=== PATIENT | female | born 1945 | race Hispanic/Latino ===

== ENCOUNTER → 2019-03-11 16:17 | Outpatient (CLI) | payer MEDICARE, SELFPAY ==
--- NOTE | 2019-03-11 16:24 | US_ITS ---
STUDY: ULTRASOUND OF THE FEMALE PELVIS - COMPLETE REASON FOR EXAM: Female, 73 years old. Left lower quadrant pain. LMP: Postmenopausal. TECHNIQUE: Transabdominal. TECHNICAL QUALITY: Adequate. COMPARISON: None. FINDINGS: The uterus is anteverted and is in a midline position. The uterus measures 5.7 x 4.9 x 2.1 cm. Normal uterine cervix. The endometrium measures 1.7 mm in thickness, and is mildly hyperechoic.. There is no demonstrated endometrial mass. There is no demonstrated myometrial mass. I.U.D. - The patient does not have an I.U.D. The right ovary is visualized. The right ovary measures 4.8 x 3.8 x 2.9 cm and is near completely replaced with a 3.6 x 3.1 x 2.8 cm anechoic avascular focus. There is no visualized right adnexal mass or complex lesion. There is appropriate dopplerable vascular flow to the right ovary. The left ovary is non-visualized.. There is no fluid in the cul-de-sac. Regions of the urinary bladder included within the [id number] demonstrate unremarkable morphology and signal characteristics. US/Pelvic (Non ) IMPRESSION: Unremarkable appearing uterus and endometrial stripe by transabdominal exam. Technically limited examination as the left ovary is nonvisualized. Right ovary near completely replaced with a 3.6 cm maximum dimension cystic focus. As this focus exceeds 2.5 cm, follow-up is highly recommended. Alternatively pelvic MRI at this time for better characterization may be helpful. No fluid in the cul-de-sac. Electronically Signed: Tal Ordonez MD at 16:54 EDT , Service support ,
== END ==
DX: R10.32 Left lower quadrant pain (principal)
CPT/HCPCS: 76856

== ENCOUNTER → 2019-04-03 14:38 | Outpatient (CLI) | payer MEDICARE, SELFPAY ==
[2019-04-04 10:27] LABS: Cancer Antigen 125 10.5 U/mL (0.0-38.1)
== END ==
PROVIDERS: Visit Provider Obstetrics & Gynecology
DX: D39.11 Neoplasm of uncertain behavior of right ovary (principal); R10.2 Pelvic and perineal pain
CPT/HCPCS: 36415; 86304

== ENCOUNTER → 2019-05-13 16:07 | Outpatient (CLI) | payer MEDICARE, SELFPAY ==
[2019-05-16 12:07] LABS: Cancer Antigen 125 10.3 U/mL (0.0-38.1)
== END ==
PROVIDERS: Visit Provider Obstetrics & Gynecology
DX: D39.11 Neoplasm of uncertain behavior of right ovary (principal)
CPT/HCPCS: 36415; 86304

== ENCOUNTER → 2019-11-21 08:07 | Outpatient (CLI) | payer MEDICARE, SELFPAY ==
[2019-11-21 08:48] LABS: Absolute Lymphocyte Count 2.94 X10^3/uL (0.83-4.51); Absolute Neutrophil Count 4.5 X10^3/uL (2.0-7.7); Basophil# 0.05 X10^3/uL; Basophil% 0.6 % (0-1); Eosinophil# 0.58 X10^3/uL; Eosinophils% 6.6 % (0-5); Hematocrit 38.6 % (37-47); Hemoglobin 12.5 g/dL (12.0-15.0); Lymphocyte # 2.94 X10^3/ul (4.0); Lymphocyte % 33.5 % (19-41); Mean Corp Hgb Conc 32.4 g/dL (32-36); Mean Corpuscular Volume 89.6 fL (81-99); Mean Platelet Vol. 8.4 fl (6.2-12.0); Monocyte# 0.72 X10^3/uL; Monocyte% 8.2 % (0-10); NRBC Flagged by Analyzer 0 % (0-5); Neutrophil # 4.45 X10^3/uL (2.7-7.7); Neutrophil % 50.8 % (47-70); Platelet Count 296 K/mm3 (150-450); RBC Distribution Width CV 13.7 % (11.6-14.6); RBC Distribution Width SD 45.1 fl (35.1-43.9); Red Blood Count 4.31 M/mm3 (4.2-5.4); White Blood Count 8.8 K/mm3 (4.4-11.0)
[2019-11-21 09:26] LABS: Vitamin D,25 Hydroxy 46.1 ng/mL (29.95-100.01)
[2019-11-21 09:32] LABS: ALB/GLOB Ratio 0.9 RATIO (0.9-2.4); AST(SGOT) 20 U/L (15-37); Alanine Aminotransfer ALT/SGPT 25 U/L (13-56); Albumin, Serum 3.6 g/dL (3.2-5.0); Alkaline Phosphatase 78 U/L (45-117); Anion Gap 4 (5-15); BUN 17 mg/dL (7-18); BUN/Creat Ratio 27.4 RATIO (10-20); Calcium,Total 9.3 mg/dL (8.5-10.1); Chloride 106 mmol/L (98-107); Cholesterol 233 mg/dL (200); Creatinine, Serum 0.62 mg/dL (0.55-1.02); EST Glomerular Filtration Rate 100 mL/min (>60); Est Glom Filt Rate - Afr Amer 121 mL/min (>60); Globulin 4.1 g/dL (2.2-4.2); Glucose 103 mg/dL (74-106); High Density Lipoprotein 75 mg/dL; Potassium 4.8 mmol/L (3.5-5.1); Protein, Total 7.7 g/dL (6.4-8.2); Sodium Level 138 mmol/L (136-145); Thyroid Stim Hormone (TSH) 1.06 uIU/mL (0.358-3.74); Triglycerides 277 mg/dL; Very Low Density Lipoprotein 55 mg/dL (5-40)
== END ==
DX: E55.9 Vitamin D deficiency, unspecified (principal); E78.5 Hyperlipidemia, unspecified; I10 Essential (primary) hypertension; E03.9 Hypothyroidism, unspecified
CPT/HCPCS: 36415; 80053; 80061; 82306; 84443; 85025

== ENCOUNTER → 2019-11-26 16:23 | Outpatient (CLI) | payer MEDICARE, SELFPAY ==
--- NOTE | 2019-11-26 16:25 | BI_ITS ---
MAMMOGRAPHY - BILATERAL SCREENING REASON FOR EXAM: Female, 74 years old. Routine annual screening examination. PERTINENT HISTORY: Sister with breast cancer. TECHNIQUE: Digital bilateral breast pop (3D mammographic acquisition) in the CC and MLO projections. 2-D mediolateral oblique (MLO) and craniocaudad (CC) views of both breasts were obtained. CAD: Full Field Digital Mammography with Computer Added Detection was performed. COMPARISON: Comparison is made with prior outside examination dated December 11, 2017. FINDINGS: Breast Composition: There are scattered areas of fibroglandular density. There are no dominant masses or suspicious calcifications. Once again, there is asymmetry of breast tissue were more breast tissue is seen in the upper outer quadrant of the right breast as compared to the left side. This is unchanged. No other significant abnormalities are identified. There has been no significant change since the prior study. BI/SCREEN MAMM (CAD) W/POP BILAT IMPRESSION: Stable bilateral screening mammogram. Yearly follow-up mammogram recommended. (A) ASSESSMENT CATEGORY: BIRADS Category 2: Benign. A letter regarding these results will be sent to the patient by the facility within 30 days. Approximately 10% of breast cancers are not detected by mammography. A normal mammogram should not delay biopsy of a clinically suspicious abnormality. [id number] Electronically Signed: Keaton Christopher, at 10:49 EST , Service support ,
== END ==
DX: Z12.31 Encounter for screening mammogram for malignant neoplasm of breast (principal)
CPT/HCPCS: 77063; 77067

== ENCOUNTER → 2020-06-29 09:09 | Outpatient (CLI) | payer MEDICARE, SELFPAY ==
[2020-06-29 12:25] LABS: Absolute Lymphocyte Count 2.64 X10^3/uL (0.83-4.51); Absolute Neutrophil Count 4.6 X10^3/uL (2.0-7.7); Basophil# 0.03 X10^3/uL; Basophil% 0.4 % (0-1); Eosinophil# 0.32 X10^3/uL; Eosinophils% 3.8 % (0-5); Hematocrit 38.7 % (37-47); Hemoglobin 12.5 g/dL (12.0-15.0); Lymphocyte # 2.64 X10^3/ul (4.0); Lymphocyte % 31.5 % (19-41); Mean Corp Hgb Conc 32.3 g/dL (32-36); Mean Corpuscular Hgb 28.8 pg (27.0-32.0); Mean Corpuscular Volume 89.2 fL (81-99); Mean Platelet Vol. 8.9 fl (6.2-12.0); Monocyte# 0.76 X10^3/uL; Monocyte% 9.1 % (0-10); NRBC Flagged by Analyzer 0 % (0-5); Neutrophil # 4.59 X10^3/uL (2.7-7.7); Neutrophil % 54.6 % (47-70); Platelet Count 337 K/mm3 (150-450); RBC Distribution Width CV 13.1 % (11.6-14.6); RBC Distribution Width SD 42.9 fl (35.1-43.9); Red Blood Count 4.34 M/mm3 (4.2-5.4); White Blood Count 8.4 K/mm3 (4.4-11.0)
[2020-06-29 12:39] LABS: Vitamin D,25 Hydroxy 67.8 ng/mL
[2020-06-29 13:20] LABS: ALB/GLOB Ratio 0.9 RATIO (0.9-2.4); AST(SGOT) 22 U/L (15-37); Alanine Aminotransfer ALT/SGPT 27 U/L (13-56); Albumin, Serum 3.9 g/dL (3.2-5.0); Alkaline Phosphatase 76 U/L (45-117); Anion Gap 10 (5-15); BUN 18 mg/dL (7-18); BUN/Creat Ratio 25.8 RATIO (10-20); Calcium,Total 9.2 mg/dL (8.5-10.1); Chloride 104 mmol/L (98-107); Cholesterol 245 mg/dL (200); EST Glomerular Filtration Rate 87 mL/min (>60); Est Glom Filt Rate - Afr Amer 106 mL/min (>60); Globulin 4.4 g/dL (2.2-4.2); Glucose 99 mg/dL (74-106); High Density Lipoprotein 76 mg/dL; Magnesium 2.1 mg/dL (1.6-2.6); Potassium 4.1 mmol/L (3.5-5.1); Protein, Total 8.3 g/dL (6.4-8.2); Sodium Level 136 mmol/L (136-145); Thyroid Stim Hormone (TSH) 0.23 uIU/mL (0.358-3.74); Triglycerides 159 mg/dL; Very Low Density Lipoprotein 32 mg/dL (5-40)
== END ==
PROVIDERS: PCP Family Medicine; Visit Provider Family Medicine
DX: I10 Essential (primary) hypertension (principal); E78.5 Hyperlipidemia, unspecified; E03.9 Hypothyroidism, unspecified; M85.80 Other specified disorders of bone density and structure, unspecified site
CPT/HCPCS: 36415; 80053; 80061; 82306; 83735; 84443; 85025

== ENCOUNTER → 2020-08-31 10:21 | Outpatient (CLI) | payer MEDICARE, SELFPAY ==
[2020-08-31 13:26] LABS: Free T3 1.9 pg/mL (2.18-3.98); T4 Free Direct 1.07 ng/dL (0.76-1.46); Thyroid Stim Hormone (TSH) 4.07 uIU/mL (0.358-3.74)
== END ==
PROVIDERS: PCP Family Medicine; Visit Provider Family Medicine
DX: E03.9 Hypothyroidism, unspecified (principal)
CPT/HCPCS: 36415; 84439; 84443; 84481

== ENCOUNTER → 2020-09-03 12:41 | Outpatient (CLI) | payer MEDICARE, MEDICAID, SELFPAY ==
--- NOTE | 2020-09-03 12:46 | RAD_ITS ---
STUDY: X-RAY - RIGHT KNEE REASON FOR EXAM: Female, 75 years old. PAIN FOR 1 YEAR -- NO INJURY TECHNIQUE: 3 view(s) of the knee. COMPARISON: None. FINDINGS: Normal visualized distal femur. Normal visualized proximal tibia and fibula. Normal proximal tibiofibular articulation. There is mild degenerative arthrosis of the medial femorotibial compartment. There is a small density in the lateral compartment that could represent a meniscal ossicle. Small osseous densities lateral to the lateral tibial plateau may be sequela of previous injury or accessory ossicles. There is moderate degenerative arthrosis of the patellofemoral articulation. The soft tissue structures are unremarkable. RAD/Knee 4 or More Views IMPRESSION: 1. Mild degenerative changes. No sizable joint effusion. Electronically Signed: Kenneth Child MD ([place]) at 8:50 EDT , Service support ,
== END ==
PROVIDERS: PCP Family Medicine; Referring Provider Family Medicine; Visit Provider Family Medicine
DX: M25.561 Pain in right knee (principal)
CPT/HCPCS: 73564

== ENCOUNTER → 2020-12-21 17:00 | Outpatient (CLI) | payer MEDICARE, MEDICAID, SELFPAY ==
--- NOTE | 2020-12-21 17:00 | BI_ITS ---
MAMMOGRAPHY - BILATERAL SCREENING REASON FOR EXAM: Female, 75 years old. Routine annual screening examination. PERTINENT HISTORY: Sister with breast cancer. TECHNIQUE: Digital bilateral breast pop (3D mammographic acquisition) in the CC and MLO projections. 2-D mediolateral oblique (MLO) and craniocaudad (CC) views of both breasts were obtained. CAD: Full Field Digital Mammography with Computer Added Detection was performed. COMPARISON: Comparison is made with prior study dated 11/26/2019. FINDINGS: Breast Composition: There are scattered areas of fibroglandular density. There are no dominant masses or suspicious calcifications. Stable asymmetry of breast tissue where more breast tissue is seen in the upper outer quadrant of the right breast as compared to the left side. Stable benign-appearing bilateral axillary lymph nodes. No other significant abnormalities are identified. There has been no significant change since the prior study. BI/SCRN MAMM (CAD)W/POP BILAT IMPRESSION: Stable bilateral screening mammogram. Yearly follow-up mammogram recommended. (A) ASSESSMENT CATEGORY: BIRADS Category 2: Benign. A letter regarding these results will be sent to the patient by the facility within 30 days. Approximately 10% of breast cancers are not detected by mammography. A normal mammogram should not delay biopsy of a clinically suspicious abnormality. [id number] Electronically Signed: Keaton Christopher MD at 8:46 EST , Service support ,
== END ==
PROVIDERS: PCP Family Medicine; Referring Provider Family Medicine; Visit Provider Family Medicine
DX: Z12.31 Encounter for screening mammogram for malignant neoplasm of breast (principal); Z80.3 Family history of malignant neoplasm of breast
CPT/HCPCS: 77063; 77067

== ENCOUNTER 2021-01-17 12:41 | Outpatient (RCR) | payer MEDICARE, SELFPAY | END 2021-01-17 23:59 | LOC: IMMUN 12:41 | PROVIDERS: PCP Family Medicine; Visit Provider Family Medicine | DX: Z23 Encounter for immunization (principal) | CPT/HCPCS: 0011A; 0012A ==

== ENCOUNTER → 2021-03-04 15:25 | Outpatient (CLI) | payer MEDICARE, SELFPAY ==
[2021-03-04 17:54] LABS: Anion Gap 4 (5-15); BUN 12 mg/dL (7-18); BUN/Creat Ratio 20.4 RATIO (10-20); Calcium,Total 9.3 mg/dL (8.5-10.1); Chloride 105 mmol/L (98-107); Creatinine, Serum 0.59 mg/dL (0.55-1.02); EST Glomerular Filtration Rate 106 mL/min (>60); Est Glom Filt Rate - Afr Amer 129 mL/min (>60); Glucose 81 mg/dL (74-106); Sodium Level 138 mmol/L (136-145)
== END ==
PROVIDERS: PCP Family Medicine; Visit Provider Family Medicine
DX: E87.5 Hyperkalemia (principal)
CPT/HCPCS: 36415; 80048

== ENCOUNTER → 2021-03-10 14:04 | Outpatient (CLI) | payer MEDICARE, MEDICAID, SELFPAY ==
--- NOTE | 2021-03-10 14:06 | US_ITS ---
STUDY: ULTRASOUND OF THE FEMALE PELVIS - COMPLETE REASON FOR EXAM: Female, 75 years old. LLQ PAIN TECHNIQUE: Endovaginal TECHNICAL QUALITY: Adequate. COMPARISON: None. FINDINGS: The uterus is retroverted and is in a midline position. The uterus measures 5.6 x 4.0 x 2.0 cm. Normal uterine cervix. The endometrium measures 2.6 mm in thickness, and is hyperechoic. There is no demonstrated endometrial mass. There is a lower uterine by millimeter probable fibroid.. I.U.D. - The patient does not have an I.U.D. The right ovary is visualized. The right ovary measures 4.4 x 3.9 x 2.9 cm. There is a 4 x 3.3 x 2.6 cm right adnexal cystic lesion. There is normal arterial and normal venous vascularity. The left ovary is visualized. The left ovary measures 2.3 x 2.3 x 1.1 cm. There is no left ovarian cyst or ovarian mass. There is no visualized left adnexal mass or complex lesion. There is normal arterial and normal venous vascularity. There is no fluid in the cul-de-sac. US/Pelvic (Non ) IMPRESSION: Retroverted uterus with small lower uterine fibroid. Right adnexal cystic lesion. Electronically Signed: Leonard Govea DO at 16:31 EDT Tel [phone], Service support ,
--- NOTE | 2021-03-10 14:55 | US_ITS ---
STUDY: ULTRASOUND OF THE FEMALE PELVIS - COMPLETE REASON FOR EXAM: Female, 75 years old. LLQ PAIN TECHNIQUE: Endovaginal TECHNICAL QUALITY: Adequate. COMPARISON: None. FINDINGS: The uterus is retroverted and is in a midline position. The uterus measures 5.6 x 4.0 x 2.0 cm. Normal uterine cervix. The endometrium measures 2.6 mm in thickness, and is hyperechoic. There is no demonstrated endometrial mass. There is a lower uterine by millimeter probable fibroid.. I.U.D. - The patient does not have an I.U.D. The right ovary is visualized. The right ovary measures 4.4 x 3.9 x 2.9 cm. There is a 4 x 3.3 x 2.6 cm right adnexal cystic lesion. There is normal arterial and normal venous vascularity. The left ovary is visualized. The left ovary measures 2.3 x 2.3 x 1.1 cm. There is no left ovarian cyst or ovarian mass. There is no visualized left adnexal mass or complex lesion. There is normal arterial and normal venous vascularity. There is no fluid in the cul-de-sac. US/Transvaginal Non- IMPRESSION: Retroverted uterus with small lower uterine fibroid. Right adnexal cystic lesion. Electronically Signed: Leonard Govea DO at 16:31 EDT Tel [phone], Service support ,
== END ==
PROVIDERS: PCP Family Medicine; Referring Provider Family Medicine; Visit Provider Family Medicine
DX: R10.32 Left lower quadrant pain (principal)
CPT/HCPCS: 76830; 76856

== ENCOUNTER → 2021-10-05 08:34 | Outpatient (CLI) | payer MEDICARE, MEDICAID, SELFPAY ==
[2021-10-05 12:37] LABS: Absolute Lymphocyte Count 2.37 X10^3/uL (0.83-4.51); Absolute Neutrophil Count 4.4 X10^3/uL (2.0-7.7); Basophil# 0.04 X10^3/uL; Basophil% 0.5 % (0-1); Eosinophil# 0.34 X10^3/uL; Eosinophils% 4.4 % (0-5); Hematocrit 38.1 % (37-47); Hemoglobin 12.5 g/dL (12.0-15.0); Lymphocyte # 2.37 X10^3/ul (0.83-4.51); Lymphocyte % 30.5 % (19-41); Mean Corp Hgb Conc 32.8 g/dL (32-36); Mean Corpuscular Hgb 29.1 pg (27.0-32.0); Mean Corpuscular Volume 88.6 fL (81-99); Mean Platelet Vol. 8.7 fl (6.2-12.0); Monocyte# 0.61 X10^3/uL; Monocyte% 7.8 % (0-10); NRBC Flagged by Analyzer 0 % (0-5); Neutrophil # 4.39 X10^3/uL (2.7-7.7); Neutrophil % 56.4 % (47-70); Platelet Count 359 K/mm3 (150-450); RBC Distribution Width CV 13.4 % (11.6-14.6); RBC Distribution Width SD 43.8 fl (35.1-43.9); White Blood Count 7.8 K/mm3 (4.4-11.0)
[2021-10-05 13:10] LABS: ALB/GLOB Ratio 0.8 RATIO (0.9-2.4); AST(SGOT) 19 U/L (15-37); Alanine Aminotransfer ALT/SGPT 25 U/L (13-56); Albumin, Serum 3.4 g/dL (3.2-5.0); Alkaline Phosphatase 87 U/L (45-117); Anion Gap 6 (5-15); BUN 15 mg/dL (7-18); BUN/Creat Ratio 26.1 RATIO (10-20); Calcium,Total 9.4 mg/dL (8.5-10.1); Chloride 105 mmol/L (98-107); Cholesterol 301 mg/dL (200); Creatinine, Serum 0.57 mg/dL (0.55-1.02); EST Glomerular Filtration Rate 109 mL/min (>60); Est Glom Filt Rate - Afr Amer 132 mL/min (>60); Free T3 2.3 pg/mL (2.18-3.98); Globulin 4.1 g/dL (2.2-4.2); Glucose 99 mg/dL (74-106); High Density Lipoprotein 77 mg/dL; Magnesium 2.1 mg/dL (1.6-2.6); Potassium 4.6 mmol/L (3.5-5.1); Protein, Total 7.5 g/dL (6.4-8.2); Sodium Level 136 mmol/L (136-145); T4 Free Direct 1.06 ng/dL (0.76-1.46); Thyroid Stim Hormone (TSH) 0.35 uIU/mL (0.358-3.74); Triglycerides 123 mg/dL; Very Low Density Lipoprotein 25 mg/dL (5-40)
[2021-10-05 14:52] LABS: Vitamin D,25 Hydroxy 51.1 ng/mL
== END ==
PROVIDERS: PCP Internal Medicine; Referring Provider Internal Medicine; Visit Provider Internal Medicine
DX: E03.9 Hypothyroidism, unspecified (principal); M19.90 Unspecified osteoarthritis, unspecified site; E78.5 Hyperlipidemia, unspecified; E55.9 Vitamin D deficiency, unspecified
CPT/HCPCS: 36415; 80053; 80061; 82306; 83735; 84439; 84443; 84481; 85025

== ENCOUNTER 2022-01-12 20:03 | Observation (INO) | payer MEDICARE, MEDICAID, SELFPAY ==
[2022-01-12 20:03] VITALS: BP 176/74; PULSE 77; RESP 16; TEMP 36.7; O2SAT 98; BMI 23.6
--- NOTE | 2022-01-12 20:23 | EKG12_ITS ---
Test Reason : CP Blood Pressure : / mmHG Vent. Rate : 075 BPM Atrial Rate : 075 BPM P-R Int : 178 ms QRS Dur : 124 ms QT Int : 374 ms P-R-T Axes : 043 063 011 degrees QTc Int : 417 ms Normal sinus rhythm Right bundle branch block Abnormal ECG Confirmed by EMANI TEJADA, BEN ([id number]), newspaper editor CORONA TYLER ([id number]) on 01/16/2022 11:38:35 AM Referred By: SHAW Confirmed By:BEN JOAQUIN MD
--- NOTE | 2022-01-12 20:24 | ED.VIS.CHEST ---
HPI <HARINDER Haas - Last Filed: 01/12/22 21:13> History of Present Illness Chief Complaint: Chest Pain Narrative Narrative: 76-year-old female with PMH of hypothyroidism, hyperlipidemia, essential tremor presents with chest pain. 3 days ago she developed aching pain in her left upper back. Then today this morning she also developed left sided chest pressure. It comes and goes throughout the day and lasts about 10 minutes. It is not exertional. It is worse with taking a deep breath. She has no shortness of breath or dyspnea on exertion. No nausea, vomiting, or diaphoresis. No fever or cough. No leg pain or swelling. No history of DVT/PE or risk factors. She has no cardiopulmonary history. Never smoker. PFSH <HARINDER Haas - Last Filed: 01/12/22 21:13> PFS Medical History Arthritis History of fracture History of hemorrhoids Hyperlipemia Hypothyroidism Osteopenia Tremor Vitamin D deficiency Home Medications aspirin 81 mg tablet,delayed release 81 mg PO DAILY 09/30/21 [History Last Taken Unknown] cholecalciferol (vitamin D3) 1,250 mcg (50,000 unit) capsule 50,000 mcg PO .[id number] cap 09/30/21 [History Last Taken Unknown] omega-3 acid ethyl esters 1 gram capsule 0.5 g PO DAILY 09/30/21 [History Last Taken Unknown] atorvastatin 10 mg tablet 10 mg PO QHS #90 tab 10/11/21 [Rx Last Taken Unknown] calcium carbonate 600 mg-vitamin D3 12.5 mcg (500 unit) capsule 1 cap PO BID cap 11/02/21 [History Last Taken Unknown] levothyroxine 75 mcg tablet 75 mcg PO DAILY 11/02/21 [History Last Taken Unknown] multivitamin with minerals 1 tab PO BID tab 11/02/21 [History Last Taken Unknown] primidone 50 mg tablet 100 mg PO QHS tab 11/02/21 [History Last Taken Unknown] Allergy/AdvReac Type Severity Reaction Status Date / Time No Known Allergies Allergy Verified 01/12/22 20:06 Family History Other Alcoholism Anemia Breast cancer Cancer Depression Diabetes Osteoporosis Parkinson disease Thyroid disorder Surgical History History of tubal ligation Social History Smoking Status: Never smoker ROS <HARINDER Haas - Last Filed: 01/12/22 21:13> ROS ED ROS Narrative Constitutional: Negative for fever, chills, malaise. Eyes: Negative for visual change. ENT: Negative for sore throat, ear pain, rhinorrhea. CVS: Positive for chest pain. Negative for palpitations, syncope. Respiratory: Negative for shortness of breath, cough, orthopnea. GI: Negative for abdominal pain, nausea, vomiting, diarrhea, constipation, melena, hematochezia. : Negative for dysuria, hematuria or frequency. Neuro: Negative for headache, motor/sensory dysfunction. Skin: Negative for rash, abscess, or wound. Musc: Negative for joint pain, swelling, trauma. Heme: Negative for easy bruising, bleeding, lymphadenopathy. EXAM <HARINDER Haas - Last Filed: 01/12/22 21:13> Physical Exam Narrative Exam Narrative: CONST: Patient sitting in no acute distress. EYES: Normal inspection. ENT: Normal inspection, moist mucous membranes. NECK: Normal inspection. RESP: No respiratory distress, CTAB. Chest wall nontender. CVS: Regular rate and rhythm, no murmur, no gallop. ABD: Soft and nontender, no guarding or rebound, nondistended, no hepatosplenomegaly. Back: Normal inspection, no midline spinal tenderness, no step off or crepitus. Reproducible tenderness over left trapezius. SKIN: Color normal, no rash, warm, dry, intact. EXTREMITIES: Normal appearance, no pedal edema. No calf tenderness. NEURO: Oriented x4. PSYCH: Normal affect. Const Vital Signs: 01/12/22 20:03 01/12/22 20:25 01/12/22 20:36 Temperature 98.1 F Temperature Source Temporal Pulse Rate 77 Respiratory Rate 16 Respiratory Effort Normal Non-Labored Respiratory Pattern Normal Blood Pressure 176/74 H Blood Pressure Mean 108 Pulse Ox 98 Oxygen Delivery Method Room Air Room Air 01/12/22 21:03 Temperature Temperature Source Pulse Rate 66 Respiratory Rate 21 H Respiratory Effort Respiratory Pattern Blood Pressure 144/65 H Blood Pressure Mean 91 Pulse Ox 95 Oxygen Delivery Method Room Air <Dr. Parminder Alvarenga MD - Last Filed: 01/12/22 21:30> Physical Exam Const Vital Signs: 01/12/22 20:03 01/12/22 20:25 01/12/22 20:36 Temperature 98.1 F Temperature Source Temporal Pulse Rate 77 Respiratory Rate 16 Respiratory Effort Normal Non-Labored Respiratory Pattern Normal Blood Pressure 176/74 H Blood Pressure Mean 108 Pulse Ox 98 Oxygen Delivery Method Room Air Room Air 01/12/22 21:03 Temperature Temperature Source Pulse Rate 66 Respiratory Rate 21 H Respiratory Effort Respiratory Pattern Blood Pressure 144/65 H Blood Pressure Mean 91 Pulse Ox 95 Oxygen Delivery Method Room Air <HARINDER Haas - Last Filed: 01/12/22 21:13> Heart Score History: Moderately Suspicious ECG: Normal Age: >/= 65 years Risk Factors: 1 or 2 Risk Factors Troponin: </= Normal Limit Score: 4 MDM <HARINDER Haas - Last Filed: 01/12/22 21:13> [facility] MDM Narrative Medical decision making narrative: Patient presents with left-sided chest pressure and back pain. She has no pain presently. She appears well and nontoxic. She was slightly hypertensive in 170s/70s, otherwise normal vital signs. On exam her heart is regular with no murmurs, lungs clear to auscultation, abdomen soft and nontender. There is no lower extremity edema. She does have reproducible tenderness over the left back musculature but no tenderness of the chest wall. No overlying skin changes. EKG is normal sinus rhythm with RBBB and no acute ischemia. There is no previous for comparison. Basic labs are unremarkable. Initial troponin is 6. Her heart score is 4. She has never had a stress test or cardiac work-up. Although chest pain is atypical with her age and EKG with RBBB she should be admitted for chest pain rule out. Case was discussed with the hospitalist. Diagnosis 1. Chest pain Lab Data Labs: Laboratory Results - last 24 hr 01/12/22 01/12/22 20:25 20:25 WBC 9.9 RBC 4.21 Hgb 12.9 Hct 37.4 MCV 88.8 MCH 30.6 MCHC 34.5 RDW Std Deviation 45.1 H RDW Coeff of Amber 13.9 Plt Count 330 MPV 8.2 Immature Gran % (Auto) 0.400 Neut % (Auto) 62.7 Lymph % (Auto) 23.7 [place] % (Auto) 10.3 H Eos % (Auto) 2.5 Baso % (Auto) 0.4 Absolute Neuts (auto) 6.2 Absolute Lymphs (auto) 2.34 Nucleated RBC % 0 Sodium 137 Potassium 3.3 L Chloride 105 Carbon Dioxide 27.0 Anion Gap 5 BUN 14 Creatinine 0.63 Estim Creat Clear Calc 37.24 Est GFR (MDRD) Af Amer 118 Est GFR (MDRD) Non-Af 97 BUN/Creatinine Ratio 22.1 H Glucose 113 H Calcium 9.5 Troponin I High Sens 6 EKG Initial EKG: Attestation: I personally reviewed and interpreted this EKG as follows: Interpretation: Sinus Rhythm and RBBB Comments: NSR, right bundle branch block, no ST changes. Prior: No Prior <Dr. Parminder Alvarenga MD - Last Filed: 01/12/22 21:30> MDM MDM Narrative Medical decision making narrative: Seen and evaluated independently and in conjunction with physician care assistant. Agree with notes above unless documented otherwise. Gen; Well-appearing, NAD Card: RRR no murmurs, no tachycardia Ext: no edema or calf tenderness BLE Patient well-appearing, concerning atypical symptoms in a patient who has an abnormal EKG and no old 1 to compare to and has never had a stress test. She does have some risk mostly related to her age and medical history, no current evidence of acute myocardial damage. Plan for admission to observation to rule out ACS. Lab Data Attestation: I reviewed the patient's lab results. Labs: Laboratory Results - last 24 hr 01/12/22 01/12/22 20:25 20:25 WBC 9.9 RBC 4.21 Hgb 12.9 Hct 37.4 MCV 88.8 MCH 30.6 MCHC 34.5 RDW Std Deviation 45.1 H RDW Coeff of Amber 13.9 Plt Count 330 MPV 8.2 Immature Gran % (Auto) 0.400 Neut % (Auto) 62.7 Lymph % (Auto) 23.7 [place] % (Auto) 10.3 H Eos % (Auto) 2.5 Baso % (Auto) 0.4 Absolute Neuts (auto) 6.2 Absolute Lymphs (auto) 2.34 Nucleated RBC % 0 Sodium 137 Potassium 3.3 L Chloride 105 Carbon Dioxide 27.0 Anion Gap 5 BUN 14 Creatinine 0.63 Estim Creat Clear Calc 37.24 Est GFR (MDRD) Af Amer 118 Est GFR (MDRD) Non-Af 97 BUN/Creatinine Ratio 22.1 H Glucose 113 H Calcium 9.5 Troponin I High Sens 6 Discharge Plan Triage Chief Complaint: Chest Pain ED Provider: Rhea Monroe Dx/Rx/DC Orders Clinical Impression: Chest pain, unspecified Prescriptions: No Action cholecalciferol (vitamin D3) 1,250 mcg (50,000 unit) capsule 50,000 mcg PO .[id number] RF: 0 aspirin 81 mg tablet,delayed release (DR/EC) 81 mg PO DAILY RF: 0 omega-3 acid ethyl esters 1 gram capsule 0.5 g PO DAILY RF: 0 levothyroxine 75 mcg tablet 75 mcg PO DAILY RF: 0 primidone 50 mg tablet 100 mg PO QHS RF: 0 calcium carbonate-vitamin D3 [Calcium 600 with Vitamin D3] 600 mg(1,500mg) -500 unit capsule 1 cap PO BID RF: 0 multivitamin with minerals [Hair,Skin and Nails] Tablet 1 tab PO BID RF: 0 atorvastatin 10 mg tablet 10 mg PO QHS Qty: 90 RF: 3 Primary Care Provider: Genet Head Referrals: Genet Head MD [Primary Care Provider] - Disposition Disposition: Acute Care Hospital [facility]
[2022-01-12 20:38] LABS: Absolute Lymphocyte Count 2.34 X10^3/uL (0.83-4.51); Absolute Neutrophil Count 6.2 X10^3/uL (2.0-7.7); Basophil# 0.04 X10^3/uL; Basophil% 0.4 % (0-1); Eosinophil# 0.25 X10^3/uL; Eosinophils% 2.5 % (0-5); Hematocrit 37.4 % (37-47); Hemoglobin 12.9 g/dL (12.0-15.0); Lymphocyte # 2.34 X10^3/ul (0.83-4.51); Lymphocyte % 23.7 % (19-41); Mean Corp Hgb Conc 34.5 g/dL (32-36); Mean Corpuscular Hgb 30.6 pg (27.0-32.0); Mean Corpuscular Volume 88.8 fL (81-99); Mean Platelet Vol. 8.2 fl (6.2-12.0); Monocyte# 1.02 X10^3/uL; Monocyte% 10.3 % (0-10); NRBC Flagged by Analyzer 0 % (0-5); Neutrophil # 6.17 X10^3/uL (2.7-7.7); Neutrophil % 62.7 % (47-70); Platelet Count 330 K/mm3 (150-450); RBC Distribution Width CV 13.9 % (11.6-14.6); RBC Distribution Width SD 45.1 fl (35.1-43.9); Red Blood Count 4.21 M/mm3 (4.2-5.4); White Blood Count 9.9 K/mm3 (4.4-11.0)
[2022-01-12] MEDS: Aspirin 81 MG TAB.CHEW 324 MG PO (20:39)
--- NOTE | 2022-01-12 20:44 | RAD_ITS ---
INDICATION: chest pain EXAMINATION/TECHNIQUE: X-RAY - XR Chest 1 View COMPARISON: None. FINDINGS: The lungs are clear. The cardiomediastinal silhouette is unremarkable. No pleural effusion or pneumothorax. No acute osseous abnormalities. RAD/Chest 1 View (Portable) IMPRESSION: No acute radiographic abnormalities. Electronically Signed: Steve Dela Cruz MD at 21:33 EST ,
[2022-01-12 20:56] LABS: Anion Gap 5 (5-15); BUN 14 mg/dL (7-18); BUN/Creat Ratio 22.1 RATIO (10-20); Calcium,Total 9.5 mg/dL (8.5-10.1); Chloride 105 mmol/L (98-107); Creatinine, Serum 0.63 mg/dL (0.55-1.02); EST Glomerular Filtration Rate 97 mL/min (>60); Est Glom Filt Rate - Afr Amer 118 mL/min (>60); Estimated Creatinine Clearance 37.24 ml/min; Glucose 113 mg/dL (74-106); Potassium 3.3 mmol/L (3.5-5.1); Sodium Level 137 mmol/L (136-145); Troponin-I HS 6 pg/mL (3.0-54.0)
[2022-01-12 21:03] VITALS: BP 144/65; PULSE 66; RESP 21; O2SAT 95
[2022-01-12 21:33] VITALS: BP 144/65; PULSE 66; RESP 18; TEMP 36.6; O2SAT 98
--- NOTE | 2022-01-12 21:33 | PCM.HP.STD ---
HPI - General General Date of Admission: 01/12/22 HPI Narrative AAN ESCOBEDO, is a 76 F with a significant history of hypothyroidism, hyperlipidemia and tremors on primidone who presents to the emergency department with intermittent progressively worsening left-sided chest pain that started on the same day of presentation. She described the chest pain as a pinching and pressure. Her Chest pain radiates to under her left breast and into her bilateral jaws and into her left shoulder. There highest severity of her pain is about 8 out of 10. 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 The pain inconsistently improves with rest. Also she report that 3 days ago she developed pain at her left upper to left middle back. [facility] Medical History Arthritis History of fracture History of hemorrhoids Hyperlipemia Hypothyroidism Osteopenia Tremor Vitamin D deficiency Home Medications aspirin 81 mg tablet,delayed release 81 mg PO DAILY 09/30/21 [History Last Taken 01/12/22] cholecalciferol (vitamin D3) 1,250 mcg (50,000 unit) capsule 50,000 mcg PO .[id number] cap 09/30/21 [History Last Taken Unknown] omega-3 acid ethyl esters 1 gram capsule 0.5 g PO DAILY 09/30/21 [History Last Taken 01/12/22] atorvastatin 10 mg tablet 10 mg PO QHS #90 tab 10/11/21 [Rx Last Taken 01/12/22] calcium carbonate 600 mg-vitamin D3 12.5 mcg (500 unit) capsule 1 cap PO BID cap 11/02/21 [History Last Taken 01/12/22] levothyroxine 75 mcg tablet 75 mcg PO DAILY 11/02/21 [History Last Taken 01/12/22] multivitamin with minerals 1 tab PO BID tab 11/02/21 [History Last Taken 01/12/22] primidone 50 mg tablet 100 mg PO QHS tab 11/02/21 [History Last Taken 01/12/22] Allergy/AdvReac Type Severity Reaction Status Date / Time No Known Allergies Allergy Verified 01/12/22 20:06 Family History Other Alcoholism Anemia Breast cancer Cancer Depression Diabetes Osteoporosis Parkinson disease Thyroid disorder Surgical History (Updated 01/12/22 @ 22:[address] Hector Stuart MD) H/O hemorrhoidectomy History of tubal ligation Social History Smoking Status: Never smoker ROS ROS Narrative Constitutional: Denies fever, chills, fatigue, anorexia and change in weight Eyes: Denies blurry vision, change in eye color, change in vision, discharge from eye(s), double vision, erythema, eye pain, loss of vision or other HEENT: Denies abnormal hearing, dysphagia, ear pain, epistaxis, headache(s), hearing loss, nasal congestion, nasal discharge, post nasal drip, sinus pressure, sore throat or other Cardiovascular: Reports chest pain. Denies palpitations. Respiratory/Chest: Denies cough, excessive phlegm production, shortness of breath with exertion and wheezing Gastrointestinal: Denies abdominal pain, coffee ground emesis, constipation, diarrhea, dyspepsia, hematemesis, hematochezia, loose stools, melena, nausea, vomiting or other Genitourinary: Denies burning urination, difficulty urinating, dysuria, hematuria, nocturia, urinary frequency, urinary hesitancy, urinary incontinence, urinary urgency or other Musculoskeletal: Reports left upper and left middle back pain. Denies joint stiffness or joint swelling. Neurologic: Denies abnormal gait, abnormal speech, confusion, disequilibrium, dizziness, focal weakness, headache(s), numbness, paresthesias, seizure-like activity, seizures, syncope, tingling, tremor(s) or other Psychiatric: Denies anxiety, depression, homicidal ideation, suicidal ideation or other Endocrinology: Denies change in body appearance, cold intolerance, excessive sweating, heat intolerance, polydipsia, polyuria or other Hematologic/Lymphatic: Denies anemia, easy bleeding, easy bruising, lymphadenopathy or other Integumentary: Denies rashes Allergic/Immunologic: Denies rhinitis, hives, eczema, asthma or other Vital Signs Vital Signs Vital Signs: 01/12/22 20:03 01/12/22 20:25 01/12/22 20:36 Temperature 98.1 F Temperature Source Temporal Pulse Rate 77 Respiratory Rate 16 Respiratory Effort Normal Non-Labored Respiratory Pattern Normal Blood Pressure 176/74 H Blood Pressure Mean 108 Pulse Ox 98 Oxygen Delivery Method Room Air Room Air 02/24/22 21:03 Temperature Temperature Source Pulse Rate 66 Respiratory Rate 21 H Respiratory Effort Respiratory Pattern Blood Pressure 144/65 H Blood Pressure Mean 91 Pulse Ox 95 Oxygen Delivery Method Room Air Weight Weight: 56.699 kg Body Mass Index (BMI) 23.6 Physical Exam Narrative Physical exam: General: Well-nourished, well-developed. Head: Normocephalic, atraumatic, no tenderness Eyes: PERRLA, EOMI ENT, no trauma, moist mucous membranes, no rhinorrhea Neck: Nontender, full range of motion, no spinal tenderness, deformities, step-off CVS: Regular rate and rhythm. S1-S2 present. No murmur, gallop or rub. Respiratory : clear to auscultation bilaterally, chest wall nontender, no wheezing Abdomen: Soft, nontender, nondistended, normal bowel sounds, no masses : Deferred Back: Nontender, no CVA tenderness, no midline spinal tenderness, deformities, step-offs Extremities: Nontender full range of motion, no trauma Skin: Normal color, no trauma, abrasions Neuro: Alert, oriented, cranial nerves II through XII grossly intact. Psychiatry: Normal mood. Normal affect. Not depressed. Not anxious. Results Lab / Micro Data Result Diagrams: 01/12/22 20:25 01/12/22 20:25 Labs: Laboratory Results - last 24 hr 01/12/22 20:25: WBC 9.9, RBC 4.21, Hgb 12.9, Hct 37.4, MCV 88.8, MCH 30.6, MCHC 34.5, RDW Std Deviation 45.1 H, RDW Coeff of Amber 13.9, Plt Count 330, MPV 8.2, Immature Gran % (Auto) 0.400, Neut % (Auto) 62.7, Lymph % (Auto) 23.7, [place] % (Auto) 10.3 H, Eos % (Auto) 2.5, Baso % (Auto) 0.4, Absolute Neuts (auto) 6.2, Absolute Lymphs (auto) 2.34, Nucleated RBC % 0 01/12/22 20:25: Sodium 137, Potassium 3.3 L, Chloride 105, Carbon Dioxide 27.0, Anion Gap 5, BUN 14, Creatinine 0.63, Estim Creat Clear Calc 37.24, Est GFR (MDRD) Af Amer 118, Est GFR (MDRD) Non-Af 97, BUN/Creatinine Ratio 22.1 H, Glucose 113 H, Calcium 9.5, Troponin I High Sens 6 Radiology Impression Chest X-Ray 01/12/22 20:44 IMPRESSION: No acute radiographic abnormalities. Electronically Signed: Steve Dela Cruz MD at 21:33 EST , Charges/Coding Visit Charges OBSV E&M: [id number] Initial observation care L2 Assessment & Plan Assessment & Plan (1) Chest pain, unspecified: Qualifiers: Chest pain type: unspecified Qualified Code(s): R07.9 - Chest pain, unspecified Plan: Chest pain Place on a monitored bed at progressive care unit Actual CXR image was independently visualized. No acute cardiopulmonary process was noted. Actual EKG tracing was independently visualized. EKG tracing showed right bundle branch block. ASA 81 mg p.o. daily continued. Home statin continued. SL NTG 0.4 mg prn as needed for chest pain ordered Morphine as needed for pain ordered We will check lipid panel. Stat EKG as needed for chest pain. Initial high-sensitivity troponin was negative, trend. Treadmill Stress test in the AM if the cardiac enzymes are negative Hypokalemia: Review of labs showed potassium of 3.3. Replacement ordered. Trend BMP. Elevated blood pressure without diagnosis of hypertension Trend blood pressures. DVT prophylaxis ordered: SCD
[2022-01-12 22:11] VITALS: BMI 25.2
--- NOTE | 2022-01-12 22:14 | EKG12_ITS ---
Test Reason : AM EKG Blood Pressure : / mmHG Vent. Rate : 065 BPM Atrial Rate : 065 BPM P-R Int : 194 ms QRS Dur : 116 ms QT Int : 400 ms P-R-T Axes : 053 069 043 degrees QTc Int : 416 ms Normal sinus rhythm Incomplete right bundle branch block Confirmed by EMANI TEJADA, BEN ([id number]), editor sound CORONA TYLER ([id number]) on 01/16/2022 11:48:04 AM Referred By: SONAL Confirmed By:BEN JOAQUIN MD
[2022-01-12 22:18] VITALS: BP 124/61; PULSE 65; RESP 17; TEMP 36.3; O2SAT 99
[2022-01-12 22:35] VITALS: PULSE 64
[2022-01-12 22:55] VITALS: O2SAT 99
[2022-01-12] MEDS: Atorvastatin Calcium 10 MG Tablet PO (23:01)
[2022-01-12] MEDS: Primidone 50 MG Tablet 100 MG PO (23:01)
[2022-01-12] MEDS: Potassium Chloride Oral Tablet 20 MEQ 40 MEQ PO (23:01)
[2022-01-12 23:27] LABS: Troponin-I HS 9 pg/mL (3.0-54.0)
[2022-01-13 02:10] LABS: Absolute Lymphocyte Count 2.18 X10^3/uL (0.83-4.51); Absolute Neutrophil Count 5.8 X10^3/uL (2.0-7.7); Basophil# 0.04 X10^3/uL; Basophil% 0.4 % (0-1); Eosinophil# 0.31 X10^3/uL; Eosinophils% 3.3 % (0-5); Hematocrit 33.4 % (37-47); Hemoglobin 11.7 g/dL (12.0-15.0); Lymphocyte # 2.18 X10^3/ul (0.83-4.51); Lymphocyte % 23.3 % (19-41); Mean Corpuscular Hgb 30.9 pg (27.0-32.0); Mean Corpuscular Volume 88.1 fL (81-99); Mean Platelet Vol. 8.2 fl (6.2-12.0); Monocyte# 0.98 X10^3/uL; Monocyte% 10.5 % (0-10); NRBC Flagged by Analyzer 0 % (0-5); Neutrophil # 5.82 X10^3/uL (2.7-7.7); Neutrophil % 62.2 % (47-70); Platelet Count 288 K/mm3 (150-450); RBC Distribution Width CV 13.9 % (11.6-14.6); Red Blood Count 3.79 M/mm3 (4.2-5.4); White Blood Count 9.4 K/mm3 (4.4-11.0)
[2022-01-13 02:28] LABS: Troponin-I HS 10 pg/mL (3.0-54.0)
[2022-01-13 02:30] LABS: Anion Gap 5 (5-15); BUN 14 mg/dL (7-18); BUN/Creat Ratio 27.8 RATIO (10-20); Calcium,Total 8.8 mg/dL (8.5-10.1); Chloride 107 mmol/L (98-107); Cholesterol 186 mg/dL (200); EST Glomerular Filtration Rate 127 mL/min (>60); Est Glom Filt Rate - Afr Amer 154 mL/min (>60); Estimated Creatinine Clearance 41.22 ml/min; Glucose 96 mg/dL (74-106); High Density Lipoprotein 85 mg/dL; Potassium 4.5 mmol/L (3.5-5.1); Sodium Level 136 mmol/L (136-145); Triglycerides 98 mg/dL; Very Low Density Lipoprotein 20 mg/dL (5-40)
[2022-01-13 03:15] VITALS: PULSE 76
[2022-01-13] MEDS: Levothyroxine 75 MCG Tablet PO (05:31)
[2022-01-13] MEDS: Aspirin E.C. 81 MG Tablet PO (05:31)
[2022-01-13 05:52] VITALS: BP 118/46; PULSE 62; RESP 17; TEMP 36.6; O2SAT 97
--- NOTE | 2022-01-13 06:00 | EKG12_ITS ---
Test Reason : CP ADMISSION Blood Pressure : / mmHG Vent. Rate : 061 BPM Atrial Rate : 061 BPM P-R Int : 182 ms QRS Dur : 128 ms QT Int : 404 ms P-R-T Axes : 037 054 032 degrees QTc Int : 406 ms Normal sinus rhythm Right bundle branch block Abnormal ECG Confirmed by EMANI TEJADA, BEN ([id number]), manager editorial CORONA TYLER ([id number]) on 01/16/2022 11:49:08 AM Referred By: SONAL Confirmed By:BEN JOAQUIN MD
[2022-01-13 07:09] VITALS: PULSE 56
[2022-01-13 11:16] VITALS: PULSE 67
[2022-01-13] MEDS: Multivitamins,Ther W-Minerals Tablet 1 TABLET PO (11:25)
[2022-01-13] MEDS: Calcium Carb/Vitamin D 1 TABLET Tablet PO (11:25)
[2022-01-13 11:27] VITALS: BP 121/57; PULSE 68; RESP 18; TEMP 36.6; O2SAT 98
--- NOTE | 2022-01-13 14:37 | STRESSREP_ITS ---
Stress Test Report Treadmill sestamibi myocardial perfusion stress test. Indication; 76-year-old patient presented with symptoms of chest pain, history of hyperlipidemia hypothyroidism With negative cardiac biomarkers/high sensitive troponin. No known cardiac history Stress protocol: Patient exercised according to standard [place] protocol for 3 minutes and 30 seconds achieving a work level of maximum METS 5.8. The resting heart rate of 56 bpm, anupam to a maximum heart rate of 134 bpm. This value represented 91% of the maximal age-predicted heart rate. The resting blood pressure of 110/70 mmHg, anupam to a maximum blood pressure of 150/60 mmHg. The exercise test was stopped due to reaching target heart rate Patient had symptoms of dyspnea but no symptoms of chest pain. Myocardial perfusion protocol. [12 mCi ]of Technetium 99m Sestamibi was injected at rest. Following maximal stress, [34 mCi ]of Technetium 99m sestamibi was injected. Stress images were obtained stress and rest images were reconstructed and compared in the short axis vertical and horizontal long axis. Gated images were also obtained Perfusion SPECT analysis: Review of the images demonstrate normal uptake of sestamibi at rest, post stress images demonstrate similar uptake of sestamibi to the resting images, homogeneous tracer uptake With no evidence of reversible myocardial ischemia. Gated SPECT analysis: The gated ejection fraction is 93% delete that Consistent with hyperdynamic left ventricle Conclusion: Negative treadmill sestamibi myocardial perfusion study for reversible myocardial ischemia Hyperdynamic left ventricle. Edgar Cash MD,FACC,[facility]
[2022-01-13 14:59] VITALS: PULSE 63
--- NOTE | 2022-01-13 15:10 | DCINST_ITS ---
Discharge Instructions Diet Discharge Diet: No restrictions Activity Discharge Activity: Return to Normal Activity Dressing / Incision Call your doctor if you observe: Shortness of breath, Dizziness and Chest pain Follow Up Care Test Results: Test results from this visit will be discussed in further detail at your follow-up appointment, if applicable. Discharge Plan Admission Admit Date/Time: 01/12/22 21:27 Primary Reason for Your Visit: chest pain Attending Provider: Nigel Saldaña Primary Care Provider: Genet Head Discharge Orders/Prescriptions Prescriptions: Continued cholecalciferol (vitamin D3) 1,250 mcg (50,000 unit) capsule 50,000 mcg PO .[id number] RF: 0 aspirin 81 mg tablet,delayed release (DR/EC) 81 mg PO DAILY RF: 0 omega-3 acid ethyl esters 1 gram capsule 0.5 g PO DAILY RF: 0 levothyroxine 75 mcg tablet 75 mcg PO DAILY RF: 0 primidone 50 mg tablet 100 mg PO QHS RF: 0 calcium carbonate-vitamin D3 [Calcium 600 with Vitamin D3] 600 mg(1,500mg) - 500 unit capsule 1 cap PO BID RF: 0 multivitamin with minerals [Hair,Skin and Nails] Tablet 1 tab PO BID RF: 0 atorvastatin 10 mg tablet 10 mg PO QHS Qty: 90 RF: 3 Referrals / Follow Up: Genet Head MD [Primary Care Provider] - In 1 Week Disposition Disposition (needs filled in before D/C Order can be placed): Home, Self Care
--- NOTE | 2022-01-13 15:13 | PCM.DC.SUM ---
Documented by User: Sunshine Hagan NP, LICENSING DIRECTOR-C 01/13/22 15:17 Providers Date of Admission: 01/12/22 Date of Discharge: 01/13/22 Primary Care Physician: Dr. Genet Head MD Reason For Visit: CHEST PAIN Diagnosis Discharge Diagnosis (1) Chest pain, unspecified: Status: Acute Code(s): R07.9 - Chest pain, unspecified Qualifiers: Chest pain type: unspecified Qualified Code(s): R07.9 - Chest pain, unspecified Medications at Discharge Home Medications aspirin 81 mg tablet,delayed release 81 mg PO DAILY 09/30/21 cholecalciferol (vitamin D3) 1,250 mcg (50,000 unit) capsule 50,000 mcg PO .[id number] cap 09/30/21 omega-3 acid ethyl esters 1 gram capsule 0.5 g PO DAILY 09/30/21 atorvastatin 10 mg tablet 10 mg PO QHS #90 tab 10/11/21 calcium carbonate 600 mg-vitamin D3 12.5 mcg (500 unit) capsule 1 cap PO BID cap 11/02/21 levothyroxine 75 mcg tablet 75 mcg PO DAILY 11/02/21 multivitamin with minerals 1 tab PO BID tab 11/02/21 primidone 50 mg tablet 100 mg PO QHS tab 11/02/21 Hospital Course Operations None Procedures Nuclear stress test Summary of Care Provided Hospital Course: Patient is a 76-year-old female admitted 01/12/2022 due to left-sided chest pain. 1. Chest pain, ACS ruled out-troponin negative. EKG without ST-T changes. Patient underwent treadmill stress test which was negative for ischemia. Suspect musculoskeletal in nature. Follow-up with PCP in 1 week. 2. Hyperlipidemia-continue statin. 3. Hypothyroidism-continue Synthroid. 4. Essential tremor-on primidone. Patient seen and examined prior to discharge. Physical assessment as noted below. Patient is stable for discharge with follow up recommendations as noted above. This patient was seen by JESUS BonillaC under the supervision of Dr. Saldaña. Physical Exam Const alert, oriented x3 and no apparent distress Orientation / Consciousness: awake, oriented to person, oriented to place and oriented to time HEENT normocephalic and moist oral mucous membranes Eyes PERRL, EOMs intact bilaterally and conjunctivae normal Neck no lymphadenopathy Resp normal respiratory effort and clear to auscultation bilaterally Cardio regular rate, regular rhythm and no murmurs Peripheral Pulses: pulses 2+ throughout GI normal to inspection, nondistended, normoactive bowel sounds, non-tender and non-distended Extremity normal to inspection Skin no rashes or lesions noted Lesions: no lesions Rashes: no rashes Trauma: no lacerations or abrasions Neuro CN's II-XII intact bilaterally, no focal motor deficits, no sensory deficits noted and deep tendon reflexes 2+ bilaterally Psych mental status grossly normal and affect normal Weight / BMI Weight Weight: 116 lb 9.992 oz Body Mass Index (BMI) 25.2 ABG / Lab / Microbiology Data Result Diagrams: 01/13/22 02:00 01/13/22 02:00 Laboratory: Laboratory Results - last 24 hr 01/12/22 20:25: WBC 9.9, RBC 4.21, Hgb 12.9, Hct 37.4, MCV 88.8, MCH 30.6, MCHC 34.5, RDW Std Deviation 45.1 H, RDW Coeff of Amber 13.9, Plt Count 330, MPV 8.2, Immature Gran % (Auto) 0.400, Neut % (Auto) 62.7, Lymph % (Auto) 23.7, [place] % (Auto) 10.3 H, Eos % (Auto) 2.5, Baso % (Auto) 0.4, Absolute Neuts (auto) 6.2, Absolute Lymphs (auto) 2.34, Nucleated RBC % 0 01/12/22 20:25: Sodium 137, Potassium 3.3 L, Chloride 105, Carbon Dioxide 27.0, Anion Gap 5, BUN 14, Creatinine 0.63, Estim Creat Clear Calc 37.24, Est GFR (MDRD) Af Amer 118, Est GFR (MDRD) Non-Af 97, BUN/Creatinine Ratio 22.1 H, Glucose 113 H, Calcium 9.5, Troponin I High Sens 6 01/12/22 22:57: Troponin I High Sens 9 01/13/22 02:00: WBC 9.4, RBC 3.79 L, Hgb 11.7 L, Hct 33.4 L, MCV 88.1, MCH 30.9, MCHC 35.0, RDW Std Deviation 45.0 H, RDW Coeff of Amber 13.9, Plt Count 288, MPV 8.2, Immature Gran % (Auto) 0.300, Neut % (Auto) 62.2, Lymph % (Auto) 23.3, [place] % (Auto) 10.5 H, Eos % (Auto) 3.3, Baso % (Auto) 0.4, Absolute Neuts (auto) 5.8, Absolute Lymphs (auto) 2.18, Nucleated RBC % 0 01/13/22 02:00: Sodium 136, Potassium 4.5, Chloride 107, Carbon Dioxide 24.0, Anion Gap 5, BUN 14, Creatinine 0.50 L, Estim Creat Clear Calc 41.22, Est GFR (MDRD) Af Amer 154, Est GFR (MDRD) Non-Af 127, BUN/Creatinine Ratio 27.8 H, Glucose 96, Calcium 8.8, Triglycerides 98, Cholesterol 186, LDL Cholesterol 81, VLDL Cholesterol 20, HDL Cholesterol 85 01/13/22 02:00: Troponin I High Sens 10 Radiography Diagnostic Testing: Radiology Impression Chest X-Ray 01/12/22 20:44 IMPRESSION: No acute radiographic abnormalities. Electronically Signed: Steve Dela Cruz MD at 21:33 EST Reading Location ID and State: [address] [place] [address] Tel , Service support , D/C Instructions Discharge Diet: No restrictions Call your doctor if you observe: Shortness of breath, Dizziness and Chest pain Meaningful Use Info Meaningful Use Diagnoses (Choose all that apply): None applicable Discharge Plan Admission Admit Date/Time: 01/12/22 21:27 Primary Reason for Your Visit: chest pain Attending Provider: Nigel Saldaña Primary Care Provider: Genet Head Discharge Orders/Prescriptions Prescriptions: Continued cholecalciferol (vitamin D3) 1,250 mcg (50,000 unit) capsule 50,000 mcg PO .[id number] RF: 0 aspirin 81 mg tablet,delayed release (DR/EC) 81 mg PO DAILY RF: 0 omega-3 acid ethyl esters 1 gram capsule 0.5 g PO DAILY RF: 0 levothyroxine 75 mcg tablet 75 mcg PO DAILY RF: 0 primidone 50 mg tablet 100 mg PO QHS RF: 0 calcium carbonate-vitamin D3 [Calcium 600 with Vitamin D3] 600 mg(1,500mg) -500 unit capsule 1 cap PO BID RF: 0 multivitamin with minerals [Hair,Skin and Nails] Tablet 1 tab PO BID RF: 0 atorvastatin 10 mg tablet 10 mg PO QHS Qty: 90 RF: 3 Referrals / Follow Up: Genet Head MD [Primary Care Provider] - In 1 Week Disposition Disposition (needs filled in before D/C Order can be placed): Home, Self Care Documented by User: Dr. Nigel Saldaña MD 01/13/22 15:39 Providers Date of Admission: 01/12/22 Reason For Visit: CHEST PAIN Medications at Discharge Home Medications aspirin 81 mg tablet,delayed release 81 mg PO DAILY 09/30/21 cholecalciferol (vitamin D3) 1,250 mcg (50,000 unit) capsule 50,000 mcg PO .[id number] cap 09/30/21 omega-3 acid ethyl esters 1 gram capsule 0.5 g PO DAILY 09/30/21 atorvastatin 10 mg tablet 10 mg PO QHS #90 tab 10/11/21 calcium carbonate 600 mg-vitamin D3 12.5 mcg (500 unit) capsule 1 cap PO BID cap 11/02/21 levothyroxine 75 mcg tablet 75 mcg PO DAILY 11/02/21 multivitamin with minerals 1 tab PO BID tab 11/02/21 primidone 50 mg tablet 100 mg PO QHS tab 11/02/21 Hospital Course Operations None Procedures Nuclear stress test Summary of Care Provided Minutes Spent on Discharge: 35 Hospital Course: This patient was seen in conjunction with MARRY Bonilla . I have independently interviewed and examined the patient and reviewed pertinent historical, laboratory, and other data. Please refer to MARRY Bonilla note for details of this patient's presentation, findings, and recommendations. I have reviewed MARRY Bonilla note and concur with documented findings. In brief, patient is a 76-year-old lady with past medical history segment for dyslipidemia hypothyroidism who presented with chest pain. Patient was admitted to monitored bed [place] was ruled out with serial cardiac enzymes. Subsequently underwent a nuclear stress test which was negative for stress-induced ischemia Physical Examination: GENERAL: cooperative HEENT: Atraumatic; EYES; Anicteric, Normal Conjunctiva NECK; supple, normal thyroid, RESPIRATORY: Diminished to auscultation CARDIOVASCULAR: Regular S1 S2, GI: soft, normoactive bowel sounds, : No Renal angle tenderness; EXTREMITIES: No edema, no clubbing, MUSCULOSKELETAL: no muscle wasting NEURO: Awake; no lateralizing signs. SKIN: No Rash PSYCH; Flat affect Assessment: 1. Chest pain 2. Hypothyroidism 3. Dyslipidemia 4. Hypokalemia 5. Elevated blood pressure Hospital course; as documented above Total time spent by myself and the advanced practice practitioner evaluating patient, reviewing labs, subsequent management decisions, discussion with patient as well as other providers 35 minutes ( 20 of which was spent by myself) ABG / Lab / Microbiology Data Result Diagrams: 01/13/22 02:00 01/13/22 02:00 Discharge Plan Admission Admit Date/Time: 01/12/22 21:27 Primary Reason for Your Visit: chest pain Attending Provider: Nigel Saldaña Primary Care Provider: Genet Head Discharge Orders/Prescriptions Prescriptions: Continued cholecalciferol (vitamin D3) 1,250 mcg (50,000 unit) capsule 50,000 mcg PO .[id number] RF: 0 aspirin 81 mg tablet,delayed release (DR/EC) 81 mg PO DAILY RF: 0 omega-3 acid ethyl esters 1 gram capsule 0.5 g PO DAILY RF: 0 levothyroxine 75 mcg tablet 75 mcg PO DAILY RF: 0 primidone 50 mg tablet 100 mg PO QHS RF: 0 calcium carbonate-vitamin D3 [Calcium 600 with Vitamin D3] 600 mg(1,500mg) -500 unit capsule 1 cap PO BID RF: 0 multivitamin with minerals [Hair,Skin and Nails] Tablet 1 tab PO BID RF: 0 atorvastatin 10 mg tablet 10 mg PO QHS Qty: 90 RF: 3 Referrals / Follow Up: Genet Head MD [Primary Care Provider] - In 1 Week Disposition Disposition (needs filled in before D/C Order can be placed): Home, Self Care Charges/Coding Visit Charges OBSV E&M: 01017 Observation care discharge Hospital Course Operations None Procedures Procedures: Nuclear stress test
== END 2022-01-13 15:52 | disposition home or self-care (01) ==
LOC: ED 21:30 → PCU 21:47
PROVIDERS: Admitting Provider Hospitalist; Emergency Provider Physician Assistant; PCP Internal Medicine; Visit Provider Internal Medicine
DX: R07.89 Other chest pain (principal); E87.6 Hypokalemia; G25.0 Essential tremor; M54.9 Dorsalgia, unspecified; E78.5 Hyperlipidemia, unspecified; E03.9 Hypothyroidism, unspecified; R03.0 Elevated blood-pressure reading, without diagnosis of hypertension; M19.90 Unspecified osteoarthritis, unspecified site; E55.9 Vitamin D deficiency, unspecified; R94.31 Abnormal electrocardiogram [ECG] [EKG]; I45.10 Unspecified right bundle-branch block; Z79.899 Other long term (current) drug therapy; Z79.890 Hormone replacement therapy; Z79.82 Long term (current) use of aspirin; M50.30 Other cervical disc degeneration, unspecified cervical region; M25.811 Other specified joint disorders, right shoulder; M25.812 Other specified joint disorders, left shoulder
CPT/HCPCS: 36415; 71045; 78452; 80048; 80061; 84484; 85025; 93005; 93017; 97035; 97110; 99218; 99285; A9500; A4216; G0378

== ENCOUNTER 2022-01-20 11:00 | Outpatient (RCR) | payer MEDICARE, MEDICAID, SELFPAY ==
--- NOTE | 2021-11-08 14:04 | HP.PTEVAL_ITS ---
Patient's Visit Information ANA ESCOBEDO is a 76 year old F referred to Physical Therapy by Dr. Hector Santos DO with a diagnosis of Cervical DDD and Bilateral Shoulder Impingement. Date of Evaluation: 11/08/21 Physical Therapist: Imelda Diggs DPT - Visit Plan Frequency: 2x /Week Duration: 4 Weeks Plan: Focus on Scapular s/s- US as modality of choice. HEP Given IE: Postural education, Bilateral ER, scapular retraction, pec corner stretch - Subjective Patient reports that she has problems with bilateral shoulders- last week Dr. Bishop did injections in both of her shoulders- she was very sore in her right shoulder almost to the point she could not use it but its better now- but it still hurts a lot. Right hand dominate. She has a lot of pain when she is cleaning- It was the left was more painful but now its the right. She has pain in the scapula, anterior shoulder and down to the elbow. Does not have N/T in the hands- but does have numbness on the lateral aspect of her trap on the right side. 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 Does not have any neck pain- she has had PT and injections in her neck. No shoulder pain when she was going through her neck PT. 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 Agg: cleaning, dressing (puts her left arm in first) Eases: warm water. Sleep: disturbed due to pain- left side sleeper. Work: does not work outside of her home. - Objective Posture: mild FH, RS- can correct posture with verbal cues but does not maintain. Gait: no deviation noted- good arm swing and trunk rotation. Palpation: tender along lateral scapula. ROM: WFL in all planes of the cervical and UE bilaterally. 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 Strength: #20 bilateral, Wrist: 5/5, Elbow: flexion: 4-/5 with discomfort, Extn: 4/5, Shoulder: 4/5 at neutral, Cervical: 4+/5 - Special Tests C/S Radiculapathy - Left Spurlings: Positive C/S Radiculapathy - Right Spurlings: Positive C/S Radiculapathy - Left Cervical distraction: Positive C/S Radiculapathy - Right Cervical distraction: Positive R Shoulder Empty Can - SS: Negative R Shoulder Belly Press - SupScap: Positive R Shoulder Neer - Impingement: Positive R Shoulder Maldonado Jason - Impingement: Positive L Shoulder Empty Can - SS: Positive L Shoulder Belly Press - SupScap: Positive L Shoulder Maldonado Jason - Impingement: Positive - Balance/Special Test Scores Quick DASH Score: 34.0900 - Goals Goal 1:: Patient will be I with HEP and progression Goal Time Frame: 4-6 Weeks Goal 2:: Patient will maintain proper posture t/o tx session to demo increased scap s/s Goal Time Frame: 4-6 Weeks Goal 3:: Patient will report no pain with return to normal ADL'.s Goal Time Frame: 4-6 Weeks - Rehabilitation Potential Physical Therapy Diagnosis: Focus on scapular strength/stabilization and postural related exercises- US as modality of choice. HEP Given IE: Postural education, Bilateral ER, scapular retraction, pec corner stretch Rehabilitation Potential: Good - Anticipated Interventions Patient/Client Instruction: Educate patient on: Benefits of Fitness Program Therapeutic Exercise to Include: Strength training, Endurance training, Balance training, Coordination, Agility training, Body mechanics, Postural training, Flexibilty training, Gait and locomotor training, Neuromotor development, Dynamic Lumbar Stabilization, Scapular Strength/Stabilization For the Purpose of:: To improve muscle performance and motor function Cryotherapy (ice pack, ice massage): Yes Thermo therapy (hot pack): Yes Ultrasound (thermal/non thermal): Yes Thank you for the opportunity to evaluate your patient. For Medicare and Medicare HMO plans, please review the plan of care and approve it. It will need to be FAXED BACK to us at [phone] for Medicare purposes. For Medicare only, by signing this I certify the plan of care. Please let me know if there are questions or concerns regarding this plan of care. Physician Signature: Date:
--- NOTE | 2021-12-07 15:18 | HP.PT.NRP ---
ANA ESCOBEDO was seen in my office for initial evaluation on 11/08/21. The following Plan of Care was established for this patient: Initial Frequency: 2x /Week Initial Duration: 4 Weeks Patient/Client Instruction: Educate patient on: Benefits of Fitness Program Therapeutic Exercise to Include: Strength training, Endurance training, Balance training, Coordination, Agility training, Body mechanics, Postural training, Flexibilty training, Gait and locomotor training, Neuromotor development, Dynamic Lumbar Stabilization, Scapular Strength/Stabilization For the Purpose of:: To improve muscle performance and motor function Cryotherapy (ice pack, ice massage): Yes Thermo therapy (hot pack): Yes Ultrasound (thermal/non thermal): Yes This patient was last seen in our office . Pertinent comments regarding their Physical therapy will appear below: Patient has attended PT in over 30 days- appropriate to be d/c from PT- follow up with MD for further evaluation. At this point I will be discontinuing this patient from physical therapy. I would be happy to see this patient again in the future if found appropriate by the physician. Thank you! Imelda Diggs DPT Balance/Gait/Functional tests - Balance/Special Test Scores Quick DASH Score: 34.0900
--- NOTE | 2022-01-05 10:18 | HP.PTREVAL ---
Dr. Hector Santos, DO, It has been my pleasure to treat ANA ESCOBEDO over the last 10 visits for Cervical DDD and Bilateral Shoulder Impingement. Please see the progress note below for an update on the physical therapy plan of care! Subjective: Last weekend was really bad- due to cleaning the house- but today she is great. She reports that the right arm is tender. She has problems lifting the gallon of mild due to pain. She feels like she has needles in the anterior shoulder. She can perform all her ADL's but things to bother her and flare her up. She feels like the arm gets tired. Heat helps her shoulder- but she now has no pain in the left shoulder. Objective/Function: Posture: mild FH, RS- can correct posture with verbal cues but does not maintain. Gait: no deviation noted- good arm swing and trunk rotation. Palpation: tender along bicipital groove. ROM: WFL in all planes of the cervical and UE bilaterally. Strength: Wrist: 5/5, Elbow: flexion: 4+/5, Extn: 4+/5, Shoulder: 4/5 at neutral, Cervical: 4+/5. - Special Tests. C/S Radiculapathy - Left Spurlings: Positive. C/S Radiculapathy - Right Spurlings: Positive. C/S Radiculapathy - Left Cervical distraction: Positive. C/S Radiculapathy - Right Cervical distraction: Positive. R Shoulder Empty Can - SS: Negative. R Shoulder Belly Press - SupScap: Positive. R Shoulder Neer - Impingement: Positive. R Shoulder Maldonado Jason - Impingement: Positive. L Shoulder Empty Can - SS: Positive. L Shoulder Belly Press - SupScap: Positive. L Shoulder Maldonado Jason - Impingement: Positive Plan Plan: Focus on Scapular s/s - Ultrasound is not covered by insurance Balance/Gait/Functional tests - Balance/Special Test Scores Oswestry Neck Score: 11 Quick DASH Score: 34.0900 Goals Goal 1:: Patient will be I with HEP and progression Goal Time Frame: 4-6 Weeks Goal Progress: Progressing Goal 2:: Patient will maintain proper posture t/o tx session to demo increased scap s/s Goal Time Frame: 4-6 Weeks Goal Progress: Progressing Goal 3:: Patient will report no pain with return to normal ADL'.s Goal Time Frame: 4-6 Weeks Goal Progress: Progressing Anticipated Interventions Patient/Client Instruction: Educate patient on: Benefits of Fitness Program Therapeutic Exercise to Include: Strength training, Endurance training, Balance training, Coordination, Agility training, Body mechanics, Postural training, Flexibilty training, Gait and locomotor training, Neuromotor development, Dynamic Lumbar Stabilization, Scapular Strength/Stabilization For the Purpose of:: To improve muscle performance and motor function Cryotherapy (ice pack, ice massage): Yes Thermo therapy (hot pack): Yes Ultrasound (thermal/non thermal): Yes Please do not hesitate to contact me at [phone] by phone or if you have questions or concerns regarding this new plan of care! Sincerely, MAREK AlvaradoT
--- NOTE | 2022-01-05 10:23 | HP.PTREVAL ---
Dr. Hector Santos, DO, It has been my pleasure to treat ANA ESCOBEDO over the last 10 visits for Cervical DDD and Bilateral Shoulder Impingement. Please see the progress note below for an update on the physical therapy plan of care! Subjective: Last weekend was really bad- due to cleaning the house- but today she is great. She reports that the right arm is tender. She has problems lifting the gallon of mild due to pain. She feels like she has needles in the anterior shoulder. She can perform all her ADL's but things to bother her and flare her up. She feels like the arm gets tired. Heat helps her shoulder- but she now has no pain in the left shoulder. Objective/Function: Posture: mild FH, RS- can correct posture with verbal cues but does not maintain. Gait: no deviation noted- good arm swing and trunk rotation. Palpation: tender along bicipital groove. ROM: WFL in all planes of the cervical and UE bilaterally. Strength: Wrist: 5/5, Elbow: flexion: 4+/5, Extn: 4+/5, Shoulder: 4/5 at neutral, Cervical: 4+/5. - Special Tests. C/S Radiculapathy - Left Spurlings: Positive. C/S Radiculapathy - Right Spurlings: Positive. C/S Radiculapathy - Left Cervical distraction: Positive. C/S Radiculapathy - Right Cervical distraction: Positive. R Shoulder Empty Can - SS: Negative. R Shoulder Belly Press - SupScap: Positive. R Shoulder Neer - Impingement: Positive. R Shoulder Maldonado Jason - Impingement: Positive. L Shoulder Empty Can - SS: Positive. L Shoulder Belly Press - SupScap: Positive. L Shoulder Maldonado Jason - Impingement: Positive Plan Plan: Focus on Scapular s/s - US as modality of choice Balance/Gait/Functional tests - Balance/Special Test Scores Oswestry Neck Score: 11 Quick DASH Score: 34.0900 Goals Goal 1:: Patient will be I with HEP and progression Goal Time Frame: 4-6 Weeks Goal Progress: Progressing Goal 2:: Patient will maintain proper posture t/o tx session to demo increased scap s/s Goal Time Frame: 4-6 Weeks Goal Progress: Progressing Goal 3:: Patient will report no pain with return to normal ADL'.s Goal Time Frame: 4-6 Weeks Goal Progress: Progressing Anticipated Interventions Patient/Client Instruction: Educate patient on: Benefits of Fitness Program Therapeutic Exercise to Include: Strength training, Endurance training, Balance training, Coordination, Agility training, Body mechanics, Postural training, Flexibilty training, Gait and locomotor training, Neuromotor development, Dynamic Lumbar Stabilization, Scapular Strength/Stabilization For the Purpose of:: To improve muscle performance and motor function Cryotherapy (ice pack, ice massage): Yes Thermo therapy (hot pack): Yes Ultrasound (thermal/non thermal): Yes Please do not hesitate to contact me at [phone] by phone or if you have questions or concerns regarding this new plan of care! Sincerely, MAREK AlvaradoT
--- NOTE | 2022-01-20 11:31 | HP.PTDCSUM_ITS ---
It has been my pleasure to treat ANA ESCOBEDO referred by Dr. Hector Santos DO, with the diagnosis of Cervical DDD and Bilateral Shoulder Impingement for a total of 14 visit(s). Discharge Date: Please see the following information for a summary of their discharge status. Subjective: Patient reports that she is not really any better. She has intermittent pain all the time and is having trouble cutting up vegetables. Neck Pain Intensity (Out of 10): 3 % Improvement: 50 Objective/Function: Posture: mild FH, RS- can correct posture with verbal cues but does not maintain. Gait: no deviation noted- good arm swing and trunk rotation. Palpation: tender along bicipital groove. ROM: WFL in all planes of the cervical and UE bilaterally. Strength: Wrist: 5/5, Elbow: flexion: 4+/5, Extn: 4+/5, Shoulder: 4/5 at neutral, Cervical: 4+/5. - Special Tests. C/S R adiculapathy - Left Spurlings: Positive. C/S Radiculapathy - Right Spurlings: Positive. C/S Radiculapathy - Left Cervical distraction: Positive. C/S Radiculapathy - Right Cervical distraction: Positive. R Shoulder Empty Can - SS: Negative. R Shoulder Belly Press - SupScap: Positive. R Shoulder Neer - Impingement: Positive. R Shoulder Maldonado Jason - Impingement: Positive. L Shoulder Empty Can - SS: Positive. L Shoulder Belly Press - SupScap: Positive. L Shoulder Maldonado Jason - Impingement: Positive Goal 1:: Patient will be I with HEP and progression Goal Progress: Progressing Goal 2:: Patient will maintain proper posture t/o tx session to demo increased scap s/s Goal Progress: Progressing Goal 3:: Patient will report no pain with return to normal ADL'.s Goal Progress: Progressing Plan: Return to MD for further evaluation- continue HEP If there are questions or concerns regarding this patient's physical therapy, please feel free to call me at [phone]. Thank you for the referral of this patient. Sincerely, Imelda Diggs, DPT Balance/Gait/Functional tests - Balance/Special Test Scores Oswestry Neck Score: 11 Quick DASH Score: 34.0900
== END 2022-01-20 12:15 | disposition home or self-care (01) ==
LOC: PT 11:00
PROVIDERS: PCP Internal Medicine; Referring Provider Orthopaedic Surgery; Visit Provider Orthopaedic Surgery
DX: M50.30 Other cervical disc degeneration, unspecified cervical region (principal); M25.811 Other specified joint disorders, right shoulder; M25.812 Other specified joint disorders, left shoulder
CPT/HCPCS: 97035; 97110; 97162; 97164

== ENCOUNTER 2022-01-23 12:06 | Outpatient (CLI) | payer MEDICARE, MEDICAID, SELFPAY ==
--- NOTE | 2022-01-23 12:08 | BI_ITS ---
MAMMOGRAPHY - BILATERAL SCREENING REASON FOR EXAM: Female, 76 years old. Routine annual screening examination. PERTINENT HISTORY: Sister with breast cancer. TECHNIQUE: Digital bilateral breast pop (3D mammographic acquisition) in the CC and MLO projections. 2-D mediolateral oblique (MLO) and craniocaudad (CC) views of both breasts were obtained. CAD: Full Field Digital Mammography with Computer Added Detection was performed. COMPARISON: Comparison is made with prior study dated 12/21/2020 and 11/26/2019. FINDINGS: Breast Composition: The breasts are heterogeneously dense, which may obscure small masses. There are no dominant masses or suspicious calcifications. Stable asymmetry of breast tissue where more breast tissue is seen in the upper-outer quadrant of the right breast as compared to the left side. No other significant abnormalities are identified. There has been no significant change since the prior study. BI/SCRN MAMM (CAD)W/POP BILAT IMPRESSION: Stable bilateral screening mammogram. Yearly follow-up mammogram recommended. (A) ASSESSMENT CATEGORY: BIRADS Category 2: Benign. A letter regarding these results will be sent to the patient by the facility within 30 days. Approximately 10% of breast cancers are not detected by mammography. A normal mammogram should not delay biopsy of a clinically suspicious abnormality. [id number] Electronically Signed: Keaton Christopher MD at 12:51 EST ,
== END 2022-01-23 23:59 | disposition home or self-care (01) ==
LOC: OPBI 12:07
PROVIDERS: PCP Internal Medicine; Visit Provider Internal Medicine
DX: Z12.31 Encounter for screening mammogram for malignant neoplasm of breast (principal); Z80.3 Family history of malignant neoplasm of breast
CPT/HCPCS: 77063; 77067

== ENCOUNTER 2022-03-01 10:16 | Outpatient (CLI) | payer MEDICARE, MEDICAID, SELFPAY ==
--- NOTE | 2022-03-01 10:17 | MRI_ITS ---
STUDY: MRI RIGHT SHOULDER REASON FOR EXAM: Right shoulder pain for years with limited range of motion, no specific injury. TECHNIQUE: Standardized fat and water weighted pulse sequences were obtained in all 3 orthogonal planes. COMPARISON: Radiographs 11/02/2021. FINDINGS: There is a full-thickness tear of the supraspinatus and infraspinatus tendons retracted approximately 4 cm to the level of the glenohumeral joint (T2 coronal images 7-14). There is subscapularis tendinosis (T2 axial image 13) without discrete tendon tear. Normal teres minor tendon. There is atrophy with partial fat replacement of the supraspinatus muscle (T2 axial image 3). There is atrophy with partial fat replacement of the infraspinatus muscle (T2 sagittal image 1). Normal subscapularis muscle. Normal teres minor muscle. There is a small glenohumeral joint effusion. There is superior migration of the humeral head secondary to the retracted rotator cuff tear. There is tendinosis of the intracapsular long biceps tendon (T2 sagittal images 7-10) and extracapsular long biceps tendon (T2 axial images 15, 16). There is degeneration of the superior labrum. Normal capsulo- ligamentous complex. There is acromioclavicular arthrosis with undersurface osteophytes (T2 sagittal images 5, 6). There is a Type II morphology (curved), with a neutral orientation. There is a small volume of subacromial-subdeltoid bursal fluid. Normal visualized coracohumeral and coracoacromial ligaments. Normal deltoid muscle. Normal trapezius muscle. MRI/Upper Ext Joint Only(Routine) IMPRESSION: Full-thickness tear of the supraspinatus and infraspinatus tendons. Subscapularis tendinosis. Atrophy of the supraspinatus and infraspinatus muscles. Tendinosis of the long biceps tendon. Degeneration of the superior labrum. Acromioclavicular arthrosis. Glenohumeral joint fluid communicating with the subacromial-subdeltoid bursa. Electronically Signed: Derian Reyes MD at 11:58 EDT ,
--- NOTE | 2022-03-01 10:29 | MRI_ITS ---
STUDY: MRI LEFT SHOULDER REASON FOR EXAM: Left shoulder pain and limited range of motion for years. TECHNIQUE: Standardized fat and water weighted pulse sequences were obtained in all 3 orthogonal planes. COMPARISON: MRI images 06/22/2016 and radiographs 11/02/2021. FINDINGS: There is supraspinatus tendinosis and a full-thickness tear of the distal anterior supraspinatus tendon (T2 coronal images 12, 13) measuring approximately 1.1 x 0.8 cm (length x width). There is infraspinatus tendinosis (T2 coronal images 8, 9) without discrete tendon tear. There is mild subscapularis tendinosis (T2 axial image 13) without discrete tendon tear. Normal teres minor tendon. There is mild atrophy with mild partial fat replacement of the supraspinatus muscle (T2 axial image 7). Normal infraspinatus muscle. Normal subscapularis muscle. Normal teres minor muscle. There is a small glenohumeral joint effusion. There is cystic change/mild bone edema of the greater tuberosity. Normal biceps labral complex. There is tendinosis of the intracapsular long biceps tendon (T2 sagittal image 10). Normal labrum. Normal capsulo- ligamentous complex. There is acromioclavicular arthrosis with mild hypertrophic changes (T2 sagittal image 7). There is a Type II morphology (curved), with a neutral orientation. There is subacromial-subdeltoid bursal fluid. Normal visualized coracohumeral and coracoacromial ligaments. Normal deltoid muscle. Normal trapezius muscle. MRI/Upper Ext Joint Only(Routine) IMPRESSION: Full-thickness tear and tendinosis of the supraspinatus tendon. Infraspinatus and subscapularis tendinosis. Mild atrophy of the supra space muscle. Tendinosis of the long biceps tendon. Acromioclavicular arthrosis. Glenohumeral joint fluid communicating with the subacromial-subdeltoid bursa. Electronically Signed: Derian Reyes MD at 12:23 EDT ,
== END 2022-03-01 23:59 | disposition home or self-care (01) ==
LOC: MRI 10:17
PROVIDERS: PCP Internal Medicine; Visit Provider Orthopaedic Surgery
DX: M75.81 Other shoulder lesions, right shoulder (principal); M75.82 Other shoulder lesions, left shoulder; M19.011 Primary osteoarthritis, right shoulder; M19.012 Primary osteoarthritis, left shoulder
CPT/HCPCS: 73221

== ENCOUNTER → 2023-01-10 | Outpatient (CLI) | payer MEDICARE, MEDICAID, SELFPAY ==
[2023-01-10 12:42] LABS: Absolute Lymphocyte Count 2.57 X10^3/uL (0.83-4.51); Basophil# 0.04 X10^3/uL; Basophil% 0.4 % (0-1); Eosinophil# 0.26 X10^3/uL; Eosinophils% 2.7 % (0-5); Hematocrit 37.7 % (37-47); Hemoglobin 12.4 g/dL (12.0-15.0); Lymphocyte # 2.57 X10^3/ul (0.83-4.51); Lymphocyte % 26.5 % (19-41); Mean Corp Hgb Conc 32.9 g/dL (32-36); Mean Corpuscular Hgb 29.6 pg (27.0-32.0); Mean Platelet Vol. 8.7 fl (6.2-12.0); Monocyte# 0.76 X10^3/uL; Monocyte% 7.8 % (0-10); NRBC Flagged by Analyzer 0 % (0-5); Neutrophil # 6.04 X10^3/uL (2.7-7.7); Neutrophil % 62.2 % (47-70); Platelet Count 357 K/mm3 (150-450); RBC Distribution Width CV 13.6 % (11.6-14.6); RBC Distribution Width SD 44.6 fl (35.1-43.9); Red Blood Count 4.19 M/mm3 (4.2-5.4); White Blood Count 9.7 K/mm3 (4.4-11.0)
[2023-01-10 13:17] LABS: Vitamin D,25 Hydroxy 38.2 ng/mL
[2023-01-10 13:19] LABS: ALB/GLOB Ratio 0.9 RATIO (0.9-2.4); AST(SGOT) 21 U/L (15-37); Alanine Aminotransfer ALT/SGPT 26 U/L (13-56); Albumin, Serum 3.6 g/dL (3.2-5.0); Alkaline Phosphatase 81 U/L (45-117); Anion Gap 8 (5-15); BUN 15 mg/dL (7-18); Calcium,Total 9.8 mg/dL (8.5-10.1); Chloride 104 mmol/L (98-107); Cholesterol 307 mg/dL (200); Creatinine, Serum 0.58 mg/dL (0.55-1.02); EST Glomerular Filtration Rate 108 mL/min (>60); Est Glom Filt Rate - Afr Amer 131 mL/min (>60); Globulin 4.2 g/dL (2.2-4.2); Glucose 102 mg/dL (74-106); High Density Lipoprotein 87 mg/dL; Potassium 4.3 mmol/L (3.5-5.1); Protein, Total 7.8 g/dL (6.4-8.2); Sodium Level 137 mmol/L (136-145); Thyroid Stim Hormone (TSH) 0.55 uIU/mL (0.358-3.74); Triglycerides 144 mg/dL; Very Low Density Lipoprotein 29 mg/dL (5-40)
== END | disposition home or self-care (01) ==
LOC: BIMLAB 09:20
PROVIDERS: PCP Internal Medicine; Referring Provider Internal Medicine; Visit Provider Internal Medicine
DX: L50.9 Urticaria, unspecified (principal); L29.9 Pruritus, unspecified; E55.9 Vitamin D deficiency, unspecified; M19.90 Unspecified osteoarthritis, unspecified site; E78.5 Hyperlipidemia, unspecified; M85.80 Other specified disorders of bone density and structure, unspecified site; R25.1 Tremor, unspecified; E03.9 Hypothyroidism, unspecified
CPT/HCPCS: 36415; 80053; 80061; 82306; 84443; 85025

== ENCOUNTER → 2023-01-24 | Outpatient (CLI) | payer MEDICARE, MEDICAID, SELFPAY ==
--- NOTE | 2023-01-24 10:13 | BI_ITS ---
MAMMOGRAPHY - BILATERAL SCREENING REASON FOR EXAM: Female, 77 years old. Routine annual screening examination. PERTINENT HISTORY: Sister with breast cancer. TECHNIQUE: Digital bilateral breast pop (3D mammographic acquisition) in the CC and MLO projections. 2-D mediolateral oblique (MLO) and craniocaudad (CC) views of both breasts were obtained. CAD: Full Field Digital Mammography with Computer Added Detection was performed. COMPARISON: Comparison is made with prior study January 23, 2022 with every second 2020. FINDINGS: Breast Composition: The breasts are heterogeneously dense, which may obscure small masses. There are no dominant masses or suspicious calcifications. Stable asymmetry of breast tissue with more breast tissue is seen in the upper-outer quadrant of the right breast as compared to the left side. Stable small fat-containing bilateral axillary lymph nodes. No other significant abnormalities are identified. There has been no significant change since the prior study. BI/SCRN MAMM (CAD)W/POP BILAT IMPRESSION: Stable bilateral screening mammogram. Yearly follow-up mammogram recommended. (A) ASSESSMENT CATEGORY: BIRADS Category 2: Benign. A letter regarding these results will be sent to the patient by the facility within 30 days. Approximately 10% of breast cancers are not detected by mammography. A normal mammogram should not delay biopsy of a clinically suspicious abnormality. [id number] Electronically Signed: Keaton Christopher MD at 13:34 EST ,
== END | disposition home or self-care (01) ==
LOC: OPBI 10:11
PROVIDERS: PCP Internal Medicine; Visit Provider Internal Medicine
DX: Z12.31 Encounter for screening mammogram for malignant neoplasm of breast (principal)
CPT/HCPCS: 77063; 77067

== ENCOUNTER → 2023-07-18 | Outpatient (CLI) | payer MEDICARE, MEDICAID, SELFPAY ==
[2023-07-18 16:42] LABS: Vitamin B12 466 pg/mL (211-911); Vitamin D,25 Hydroxy 55.1 ng/mL
[2023-07-18 16:50] LABS: Thyroid Stim Hormone (TSH) 0.26 uIU/mL (0.358-3.74)
== END | disposition home or self-care (01) ==
LOC: BIMLAB 15:30
PROVIDERS: PCP Internal Medicine; Visit Provider Internal Medicine
DX: E55.9 Vitamin D deficiency, unspecified (principal); M54.12 Radiculopathy, cervical region; E03.9 Hypothyroidism, unspecified
CPT/HCPCS: 36415; 82306; 82607; 84443

== ENCOUNTER → 2023-08-29 | Outpatient (CLI) | payer MEDICARE, MEDICAID, SELFPAY ==
--- NOTE | 2023-08-29 09:15 | MRI_ITS ---
INDICATION: cervical radiculopathy EXAMINATION: MRI - MR Spine Cervical W/O Contrast TECHNIQUE: Multiplanar and multisequence MR images of the cervical spine were performed. IV Contrast Dosage and Agent: None. COMPARISON: Cervical spine radiographs dated 11/02/2021 FINDINGS: VERTEBRAE: Normal vertebral bodies and posterior elements. VERTEBRAL ALIGNMENT: Normal, including the craniocervical junction and cervicothoracic junction. No spondylolisthesis. There is straightening of the cervical spine. CERVICAL SPINAL CORD: Unremarkable in signal and morphology. C2/C3: Normal disc height and morphology. There is bulky hypertrophic facet arthropathy on the right and mild facet arthropathy on the left. This leads to at least mild right neural foraminal narrowing. No significant foraminal narrowing on the left. C3/C4: There is bulky hypertrophic facet arthropathy on the left and mild facet arthropathy in the right. This leads to grade 1 anterolisthesis of C3 over C4, moderate left and mild right neural foraminal narrowing. C4/C5: Diffuse disc osteophyte complex contacts the ventral cord with minimal distortion. There is severe left and moderate right neural foraminal narrowing. C5/C6: There is diffuse disc osteophyte complex which effaces the thecal sac without cord contact. There is mild bilateral facet arthropathy. These changes lead to at least mild bilateral neural foraminal narrowing, worse on the left.. No significant foraminal narrowing C6/C7: Prominent diffuse disc osteophyte complex, with superimposed focal central disc protrusion contacts and distorts the spinal cord, without cord signal abnormality. In conjunction with facet arthropathy, this leads to moderate to severe left and moderate right neural foraminal narrowing. C7/T1: There is hypertrophic facet arthropathy leading to grade 1 anterolisthesis of C7 over T1. In conjunction with a small diffuse disc calcified complex, this leads to moderate to severe right and moderate left neural foraminal narrowing. Superimposed small focal posterior central disc herniation barely contacts the ventral cord without distortion. NECK SOFT TISSUES: No prevertebral soft tissue swelling. There is no cervical adenopathy. MRI/Spine Cervical (Routine) IMPRESSION: * Multilevel cervical spondylosis as described, worst at C4-5 and C6-7 as described. * At C4-5, there is severe left and moderate right foraminal narrowing. * At C6-7, there is central canal stenosis whereby the spinal cord is contacted and distorted, without cord signal abnormality. There is moderate to severe left and moderate right neural foraminal narrowing at this level. * See above for additional details. Electronically Signed: Nigel Best MD at 16:47 EDT ,
== END | disposition home or self-care (01) ==
LOC: MRI 08:40
PROVIDERS: PCP Internal Medicine; Referring Provider Internal Medicine; Visit Provider Internal Medicine
DX: M54.12 Radiculopathy, cervical region (principal)
CPT/HCPCS: 72141

== ENCOUNTER → 2023-11-21 | Outpatient (CLI) | payer MEDICARE, MEDICAID, SELFPAY ==
[2023-11-21 12:28] LABS: Absolute Lymphocyte Count 1.84 X10^3/uL (0.83-4.51); Absolute Neutrophil Count 4.9 X10^3/uL (2.0-7.7); Basophil# 0.03 X10^3/uL; Basophil% 0.4 % (0-1); Eosinophil# 0.25 X10^3/uL; Eosinophils% 3.2 % (0-5); Hematocrit 37.4 % (37-47); Hemoglobin 12.1 g/dL (12.0-15.0); Lymphocyte # 1.84 X10^3/ul (0.83-4.51); Lymphocyte % 23.3 % (19-41); Mean Corp Hgb Conc 32.4 g/dL (32-36); Mean Corpuscular Hgb 28.8 pg (27.0-32.0); Monocyte# 0.87 X10^3/uL; NRBC Flagged by Analyzer 0 % (0-5); Neutrophil # 4.89 X10^3/uL (2.7-7.7); Neutrophil % 61.7 % (47-70); Platelet Count 169 K/mm3 (150-450); RBC Distribution Width CV 13.4 % (11.6-14.6); RBC Distribution Width SD 43.8 fl (35.1-43.9); White Blood Count 7.9 K/mm3 (4.4-11.0)
--- OUTSIDE RECORDS SUMMARY | 2023-11-21 12:36 | XMS RPT_ITS | CCD ---
Author Name Unknown Address [address] [place] [address] Organization [facility] Care Team Providers Care Field Hauler Name Role Phone CHUCK GUEVARA MD Primary Care Physician [phone] Neli Rosenthal MD Primary Care Provider Xander Santos DO Unavailable Unavailable Neli Rosenthal MD Primary Care Provider [phone] Xander Santos DO Unavailable Unavailable PROVIDER, UNKNOWN Referring Unavailable NELI ROSENTHAL Primary Care Unavailable STEFFANY RODRIGUEZ Attending Unavailable NELI ROSENTHAL Primary Care Unavailable BIANKA RIVERA Attending Unavailab STEFFANY Silva Referring Unavailable NELI ROSENTHAL Primary Care Unavailable Medications Current Medications Medication Drug Class(es) Dates Sig (Normalized) Sig (Original) aspirin 81 mg oral tablet (7 sources) Platelet Aggregation Inhibitor, Nonsteroidal Anti-inflammatory Drug Start: 03-15-2021 aspirin 81 mg oral tablet, chewable Dose : 81 mg = 1 tab(s), Chewed, qDay, 0 Refill(s) Start Date: 03/15/21 Status: Ordered Completed/Discontinued Medications Medication Drug Class(es) Dates Sig (Normalized) Sig (Original) alendronic acid 70 mg oral tablet (7 sources) Bisphosphonate Start: 06-21-2022 End: 09-19-2022 take 1 tablet by mouth every week in the morning alendronate (FOSAMAX) 70 mg tablet Indications: Other osteoporosis without current pathological fracture , Arthralgia, unspecified joint Take 1 tablet by mouth one time a week. On empty stomach with large glass of water. First thing in the am. No other medications. Do not lie down after taking this. 12 tablet 0 06/21/2022 Active Problems Active Problems Problem Classification Problem Date Documented Date Episodic/Chronic Disorders of lipid metabolism (7 sources) Mixed hyperlipidemia; Translations: [Mixed hyperlipidemia] Onset: 03-30-2008 03-30-2008 Chronic Esophageal disorders (6 sources) Gastroesophageal reflux disease; Translations: [Gastro-esophageal reflux disease without esophagitis] Onset: 03-30-2008 03-30-2008 Chronic Osteoarthritis (6 sources) Primary gonarthrosis, bilateral; Translations: [Bilateral primary osteoarthritis of knee] Onset: 06-21-2022 Chronic Osteoporosis (6 sources) Osteoporosis; Translations: [Other osteoporosis without current pathological fracture] Onset: 06-21-2022 Chronic Other inflammatory condition of skin (2 sources) Itching of skin; Translations: [Pruritus, unspecified] Onset: 06-21-2022 Episodic Other non-traumatic joint disorders (7 sources) Bilateral rotator cuff arthropathy of shoulder; Translations: [Other specific arthropathies, not elsewhere classified, right shoulder] Onset: 04-24-2022 04-24-2022 Chronic Other non-traumatic joint disorders (2 sources) Rotator cuff arthropathy of right shoulder; Translations: [Other specific arthropathies, not elsewhere classified, right shoulder] 09-25-2023 Chronic Residual codes; unclassified (1 source) Pain; Translations: [Pain, unspecified] 08-13-2023 Episodic Residual codes; unclassified (1 source) Pain, unspecified; Translations: [Pain] Onset: 09-03-2023 Episodic Thyroid disorders (6 sources) Hypothyroidism; Translations: [Hypothyroidism, unspecified] Onset: 03-30-2008 03-30-2008 Chronic Past or Other Problems Problem Classification Problem Date Documented Da te Episodic/Chronic Deficiency and other anemia (6 sources) Anemia; Translations: [Anemia, unspecified] Onset: 04-24-2022 04-24-2022 Episodic Headache; including migraine (6 sources) Headache; Translations: [Headache] Onset: 03-30-2008 03-30-2008 Episodic Other connective tissue disease (6 sources) Pain in limb; Translations: [Pain in unspecified limb] Onset: 03-30-2008 03-30-2008 Episodic Other inflammatory condition of skin (4 sources) Pruritus, unspecified; Translations: [Unspecified pruritic disorder] Onset: 06-21-2022 06-21-2022 Episodic Other non-traumatic joint disorders (7 sources) Effusion of right knee joint; Translations: [Effusion, right knee] Onset: 04-24-2022 Episodic Other non-traumatic joint disorders (6 sources) Joint pain; Translations: [Pain in unspecified joint] Onset: 06-21-2022 Episodic Spondylosis; intervertebral disc disorders; other back problems (6 sources) Neck pain; Translations: [Cervicalgia] Onset: 03-09-2008 03-09-2008 Episodic Results Test Name Value Interpretation Reference Range Facil ity Vital Signs Date Time Vital Sign Value Performing Clinician Faci lity 09-25-2023 10:47-0500 Body height 146.1 cm Bianka Rivera MD Work Phone: [facility] 09-25-2023 10:47-0500 Body weight 54.98 kg Bianka Rivera MD Work Phone: [facility] 09-25-2023 10:47-0500 Respiratory rate 20 /min Bianka Rivera MD Work Phone: [facility] 06-21-2022 11:44-0400 Body height 146.1 cm Chela Bertrand MD Work Phone: [facility] 06-21-2022 11:44-0400 Body temperature 98.01 [degF] Chela Bertrand MD Work Phone: [facility] 06-21-2022 11:44-0400 Body weight 52.16 kg Chela Bertrand MD Work Phone: [facility] 06-21-2022 11:44-0400 Diastolic blood pressure 80 mm[Hg] Chela Bertrand MD Work Phone: [facility] 06-21-2022 11:44-0400 Heart rate 62 /min Chela Bertrand MD Work Phone: [facility] 06-21-2022 11:44-0400 Systolic blood pressure 154 mm[Hg] Chela Bertrand MD Work Phone: [facility] Encounters Encounter Date Encounter Type Care Provider Facility Start: 09-27-2023 Orders Only Bianka Rivera MD Work Phone: [facility] Procedures Date Procedure Procedure Detail Performing Clinician Start: 04-24-2022 Radiologic examinati on knee 1/2 views Chela Bertrand MD Work Phone: Start: 08-28-2014 Colonoscopy Xr Green Hemorrhoid operation [facility] Plan of Treatment Date Care Activity Detail Author Start: 07-18-2028 Pneumococcal Vaccine: 65+ (3 - PPSV23 or PCV20) Pneumococcal Vaccine: 65+ (3 - PPSV23 or PCV20) [facility] Start: 04-24-2025 DIABETES SCREEN DIABETES SCREEN [facility] Start: 04-24-2025 Diabetes Screening Diabetes Screening [facility] Start: 08-28-2024 Colonoscopy COLONOSCOPY [facility] Start: 08-28-2024 COLORECTAL CANCER SCREENING COLORECTAL CANCER SCREENING [facility] Start: 03-01-2024 LIPID SCREEN LIPID SCREEN [facility] Start: 07-20-2023 Covid-19 Vaccine ( season) Covid-19 Vaccine ( season) [facility] Start: 07-20-2023 Influenza vaccination Influenza Vaccine (#1) [facility] Start: 11-19-2022 Advance Directive Discussion Advance Directive Discussion [facility] Start: 11-19-2022 Depression Assessment Depression Assessment [facility] Start: 07-20-2022 Influenza vaccination [facility] Start: 07-07-2022 Covid-19 Vaccine (5 - Moderna series) Covid-19 Vaccine (5 - Moderna series) [facility] Start: 06-21-2022 End: 08-21-2022 25-hydroxyvitamin D3 [Mass/volume] in Serum or Plasma VITAMIN D 25 HYDROXY Lab Routine Other osteoporosis without current pathological fracture Arthralgia, unspecified joint Expected: 06/21/2022, Expires: 08/21/2022 [facility] Work Phone: Immunizations Immunization Date Immunization Notes Care Provider Elyse camacho 10-06-2022 influenza virus vaccine, unspecified formulation Steffany Rodriguez PA-C Work Phone: [facility] 11-06-2019 influenza virus vaccine, unspecified formulation Steffany Rodriguez PA-C Work Phone: [facility] Payers Date Payer Category Payer Medicaid [employer] [id number] 2019-Present [phone] [address] [place] [address] Medicaid [id number] 2019 Medicare [id number] 2019 Medicare [employer] [id number] 2019-Present [phone] [address] [place] [address] Medicare [id number] 2019 Medicare [id number] Social History Date Type Detail Facility Start: 03-15-2021 End: 09-03-2023 Never smoked tobacco (finding) [facility] Sex Assigned At [facility] Start: 04-24-2022 End: 09-25-2023 Alcohol intake Current non-drinker of alcohol (finding) [facility] Start: 1945 Sex Assigned At Not on file [facility] Start: 04-14-2022 End: 06-21-2022 Exposure to SARS-CoV-2 (event) Not sure [facility] Start: 04-16-2019 End: 09-03-2023 Tobacco use and exposure Smokeless tobacco non-user [facility] Start: 06-21-2022 End: 09-25-2023 History of Social function [facility] Start: 06-21-2022 End: 09-25-2023 Tobacco use panel [facility] National Score (1-100), lower number is lower risk 67 [facility] Clinical Notes 03-15-2021 to 09-27-2023 Michaela Colunga - 09/27/2023 11:54 AM Bianka Oconnell MD - 09/25/2023 1:13 PM Steffany Ivey PA-C - 09/03/2023 2:50 PM Geo Bertrand MD - 06/21/2022 2:53 PM EDTLaboratory Note Date & Type Note Facility 09-27-2023 Note HNO ID: [id number] Author: Michaela Colunga Service: ? Author Type: ? Type: Progress Notes Filed: 09/27/2023 11:58 AM Note Text: CAYETANO [facility] 09-27-2023 History of Present illness Narrative CAYETANO documented in this encounter [facility] 09-25-2023 Note HNO ID: [id number] Author: Bianka Rivera MD Service: ? Author Type: Physician Type: Progress Notes Filed: 09/25/2023 1:16 PM Note Text: ORTHOPAEDIC SHOULDER AND ELBOW SERVICE HISTORY AND PHYSICAL EXAM REFERRING PROVIDER: Steffany Rodriguez [address] [place] [id number] CHIEF COMPLAINT: Right shoulder pain and weakness PAIN EVALUATION 09/25/2023 1044 Pain Level: 5 Pain Location: Shoulder-Right Description: Burning;Other: See comment;Numbness Duration Amount of Time: 1 Duration Units: Years Frequency: Continuous Comments: pinching, weakness Lorna Gonzalez is a 78 year old woman who presents today for evaluation of her right shoulder. She has developed painful weakness over the course of several months and can no longer lift the arm to perform daily tasks due to severe pain and weakness. She does not recall any significant injury recently. She is also having difficulty with the left arm making it difficult for her to continue to modify her activities with the right shoulder. She comes to me as a consultation from [facility] where she was evaluated and has been treated conservatively for full-thickness rotator cuff tears. She has had previous treatment with corticosteroid injection which did not provide much relief. PAST MEDICAL HISTORY: PAST MEDICAL HISTORY Diagnosis Date Fibromyalgia Hypercholesteremia Hypothyroid Osteoporosis Right shoulder pain PAST SURGICAL HISTORY: PAST SURGICAL HISTORY Procedure Laterality Date COLONOSCOPY FLX DX W/COLLJ SPEC WHEN PFRMD 08/28/2014 Colonoscopy HEMORRHOIDAL S TUBAL LIGATION SOCIAL HISTORY: Social History Tobacco Use Smoking status: Never Smokeless tobacco: Never Substance Use Topics Alcohol use: No Drug use: Never ALLERGIES: ALLERGIES No Known Allergies MEDICATIONS: Current Outpatient Medications on File Prior to Visit Medication Sig biotin 1 mg cap Take 1 mg by mouth once daily. Minoxidil 2 % external solution 1 teaspoon applied topically on scalp once daily primidone (MYSOLINE) 50 mg tablet Take 100 mg by mouth daily at bedtime. atorvastatin (LIPITOR) 10 mg tablet Take 10 mg by mouth once daily. MELOXICAM ORAL Take by mouth once daily. VITAMIN B COMPLEX (B COMPLEX 1 ORAL) Take by mouth once daily. PRAVASTATIN SODIUM (PRAVASTATIN ORAL) Take by mouth daily at bedtime. MAGNESIUM OXIDE ORAL Take by mouth once daily. niacin 500 mg tablet Take 500 mg by mouth daily with breakfast. aspirin 325 mg tablet Take 325 mg by mouth once daily. Cholecalciferol, Vitamin D3, (VITAMIN D-3) 400 unit chew Take by mouth. LEVOTHYROXINE 50 MCG TAB Take one(1) tablet daily. simvastatin(ZOCOR 40 MG TAB) Take one(1) tablet daily at bedtime. alendronate (FOSAMAX) 70 mg tablet Take 1 tablet by mouth one time a week. On empty stomach with large glass of water. First thing in the am. No other medications. Do not lie down after taking this. No current facility-administered medications on file prior to visit. PHYSICAL EXAMINATION: Resp 20 Ht 146.1 cm (4' 9.5 ) Wt 55 kg (121 lb 3.2 oz) BMI 25.77 kg/m? EXAM: Shoulder Musculoskeletal Exam Inspection Right Ecchymosis: none Peripheral edema: none Atrophy: none Symmetry: symmetric Masses: none Palpation Right Crepitus: no crepitus Increased warmth: none Tenderness: present Anterior shoulder: moderate Posterior shoulder: mild Clavicle: none AC joint: mild Sternoclavicular joint: none Rotator cuff: moderate Greater tuberosity: none Trapezius: mild Medial scapula: none Superior pole of scapula: none Inferior pole of scapula: none Bicipital groove: mild Proximal biceps: moderate Range of Motion Right Active ROM: abnormal and pain. Passive ROM: abnormal and pain. Active forward elevation: 90. Passive forward elevation: 120. Shoulder active abduction: 60. Passive abduction: 90. Active external rotation at side: 60. Passive external rotation at side: 60. Active external rotation in abduction: 80. Passive external rotation in abduction: 80. Active internal rotation in abduction: 60. Passive internal rotation in abduction: 60. Internal rotation: T12. Strength Right External rotation: 4-/5. Internal rotation: 4/5. Abduction: 3/5. Neurovascular Right Right shoulder nerve sensation is normal. Scapula Right Right shoulder scapula is normal. Special Tests Right Rotator Cuff Signs Neer's test: positive Superior escape: negative Maldonado test: positive External rotation lag sign: negative Supraspinatus: positive Belly press test: negative Painful arc test: positive Lift-off sign: negative Drop arm test: negative Biceps/sonja Signs Clark's test: positive Clicking/popping: negative Speed's test: positive AC Joint Signs Active horizontal adduction pain: negative Single finger test: negative General Constitutional: appears stated age Labored breathin (more content not included)... [facility] 09-25-2023 History of Present illness Narrative ORTHOPAEDIC SHOULDER & ELBOW SERVICE HISTORY & PHYSICAL EXAM REFERRING PROVIDER: Steffany Rodriguez [address] [place] [id number] CHIEF COMPLAINT: Right shoulder pain and weakness PAIN EVALUATION 09/25/2023 1044 Pain Level: 5 Pain Location: Shoulder-Right Description: Burning;Other: See comment;Numbness Duration Amount of Time: 1 Duration Units: Years Frequency: Continuous Comments: pinching, weakness Lorna Gonzalez is a 78 year old woman who presents today for evaluation of her right shoulder. She has developed painful weakness over the course of several months and can no longer lift the arm to perform daily tasks due to severe pain and weakness. She does not recall any significant injury recently. She is also having difficulty with the left arm making it difficult for her to continue to modify her activities with the right shoulder. She comes to me as a consultation from [facility] where she was evaluated and has been treated conservatively for full-thickness rotator cuff tears. She has had previous treatment with corticosteroid injection which did not provide much relief. PAST MEDICAL HISTORY: PAST MEDICAL HISTORY Diagnosis Date Fibromyalgia Hypercholesteremia Hypothyroid Osteoporosis Right shoulder pain PAST SURGICAL HISTORY: PAST SURGICAL HISTORY Procedure Laterality Date COLONOSCOPY FLX DX W/COLLJ SPEC WHEN PFRMD 08/28/2014 Colonoscopy HEMORRHOIDAL S TUBAL LIGATION SOCIAL HISTORY: Social History Tobacco Use Smoking status: Never Smokeless tobacco: Never Substance Use Topics Alcohol use: No Drug use: Never ALLERGIES: ALLERGIES No Known Allergies MEDICATIONS: Current Outpatient Medications on File Prior to Visit Medication Sig biotin 1 mg cap Take 1 mg by mouth once daily. Minoxidil 2 % external solution 1 teaspoon applied topically on scalp once daily primidone (MYSOLINE) 50 mg tablet Take 100 mg by mouth daily at bedtime. atorvastatin (LIPITOR) 10 mg tablet Take 10 mg by mouth once daily. MELOXICAM ORAL Take by mouth once daily. VITAMIN B COMPLEX (B COMPLEX 1 ORAL) Take by mouth once daily. PRAVASTATIN SODIUM (PRAVASTATIN ORAL) Take by mouth daily at bedtime. MAGNESIUM OXIDE ORAL Take by mouth once daily. niacin 500 mg tablet Take 500 mg by mouth daily with breakfast. aspirin 325 mg tablet Take 325 mg by mouth once daily. Cholecalciferol, Vitamin D3, (VITAMIN D-3) 400 unit chew Take by mouth. LEVOTHYROXINE 50 MCG TAB Take one(1) tablet daily. simvastatin(ZOCOR 40 MG TAB) Take one(1) tablet daily at bedtime. alendronate (FOSAMAX) 70 mg tablet Take 1 tablet by mouth one time a week. On empty stomach with large glass of water. First thing in the am. No other medications. Do not lie down after taking this. No current facility-administered medications on file prior to visit. PHYSICAL EXAMINATION: Resp 20 Ht 146.1 cm (4' 9.5 ) Wt 55 kg (121 lb 3.2 oz) BMI 25.77 kg/m EXAM: Shoulder Musculoskeletal Exam Inspection Right Ecchymosis: none Peripheral edema: none Atrophy: none Symmetry: symmetric Masses: none Palpation Right Crepitus: no crepitus Increased warmth: none Tenderness: present Anterior shoulder: moderate Posterior shoulder: mild Clavicle: none AC joint: mild Sternoclavicular joint: none Rotator cuff: moderate Greater tuberosity: none Trapezius: mild Medial scapula: none Superior pole of scapula: none Inferior pole of scapula: none Bicipital groove: mild Proximal biceps: moderate Range of Motion Right Active ROM: abnormal and pain. Passive ROM: abnormal and pain. Active forward elevation: 90. Passive forward elevation: 120. Shoulder active abduction: 60. Passive abduction: 90. Active external rotation at side: 60. Passive external rotation at side: 60. Active external rotation in abduction: 80. Passive external rotation in abduction: 80. Active internal rotation in abduction: 60. Passive internal rotation in abduction: 60. Internal rotation: T12. Strength Right External rotation: 4-/5. Internal rotation: 4/5. Abduction: 3/5. Neurovascular Right Right shoulder nerve sensation is normal. Scapula Right Right shoulder scapula is normal. Special Tests Right Rotator Cuff Signs Neer's test: positive Superior escape: negative Maldonado test: positive External rotation lag sign: negative Supraspinatus: positive Belly press test: negative Painful arc test: positive Lift-off sign: negative Drop arm test: negative Biceps/sonja Signs Clark's test: positive Clicking/popping: negative Speed's test: positive AC Joint Signs Active horizontal adduction pain: negative Single finger test: negative General Constitutional: appears stated age Labored breathing: no Psychiatric: normal mood and affect and no acute distress Neurological: alert and oriented x3 Skin: intact IMAGING: Reviewed radiographs of her right shoulder today showing advanced changes of rotator cuff tear arthropathy with loss of acromiohumeral distance and degenerative changes at the glenohumeral joint as well as between the upper humeral head and undersurface of the acromion. MEDICAL DECISION MAKING: (M12.994) Rotator cuff arthropathy of right shoulder (primary encounter diagnosis) Comment: Lorna Gonzalez presents today with full weakness of the right shoulder due to advanced rotator cuff tear arthropathy. Based on my evaluation today, I do not feel that nonsurgical interventions including physical therapy, activity modification, and medical management are likely to provide this patient with an acceptable level of improvement in functional use of the arm, nor significant pain relief. After thorough review of history, examination findings, and imaging, we discussed surgical intervention today which would be reverse total shoulder arthroplasty. I described the procedure in detail as well as the expected healing time of 3-6 months and physical therapy regimen following surgery, likely for much of this time. Informed consent was discussed in detail and signed in the office today. Significant risks of surgery including those of general anesthesia, and those from surgery including infection, nerve injury, bleeding, procedure failure and possible need for repeat procedure were all discussed at the time of consent. No guarantees as to the outcome of surgery were given or implied. Surgery will be scheduled for the next available date. Medical decision making for today's visit was conducted with review of the following data sources: History, exam, imaging REFERRING PHYSICIAN: The patient was referred to me for consultation by the following physician. This consultation note will be sent to the following physician by either mail or electronic medical record. Steffany Rodriguez [address] [id number] Bianka Rivera MD Shoulder & Elbow Surgeon Department of Orthopaedic Surgery [facility] documented in this encounter [facility] 09-03-2023 Note HNO ID: [id number] Author: Steffany Rodriguez PA-C Service: ? Author Type: Physician Advertising Material Distributor Type: Progress Notes Filed: 09/06/2023 9:05 AM Note Text: Steffany Rodriguez PA-C Department of Orthopaedics Orthopa[facility]ics [address] [id number] Dept: [phone] September 03, 2023 SUBJECTIVE: CHIEF COMPLAINT: New and Pain of the Right Shoulder and New and Pain of the Left Shoulder HPI: Ms. Lorna Gonzalez is a 78 year old right hand dominant female. She presents today with bilateral shoulder pain, R>L, that has been present for years. Briefly, she has been seen previously by outside orthopedics where MRIs showed full thickness retracted supraspinatus and infraspinatus tears (right) and full thickness partially retracted supraspinatus tear (left). She has been treated with corticosteroid injections in the past. Today she rates her pain an 8 on a scale of 0 to 10. Her pain is worse with any activity. Her biggest concern is that for the past year she has had limited ROM with her right shoulder and is having difficulty with ADLs (putting dishes away, brushing hair, etc). She describes the pain as achy. She takes advil as needed for the pain. She notes that the injections previously administered provided less than a week of relief. She denies any recent injury or previous shoulder surgery. Past Medical History: PAST MEDICAL HISTORY Diagnosis Date Fibromyalgia Hypercholesteremia Hypothyroid Osteoporosis Past Surgical History: PAST SURGICAL HISTORY Procedure Laterality Date COLONOSCOPY FLX DX W/COLLJ SPEC WHEN PFRMD 08/28/2014 Colonoscopy HEMORRHOIDAL S TUBAL LIGATION Family History: FAMILY HISTORY Problem Relation Age of Onset Diabetes Mother other (parkinson [Other]) Mother Alcohol/Drug Father Breast Cancer Sister Social History: Social History Tobacco Use Smoking status: Never Smokeless tobacco: Never Substance Use Topics Alcohol use: No Drug use: Never Medications: Current Outpatient Medications Medication Sig alendronate (FOSAMAX) 70 mg tablet Take 1 tablet by mouth one time a week. On empty stomach with large glass of water. First thing in the am. No other medications. Do not lie down after taking this. aspirin 325 mg tablet Take 325 mg by mouth once daily. (Patient not taking: Reported on 04/24/2022) atorvastatin (LIPITOR) 10 mg tablet Take 10 mg by mouth once daily. biotin 1 mg cap Take 1 mg by mouth once daily. Cholecalciferol, Vitamin D3, (VITAMIN D-3) 400 unit chew Take by mouth. LEVOTHYROXINE 50 MCG TAB Take one(1) tablet daily. MAGNESIUM OXIDE ORAL Take by mouth once daily. (Patient not taking: Reported on 09/03/2023) MELOXICAM ORAL Take by mouth once daily. Minoxidil 2 % external solution 1 teaspoon applied topically on scalp once daily niacin 500 mg tablet Take 500 mg by mouth daily with breakfast. (Patient not taking: Reported on 04/24/2022) PRAVASTATIN SODIUM (PRAVASTATIN ORAL) Take by mouth daily at bedtime. (Patient not taking: Reported on 04/24/2022) primidone (MYSOLINE) 50 mg tablet Take 100 mg by mouth daily at bedtime. simvastatin(ZOCOR 40 MG TAB) Take one(1) tablet daily at bedtime. (Patient not taking: No sig reported) VITAMIN B COMPLEX (B COMPLEX 1 ORAL) Take by mouth once daily. No current facility-administered medications for this visit. Allergies: Patient has no known allergies. ROS: General: negative for fatigue, malaise, weight loss/gain Musculoskeletal: see HPI Psych: no depression, anxiety OBJECTIVE: Ms. Lorna Gonzalez is a pleasant 78 year old in no apparent distress. Gen:There were no vitals taken for this visit. nl development, non obese, no deformities ENT: Normocephalic, normal hearing, moist mucosa CV: Pulses:Radial= 2+ and symmetric, capillary refill < 2 secs, no peripheral edema/varicosities Skin: no rash, bruising or lesions. Good turgor. Psych: cooperative and appropriate, alert and oriented x 3, good mood and affect. Musculoskeletal: Right Shoulder Exam Tenderness The patient is experiencing tenderness in the acromioclavicular joint and biceps tendon. Range of Motion Active abduction: 90 External rotation: 30 Forward flexion: 90 Muscle Strength The patient has normal right shoulder strength. Tests Cross arm: positive Impingement: positive Other Erythema: absent Scars: absent Left Shoulder Exam Tenderness The patient is experiencing no tenderness. Range of Motion Active abduction: 160 External rotation: 60 Forward flexion: 170 Muscle Strength The patient has normal left shoulder strength. Tests Maldonado test: negative Cross arm: negative Drop arm: negative IMAGIN09/06/2023 8:31 AM - Radiology, Oru In Impression IMPRESSION: Suspect chronic rotator cuff tear. Catering Coordinator: NIKOLE Transcribe Date/Time: Sep 06 2023 8:26A Dictated by : LYNDA ZIMMERMAN MD This examination was interpreted a (more content not included)... [facility] 09-03-2023 Note HNO ID: [id number] Author: Sunshine Spencer Tech Service: Radiology Author Type: Associate Professor Of Psychology Type: Progress Notes Filed: 09/03/2023 1:29 PM Note Text: Radiology Service Progress Note PATIENT NAME: Lorna Gonzalez DATE OF SERVICE: September 03, 2023 TIME: 1:28 PM PATIENT IDENTITY VERIFICATION COMPLETED USING TWO (2) IDENTIFIERS: Name and Date of confirmed by patient verbally. FALL SCREENING: Has the patient had 2 falls in the last year or 1 fall with injury or currently using an Ambulatory Assistive Device (Walker, Cane, Wheelchair, Crutches, etc.)? No PATIENT GENDER DATA: Female. status: : No status: NO. PATIENT RELEVANT IMPLANT DATA REVIEWED: Not Applicable RADIOLOGY DEPARTMENT: General X-ray: Exam(s) Completed: Upper Extremity X-Ray(s): Shoulder, AP / TRUE AP / AXILLARY right PERIPHERAL IV DATA: Not applicable SIGNED BY: Tia Jimenez September 03, 2023 1:28 PM [facility] 09-03-2023 History of Present illness Narrative Steffany Rodriguez PA-C Department of Orthopaedics [facility] [address] [address] Dept: [phone] September 03, 2023 SUBJECTIVE: CHIEF COMPLAINT: New and Pain of the Right Shoulder and New and Pain of the Left Shoulder HPI: Ms. Lorna Gonzalez is a 78 year old right hand dominant female. She presents today with bilateral shoulder pain, R>L, that has been present for years. Briefly, she has been seen previously by outside orthopedics where MRIs showed full thickness retracted supraspinatus and infraspinatus tears (right) and full thickness partially retracted supraspinatus tear (left). She has been treated with corticosteroid injections in the past. Today she rates her pain an 8 on a scale of 0 to 10. Her pain is worse with any activity. Her biggest concern is that for the past year she has had limited ROM with her right shoulder and is having difficulty with ADLs (putting dishes away, brushing hair, etc). She describes the pain as achy. She takes advil as needed for the pain. She notes that the injections previously administered provided less than a week of relief. She denies any recent injury or previous shoulder surgery. Past Medical History: PAST MEDICAL HISTORY Diagnosis Date Fibromyalgia Hypercholesteremia Hypothyroid Osteoporosis Past Surgical History: PAST SURGICAL HISTORY Procedure Laterality Date COLONOSCOPY FLX DX W/COLLJ SPEC WHEN PFRMD 08/28/2014 Colonoscopy HEMORRHOIDAL S TUBAL LIGATION Family History: FAMILY HISTORY Problem Relation Age of Onset Diabetes Mother other (parkinson [Other]) Mother Alcohol/Drug Father Breast Cancer Sister Social History: Social History Tobacco Use Smoking status: Never Smokeless tobacco: Never Substance Use Topics Alcohol use: No Drug use: Never Medications: Current Outpatient Medications Medication Sig alendronate (FOSAMAX) 70 mg tablet Take 1 tablet by mouth one time a week. On empty stomach with large glass of water. First thing in the am. No other medications. Do not lie down after taking this. aspirin 325 mg tablet Take 325 mg by mouth once daily. (Patient not taking: Reported on 04/24/2022) atorvastatin (LIPITOR) 10 mg tablet Take 10 mg by mouth once daily. biotin 1 mg cap Take 1 mg by mouth once daily. Cholecalciferol, Vitamin D3, (VITAMIN D-3) 400 unit chew Take by mouth. LEVOTHYROXINE 50 MCG TAB Take one(1) tablet daily. MAGNESIUM OXIDE ORAL Take by mouth once daily. (Patient not taking: Reported on 09/03/2023) MELOXICAM ORAL Take by mouth once daily. Minoxidil 2 % external solution 1 teaspoon applied topically on scalp once daily niacin 500 mg tablet Take 500 mg by mouth daily with breakfast. (Patient not taking: Reported on 04/24/2022) PRAVASTATIN SODIUM (PRAVASTATIN ORAL) Take by mouth daily at bedtime. (Patient not taking: Reported on 04/24/2022) primidone (MYSOLINE) 50 mg tablet Take 100 mg by mouth daily at bedtime. simvastatin(ZOCOR 40 MG TAB) Take one(1) tablet daily at bedtime. (Patient not taking: No sig reported) VITAMIN B COMPLEX (B COMPLEX 1 ORAL) Take by mouth once daily. No current facility-administered medications for this visit. Allergies: Patient has no known allergies. ROS: General: negative for fatigue, malaise, weight loss/gain Musculoskeletal: see HPI Psych: no depression, anxiety OBJECTIVE: Ms. Lorna Gonzalez is a pleasant 78 year old in no apparent distress. Gen:There were no vitals taken for this visit. nl development, non obese, no deformities ENT: Normocephalic, normal hearing, moist mucosa CV: Pulses:Radial= 2+ and symmetric, capillary refill < 2 secs, no peripheral edema/varicosities Skin: no rash, bruising or lesions. Good turgor. Psych: cooperative and appropriate, alert and oriented x 3, good mood and affect. Musculoskeletal: Right Shoulder Exam Tenderness The patient is experiencing tenderness in the acromioclavicular joint and biceps tendon. Range of Motion Active abduction: 90 External rotation: 30 Forward flexion: 90 Muscle Strength The patient has normal right shoulder strength. Tests Cross arm: positive Impingement: positive Other Erythema: absent Scars: absent Left Shoulder Exam Tenderness The patient is experiencing no tenderness. Range of Motion Active abduction: 160 External rotation: 60 Forward flexion: 170 Muscle Strength The patient has normal left shoulder strength. Tests Maldonado test: negative Cross arm: negative Drop arm: negative IMAGIN09/06/2023 8:31 AM - Radiology, Oru In Impression IMPRESSION: Suspect chronic rotator cuff tear. Catering Coordinator: PSCB Transcribe Date/Time: Sep 06 2023 8:26A Dictated by : LYNDA ZIMMERMAN MD This examination was interpreted and the report reviewed and electronically signed by: LYNDA ZIMMERMAN MD on Sep 06 2023 8:29AM EST Results-Findings * * *Final Report* * * DATE OF EXAM: Sep 03 2023 1:26PM GUL[facility] 5253 - XR SHLDR >/=3V AP/TORI AP/OTHR RT / PROCEDURE REASON: [id number] * * * * Physician Interpretation * * * * HISTORY: Pain RIGHT SHOULDER PAIN TECHNIQUE: 3 views COMPARISON: 03/17/2016 RESULT: There is marked inferior AC joint spurring, which can impinge upon the rotator cuff. There is new slight upward riding of the humeral head suggesting probable chronic rotator cuff tear. There is spurring and irregularity of the superolateral humeral head consistent with rotator cuff disease, appearing more marked than previously. No bony destructive change or fracture or dislocation. No abnormal soft tissue calcium ASSESSMENT: M12.811, M12.812 Rotator cuff arthropathy of both shoulders (primary encounter diagnosis) PLAN: Reviewed images taken today. Discussed repeat corticosteroid injection vs surgical intervention. At this point patient is not interested in corticosteroid injections as she did not get significant relief from her last round of injections. She is interested in discussing right shoulder surgical options as her ROM has decreased and she needs her arm to work better as she helps care for her . Recommend she schedule follow up with Dr. Rivera. FOLLOW UP INSTRUCTIONS: Dr. Rivera surgical consult Steffany Rodriguez PA-C documented in this encounter [facility] 06-21-2022 History of Present illness Narrative Images from the original note were not included. [facility] General Arthritis and Rheumatology Chela Portillo [address] [facility] [address] [place] [address] RHEUMATOLOGY PROGRESS NOTE Established Patient Patient presents with: Patient Question: review results HPI: Lorna Gonzalez is a 76 year old female who presents for follow up of shoulder pains. Previous xrays showed damage to rotator cuff and AC joint disease. She now reports pains in her elbow and occasionally on the top of her hands near the MCP joints. She has pruritus since August and went to [facility]. She was prescribed Minoxidil for hair loss. She is taking magnesium and calcium and has a slightly high calcium level. She stopped fosamax and Mobic for unclear reasons.. Knee xrays show osteoporosis and PF oa. She is not taking any more statins. There is no cholesterol check. Interval Review of Systems ROS RHEUMATOLOGY CONSTITUTIONAL: Recent Weight change: No Fever: No EYES: Dryness in nose: No Dryness of mouth: No Oral ulcers: No CARDIOVASCULAR: Pain in chest: No RESPIRATORY: Shortness of breath: No Cough: No GASTROINTESTINAL: Nausea: No Vomiting: No Changes in bowel movements: No Jaundice: No Heartburn: No MUSCULOSKELETAL: Per HPI INTEGUMENTARY: Rash: No HEMATOLOGIC/LYMPHATIC: Anemia: No NEUROLOGICAL SYSTEM: Headaches: No Sensitivity or pain of hands and/or feet: No PSYCHIATRIC: Anxiety: YES Poor sleep: No PAST MEDICAL HISTORY Diagnosis Date Fibromyalgia Hypercholesteremia Hypothyroid Osteoporosis PAST SURGICAL HISTORY Procedure Laterality Date COLONOSCOPY FLX DX W/COLLJ SPEC WHEN PFRMD 08/28/2014 Colonoscopy HEMORRHOIDAL S TUBAL LIGATION Employer And Job Title: None on file Years Of Education Completed: Not specified Marital Status: BP 154/80 Pulse 62 Temp 36.7 C (98 F) Ht 146.1 cm (4' 9.5 ) Wt 52.2 kg (115 lb) BMI 24.45 kg/m Physical Exam GENERAL: Well appearing, alert, comfortable, in no acute distress, well-hydrated, well nourished. HEENT: Negative for external ears normal. NEURO: Motor and sensory exam normal MOTOR: Normal; including tone, gait, stressed gait, power and coordination. SKIN: thin hair alopecia, skin rash, malar rash, skin lesion, skin ulcer, pits, thickening, color changes, telangiectasias, nail changes, nail ridging, nail pitting, onycholysis MUSCULOSKELETAL: Very poor ROM of shoulders. Good ROM of elbows. No effusions. Crepitation knees. Mildly tender MCP's. Assessment and Plan (M81.8) Other osteoporosis without current pathological fracture (primary encounter diagnosis) (M25.50) Arthralgia, unspecified joint (E78.49) Other hyperlipidemia (M17.0) Primary osteoarthritis of both knees (L29.9) Pruritus Lorna was seen today for patient question. Diagnoses and all orders for this visit: Other osteoporosis without current pathological fracture - JOHN BY IFA SCREEN; Future - CCP ANTIBODY IGG; Future - MITOCHONDRIAL AB PNL SCRN; Future - alendronate (FOSAMAX) 70 mg tablet; Take 1 tablet by mouth one time a week. On empty stomach with large glass of water. First thing in the am. No other medications. Do not lie down after taking this. - VITAMIN D 25 HYDROXY; Future Arthralgia, unspecified joint - JOHN BY IFA SCREEN; Future - CCP ANTIBODY IGG; Future - MITOCHONDRIAL AB PNL SCRN; Future - alendronate (FOSAMAX) 70 mg tablet; Take 1 tablet by mouth one time a week. On empty stomach with large glass of water. First thing in the am. No other medications. Do not lie down after taking this. - VITAMIN D 25 HYDROXY; Future - XR HAND GENERAL 3V PA/LAT/OBL RIGHT; Future - XR HAND GENERAL 3V PA/LAT/OBL LEFT; Future - CBC + DIFF; Future Other hyperlipidemia - LIPID PANEL BASIC; Future Primary osteoarthritis of both knees Pruritus Other orders - meloxicam (MOBIC) 7.5 mg tablet; Take 1 tablet by mouth once daily. Office Visit on 06/21/22 XR HAND GENERAL 3V PA/LAT/OBL RIGHT XR HAND GENERAL 3V PA/LAT/OBL LEFT JOHN BY IFA SCREEN CCP ANTIBODY IGG MITOCHONDRIAL AB PNL SCRN VITAMIN D 25 HYDROXY LIPID PANEL BASIC CBC + DIFF Medication orders placed this encounter alendronate (FOSAMAX) 70 mg tablet Sig: Take 1 tablet by mouth one time a week. On empty stomach with large glass of water. First thing in the am. No other medications. Do not lie down after taking this. Dispense: 12 tablet Refill: 0 meloxicam (MOBIC) 7.5 mg tablet Sig: Take 1 tablet by mouth once daily. Dispense: 90 tablet Refill: 0 Return in about 3 months (around 09/21/2022), or [facility], for in office followup. I spent a total of minutes on the date of the service which included preparing to see the patient, [id number] patient care, completing clinical documentation, obtaining and/or reviewing separately obtained history, performing a medically appropriate examination, counseling and educating the patient/family/caregiver, ordering medications, tests, or procedures, communicating with other HCPs (not separately reported), independently interpreting results (not separately reported), communicating results to the patient/family/caregiver and care coordination (not separately reported). Chela Portillo MD June 21, 2022 2:54 PM Patient Instructions: Stop calcium tablets. Your calcium level is too high. You have low bone density (osteoporosis) And Osteoarthritis (causes joint pains.) Your itchiness may be caused by a medication. I will look for other causes. documented in this encounter [facility] 06-21-2022 Instructions Chela Bertrand MD - 06/21/2022 12:24 PM EDT Stop calcium tablets. Your calcium level is too high. You have low bone density (osteoporosis) And Osteoarthritis (causes joint pains.) Your itchiness may be caused by a medication. I will look for other causes. documented in this encounter [facility] 03-15-2021 Evaluation + Plan note Future Scheduled TestsCancer Antigen 125 03/15/21 [facility] Diagnosis Other osteoporosis without current pathological fracture- Primary Arthralgia, unspecified joint Other hyperlipidemia Primary osteoarthritis of both knees Primary localized osteoarthrosis, lower leg Pruritus Unspecified pruritic disorder [facility] Diagnosis Pain- Primary Generalized pain documented in this encounter [facility] note* Diagnosis Rotator cuff arthropathy of both shoulders- Primary documented in this encounter [facility] note* Diagnosis Rotator cuff arthropathy of right shoulder- Primary documented in this encounter [facility] note* Diagnosis Rotator cuff arthropathy, right- Primary Rotator cuff arthropathy, right documented in this encounter [facility] course Narrative No data available for this section [facility] Hospital Discharge instructions No data available for this section [facility] Reason for referral (narrative)* Diagnostic Procedure Only (Routine) - Closed Specialty Diagnoses / Procedures Referred By Arianna t Referred To Contact XR IMAGING Diagnoses Knee effusion, right Procedures XR KNEE LIMITED 2V AP/LAT RIGHT RADIOLOGIC EXAMINATION KNEE 1/2 VIEWS O Chela Bertrand MD [address] [facility] [address] [place] [address] Xr Imaging Referral ID Status Reason Start Date Expiration Date V isits Requested Visits Authorized [id number] Closed Auto-Generate d Referral 04/24/2022 05/24/2023 1 1 [facility] for referral (narrative)* Diagnostic Procedure Only (Routine) - Closed Specialty Diagnoses / Procedures Referred By Contac t Referred To Contact XR IMAGING Diagnoses Arthralgia, unspecified joint Procedures XR HAND GENERAL 3V PA/LAT/OBL LEFT RADEX HAND MINIMUM 3 VIEWS Chela Montana MD [address] [facility] [employer] [facility] [address] [place] [address] Xr Imaging Referral ID Status Reason Start Date Expiration Date V isits Requested Visits Authorized [id number] Closed Auto-Generate d Referral 06/21/2022 07/21/2023 1 1 * Diagnostic Procedure Only (Routine) - Closed Specialty Diagnoses / Procedures Referred By Contac t Referred To Contact XR IMAGING Diagnoses Arthralgia, unspecified joint Procedures XR HAND GENERAL 3V PA/LAT/OBL RIGHT RADEX HAND MINIMUM 3 VIEWS Chela Montana MD [address] [facility] [address] [place] [address] Xr Imaging Referral ID Status Reason Start Date Expiration Date V isits Requested Visits Authorized [id number] Closed Auto-Generate d Referral 06/21/2022 07/21/2023 1 1 [facility] for referral (narrative)* Diagnostic Procedure Only (Routine) - Authorized Specialty Diagnoses / Procedures Referred By Contac t Referred To Contact XR IMAGING Diagnoses Pain Procedures XR SHOULDER GENERAL 3V OR MORE AP/TRUE AP/OTHER RIGHT RADEX SHOULDER COMPLETE MINIMUM 2 VIEWS Steffany Rodriguez PA-C [address] [place] [id number] [place] [address] Referral ID Status Reason Start Date Expiration Date Visits Requested Visits Authorized [id number] Authorized Auto-Generat ed Referral 08/13/2023 09/11/2024 1 1 [facility] for visit Narrative* Diagnostic Procedure Only (Routine) - Closed Specialty Diagnoses / Procedures Referred By Contac t Referred To Contact XR IMAGING Diagnoses Knee effusion, right Procedures XR KNEE LIMITED 2V AP/LAT RIGHT RADIOLOGIC EXAMINATION KNEE 1/2 VIEWS Chela Montana MD [address] [facility] [address] [place] [address] Xr Imaging Referral ID Status Reason Start Date Expiration Date V isits Requested Visits Authorized [id number] Closed Auto-Generate d Referral 04/24/2022 05/24/2023 1 1 [facility] Summary Purpose Family History No Family History Records FoundNo Family History Records FoundNo Family History Records FoundNo Family History Records FoundNo Family History Records Found Advance Directives No Advanced Directives Records FoundNo Advanced Directives Records FoundNo Advanced Directives Records FoundNo Advanced Directives Records FoundNo Advanced Directives Records Found Additional Source Comments INFORMATION SOURCE (unrecogn ized section and content) DATE CREATED AUTHOR AUTHOR'S ORGANIZ ATION 09/01/2021 [facility] ([place]) DATE CREATED AUTHOR AUTHOR'S ORGANIZ ATION 09/07/2023 [facility] DATE CREATED AUTHOR AUTHOR'S ORGANIZ ATION 09/08/2023 [facility] DATE CREATED AUTHOR AUTHOR'S ORGANIZ ATION 11/01/2023 [facility] Source Comments (unrecognize d section and content) In the event this informatio n is protected by the Federal Confidentiality of Alcohol and Drug Abuse Patient Records regulations: The Federal rules restrict any use of the information to criminally investigate or prosecute any alcohol or drug abuse patient.[facility] the event this information is protected by the Federal Confidentiality of Alcohol and Drug Abuse Patient Records regulations: The Federal rules restrict any use of the information to criminally investigate or prosecute any alcohol or drug abuse patient.[facility] Hospital[facility] the event this information is protected by the Federal Confidentiality of Alcohol and Drug Abuse Patient Records regulations: The Federal rules restrict any use of the information to criminally investigate or prosecute any alcohol or drug abuse patient.[facility] Hospital[facility] the event this information is protected by the Federal Confidentiality of Alcohol and Drug Abuse Patient Records regulations: The Federal rules restrict any use of the information to criminally investigate or prosecute any alcohol or drug abuse patient.[facility] Hospital[facility] the event this information is protected by the Federal Confidentiality of Alcohol and Drug Abuse Patient Records regulations: The Federal rules restrict any use of the information to criminally investigate or prosecute any alcohol or drug abuse patient.[facility] Hospital[facility] the event this information is protected by the Federal Confidentiality of Alcohol and Drug Abuse Patient Records regulations: The Federal rules restrict any use of the information to criminally investigate or prosecute any alcohol or drug abuse patient.[facility] Care Teams (unrecognized sec tion and content) Field Hauler Relationship Specialty Start Date End Date Neli Rosenthal MD [address] [place] [address] PCP - General Internal Medicine 04/24/22 Borruso, Jospeh, DO [address] [place] [address] Orthopedics 04/24/22 Field Hauler Relationship Specialty Start Date End Date Neli Rosenthal MD [address] [place] [address] PCP - General Internal Medicine 04/24/22 Nguyenru, Prachispeh, DO [address] [place] [address] Orthopedics 04/24/22 Field Hauler Relationship Specialty Start Date End Date Neli Rosenthal MD [address] [place] [address] PCP - General Internal Medicine 04/24/22 Kita, Prachispeh, DO [address] [place] [address] Orthopedics 04/24/22 Field Hauler Relationship Specialty Start Date End Date Neli Rosenthal MD [address] [place] [place] [address] PCP - General Internal Medicine 04/24/22 Nguyenprescott, Prachispeh, DO [address] [place] [address] Orthopedics 04/24/22 Field Hauler Relationship Specialty Start Date End Date Neli Rosenthal MD [address] [place] [place] [address] PCP - General Internal Medicine 04/24/22 [facility] [address] [place] [address] Orthopedics 04/24/22 Reason for Visit (unrecogniz ed section and content) Reason Comments New Pain Reason Comments New Pain with movement Pain Pain with movement FOR RECORDS PERTAINING TO PATIENTS WHO ARE OR HAVE BEEN ENROLLED IN A CHEMICAL DEPENDENCY/SUBSTANCEABUSE PROGRAM, SOME INFORMATION MAY BE OMITTED. This clinical summary was aggregated from multiple sources. Caution should be exercised in using it in the provision of clinical care. This summary normalizes information from multiple sources, and as a consequence, information in this document may materially change the coding, format and clinical context of patient data. In addition, data may be omitted in some cases. CLINICAL DECISIONS SHOULD BE BASED ON THE PRIMARY CLINICAL RECORDS. [facility] [employer] [facility]. provides no warranty or guarantee of the accuracy or completeness of information in this document.
[2023-11-21 13:05] LABS: Vitamin D,25 Hydroxy 63.7 ng/mL
[2023-11-21 13:07] LABS: ALB/GLOB Ratio 0.9 RATIO (0.9-2.4); AST(SGOT) 22 U/L (15-37); Alanine Aminotransfer ALT/SGPT 26 U/L (13-56); Albumin, Serum 3.6 g/dL (3.2-5.0); Alkaline Phosphatase 79 U/L (45-117); Anion Gap 3 (5-15); BUN 19 mg/dL (7-18); BUN/Creat Ratio 31.4 RATIO (10-20); Calcium,Total 9.6 mg/dL (8.5-10.1); Chloride 107 mmol/L (98-107); Cholesterol 245 mg/dL (200); EST Glomerular Filtration Rate 102 mL/min (>60); Est Glom Filt Rate - Afr Amer 124 mL/min (>60); Globulin 3.9 g/dL (2.2-4.2); Glucose 96 mg/dL (74-106); High Density Lipoprotein 89 mg/dL; Potassium 5.1 mmol/L (3.5-5.1); Protein, Total 7.5 g/dL (6.4-8.2); Sodium Level 135 mmol/L (136-145); Thyroid Stim Hormone (TSH) 0.64 uIU/mL (0.358-3.74); Triglycerides 135 mg/dL; Very Low Density Lipoprotein 27 mg/dL (5-40)
== END | disposition home or self-care (01) ==
LOC: BIMLAB 11:01
PROVIDERS: PCP Internal Medicine; Referring Provider Internal Medicine; Visit Provider Internal Medicine
DX: E03.9 Hypothyroidism, unspecified (principal); E78.2 Mixed hyperlipidemia; M85.80 Other specified disorders of bone density and structure, unspecified site
CPT/HCPCS: 36415; 80053; 80061; 82306; 84443; 85025

== ENCOUNTER → 2024-01-28 | Outpatient (CLI) | payer MEDICARE, MEDICAID, SELFPAY ==
--- NOTE | 2024-01-28 10:48 | BI_ITS ---
MAMMOGRAPHY - BILATERAL SCREENING REASON FOR EXAM: Female, 78 years old. Routine annual screening examination. PERTINENT HISTORY: Daughter with breast cancer. Sister with breast cancer. TECHNIQUE: Digital bilateral breast pop (3D mammographic acquisition) in the CC and MLO projections. 2-D mediolateral oblique (MLO) and craniocaudad (CC) views of both breasts were obtained. CAD: Full Field Digital Mammography with Computer Added Detection was performed. COMPARISON: Comparison is made with prior study of January 24, 2023 and January 23, 2022. FINDINGS: Breast Composition: The breasts are heterogeneously dense, which may obscure small masses. There are no dominant masses or suspicious calcifications. Stable asymmetry of breast tissue where more breast tissue is seen in the upper-outer quadrant right breast as compared to the left side. No other significant abnormalities are identified. There has been no significant change since the prior study. BI/SCRN MAMM (CAD)W/POP BILAT IMPRESSION: Stable bilateral screening mammogram. Yearly follow-up mammogram recommended. (A) ASSESSMENT CATEGORY: BIRADS Category 2: Benign. A letter regarding these results will be sent to the patient by the facility within 30 days. Approximately 10% of breast cancers are not detected by mammography. A normal mammogram should not delay biopsy of a clinically suspicious abnormality. [id number] Electronically Signed: Keaton Christopher MD at 14:01 EDT ,
== END | disposition home or self-care (01) ==
LOC: OPBI 10:48
PROVIDERS: PCP Internal Medicine; Referring Provider Internal Medicine; Visit Provider Internal Medicine
DX: Z12.31 Encounter for screening mammogram for malignant neoplasm of breast (principal); Z80.3 Family history of malignant neoplasm of breast
CPT/HCPCS: 77063; 77067

== ENCOUNTER → 2024-04-22 | Outpatient (CLI) | payer MEDICARE, MEDICAID, SELFPAY ==
[2024-04-22 12:45] LABS: Magnesium 2.1 mg/dL (1.6-2.6); Thyroid Stim Hormone (TSH) 1.17 uIU/mL (0.358-3.74)
== END | disposition home or self-care (01) ==
LOC: BIMLAB 09:35
PROVIDERS: PCP Internal Medicine; Referring Provider Internal Medicine; Visit Provider Internal Medicine
DX: M54.30 Sciatica, unspecified side (principal); E03.9 Hypothyroidism, unspecified
CPT/HCPCS: 36415; 83735; 84443

== ENCOUNTER → 2024-06-19 | Outpatient (CLI) | payer MEDICARE, MEDICAID, SELFPAY ==
--- NOTE | 2024-06-19 13:07 | BD_ITS ---
STUDY: DUAL ENERGY X-RAY ABSORPTIOMETRY / DXA REASON FOR EXAM: Female, 78 years old. Osteoporosis TECHNIQUE: Bone Mineral Density (BMD) measurements of lumbar spine and bilateral hips were obtained. COMPARISON: None. FINDINGS: Lumbar Spine (L1-L4): g/cm2 (0.909) / T-score (-1.0) / Z-score (1.5) Findings are suggestive of osteopenia with a low fracture risk. Left Femur Total: g/cm2 (0.727) / T-score (-1.8) / Z-score (0.1) Left Femoral Neck: g/cm2 (0.599) / T-score (-2.3) / Z-score (-0.1) Right Femur Total: g/cm2 (0.681) / T-score (-2.1) / Z-score (-0.3) Right Femoral Neck: g/cm2 (0.559) / T-score (-2.6) / Z-score (-0.4) BD/Dexa Bone Density Study IMPRESSION: The patient is considered osteoporotic as outlined below according to World Mike Organization (WHO) criteria with a high fracture risk. Reference Information: The T-score is the number of standard deviations above or below the standard which is normal for young adults at their peak bone mineral density. The World Health Organization (WHO) interprets the T-scores as follows: Above -1 Normal bone density Between -1 and -2.5 Osteopenia Equal to / or below -2.5 Osteoporosis As a practical clinical guideline, osteopenia may be graded as follows: Mild -1 through -1.5 Moderate -1.6 through -2.0 Severe -2.1 through -2.4 The Z-score is the number of standard deviations above or below age-matched controls. A Z-score of less than -1.5 would be considered abnormal. References: 1. NIH Osteoporosis and Related Bone Diseases www osteo.org 2. International Society for Clinical Densitometry www iscd.org 3. National Osteoporosis Foundation www nof.org Electronically Signed: Keaton Christopher MD at 15:16 EDT ,
== END | disposition home or self-care (01) ==
LOC: OPBD 12:51
PROVIDERS: PCP Internal Medicine; Referring Provider Internal Medicine; Visit Provider Internal Medicine
DX: M81.0 Age-related osteoporosis without current pathological fracture (principal)
CPT/HCPCS: 77080

== ENCOUNTER → 2024-07-10 | Outpatient (CLI) | payer MEDICARE, MEDICAID, SELFPAY ==
[2024-07-10 11:56] LABS: Absolute Lymphocyte Count 3.03 X10^3/uL (0.83-4.51); Absolute Neutrophil Count 5.5 X10^3/uL (2.0-7.7); Basophil# 0.04 X10^3/uL; Basophil% 0.4 % (0-1); Eosinophils% 3.1 % (0-5); Hematocrit 36.6 % (37-47); Hemoglobin 11.8 g/dL (12.0-15.0); Lymphocyte # 3.03 X10^3/ul (0.83-4.51); Lymphocyte % 31.1 % (19-41); Mean Corp Hgb Conc 32.2 g/dL (32-36); Mean Corpuscular Volume 86.9 fL (81-99); Mean Platelet Vol. 11.4 fl (6.2-12.0); Monocyte# 0.83 X10^3/uL; Monocyte% 8.5 % (0-10); NRBC Flagged by Analyzer 0 % (0-5); Neutrophil # 5.49 X10^3/uL (2.7-7.7); Neutrophil % 56.5 % (47-70); Platelet Count 118 K/mm3 (150-450); RBC Distribution Width CV 13.9 % (11.6-14.6); RBC Distribution Width SD 44.2 fl (35.1-43.9); Red Blood Count 4.21 M/mm3 (4.2-5.4); White Blood Count 9.7 K/mm3 (4.4-11.0)
[2024-07-10 12:48] LABS: ALB/GLOB Ratio 0.9 RATIO (0.9-2.4); AST(SGOT) 24 U/L (15-37); Alanine Aminotransfer ALT/SGPT 30 U/L (13-56); Albumin, Serum 3.5 g/dL (3.2-5.0); Alkaline Phosphatase 82 U/L (45-117); Amylase 72 U/L (25-115); Anion Gap 5 (5-15); BUN 19 mg/dL (7-18); BUN/Creat Ratio 37.8 RATIO (10-20); Calcium,Total 9.8 mg/dL (8.5-10.1); Chloride 106 mmol/L (98-107); Cholesterol 229 mg/dL (200); EST Glomerular Filtration Rate 126 mL/min (>60); Est Glom Filt Rate - Afr Amer 153 mL/min (>60); Globulin 4.1 g/dL (2.2-4.2); Glucose 108 mg/dL (74-106); High Density Lipoprotein 77 mg/dL; Lipase 33 U/L (13-75); Potassium 4.6 mmol/L (3.5-5.1); Protein, Total 7.6 g/dL (6.4-8.2); Sodium Level 137 mmol/L (136-145); Triglycerides 193 mg/dL; Very Low Density Lipoprotein 39 mg/dL (5-40)
== END | disposition home or self-care (01) ==
LOC: BIMLAB 10:20
PROVIDERS: PCP Internal Medicine; Referring Provider Physician Assistant; Visit Provider Physician Assistant
DX: E78.5 Hyperlipidemia, unspecified (principal); L29.9 Pruritus, unspecified
CPT/HCPCS: 36415; 80053; 80061; 82150; 83690; 85025

== ENCOUNTER 2025-02-12 09:55 | Outpatient (CLI) | payer MEDICARE, MEDICAID, SELFPAY ==
[2025-02-12 12:38] LABS: Absolute Lymphocyte Count 2.23 X10^3/uL (0.83-4.51); Absolute Neutrophil Count 5.2 X10^3/uL (2.0-7.7); Basophil# 0.05 X10^3/uL; Basophil% 0.6 % (0-1); Eosinophil# 0.19 X10^3/uL; Eosinophils% 2.2 % (0-5); Hematocrit 35.7 % (37-47); Hemoglobin 11.9 g/dL (12.0-15.0); Lymphocyte # 2.23 X10^3/ul (0.83-4.51); Lymphocyte % 26.4 % (19-41); Mean Corp Hgb Conc 33.3 g/dL (32-36); Mean Corpuscular Volume 86.9 fL (81-99); Mean Platelet Vol. 11.2 fl (6.2-12.0); Monocyte% 8.3 % (0-10); NRBC Flagged by Analyzer 0 % (0-5); Neutrophil # 5.24 X10^3/uL (2.7-7.7); Platelet Count 106 K/mm3 (150-450); RBC Distribution Width CV 14.3 % (11.6-14.6); RBC Distribution Width SD 45.1 fl (35.1-43.9); Red Blood Count 4.11 M/mm3 (4.2-5.4); White Blood Count 8.5 K/mm3 (4.4-11.0)
[2025-02-12 19:49] LABS: ALB/GLOB Ratio 1.5 RATIO (0.9-2.4); AST(SGOT) 27 U/L (<=31); Alanine Aminotransfer ALT/SGPT 23 U/L (<=34); Albumin, Serum 4.1 g/dL (3.4-4.8); Alkaline Phosphatase 83 U/L (35-104); Anion Gap 12 (5-15); BUN 15 mg/dL (4-19); Calcium,Total 9.7 mg/dL (7.6-11.0); Carbon Dioxide 21.3 mmol/L (21.0-32.0); Chloride 105 mmol/L (98-108); Creatinine, Serum 0.59 mg/dL (0.70-1.20); EST Glomerular Filtration Rate 93 (>60); Globulin 2.8 g/dL (2.2-4.2); Glucose 97 mg/dL (70-99); Iron 67 ug/dL (50-170); Iron Binding Capacity,Total 360 ug/dL (250-450); Iron Binding Capacity,Unsat 293 ug/dL (228-428); Potassium 4.6 mmol/L (3.3-5.1); Sodium Level 138 mmol/L (133-145); Total Bilirubin 0.28 mg/dL (0.00-1.30)
[2025-02-12 20:17] LABS: Cholesterol 223 mg/dL (<=200); High Density Lipoprotein 81 mg/dL; Low Density Lipoprotein Calc. 114 mg/dL; Triglycerides 138 mg/dL; Very Low Density Lipoprotein 28 mg/dL (5-40); cholesterol:hdl ratio screen 2.75
[2025-02-12 20:18] LABS: Vitamin B12 531 pg/mL (180-914); Vitamin D,25 Hydroxy 60.9 ng/mL (30-100)
[2025-02-13 11:08] LABS: Anti-Centromere B Ab <0.2 AI (0.0-0.9); Anti-Chromatin <0.2 AI (0.0-0.9); Anti-Jo <0.2 AI (0.0-0.9); Anti-Scleroderma-70 AB <0.2 AI (0.0-0.9); Anti-dsDNA Ab <1 IU/mL (0-9); RNP Ab 0.3 AI (0.0-0.9); SJOGREN'S Anti-SS-A test < 0.2 AI (0.0-0.9); SJOGREN'S Anti-SS-B test < 0.2 AI (0.0-0.9); Smith Ab <0.2 AI (0.0-0.9)
== END 2025-02-12 23:59 | disposition home or self-care (01) ==
LOC: BIMLAB 09:56
PROVIDERS: PCP Internal Medicine; Referring Provider Internal Medicine; Visit Provider Internal Medicine
DX: E78.2 Mixed hyperlipidemia (principal); E03.9 Hypothyroidism, unspecified; R53.83 Other fatigue; M81.0 Age-related osteoporosis without current pathological fracture
CPT/HCPCS: 36415; 80053; 80061; 82306; 82607; 83540; 83550; 84443; 85025; 86225; 86235

== ENCOUNTER → 2025-04-09 | Outpatient (CLI) | payer MEDICARE, MEDICAID, SELFPAY ==
--- NOTE | 2025-04-09 15:15 | BI_ITS ---
EXAM: SCRN MAMM (CAD)W/POP BILAT DATE: 04/09/2025 CLINICAL HISTORY: F, Age 79 y/o , SCREENING BREAST CANCER RISK ASSESSMENT: Not reported TECHNIQUE: Bilateral screening digital breast tomosynthesis with 2D and 3D images. Computer aided detection. COMPARISON: None available FINDINGS: TISSUE DENSITY: The breast tissue is heterogenously dense, which may obscure small masses. Bilateral Breast Mammographic Findings: No suspicious masses, calcifications or other abnormalities are identified. BI/SCRN MAMM (CAD)W/POP BILAT IMPRESSION: OVERALL FINAL ASSESSMENT: BIRADS 1 NEGATIVE RECOMMENDATION: Routine annual follow-up in 1 Year A letter with findings and recommendations will be mailed to the patient. Reading Location: [id number]
== END | disposition home or self-care (01) ==
LOC: OPBI 15:07
PROVIDERS: PCP Internal Medicine; Referring Provider Internal Medicine; Visit Provider Internal Medicine
DX: Z12.31 Encounter for screening mammogram for malignant neoplasm of breast (principal)
CPT/HCPCS: 77063; 77067

== ENCOUNTER → 2025-10-05 | Outpatient (CLI) | payer MEDICARE, MEDICAID, SELFPAY ==
[2025-10-05 17:40] LABS: Hematocrit 38.3 % (37-47); Hemoglobin 12.8 g/dL (12.0-15.0); Immature Granulocytes Count 0.060 X10^3/uL (0.0-0.0); Mean Corp Hgb Conc 33.4 g/dL (32-36); Mean Corpuscular Volume 89.9 fL (81-99); NRBC Flagged by Analyzer 0 % (0-5); POSITIVE COUNT YES; RBC Distribution Width CV 13.1 % (11.6-14.6); RBC Distribution Width SD 43.0 fl (35.1-43.9); Red Blood Count 4.26 M/mm3 (4.2-5.4); White Blood Count 11.6 K/mm3 (4.4-11.0)
[2025-10-05 17:48] LABS: Differential Indicated SCAN CRITERIA MET
[2025-10-05 18:21] LABS: AST(SGOT) 30 U/L (<=31); Alanine Aminotransfer ALT/SGPT 30 U/L (<=34); Albumin, Serum 4.5 g/dL (3.4-4.8); Alkaline Phosphatase 84 U/L (35-104); Anion Gap 11 (5-15); BUN 25 mg/dL (4-19); BUN/Creat Ratio 37.5 RATIO (10-20); Calcium,Total 10.7 mg/dL (7.6-11.0); Carbon Dioxide 23.6 mmol/L (21.0-32.0); Chloride 101 mmol/L (98-108); Globulin 3.4 g/dL (2.2-4.2); Glucose 102 mg/dL (70-99); Magnesium 2.2 mg/dL (1.5-2.2); Potassium 5.1 mmol/L (3.3-5.1)
--- OUTSIDE RECORDS SUMMARY | 2025-10-05 18:29 | XMS RPT_ITS | CCD ---
Author Organization [facility] CliniSypr Care Team Providers Care Technician Anatomic Pathology Name Role Phone CHUCK GUEVARA MD Primary Care Physician Dr. Neli Head Primary Care Provider HARINDER [place] Emergency Provider Dr. Hector Stuart Admit Provider Dr. Hector Stuart Attending Provider [phone] Hector Stuart Other Provider Dr. Hank Barton Attending Provider [phone] Hector Stuart Referring Provider Dr. Nigel Saldaña Other Provider Unavailable Dr. Edgar Cash Attending Provider Dr. Nigel Saldaña Attending Provider Unavailable Dr. Neli Head Referring Provider [phone] Dr. Hector Santos Attending Provider [phone] Dr. Neli Head Attending Provider [phone] Neli Head MD Primary Care Provider [phone] Xander Santos DO Unavailable Unavailable Dr. Neli Head Primary Care Provider Dr. Neli Head Attending Provider [phone] Dr. Neli Head Primary Care Provider Dr. Neli Head Referring Provider [phone] Hector Santos Attending Provider [phone] [address] Vasile Crawford Attending Provider [phone] Dr. Lilia Bergeron Attending Provider [phone] Adilene TEJADA, Neli Byrd Primary Care Provider [phone] Borwestley DO, Jospeh Unavailable Unavailable Dr. Lilia Bergeron Primary Care Provider Dr. Lilia Bergeron Referring Provider [phone] Dr. Raul Willis Attending Provider Dr. Vasile Crawford Attending Provider Dr. Lilia Bergeron Attending Provider [phone] Lilia Bergeron MD Primary Care Provider [phone] Booker RN, Yeimi Unavailable Unavailable Dr. Lilia Bergeron Primary Care Provider Dr. Lilia Bergeron Referring Provider [phone] Dr. Raul Willis Attending Provider [phone] Lilia Bergeron Attending Provider [phone] Lilia Bergeron MD Primary Care Provider [phone] Borruso DO, Jospeh Unavailable Unavailable THEE BERGERONYCIA G Primary Care Unavailable PROVIDER, UNKNOWN Referring Unavailable NELI HEAD Primary Care Unavailable Adilene TEJADA, Neli Byrd Primary Care Provider [phone] Borruso DO, Jospeh Unavailable Unavailable THEE BERGERONYCIA G Primary Care Unavailable ELAINE MERAZ Attending Unavailable LILIA BERGERON G Primary Care Unavailable ELAINE MERAZ Attending Unavailable ELYSSA, LILIA G Primary Care Unavailable ELAINE MERAZ Attending Unavailable ELYSSA, LILIA G Primary Care Unavailable SARAH CHOU Referring Unavailable Dr. Lilia Bergeron MD Primary Care Provider [phone] Dr. Lilia Bergeron MD Attending Provider Dr. Lilia Bergeron MD Referring Provider Dr. Lilia Bergeron MD Primary Care Physician [phone] Dr. Lilia Bergeron MD Referring Provider NURSE, BIM Attending Physician Unavailable Dr. Lilia Bergeron MD Attending Physician Itz Dalton Attending Physician [phone] Elyssa, Lilia Attending Unavailable Elyssa, Lilia Referring Unavailable Elyssa, Lilia Primary Care Unavailable Elyssa, Lilia Primary Care Unavailable Elyssa, Lilia Attending Unavailable Elyssa, Lilia Referring Unavailable Elyssa, Lilia Attending Unavailable [place], Lilia Referring Unavailable Elyssa, Lilia Primary Care Unavailable Itz Smith Attending Unavailable [place], Lilia Referring Unavailable Elyssa, Lliia Primary Care Unavailable Elyssa, Lilia Primary Care Unavailable Elyssa, Lilia Attending Unavailable [place], Lilia Referring Unavailable Elyssa, Lilia Primary Care Unavailable Elyssa, Lilia Attending Unavailable [place], Lilia Referring Unavailable BRANDI LÓPEZ Attending Unavailable ELYSSA, LILIA G Primary Care Unavailable SARAH CHOU Attending Unavailable ELYSSA, LILIA G Primary Care Unavailable BIANKA RIVERA Attending Unavailab le ELYSSA, LILIA G Primary Care Unavailable BRANDI LÓPEZ Attending Unavailable SARAH CHOU Referring Unavailable ELYSSA, LILIA G Primary Care Unavailable SARAH CHOU Attending Unavailable ELYSSA, LILIA G Primary Care Unavailable Allergies Allergy Classification Reported Allergen(s) Allergy Type Date of Onset Reaction(s) Facility (20 sources) Acetaminophen; Translations: [ACETAMINOPHEN] Drug Allergy 06-03-2024 [facility] (20 sources) Ibuprofen; Translations: [IBUPROFEN] Drug Allergy 06-03-2024 [facility] (1 source) Acetaminophen Drug Allergy 08-26-2025 [facility] (1 source) Ibuprofen Drug Allergy 08-26-2025 [facility] Medications Current Medications Medication Drug Class(es) Dates Sig (Normalized) Sig (Original) atorvastatin 10 mg oral tablet (20 sources) HMG-CoA Reductase Inhibitor Start: 10-06-2021 End: 08-24-2025 take 1 tablet by mouth at bedtime Atorvastatin 10 mg tablet Active 10 mg PO AT BEDTIME 90 1 August 24, 2025 8:56am Complies with drug therapy Comment on above: Take 10 mg by mouth once daily. Take 10 mg by mouth daily at bedtime. biotin 5 mg chewable tablet (20 sources) Start: 11-20-2023 Biotin 5,000 mcg tablet,chewable Active ug PO November 20, 2023 1:00am Complies with drug therapy Start: 11-20-2023 Biotin 5,000 m cg tablet,chewable Active ug PO November 20, 2023 1:00am Start: 11-20-2023 Biotin Active MCG PO November 20, 2023 1:00am Start: 11-20-2023 Biotin Active MCG PO November 20, 2023 12:00am take 1 capsule by mo ut once daily biotin 1 mg cap Take 1 mg by mouth once daily. Active Comment on above: Take 1 mg by mouth o nce daily. calcium carbonate 1500 mg / cholecalciferol 500 unt oral capsule (20 sources) Vitamin D Start: 11-02-2021 End: 11-03-2022 Calcium Carbonate-Vitamin D3 (Calcium 600 With Vitamin D3) 600 mg-12.5 mcg (500 unit) capsule Active 1 NMA PO TWICE A DAY 180 3 November 03, 2022 7:36pm Complies with drug therapy Start: 11-02-2021 End: 11-03-2022 Calcium Carbonate-Vitamin D3 (Calcium 600 With Vitamin D3) 600 mg(1,500mg) -500 unit capsule Discontinued 1 NMA PO TWICE A DAY November 02, 2021 1:00am November 03, 2022 7:36pm Start: 09-30-2021 End: 10-11-2021 Calcium Carbonate-Vit D3-Min 600 mg calcium- 400 unit tablet Discontinued 1 {tbl} PO DAILY September 30, 2021 1:00am October 11, 2021 4:34pm Start: 09-30-2021 End: 10-11-2021 take 1 tablet by mouth once daily Calcium Carbonate-Vit D3-Min Discontinued 1 TABLET PO DAILY September 30, 2021 1:00am October 11, 2021 4:34pm cholecalciferol, vitamin D3, (VITAMIN D3 ORAL) (20 sources) take 51661 [IU] by mouth every other week cholecalciferol, vitamin D3, (VITAMIN D3 ORAL) Take 50,000 Units by mouth every 2 weeks. Active take 51709 [IU] by m outh every other week cholecalciferol, vitamin D3, (VITAMIN D3 ORAL) Take 50,000 Units by mouth every 2 weeks. 0 Active Comment on above: Take 50,000 Units by mouth every 2 weeks. gabapentin 300 mg oral capsule (20 sources) Anti-epileptic Agent Start: 03-24-2025 End: 03-31-2025 gabapentin (NEURONTIN) 300 mg capsule Take 1 capsule by mouth once daily for 7 days. Then stop 7 capsule 03/24/2025 Active Start: 02-11-2025 End: 08-26-2025 take 3 capsules by mouth twice daily Gabapentin 100 mg capsule Discontinued 300 mg PO TWICE A DAY February 11, 2025 1:20pm August 26, 2025 2:26pm Start: 02-11-2025 End: 02-11-2025 take 1 capsule by mouth twice daily Gabapentin 100 mg capsule Discontinued 100 mg PO TWICE A DAY February 11, 2025 12:00am February 11, 2025 1:20pm Start: 09-24-2024 End: 08-05-2025 take 1 capsule by mouth twice daily gabapentin (NEURONTIN) 300 mg capsule Take 1 capsule by mouth two times a day for 180 days. 60 capsule 5 02/06/2025 03/20/2025 Discontinued Start: 07-11-2024 End: 10-09-2024 take 1 capsule by mouth twice daily gabapentin (NEURONTIN) 100 mg capsule Take 1 capsule by mouth two times a day for 90 days. 60 capsule 2 07/11/2024 09/24/2024 Discontinued levothyroxine sodium 0.075 mg oral tablet (20 sources) l-Thyroxine Start: 08-17-2025 Levothyroxine 75 mcg tablet Active 75 ug PO .COMPLEX 90 August 17, 2025 3:09pm Hypothyroidism Hypothyroidism, unspecified 75 mcg orally Sun to Sunday; Complies with drug therapy Start: 08-17-2025 Start: 09-30-2021 End: 08-17-2025 Levothyroxine 75 mcg tablet Discontinued 75 ug PO .COMPLEX 90 October 30, 2024 2:53pm August 17, 2025 3:09pm Hypothyroidism Hypothyroidism, unspecified 75 mcg orally Sun to Sunday; Start: 03-15-2021 levothyroxine 75 mcg (0.075 mg) oral tablet 0 Refill(s) Start Date: 03/15/21 Status: Ordered Start: 08-07-2008 LEVOTHYROXINE 50 MCG TAB Take one(1) tablet daily. 30 0 08/07/2008 Active Comment on above: Take one(1) tablet d aily. minoxidil 20 mg/ml topical solution (20 sources) Arteriolar Vasodilator Minoxidil 2 % external solution 1 teaspoon applied topically on scalp once daily Active Comment on above: 1 teaspoon applied t opically on scalp once daily MULTIVIT,[id number] VITK-CQ10 ORAL (10 sources) take 100 mg by mouth once daily MULTIVIT,[id number] -VITK-CQ10 ORAL Take 100 mg by mouth once daily. Active Multivitamin With Minerals (Hair,Skin And Nails) tablet (11 sources) Start: take 1 tablet by mouth twice daily Multivitamin With Minerals (Hair,Skin And Nails) tablet Active 1 TABLET PO TWICE A DAY November 02, 2021 2:12pm Start: 11-02-2021 Multivitamin W ith Minerals (Hair,Skin And Nails) tablet Active 1 {tbl} PO TWICE A DAY November 02, 2021 1:00am Complies with drug therapy Start: 11-02-2021 Start: 11-02-2021 Multivitamin W ith Minerals (Hair,Skin And Nails) tablet Active 1 {tbl} PO TWICE A DAY November 02, 2021 1:00am Start: 11-02-2021 take 1 tablet by rancho th twice daily Multivitamin With Minerals (Hair,Skin And Nails) tablet Active 1 TABLET PO TWICE A DAY November 02, 2021 1:00am Start: 11-02-2021 take 1 tablet by rancho th twice daily Multivitamin With Minerals (Hair,Skin And Nails) tablet Active 1 TABLET PO TWICE A DAY November 02, 2021 12:00am Oyster Shell Calcium with Vitamin D 500 mg-200 intl units (5 mcg) oral tablet (1 source) Start: 03-15-2021 Oyster Shell C alcium with Vitamin D 500 mg-200 intl units (5 mcg) oral tablet 0 Refill(s) Start Date: 03/15/21 Status: Ordered pravastatin sodium 40 mg oral tablet (8 sources) HMG-CoA Reductase Inhibitor Start: 03-15-2021 pravastatin 40 mg or al tablet 0 Refill(s) Start Date: 03/15/21 Status: Ordered End: 11-27-2023 PRAVASTATIN SODIUM (PRAVASTA TIN ORAL) Take by mouth daily at bedtime. 11/27/2023 Discontinued PRAVASTATIN SODI UM (PRAVASTATIN ORAL) Take by mouth daily at bedtime. 0 Active Comment on above: Take by mouth daily at bedtime. 24 hr propranolol hydrochloride 60 mg extended release oral capsule (20 sources) beta-Adrenergic Goyo Start: End: take 1 capsule by mouth once daily Propranolol 60 mg capsule,extended release 24 hr Active 60 mg PO daily August 26, 2025 12:00am Complies with drug therapy Start: 06-24-2024 End: 07-31-2025 propranolol (INDERAL) 10 mg tablet Indications: Essential tremor Week 1: Take one 10 mg pill twice a day. Week 2: Take 2 pills twice a day Week 3 and on: Take 3 pills twice a day 180 tablet 5 03/20/2025 07/31/2025 Discontinued Start: 04-21-2024 End: 02-11-2025 take 1 capsule by mouth every twenty-four hours at bedtime Propranolol 60 mg capsule,extended release 24 hr Discontinued 60 mg PO AT BEDTIME 30 0 April 21, 2024 12:00am February 11, 2025 1:19pm spironolactone 50 mg oral tablet (14 sources) Aldosterone Antagonist Start: 02-11-2025 take 1 tablet by mouth once daily in the morning Spironolactone 50 mg tablet Active 50 mg PO EVERY MORNING February 11, 2025 12:00am Complies with drug therapy ubidecarenone 100 mg oral capsule (7 sources) Start: 2024 End: 02-24-2025 Coenzyme Q10 (Coq-10) 100 mg capsule Active 100 mg PO DAILY 90 February 24, 2025 4:37pm Complies with drug therapy Vitamin D3 50,000 intl units (1250 mcg) oral capsule (1 source) Start: 03-15-2021 Vitamin D3 50,000 intl units (1250 mcg) oral capsule 0 Refill(s) Start Date: 03/15/21 Status: Ordered Completed/Discontinued Medications Medication Drug Class(es) Dates Sig (Normalized) Sig (Original) alendronic acid 70 mg oral tablet (20 sources) Bisphosphonate Start: 06-21-2022 End: 06-23-2024 take 1 tablet by mouth every week Alendronate 70 mg tablet Discontinued 70 mg PO EVERY WEEK 12 February 21, 2024 12:53pm June 23, 2024 1:20pm End: 06-21-2022 ALENDRONATE SODIUM (ALENDRON ATE ORAL) Take by mouth once daily. 0 06/21/2022 Discontinued ALENDRONATE SODI UM (ALENDRONATE ORAL) Take by mouth once daily. 0 Active Comment on above: Take by mouth once d aily. Take 1 tablet by rancho th one time a week. On empty stomach with large glass of water. First thing in the am. No other medications. Do not lie down after taking this. ascorbic acid/vitamin E/biotin (HAIR, SKIN, NAILS WITH BIOTIN ORAL) (2 sources) End: 06-21-2022 ascorbic acid/vitamin E/biotin (HAIR, SKIN, NAILS WITH BIOTIN ORAL) Take by mouth once daily. 0 06/21/2022 Discontinued (Allergic response) ascorbic acid/vi tamin E/biotin (HAIR, SKIN, NAILS WITH BIOTIN ORAL) Take by mouth once daily. 0 Active Comment on above: Take by mouth once d aily. aspirin 81 mg delayed release oral tablet (19 sources) Platelet Aggregation Inhibitor, Nonsteroidal Anti-inflammatory Drug Start: 09-30-2021 End: 12-27-2022 take 1 tablet by mouth once daily Aspirin 81 mg tablet,delayed release (DR/EC) Discontinued 81 mg PO DAILY September 30, 2021 1:00am December 27, 2022 4:12pm Start: 03-15-2021 aspirin 81 mg oral tablet, chewable Dose : 81 mg = 1 tab(s), Chewed, qDay, 0 Refill(s) Start Date: 03/15/21 Status: Ordered End: 11-27-2023 take 1 tablet by mouth once daily aspirin 325 mg tablet Take 325 mg by mouth once daily. 11/27/2023 Discontinued Comment on above: Take 325 mg by mouth once daily. 30 ml bupivacaine hydrochloride 2.5 mg/ml injection (2 sources) Amide Local Anesthetic Start: 07-18-2024 End: 07-18-2024 bupivacaine (PF) 0.25 % (2.5 mg/mL) 4 mL injection (SENSORCAINE MPF) Start: 07-18-2024 End: 07-18-2024 4 mL, Injection - FOR ORTHO USE ONLY, ONCE, 1 dose, Starting on Sun07/18/24 at 1526, Until Sun07/18/24 at 1526 calcium carbonate 1500 mg oral tablet (11 sources) Start: 10-11-2021 End: 11-02-2021 take 1 tablet by mouth twice daily Calcium Carbonate (Calcium 600) 600 mg calcium (1,500 mg) tablet Discontinued 600 mg PO TWICE A DAY October 11, 2021 1:00am November 02, 2021 2:10pm cholecalciferol 1.25 mg oral capsule (20 sources) Vitamin D Start: 07-04-2024 End: 07-30-2025 Cholecalciferol (Vitamin D3) 1,250 mcg (50,000 unit) capsule Discontinued 1250 ug PO .COMPLEX 6 May 04, 2025 11:12am July 30, 2025 12:53pm 1,250 mcg orally Q 15 days; Start: 01-03-2024 End: 07-04-2024 Cholecalciferol (Vitamin D3) 1,250 mcg (50,000 unit) capsule Discontinued 73686 U PO .[id number] 6 January 03, 2024 11:53am July 04, 2024 4:54pm Start: 09-30-2021 End: 01-03-2024 Cholecalciferol (Vitamin D3) 1,250 mcg (50,000 unit) capsule Discontinued 14601 ug PO .[id number] 20 October 04, 2022 5:01pm January 03, 2024 12:23pm End: 11-27-2023 Cholecalciferol, Vitamin D3, (VITAMIN D-3) 400 unit chew Take by mouth. 11/27/2023 Discontinued Comment on above: Take by mouth. 1 ml denosumab 60 mg/ml prefilled syringe (12 sources) RANK Ligand Inhibitor Start: 06-23-2024 End: 01-09-2025 Denosumab (Prolia) 60 mg/mL syringe Discontinued 60 mg SC every 6 months 1 0 July 02, 2024 12:00am January 09, 2025 2:47pm Osteoporosis Age-related osteoporosis without current pathological fracture osteoperosis Magnesium Oxide (7 sources) End: 11-27-2023 MAGNESIUM OXIDE ORAL Take by mouth once daily. 11/27/2023 Discontinued MAGNESIUM OXIDE ORAL Take by mouth once daily. 0 Active Comment on above: Take by mouth once d aily. mecobalamin (4 sources) Start: 11-20-2023 End: 02-11-2025 Mecobalamin (Vitamin B12) 500 mcg tablet,chewable Discontinued ug PO November 20, 2023 1:00am February 11, 2025 12:57pm Start: 11-20-2023 Mecobalamin (V itamin B12) Active MCG PO November 20, 2023 1:00am Start: 11-20-2023 Mecobalamin (V itamin B12) Active MCG PO November 20, 2023 12:00am meloxicam 7.5 mg oral tablet (20 sources) Nonsteroidal Anti-inflammatory Drug Start: 06-21-2022 End: 03-03-2025 take 1 tablet by mouth once daily Meloxicam 7.5 mg tablet Discontinued 7.5 mg PO DAILY 90 August 07, 2024 7:40am March 03, 2025 1:34pm MELOXICAM ORAL T gregory by mouth once daily. 0 Active Comment on above: Take by mouth once d aily. Take 1 tablet by rancho th once daily. Take 7.5 mg by mouth once daily. niacin 500 mg oral tablet (7 sources) Nicotinic Acid End: 11-27-2023 take 1 tablet by mouth once daily at breakfast niacin 500 mg tablet Take 500 mg by mouth daily with breakfast. 11/27/2023 Discontinued Comment on above: Take 500 mg by mouth daily with breakfast. omega-3 acid ethyl esters (intermediate) 1000 mg oral capsule (11 sources) Start: 09-30-2021 End: 12-27-2022 take 1 capsule by mouth once daily [place]-3 Acid Ethyl Esters 1 gram capsule Discontinued 0.5 g PO DAILY September 30, 2021 1:00am December 27, 2022 4:12pm omega3,5,6,7,9 no.1/salmon oil (COMPLETE OMEGA ORAL) (2 sources) End: 06-21-2022 omega3,5,6,7,9 no.1/salmon oil (COMPLETE OMEGA ORAL) Take by mouth. 0 06/21/2022 Discontinued (Allergic response) omega3,5,6,7,9 n o.1/salmon oil (COMPLETE OMEGA ORAL) Take by mouth. 0 Active Comment on above: Take by mouth. predniSONE 20 mg oral tablet (4 sources) Start: 04-21-2024 End: 2024 take 2 tablets by mouth once daily Prednisone 20 mg tablet Discontinued 40 mg PO DAILY 10 0 April 21, 2024 12:00am 2024 9:45am primidone 50 mg oral tablet (20 sources) Anti-epileptic Agent Start: 11-02-2021 End: 11-20-2023 take 1 tablet by mouth at bedtime Primidone 50 mg tablet Discontinued 100 mg PO AT BEDTIME 180 3 October 04, 2022 5:02pm November 20, 2023 11:40am Start: 11-02-2021 End: 11-20-2023 take 100 mg by mouth at bedtime Primidone Discontinued 100 MG PO AT BEDTIME 180 October 04, 2022 5:02pm November 20, 2023 11:40am Start: 09-30-2021 End: 11-02-2021 take 1 tablet by mouth once Primidone 50 mg tablet Dis continued 50 mg PO ONCE September 30, 2021 1:00am November 02, 2021 2:12pm Start: 03-15-2021 primidone 50 m g oral tablet 0 Refill(s) Start Date: 03/15/21 Status: Ordered End: 11-27-2023 take 2 tablets by mouth once daily at bedtime primidone (MYSOLINE) 50 mg tablet Take 100 mg by mouth daily at bedtime. 11/27/2023 Discontinued Comment on above: Take 100 mg by mouth daily at bedtime. simvastatin 40 mg oral tablet (7 sources) HMG-CoA Reductase Inhibitor Start: 03-30-2008 End: 11-27-2023 simvastatin(ZOCOR 40 MG TAB) Take one(1) tablet daily at bedtime. 30 3 03/30/2008 11/27/2023 Discontinued Comment on above: Take one(1) tablet d aily at bedtime. 1 ml triamcinolone acetonide 40 mg/ml injection (3 sources) Corticosteroid Start: 07-18-2024 End: 07-18-2024 triamcinolone acetonide 80 mg injection (KeNALog 40) Start: 07-18-2024 End: 08-30-2024 80 mg, Injection - FOR ORTHO USE ONLY, ONCE, 1 dose, Starting on Sun07/18/24 at 1526, Until Sun07/18/24 at 1526 Start: 11-02-2021 End: 11-02-2021 Kenalog (triamcinolone aceto nide) 40 mg/mL suspension for injection Discontinued 120 MG INTRAARTIC ONCE 3 November 02, 2021 1:55pm November 02, 2021 3:57pm Vitamin B Complex (7 sources) End: 11-27-2023 VITAMIN B COMPLEX (B COMPLEX 1 ORAL) Take by mouth once daily. 11/27/2023 Discontinued VITAMIN B COMPLE X (B COMPLEX 1 ORAL) Take by mouth once daily. 0 Active Comment on above: Take by mouth once d aily. vitamin b12 0.5 mg chewable tablet (19 sources) Vitamin B12 Start: 11-20-2023 End: 02-11-2025 Mecobalamin (Vitamin B12) 500 mcg tablet,chewable Discontinued ug PO November 20, 2023 1:00am February 11, 2025 12:57pm cyanocobalamin, vitamin B-12, (VITAMIN B-12) 5,000 mcg subl Dissolve 5,000 mcg under the tongue once daily. Active Problems Active Problems Problem Classification Problem Date Documented Da te Episodic/Chronic Abdominal pain (1 source) Right upper quadrant pain; Translations: [Abdominal pain, right upper quadrant] 01-03-2024 Episodic Administrative/social admission (10 sources) Up-to-date with immunizations; Translations: [Persons encountering health services in other specified circumstances] 07-18-2023 Episodic Allergic reactions (12 sources) Idiopathic urticaria; Translations: [Urticaria, unspecified] 12-27-2022 Episodic Conditions associated with dizziness or vertigo (2 sources) Dizziness; Translations: [Dizziness and giddiness] Onset: 5 08-26-2025 Episodic Disorders of lipid metabolism (20 sources) Hyperlipidemia; Translations: [Hyperlipidemia, unspecified] Onset: Chronic Esophageal disorders (20 sources) Gastroesophageal reflux disease; Translations: [Gastro-esophageal reflux disease without esophagitis] Onset: 8 03-30-2008 Chronic Immunizations and screening for infectious disease (7 sources) Encounter for immunization; Translations: [Need for prophylactic vaccination and inoculation against unspecified single disease] Onset: 5 07-18-2023 Episodic Nonspecific chest pain (12 sources) Chest pain; Translations: [Chest pain, unspecified] Episodic Nutritional deficiencies (16 sources) Vitamin D deficiency; Translations: [Vitamin D deficiency, unspecified] Chronic Osteoarthritis (20 sources) Bilateral shoulder osteoarthritis; Translations: [Primary osteoarthritis, right shoulder] Onset: 2 Chronic Osteoporosis (20 sources) Osteoporosis; Translations: [Other osteoporosis without current pathological fracture] Onset: 2 Chronic Other bone disease and musculoskeletal deformities (11 sources) Osteopenia; Translations: [Other specified disorders of bone density and structure, unspecified site] 09-30-2021 Episodic Other bone disease and musculoskeletal deformities (7 sources) Other specified disorders of bone density and structure, unspecified site; Translations: [Disorder of bone and cartilage, unspecified] 12-27-2022 Episodic Other circulatory disease (2 sources) Orthostatic hypotension; Translations: [Orthostatic hypotension] 08-26-2025 Episodic Other circulatory disease (1 source) Orthostatic hypotension; Translations: [Orthostatic hypotension] Onset: 5 Episodic Other connective tissue disease (20 sources) History of reverse prosthetic total arthroplasty of right shoulder; Translations: [Presence of right artificial shoulder joint] Onset: 4 12-21-2023 Chronic Other connective tissue disease (1 source) Presence of right artificial shoulder joint; Translations: [S/P reverse total shoulder arthroplasty, right] Onset: 4 Chronic Other connective tissue disease (11 sources) Bilateral rotator cuff tendinitis; Translations: [Other shoulder lesions, right shoulder] 11-02-2021 Episodic Other connective tissue disease (6 sources) Supraspinatus tendinitis; Translations: [Shoulder lesion, unspecified, left shoulder] 10-04-2021 Episodic Other connective tissue disease (3 sources) Other shoulder lesions, right shoulder; Translations: [Disorders of bursae and tendons in shoulder region, unspecified] Episodic Other connective tissue disease (8 sources) Partial thickness rotator cuff tear; Translations: [Incomplete rotator cuff tear or rupture of right shoulder, not specified as traumatic] 03-17-2022 Episodic Other connective tissue disease (5 sources) Tendinitis of left supraspinatus tendon; Translations: [Shoulder lesion, unspecified, left shoulder] 10-04-2021 Episodic Other connective tissue disease (3 sources) Full thickness rotator cuff tear; Translations: [Complete rotator cuff tear or rupture of left shoulder, not specified as traumatic] 07-18-2024 Episodic Other connective tissue disease (2 sources) Cramp; Translations: [Cramp and spasm] 02-11-2025 Episodic Other connective tissue disease (2 sources) Incomplete rotator cuff tear or rupture of right shoulder, not specified as traumatic; Translations: [Partial nontraumatic tear of both rotator cuffs] 03-17-2022 Episodic Other gastrointestinal disorders (11 sources) History of hemorrhoid; Translations: [Personal history of other diseases of the digestive system] 09-30-2021 Episodic Other hereditary and degenerative nervous system conditions (8 sources) Essential tremor; Translations: [Essential tremor] 06-24-2024 Chronic Other hereditary and degenerative nervous system conditions (2 sources) Essential tremor; Translations: [Essential tremor] Onset: Chronic Other inflammatory condition of skin (11 sources) Itching ; Translations: [Pruritus, unspecified] 03-02-2022 Episodic Other inflammatory condition of skin (2 sources) Itching of skin; Translations: [Pruritus, unspecified] Onset: Episodic Other injuries and conditions due to external causes (11 sources) H/O: fracture; Translations: [Personal history of (healed) traumatic fracture] 09-30-2021 Episodic Other nervous system disorders (6 sources) Cervical myelopathy; Translations: [Disease of spinal cord, unspecified] 09-12-2023 Chronic Other nervous system disorders (3 sources) Disease of spinal cord, unspecified; Translations: [Cervical spondylosis with myelopathy] 09-12-2023 Chronic Other nervous system disorders (2 sources) Other chronic pain; Translations: [Chronic right shoulder pain] Onset: Chronic Other nervous system disorders (13 sources) Tremor; Translations: [Tremor, unspecified] 09-30-2021 Episodic Other nervous system disorders (1 source) Numbness of hand; Translations: [Anesthesia of skin] 12-31-2024 Episodic Other non-traumatic joint disorders (20 sources) Bilateral rotator cuff arthropathy of shoulder; Translations: [Other specific arthropathies, not elsewhere classified, right shoulder] Onset: 2 04-24-2022 Chronic Other non-traumatic joint disorders (20 sources) Rotator cuff arthropathy of right shoulder; Translations: [Other specific arthropathies, not elsewhere classified, right shoulder] Onset: 4 09-25-2023 Chronic Other non-traumatic joint disorders (11 sources) Multiple joint pain; Translations: [Pain in unspecified joint] 01-25-2022 Episodic Other non-traumatic joint disorders (1 source) Pain in unspecified joint; Translations: [Pain in joint, multiple sites] Episodic Other non-traumatic joint disorders (10 sources) Pain in right shoulder; Translations: [Right shoulder pain] Onset: 4 09-12-2023 Episodic Other non-traumatic joint disorders (2 sources) Chronic pain of right upper limb; Translations: [Pain in right shoulder] 07-03-2024 Episodic Other non-traumatic joint disorders (2 sources) Chronic pain of left upper limb; Translations: [Pain in left shoulder] 07-18-2024 Episodic Other non-traumatic joint disorders (3 sources) Pain in left shoulder; Translations: [Pain in joint, shoulder region] Onset: 4 07-18-2024 Episodic Residual codes; unclassified (11 sources) FH: Rheumatoid arthritis; Translations: [Family history of arthritis] 01-25-2022 Episodic Residual codes; unclassified (1 source) Family history of arthritis; Translations: [Family history of arthritis] Episodic Residual codes; unclassified (2 sources) Pain; Translations: [Pain, unspecified] 08-13-2023 Episodic Residual codes; unclassified (1 source) Amnesia; Translations: [Other amnesia] 09-24-2024 Episodic Residual codes; unclassified (2 sources) Shooting pain; Translations: [Pain, unspecified] 02-11-2025 Episodic Screening and history of mental health and substance abuse codes (11 sources) H/O: depression; Translations: [Personal history of other mental and behavioral disorders] 10-04-2021 Episodic Spondylosis; intervertebral disc disorders; other back problems (20 sources) Cervical spondylosis; Translations: [Spondylosis without myelopathy or radiculopathy, cervical region] Chronic Thyroid disorders (20 sources) Hypothyroidism; Translations: [Hypothyroidism, unspecified] Onset: Chronic Past or Other Problems Problem Classification Problem Date Documented Da te Episodic/Chronic Coagulation and hemorrhagic disorders (3 sources) Easy bruising; Translations: [Spontaneous ecchymoses] Onset: 05-21-2025 02-11-2025 Episodic Deficiency and other anemia (20 sources) Anemia; Translations: [Anemia, unspecified] Onset: 04-24-2022 04-24-2022 Episodic Headache; including migraine (20 sources) Headache; Translations: [Headache] Onset: 03-30-2008 03-30-2008 Episodic Malaise and fatigue (3 sources) Fatigue; Translations: [Other fatigue] Onset: 05-21-2025 02-11-2025 Episodic Other circulatory disease (20 sources) Elevated blood-pressure reading without diagnosis of hypertension; Translations: [Elevated blood-pressure reading, without diagnosis of hypertension] Onset: 11-28-2023 11-28-2023 Episodic Other connective tissue disease (20 sources) Pain in limb; Translations: [Pain in unspecified limb] Onset: 03-30-2008 03-30-2008 Episodic Other connective tissue disease (1 source) Cramp and spasm; Translations: [Cramp and spasm] Onset: 05-21-2025 Episodic Other inflammatory condition of skin (20 sources) Pruritus, unspecified; Translations: [Unspecified pruritic disorder] Onset: 06-21-2022 Episodic Other nervous system disorders (9 sources) Tremor, unspecified; Translations: [Abnormal involuntary movements] Onset: 05-21-2025 Episodic Other nervous system disorders (1 source) Anesthesia of skin; Translations: [Bilateral hand numbness] Onset: 12-31-2024 Episodic Other non-traumatic joint disorders (20 sources) Effusion of right knee joint; Translations: [Effusion, right knee] Onset: 04-24-2022 Episodic Other non-traumatic joint disorders (20 sources) Joint pain; Translations: [Pain in unspecified joint] Onset: 06-21-2022 Episodic Other screening for suspected conditions (not mental disorders or infectious disease) (4 sources) Patient encounter status; Translations: [Encounter for other screening for malignant neoplasm of breast] Onset: 05-21-2025 02-11-2025 Episodic Residual codes; unclassified (2 sources) Pain, unspecified; Translations: [Pain] Onset: 09-03-2023 Episodic Residual codes; unclassified (1 source) Other amnesia; Translations: [Memory loss] Onset: 09-24-2024 Episodic Spondylosis; intervertebral disc disorders; other back problems (20 sources) Neck pain; Translations: [Cervicalgia] Onset: 03-09-2008 03-09-2008 Episodic Results Test Name Value Interpretation Reference Range Facility [facility] 09-21-2025 CNOV Office Visit ([facility]) ---- ANA GONZALEZ ([id number]) 1945 F MARGOTH Date Time Provider Department 09/21/25 4:00 PM BRANDI LÓPEZ [facility] During your visit today, we recorded the following information about you: Pulse Blood pressure Weight 57/minute 148/70 56.1 kg Brandi López MD 09/21/2025 5:34 PM Signed FOLLOW UP NOTE Subjective Ana Gonzalez is a 80 year old female who presents for follow up. 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 Her examination demonstrates bilateral primarily kinetic and writing tremor. We discussed her presentation, which is consistent with ET. Explained condition including treatment approach. Propranolol best medication for it, tried up to 60 mg and called in with possible side effects, she denies having had any side effects today though. Will retry and titrate to 60 mg daily, and if doing OK on this dose can change to long-acting formulation and titrate higher. Taper off gabapentin for now. Consider retrial primidone at higher dose if propranolol side effects. Explained surgical treatments in case medication not helping and she is bothered enough by tremor to want to pursue. HPI Current Issues - Tremor is similar to last visit - Propranolol 60 mg LA without clear benefit or side effects - Danced one night and the next day felt terrible, headache, dizzy the whole day, then the following day bent over and felt dizzy when she stood up, this lasted 15 days and then improved. - Able to give her insulin without tremor, very cautious with it - Was at the supermarket and couldn't remember the word for pumpkin in Faroese or Sammarinese. Occasionally will forget her phone number. - She is able to do all her ADLs Current Outpatient Medications Medication Sig Dispense Refill propranolol ER (INDERAL LA) 60 mg 24 hr capsule Take 1 capsule by mouth once daily. 90 capsule 1 gabapentin (NEURONTIN) 300 mg capsule Take 1 capsule by mouth once daily for 7 days. Then stop 7 capsule 0 MULTIVIT,SCE85-KXER C-VITK-CQ10 ORAL Take 100 mg by mouth once daily. spironolactone (ALDACTONE) 50 mg tablet Take 50 mg by mouth once daily. cyanocobalamin, vitamin B-12, (VITAMIN B-12) 5,000 mcg subl Dissolve 5,000 mcg under the tongue once daily. cholecalciferol, vitamin D3, (VITAMIN D3 ORAL) Take 50,000 Units by mouth every 2 weeks. biotin 1 mg cap Take 1 mg by mouth once daily. Minoxidil 2 % external solution 1 teaspoon applied topically on scalp once daily alendronate (FOSAMAX) 70 mg tablet Take 1 tablet by mouth one time a week. On empty stomach with large glass of water. First thing in the am. No other medications. Do not lie down after taking this. 12 tablet 0 atorvastatin (LIPITOR) 10 mg tablet Take 10 mg by mouth daily at bedtime. MELOXICAM ORAL Take 7.5 mg by mouth once daily. LEVOTHYROXINE 50 MCG TAB Take one(1) tablet daily. 30 0 No current facility-administer ed medications for this visit. Objective OBJECTIVE 09/21/25 1554 BP: 148/70 Pulse: (!) 57 SpO2: 100% Weight: 56.1 kg (123 lb 10.9 oz) General: General Appearance: Well appearing, alert, in no acute distress, well-hydrated, well nourished. Head: Normocephalic Neck: Supple Heart: RRR Neurologic Exam: Mental Status: She is alert. She is fully oriented. Attention is intact. Memory is intact. Language shows normal comprehension and fluency. Affect is appropriate. Cranial Nerves: Extraocular movements show full and smooth pursuits. No nystagmus. Visual ambrose are full to confrontation. Facial activation is symmetric. Hearing is intact to conversation. There is no hypomimia. There is no hypophonia. There is no dysarthria. Tongue is midline. Palate elevates symmetrically. Shoulder shrug is normal. Motor: Muscle bulk is normal. Rapid alternating movements are normal. Muscle power is full. No rest tremor, subtle intermittent chin tremor. Postural tremor emerges in right hand with hand close to chest, none when outstretched, also occurs with holding cup close to face to drink. Severe with writing. Mod bilateral kinetic tremor. Coordination: Finger to nose is smooth without ataxia. Gait/station: Normal DATA REVIEW Actual films/image/tracing reviewed and summarized as follows: n/a Old records reviewed and summarized as follows: TSH 1.17 Assessment/Plan ASSESSMENT AND PLAN: Ana Gonzalez is a 80 year old RH female who presents for follow up of ET. Her examination shows R>L postural kinetic tremor. 1. ET - Discussed treatment options, bothered enough by tremor to want to increase propranolol up to 120 mg daily. Explained possible side effects - Multiple prior med trials, don't see another good med option - Episode of dizziness sounds like vertigo - Not concerned about memory symptoms which sounds like normal aging (more content not included)... Normal [facility] Internal Medicine Office Vis itojocy 08-26-2025 Internal Medicine Office Visit [facility] Internal Medicine [address] [place] [address] [place] [address] OFFICE VISIT Date of Service: 08/26/25 MR#: [id number] Acct: [id number] Name: ANA GONZALEZ Rep #: [id number] : 1945 Provider: HARINDER Childs Age/Sex: 80/F Location: [facility] Status: Signed Intake Vital Signs 02/11/25 12:58 08/26/25 14:21 Height 4 ft 9 in 4 ft 9 in Weight: 127 lb 122 lb 8 oz BMI 27.4 26.5 BP 122/74 H 118/68 Blood Pressure Location Lt brachial Rt brachial Position Sitting Sitting Respiration 14 16 Pulse 67 51 L Pulse Source Monitor Monitor Temp 97 F L 96.7 F L Temp Source Temporal Temporal Pulse Oximetry (%) 97 98 Oxygen Delivery Method room air room air Intake Visit Reasons: dizziness x1 month Chief Complaint: vertigo post dancing 2 months ago and is intermittent 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 Required: No Accompanied by: Self Is patient in pain?: No Allergies acetaminophen (From Tylenol) Allergy (Mild, Verified 08/26/25 14:25) hives ibuprofen Allergy (Mild, Verified 08/26/25 14:25) Other Medications ???Medication ???Instructions ???Recorded ???Confirmed ???Type multivitamin with minerals 1 tab PO BID 11/02/21 08/26/25 His tory (Hair,Skin and Nails tablet) calcium 600 mg (as 1 cap PO BID #180 caps 11/03/22 Rx carbonate)-vitamin D3 12.5 mcg (500 unit) capsule (Calcium with Vit D3) biotin 5,000 mcg chewable tablet mcg PO 11/20/23 08/26/25 History denosumab 60 mg/mL subcutaneous 60 mg subcut [id number] osteoperosis 01/09/25 08/26/25 Rx syringe (Prolia) #1 mL spironolactone 50 mg tablet 50 mg PO QAM 02/11/25 08/26/25 His tory coenzyme Q10 100 mg capsule 100 mg PO DAILY #90 caps 02/24/25 08/26/25 Rx (CoQ-10) meloxicam 7.5 mg tablet 7.5 mg PO DAILY #90 tabs 03/03/25 08/26/25 Rx cholecalciferol (vitamin D3) 1,250 1,250 mcg PO .COMPLEX #6 caps 08/26/25 Rx mcg (50,000 unit) capsule levothyroxine 75 mcg tablet 75 mcg PO .COMPLEX #90 TABLETS 08/26/25 Rx atorvastatin 10 mg tablet 10 mg PO QHS #90 tabs 08/24/2507/13 Rx propranolol 60 mg capsule,24 60 mg PO QDAY 08/26/25 08/26/25 Hi story hr,extended release Have you fallen in the past year?: No Nurse's Note: patient c/o dizziness intermittently melchor when bending over and standing up also has had some headaches on left side of head and eye pain sometimes heart beating hard out of chest [facility] Medical History Hives of unknown origin Family history of rheumatoid arthritis Multiple joint pain History of hemorrhoids History of fracture Arthritis Hyperlipemia Osteopenia Tremor Hypothyroidism Vitamin D deficiency Surgical History H/O hemorrhoidectomy History of tubal ligation Family History Father Alcoholism Anemia Sister Breast cancer Sister Cancer Sister Thyroid disorder Mother Diabetes Osteoporosis Rheumatoid arthritis Parkinson disease Social History household members: spouse current occupational status: unemployed Smoking Status: Never smoker Electronic Cigarette Use: not used alcohol intake: never substance use type: does not use do you feel safe at home: Yes HPI HPI Chief Complaint: vertigo post dancing 2 months ago and is intermittent Details: ANA GONZALEZ, is a 80 F who presents to the office today for intermittent dizziness x 2 months. She states that she had this for about 4 days where the episodes were much more intense and lasted longer. She states that it did not take as much for the dizziness to occur. She states that after 4 days it seemed to go away and that she has dizziness every once in a while at the same time is not consistent or predictable. The dizziness occurs with position changes such as when she bends over and sits back up or if she has been seated for a while and stands up too quickly. She states that she does not notice when she rolls over in bed or with any other activities / movements that she has noticed. The episodes last a few seconds to minutes. She states that she has also had some headache on the left side which she states happen about twice a week. The pain only lasts a few seconds to a few minutes and then it is gone. She states that this is not occurring with the dizziness. She has not had any changes to her medications She has not had any new hobbies or any new activities. She is currently seeing neurology for tremor Patient does not drink a lot of water. She drinks one cup of coffee daily. she admits that she does not eat a lot. She states that sometimes she goes (more content not included)... Normal [facility] Office Visit Reporton 2024 Office Visit Report [facility] [address] [place] [address] OFFICE VISIT Date of Service: 08/13/25 MR#: [id number] Acct: [id number] Patient: ANA GONZALEZ Rep #: [id number] : 1945 Provider: MIRELLA NURSE Age/Sex: 80/F Location: [facility] Status: Signed Intake Vital Signs 02/11/25 12:58 Height 4 ft 9 in Weight: 127 lb BMI 27.4 BP 122/74 H Blood Pressure Location Lt brachial Position Sitting Respiration 14 Pulse 67 Pulse Source Monitor Temp 97 F L Temp Source Temporal Pulse Oximetry (%) 97 Oxygen Delivery Method room air Intake Visit Reasons: PROLIA-$0 Chief Complaint: sciatica pain Allergies acetaminophen (From Tylenol) Allergy (Mild, Verified 07/10/24 09:39) hives ibuprofen Allergy (Mild, Verified 07/10/24 09:44) Other Have you fallen in the past year?: No Nurse's Note: Pt here for prolia, and is pt provided. Pt also requesting flu shot Office Procedures Injections Procedure performed by: Christin Landrum Is this a patient provided medication?: Yes Office Meds Prolia 60 mg/mL subcutaneous syringe Performing Provider: Lilia Bergeron MD Performing Location: [facility] Administered by: Christin Landrum MA on 08/13/25 11:29 Dose Route Admin Location Dispensed Lot Number Expiration Date Package NDC NDC Arrt Technologist 60 mg subcut LD 1 mL [id number] 04/18/28 06188-116-34 [id number] AMGEN Comments: patient provided Dx: osteo Immunizations Fluad 65yr up(PF)45 mcg(15 mcgx3)/0.5 mL intramuscular syringe Performing Provider: Lilia Bergeron MD Performing Location: [facility] Administered by: Christin Landrum MA on 08/13/25 11:29 Dose Route Admin Location Dispensed Lot Number Expiration Date Package NDC NDC Arrt Technologist 45 mcg IM Left Deltoid 0.5 mL [id number] 03/16/26 84668-733-95 [id number] Epizyme. VIS Given Date VIS Provided VIS Publication Date 08/13/25 Single Vaccine 24 Eligibility Eligibility Date Funding Source Not Applicable Assessment and Plan Assessment and Plan (1) Osteoporosis: Status: Acute Qualifiers: Osteoporosis type: age-related Presence of current pathological fracture: without current pathological fracture Qualified Code(s): M81.0 - Age-related osteoporosis without current pathological fracture (2) Immunization due: Orders: Orders Prolia Injection Today M81.0 - Age-related osteoporosis without current pathological fracture Influenza Immunization Today Z23 - Encounter for immunization Clinical Quality Measures Falls Risk Screening/Assistive Devices Have you fallen in the past year?: No 08/13/25 1517 Date Lilia Bergeron MD Cosigner Signature: Date (if applicable) CC: Normal [facility] Breast imaging reportOrdered By: Michelle Ward on 04-09-2025 Study report [facility] Imaging Services [address] [place] [address] SCRN MAMM (CAD)W/POP BILAT MR#: [id number] Acct: [id number] Name: ANA GONZALEZ Rep #: [id number] : 1945 F 79 From: John Jackson MD PCP: Dr. Lilia Bergeron MD Status: REG CLI Study:SCRN MAMM (CAD)W/POP BILAT Date of Exa m: 04/09/25 Exam# [id number] Ordering Dr: Lilia Bergeron MD EXAM: SCRN MAMM (CAD)W/POP BILAT DATE: 04/09/2025 CLINICAL HISTORY: F, Age 79 y/o , SCREENING BREAST CANCER RISK ASSESSMENT: Not reported TECHNIQUE: Bilateral screening digital breast tomosynthesis with 2D and 3D images. Computeraided detection. COMPARISON: None available FINDINGS: TISSUE DENSITY: The breast tissue is heterogenously dense, which may obscure small masses. Bilateral Breast Mammographic Findings: No suspicious masses, calcifications or other abnormalities are identified. BI/SCRN MAMM (CAD)W/POP BILAT IMPRESSION: OVERALL FINAL ASSESSMENT: BIRADS 1 NEGATIVE RECOMMENDATION: Routine annual follow-up in 1 Year A letter with findings and recommendations will be mailed to the patient. Reading Location: [id number] CC: Dr. Lilia Bergeron MD ~ Manager Ambulatory: Signed [facility] SCRN MAMM (CAD)W/POP BILATo n 04-09-2025 SCRN MAMM (CAD)W/POP BILAT [facility] Imaging Services [address] [place] [address] [id number] SCRN MAMM (CAD)W/POP BILAT MR#: [id number] Acct: [id number] Name: ANA GONZALEZ Rep #: [id number] : 1945 F 79 From: Michelle Dixon i, MD PCP: Dr. Lilia Bergeron MD Status: REG CLI Study: SCRN MAMM (CAD)W/POP BILAT Date of Exam: 03/20 01/13 Exam# [id number] Ordering Dr: Lilia Bergeron MD EXAM: SCRN MAMM (CAD)W/POP BILAT DATE: 04/09/2025 CLINICAL HISTORY: F, Age 79 y/o , SCREENING BREAST CANCER RISK ASSESSMENT: Not reported TECHNIQUE: Bilateral screening digital breast tomosynthesis with 2D and 3D images. Computer aided detection. COMPARISON: None available FINDINGS: TISSUE DENSITY: The breast tissue is heterogenously dense, which may obscure small masses. Bilateral Breast Mammographic Findings: No suspicious masses, calcifications or other abnormalities are identified. BI/SCRN MAMM (CAD)W/POP BILAT IMPRESSION: OVERALL FINAL ASSESSMENT: BIRADS 1 NEGATIVE RECOMMENDATION: Routine annual follow-up in 1 Year A letter with findings and recommendations will be mailed to the patient. Reading Location: [facility]ONNY[facility] CC: Dr. Lilia Bergeron MD Manager Ambulatory: Signed [facility] 03-24-2025 [facility] Telephone (NEADMN) ---- ANA GONZALEZ ([id number]) 1945 F MARGOTH Date Time Provider Department 03/24/25 BRANDI LÓPEZ During your visit today, we recorded the following information about you: Liliam Pena 03/24/2025 10:19 AM Signed Call received for Brandi López MD regarding Ana Cruz Carlos 1945. Caller: Self Patient Identified by Name and : Yes Was permission obtained from patient ? NA Reason for Call: Other: The patient called the office asking of Dr. López can prescribe Gabapentin 300 mg . She's asking for a 1 week supply? Last Office Visit: Visit 03/20/25 Last [facility] visit: Visit date not found Next scheduled appointment: 09/21/2025 Best number to reach caller: [phone] (home) Best time to reach caller: any Is it OK to leave a detailed voice message? Yes Brandi Weber MD 03/24/2025 10:33 AM Signed Can you just double check if she needs the 1 week tapering supply to get her off, or tried reducing and wants to go back on? I think she means the 1 week taper but want to be sure. Kristine Lamb RN 03/24/2025 11:06 AM Signed This RN called and spoke with Ms. Gonzalez and she states that she does not have enough to finish the taper and will need a one-week supply. Sent to for review and signature. WILLIAM Fox, RN, BA Brandi López MD 03/24/2025 11:25 AM Signed Huyen zmaora, I sent it in Allergies As of Date: 03/24/2025 Noted Allergy Reaction APAP 500 (ACETAMINOPHEN) 06/03/2024 4 - Hives IBUPROFEN 06/03/2024 4 - Hives Date Reviewed: 03/20/2025 Reviewed by: Josephine Hutchison LPN - Fully Assessed Reason for Visit: Patient Question [2127] Prescriptions as of 03/24/2025 - gabapentin (NEURONTIN) 300 mg capsule Take 1 capsule by mouth once daily for 7 days. Then stop - propranolol (INDERAL) 10 mg tablet Week 1: Take one 10 mg pill twice a day. Week 2: Take 2 pills twice a day Week 3 and on: Take 3 pills twice a day - MULTIVIT,[id number]-[id number] C-VITK-CQ10 ORAL Take 100 mg by mouth once daily. - spironolactone (ALDACTONE) 50 mg tablet Take 50 mg by mouth once daily. - cyanocobalamin, vitamin B-12, (VITAMIN B-12) 5,000 mcg subl Dissolve 5,000 mcg under the tongue once daily. - cholecalciferol, vitamin D3, (VITAMIN D3 ORAL) Take 50,000 Units by mouth every 2 weeks. - biotin 1 mg cap Take 1 mg by mouth once daily. - Minoxidil 2 % external solution 1 teaspoon applied topically on scalp once daily - alendronate (FOSAMAX) 70 mg tablet Take 1 tablet by mouth one time a week. On empty stomach with large glass of water. First thing in the am. No other medications. Do not lie down after taking this. - atorvastatin (LIPITOR) 10 mg tablet Take 10 mg by mouth daily at bedtime. - MELOXICAM ORAL Take 7.5 mg by mouth once daily. - LEVOTHYROXINE 50 MCG TAB Take one(1) tablet daily. Problem List As Of Date 03/24/2025 Noted Resolved CERVICALGIA [M54.2] 03/09/2008 ESOPHAGEAL REFLUX [K21.9] 03/30/2008 HYPOTHYROIDISM NOS [E03.9] 03/30/2008 Other hyperlipidemia [E78.49] 03/30/2008 HEADACHE [R51] 03/30/2008 PAIN IN LIMB [M79.609] 03/30/2008 Anemia [D64.9] 04/24/2022 Knee effusion, right [M25.461] 04/24/2022 Rotator cuff arthropathy of both shoulders [M12*04/24/2022 Other osteoporosis without current pathological*2021 Arthralgia [M25.50] 06/21/2022 Pruritus [L29.9] 06/21/2022 Primary osteoarthritis of both knees [M17.0] 06/21/2022 Pre-op examination [Z01.818] 11/26/2023 Rotator cuff arthropathy, right [M12.811] 11/26/2023 Elevated BP without diagnosis of hypertension [*11/28/2023 S/P reverse total shoulder arthroplasty, right *12/12/2023 Encounter Status:Closed by KRISTINE STEWRAT on 03/24/25 [facility] CNOVon 03-20-2025 CNOV Office Visit ([facility]) ---- ANA GONZALEZ ([id number]) 1945 F [facility] Date Time Provider Department 03/20/25 2:00 PM BRANDI LÓPEZ [facility] During your visit today, we recorded the following information about you: Pulse Blood pressure Weight Height 75/minute 169/80 56.2 kg 1.448 m Brandi López MD 03/20/2025 2:47 PM Signed NEW PATIENT EVALUATION Subjective HPI Anakobe Gonzalez is a 79 year old right-handed female who presents for evaluation of tremor. Sarah Chou PA-C is the referring provider. Dr. Lilia Bergeron MD is the PCP. She has had tremor for around 20 years or more. Started in the right hand and slowly worsening over time. Has noticed it in the left hand slightly only over the last year. Tremor is present when using the hands and while writing. Generally not spilling food or drink, handwriting. Mom had PD, no family history of tremor. Minimal alcohol not aware of response. 1 cup of coffee a day. Smell is fine. No constipation. No dream behavior. Previous med trials: - Gabapentin 300 mg BID -> currently on, no benefit / no side effects - Propranolol 30 mg BID -> bradycardia / dizziness per reports, she denies side effects but says it didn't help - Primidone 100 mg QHS -> no benefit / no side effects Medications: Current Outpatient Medications Medication Sig Dispense Refill gabapentin (NEURONTIN) 300 mg capsule Take 1 capsule by mouth two times a day for 180 days. 60 capsule 5 MULTIVIT,[id number] ORAL Take 100 mg by mouth once daily. spironolactone (ALDACTONE) 50 mg tablet Take 50 mg by mouth once daily. cyanocobalamin, vitamin B-12, (VITAMIN B-12) 5,000 mcg subl Dissolve 5,000 mcg under the tongue once daily. propranolol (INDERAL) 10 mg tablet Week 1: Take one 10 mg pill twice a day. Week 2: Take 2 pills twice a day Week 3 and on: Take 3 pills twice a day 60 tablet 0 cholecalciferol, vitamin D3, (VITAMIN D3 ORAL) Take 50,000 Units by mouth every 2 weeks. biotin 1 mg cap Take 1 mg by mouth once daily. Minoxidil 2 % external solution 1 teaspoon applied topically on scalp once daily atorvastatin (LIPITOR) 10 mg tablet Take 10 mg by mouth daily at bedtime. MELOXICAM ORAL Take 7.5 mg by mouth once daily. LEVOTHYROXINE 50 MCG TAB Take one(1) tablet daily. 30 0 alendronate (FOSAMAX) 70 mg tablet Take 1 tablet by mouth one time a week. On empty stomach with large glass of water. First thing in the am. No other medications. Do not lie down after taking this. (Patient not taking: Reported on 09/24/2024) 12 tablet 0 No current facility-administer ed medications for this visit. ROS ROS: Her ROS was positive for that mentioned in the HPI. Otherwise a 10-point ROS was completed and was negative. ALLERGIES Allergen Reactions Apap 500 [Acetamino* Hives Ibuprofen Hives Past Medical History: PAST MEDICAL HISTORY Diagnosis Date Fibromyalgia Hypercholesteremia Hypothyroidism Osteoporosis Right shoulder pain Rotator cuff arthropathy Family History: FAMILY HISTORY Problem Relation Age of Onset Diabetes Mother other (parkinson [Other]) Mother Alcohol/Drug Father Breast Cancer Sister Social History: Social History Tobacco Use Smoking status: Never Smokeless tobacco: Never Vaping Use Vaping status: Never Used Substance Use Topics Alcohol use: No Drug use: Never Objective 03/20/25 1335 BP: 169/80 Pulse: 75 SpO2: 97% Weight: 56.2 kg (123 lb 14.4 oz) Height: 144.8 cm (4' 9) Physical Examination General Appearance: Well appearing, alert, in no acute distress, well-hydrated, well nourished. Head: Normocephalic Neck: Supple Heart: RRR Peripheral Pulses: Normal Neurologic Examination Mental Status: She is alert. She is fully oriented. Attention is intact. Recent and remote memory is intact. Language shows normal comprehension and fluency. Praxis is normal. Affect is appropriate. Cranial Nerves: PExtraocular movements show full and smooth pursuits. No nystagmus. Visual ambrose are full to confrontation. Facial sensation is intact. Facial activation is symmetric. Hearing is intact to conversation. There is no hypomimia. There is no hypophonia. There is no dysarthria. Tongue is midline. Palate elevates symmetrically. Shoulder shrug is normal. Motor: Muscle bulk is normal. Rapid alternating movements are normal. Muscle power is full. No rest tremor, subtle intermittent chin tremor. Postural tremor only emerged briefly with arms close to chest, none hands outstretched. Mod bilateral kinetic tremor. Handwriting large and tremulous but able to write name. Spirals with tremor with axis. No right hand tremor when writing with left hand. Coordination: Finger to nose is smooth without ataxia. Gait/station: Normal DATA REVIEWED Actual films/image/tracing reviewed and summarized as follows: n/a Old records review (more content not included)... Normal [facility] Comprehensive Panelon ANTI-DNA (DS)AB <1 Normal 0-9 [facility] Comment on above: Result Comment: Nega tive <5 Equivocal 5 - 9 Positive >9 Performed By: #### L 500.4050, L503.0106, L506.1001, L100.0100, L501.9520, L3100.5440, L500.4100, L503.6030 #### [facility] [address] [place], [address] ANTISCLERODERM <0.2 Normal 0.0-0.9 [facility] Comment on above: Performed By: #### L 500.4050, L503.0106, L506.1001, L100.0100, L501.9520, L3100.5440, L500.4100, L503.6030 #### [facility] [address] [place], [address] Absolute lymphocyte countOrd ered By: Lilia Bergeron on 02-12-2025 Lymphocytes Auto (Unsp spec) [#/Vol] 2.23 10*3/uL 0.83-4.51 [facility] Absolute neutrophil countOrd ered By: Lilia Bergeron on 02-12-2025 Neutrophils (Bld) [#/Vol] 5.2 10*3/uL 2.0-7.7 [facility] Anion gap in Serum or Plasma Ordered By: Lilia Bergeron on 02-12-2025 Anion gap [Moles/Vol] 12 mmol/L 5-15 [facility] Automated lymphocyte count a s percentage of total leukocytesOrdered By: Lilia Bergeron on 02-12-2025 Lymphocytes/100 WBC Auto (Unsp spec) 26.4 % 19-41 [facility] BUN/creatinine ratioOrdered By: Lilia Bergeron on 02-12-2025 Urea nitrogen/Creatinine [Mass ratio] 26.0 mg/mg High 10-20 [facility] Basophil percentageOrdered B y: Lilia Bergeron on 02-12-2025 Basophils/100 WBC (Bld) 0.6 % 0-1 [facility] Bilirubin, totalOrdered By: Lilia Bergeron on 02-12-2025 Bilirubin [Mass/Vol] 0.28 mg/dL 0.00-1.30 [facility] CBC W/Diff, Automatedon 01-18 Absolute Lymph 2.23 X10 3/uL Normal 0.83-4.51 [facility] Comment on above: Performed By: #### L 500.4050, L503.0106, L506.1001, L100.0100, L501.9520, L3100.5440, L500.4100, L503.6030 #### [facility] [address] [place], [address] Absolute Neut 5.2 X10 3/uL Normal 2.0-7.7 [facility] Comment on above: Performed By: #### L 500.4050, L503.0106, L506.1001, L100.0100, L501.9520, L3100.5440, L500.4100, L503.6030 #### [facility] [address] [place], [address] Basophils/100 WBC (Bld) 0.6 % Normal 0-1 [facility] Comment on above: Performed By: #### L 500.4050, L503.0106, L506.1001, L100.0100, L501.9520, L3100.5440, L500.4100, L503.6030 #### [facility] [address] [place], [address] Eosinophils/100 WBC (Bld) 2.2 % Normal 0-5 [facility] Comment on above: Performed By: #### L 500.4050, L503.0106, L506.1001, L100.0100, L501.9520, L3100.5440, L500.4100, L503.6030 #### [facility] [address] [place], [address] Erythrocyte distribution width (RBC) [Ratio] 14.3 % Normal 11.6-14.6 [facility] Comment on above: Performed By: #### L 500.4050, L503.0106, L506.1001, L100.0100, L501.9520, L3100.5440, L500.4100, L503.6030 #### [facility] [address] [place], [address] Hematocrit (Bld) [Volume fraction] 35.7 % Low 37-47 [facility] Comment on above: Performed By: #### L 500.4050, L503.0106, L506.1001, L100.0100, L501.9520, L3100.5440, L500.4100, L503.6030 #### [facility] [address] [place], [address] Hemoglobin (Bld) [Mass/Vol] 11.9 g/dL Low 12.0-15.0 [facility] Comment on above: Performed By: #### L 500.4050, L503.0106, L506.1001, L100.0100, L501.9520, L3100.5440, L500.4100, L503.6030 #### [facility] [address] [place], [address] IG% 0.500 Normal 0.0-0.9 [facility] Comment on above: Result Comment: IG% - Immature Granulocytes (promyelocytes, myelocytes and metamyelocytes) > 1% indicates that a LEFT SHIFT is Present. Performed By: #### L 500.4050, L503.0106, L506.1001, L100.0100, L501.9520, L3100.5440, L500.4100, L503.6030 #### [facility] [address] [place], [address] Lymphocytes/100 WBC (Bld) 26.4 % Normal 19-41 [facility] Comment on above: Performed By: #### L 500.4050, L503.0106, L506.1001, L100.0100, L501.9520, L3100.5440, L500.4100, L503.6030 #### [facility] [address] [place], [address] MCH (RBC) [Entitic mass] 29.0 pg Normal 27.0-32.0 [facility] Comment on above: Performed By: #### L 500.4050, L503.0106, L506.1001, L100.0100, L501.9520, L3100.5440, L500.4100, L503.6030 #### [facility] [address] [place], [address] MCHC (RBC) [Mass/Vol] 33.3 g/dL Normal 32-36 [facility] Comment on above: Performed By: #### L 500.4050, L503.0106, L506.1001, L100.0100, L501.9520, L3100.5440, L500.4100, L503.6030 #### [facility] [address] [place], [address] MCV (RBC) [Entitic vol] 86.9 fL Normal 81-99 [facility] Comment on above: Performed By: #### L 500.4050, L503.0106, L506.1001, L100.0100, L501.9520, L3100.5440, L500.4100, L503.6030 #### [facility] [address] [place], [address] Monocytes/100 WBC (Bld) 8.3 % Normal 0-10 [facility] Comment on above: Performed By: #### L 500.4050, L503.0106, L506.1001, L100.0100, L501.9520, L3100.5440, L500.4100, L503.6030 #### [facility] [address] [place], [address] Neutrophils/100 WBC (Bld) 62.0 % Normal 47-70 [facility] Comment on above: Performed By: #### L 500.4050, L503.0106, L506.1001, L100.0100, L501.9520, L3100.5440, L500.4100, L503.6030 #### [facility] [address] [place], [address] Nucleated RBC (Bld) [#/Vol] 0 10*3/uL Normal 0-5 [facility] Comment on above: Performed By: #### L 500.4050, L503.0106, L506.1001, L100.0100, L501.9520, L3100.5440, L500.4100, L503.6030 #### [facility] [address] [place], [address] Platelet mean volume (Bld) [Entitic vol] 11.2 fL Normal 6.2-12.0 [facility] Comment on above: Performed By: #### L 500.4050, L503.0106, L506.1001, L100.0100, L501.9520, L3100.5440, L500.4100, L503.6030 #### [facility] [address] [place], [address] Platelets (Bld) [#/Vol] 106 10*3/uL Low 150-450 [facility] Comment on above: Performed By: #### L 500.4050, L503.0106, L506.1001, L100.0100, L501.9520, L3100.5440, L500.4100, L503.6030 #### [facility] [address] [place], [address] RBC (Bld) [#/Vol] 4.11 10*6/uL Low 4.2-5.4 [facility] Comment on above: Performed By: #### L 500.4050, L503.0106, L506.1001, L100.0100, L501.9520, L3100.5440, L500.4100, L503.6030 #### [facility] [address] [place], [address] RDW SD 45.1 fl High 35.1-43.9 [facility] Comment on above: Performed By: #### L 500.4050, L503.0106, L506.1001, L100.0100, L501.9520, L3100.5440, L500.4100, L503.6030 #### [facility] [address] [place], [address] WBC (Bld) [#/Vol] 8.5 10*3/uL Normal 4.4-11.0 [facility] Comment on above: Performed By: #### L 500.4050, L503.0106, L506.1001, L100.0100, L501.9520, L3100.5440, L500.4100, L503.6030 #### [facility] [address] [facility] [place], [place], [address] Calculated total iron bindin g capacityOrdered By: Lilia Bergeron on 02-12-2025 Total Iron Binding Capacity 360 ug/dL 250-450 [facility] Calculated very low density lipoprotein (VLDL) cholesterol measurementOrdered By: Lilia Bergeron on 02-12-2025 Calculated very low density lipoprotein (VLDL) cholesterol measurement 28 mg/dL 5-40 [facility] VLDL Cholesterol 28 mg/dL 5-40 [facility] Carbon dioxide, total [Moles /volume] in Central venous bloodOrdered By: Lilia Bergeron on 02-12-2025 CO2 [Moles/Vol] 21.3 mmol/L 21.0-32.0 [facility] Centromere B antibody assayO rdered By: Lilia Bergeron on 02-12-2025 Centromere B Antibody <0.2 AI 0.0-0.9 [facility] Comment on above: Previous reported re sult: TNP AIEdited by: ADAN on 02/13/25:1108 AMENDED REPORT 02/13/25 1108 ANTI-CENT B previously reported as: Test not performed Chloride assayOrdered By: Thee Bergeron on 02-12-2025 Chloride [Moles/Vol] 105 mmol/L 98-108 [facility] Chromatin antibody assayOrde red By: Lilia Bergeron on 02-12-2025 Antichromatin Antibodies <0.2 AI 0.0-0.9 [facility] Comment on above: Previous reported re sult: TNP AIEdited by: ADAN on 02/13/25:1108 AMENDED REPORT 02/13/25 1108 ANTICHROMATIN previously reported as: Test not performed Comprehensive Metabolic Prof ilon 02-12-2025 Albumin [Mass/Vol] 4.1 g/dL Normal 3.4-4.8 [facility] Comment on above: Performed By: #### L 500.4050, L503.0106, L506.1001, L100.0100, L501.9520, L3100.5440, L500.4100, L503.6030 #### [facility] [address] [place], [address] Albumin/Globulin [Mass ratio] 1.5 {ratio} Normal 0.9-2.4 [facility] Comment on above: Performed By: #### L 500.4050, L503.0106, L506.1001, L100.0100, L501.9520, L3100.5440, L500.4100, L503.6030 #### [facility] [address] [place], [address] ALK PHOS 83 U/L Normal 35-104 [facility] Comment on above: Performed By: #### L 500.4050, L503.0106, L506.1001, L100.0100, L501.9520, L3100.5440, L500.4100, L503.6030 #### [facility] [address] [place], [address] ALT [Catalytic activity/Vol] 23 U/L Normal <=34 [facility] Comment on above: Performed By: #### L 500.4050, L503.0106, L506.1001, L100.0100, L501.9520, L3100.5440, L500.4100, L503.6030 #### [facility] [address] [place], [address] AST [Catalytic activity/Vol] 27 U/L Normal <=31 [facility] Comment on above: Performed By: #### L 500.4050, L503.0106, L506.1001, L100.0100, L501.9520, L3100.5440, L500.4100, L503.6030 #### [facility] [address] [place], [address] Bilirubin [Mass/Vol] 0.28 mg/dL Normal 0.00-1.30 [facility] Comment on above: Performed By: #### L 500.4050, L503.0106, L506.1001, L100.0100, L501.9520, L3100.5440, L500.4100, L503.6030 #### [facility] [address] [place], [address] BUN/CRE 26.0 RATIO High 10-20 [facility] Comment on above: Performed By: #### L 500.4050, L503.0106, L506.1001, L100.0100, L501.9520, L3100.5440, L500.4100, L503.6030 #### [facility] [address] [place], [address] Calcium [Mass/Vol] 9.7 mg/dL Normal 7.6-11.0 [facility] Comment on above: Performed By: #### L 500.4050, L503.0106, L506.1001, L100.0100, L501.9520, L3100.5440, L500.4100, L503.6030 #### [facility] [address] [place], [address] Chloride [Moles/Vol] 105 mmol/L Normal 98-108 [facility] Comment on above: Performed By: #### L 500.4050, L503.0106, L506.1001, L100.0100, L501.9520, L3100.5440, L500.4100, L503.6030 #### [facility] [address] [place], [address] CO2 [Moles/Vol] 21.3 mmol/L Normal 21.0-32.0 [facility] Comment on above: Performed By: #### L 500.4050, L503.0106, L506.1001, L100.0100, L501.9520, L3100.5440, L500.4100, L503.6030 #### [facility] [address] [place], [place], [id number] ([address]) Creatinine [Mass/Vol] 0.59 mg/dL Low 0.70-1.20 [facility] Comment on above: Performed By: #### L 500.4050, L503.0106, L506.1001, L100.0100, L501.9520, L3100.5440, L500.4100, L503.6030 #### [facility] [address] [place], [address] GAP 12 Normal 5-15 [facility] Comment on above: Performed By: #### L 500.4050, L503.0106, L506.1001, L100.0100, L501.9520, L3100.5440, L500.4100, L503.6030 #### [facility] [address] [place], [address] GFR/1.73 sq M.predicted among non-blacks MDRD (S/P/Bld) [Vol rate/Area] 93 mL/min/{1.73_m2} Normal >60 [facility] Comment on above: Result Comment: mL/m in/1.73m2 CKD-EPI Creatinine Equation (2020) Performed By: #### L 500.4050, L503.0106, L506.1001, L100.0100, L501.9520, L3100.5440, L500.4100, L503.6030 #### [facility] [address] [place], [address] Globulin (S) [Mass/Vol] 2.8 g/dL Normal 2.2-4.2 [facility] Comment on above: Performed By: #### L 500.4050, L503.0106, L506.1001, L100.0100, L501.9520, L3100.5440, L500.4100, L503.6030 #### [facility] [address] [place], [address] Glucose [Mass/Vol] 97 mg/dL Normal 70-99 [facility] Comment on above: Performed By: #### L 500.4050, L503.0106, L506.1001, L100.0100, L501.9520, L3100.5440, L500.4100, L503.6030 #### [facility] [address] [place], [address] Potassium [Moles/Vol] 4.6 mmol/L Normal 3.3-5.1 [facility] Comment on above: Performed By: #### L 500.4050, L503.0106, L506.1001, L100.0100, L501.9520, L3100.5440, L500.4100, L503.6030 #### [facility] [address] [place], [address] Sodium [Moles/Vol] 138 mmol/L Normal 133-145 [facility] Comment on above: Performed By: #### L 500.4050, L503.0106, L506.1001, L100.0100, L501.9520, L3100.5440, L500.4100, L503.6030 #### [facility] [address] [place], [place], [id number] T PROT 7.0 g/dL Normal 5.9-8.4 [facility] Comment on above: Performed By: #### L 500.4050, L503.0106, L506.1001, L100.0100, L501.9520, L3100.5440, L500.4100, L503.6030 #### [facility] [address] [place], [address] Urea nitrogen [Mass/Vol] 15 mg/dL Normal 4-19 [facility] Comment on above: Performed By: #### L 500.4050, L503.0106, L506.1001, L100.0100, L501.9520, L3100.5440, L500.4100, L503.6030 #### [facility] [address] [place], [address] DNA double strand Ab Qn (S)O rdered By: Lilia Bergeron on 02-12-2025 Anti-Double Strand DNA Antibody <1 IU/mL 0-9 [facility] Comment on above: Negative <5 Equivoca l 5 - 9 Positive >9 Eosinophil percentageOrdered By: Lilia Bergeron on 02-12-2025 Eosinophils/100 WBC (Bld) 2.2 % 0-5 [facility] Erythrocyte distribution wid th ratioOrdered By: Lilia Bergeron on 02-12-2025 Erythrocyte distribution width (RBC) [Ratio] 14.3 % 11.6-14.6 [facility] Erythrocyte distribution wid th standard deviationOrdered By: Lilia Bergeron on 02-12-2025 Erythrocyte distribution width (RBC) [Entitic vol] 45.1 fL High 35.1-43.9 [facility] Erythrocyte distribution width (RBC) [Ratio] 45.1 fl High 35.1-43.9 [facility] GFR/1.73 sq M.predicted neelam g non-blacks MDRD (S/P/Bld) [Vol rate/Area]Ordered By: Lilia Bergeron on 02-12-2025 Estimated GFR (MDRD) Non-Af Amer 93 >60 [facility] Comment on above: mL/min/1.73m2 CKD-EP I Creatinine Equation (2020) Glomerular filtration rate ( GFR) estimation/1.73 sq m using serum, plasma, or whole bOrdered By: Lilia Bergeron on 02-12-2025 GFR/1.73 sq M.predicted among non-blacks MDRD (S/P/Bld) [Vol rate/Area] 93 mL/min/{1.73_m2} >60 [facility] Comment on above: mL/min/1.73m2 CKD-EP I Creatinine Equation (2020) Hematocrit Auto (Bld) [Volum e fraction]Ordered By: Lilia Bergeron on 02-12-2025 Hematocrit (Bld) [Volume fraction] 35.7 % Low 37-47 [facility] Hemoglobin measurementOrdere d By: Lilia Bergeron on 02-12-2025 Hemoglobin (Bld) [Mass/Vol] 11.9 g/dL Low 12.0-15.0 [facility] Immature granulocytes/100 WB C Auto (Bld)Ordered By: Lilia Bergeron on 02-12-2025 Immature granulocytes/100 WBC (Bld) 0.500 % 0.0-0.9 [facility] Comment on above: IG% - Immature Granu locytes (promyelocytes, myelocytes and metamyelocytes) > 1% indicates that a LEFT SHIFT is Present. Iron (Unsp spec) [Mass/Mass] Ordered By: Lilia Bergeron on 02-12-2025 Iron [Mass/Vol] 67 ug/dL 50-170 [facility] Iron measurement (mass/mass) Ordered By: Lilia Bergeron on 02-12-2025 Iron (Unsp spec) [Mass/Mass] 67 ug/dL 50-170 [facility] Iron saturation [Mass fracti on]Ordered By: Lilia Bergeron on 02-12-2025 Iron Saturation 19.0 % 13-59 [facility] Iron+Iron Binding Capacityon 02-12-2025 Iron [Mass/Vol] 67 ug/dL Normal 50-170 [facility] Comment on above: Performed By: #### L 500.4050, L503.0106, L506.1001, L100.0100, L501.9520, L3100.5440, L500.4100, L503.6030 #### [facility] [address] [place], [address] IRON SATURATION 19.0 Normal 13-59 [facility] Comment on above: Performed By: #### L 500.4050, L503.0106, L506.1001, L100.0100, L501.9520, L3100.5440, L500.4100, L503.6030 #### [facility] [address] [place], [address] TIBC 360 ug/dL Normal 250-450 [facility] Comment on above: Performed By: #### L 500.4050, L503.0106, L506.1001, L100.0100, L501.9520, L3100.5440, L500.4100, L503.6030 #### [facility] [address] [place], [address] UIBC 293 ug/dL Normal 228-428 [facility] Comment on above: Performed By: #### L 500.4050, L503.0106, L506.1001, L100.0100, L501.9520, L3100.5440, L500.4100, L503.6030 #### [facility] [address] [place], [address] Prachi-1 antibody assayOrdered B y: Lilia Bergeron on 02-12-2025 PRACHI-1 Antibody <0.2 AI 0.0-0.9 [facility] Comment on above: Previous reported re sult: TNP AIEdited by: ADAN on 02/13/25:1108 AMENDED REPORT 02/13/25 1108 ANTI-PRACHI previously reported as: Test not performed L503.0106on 02-12-2025 Cobalamin (Vitamin B12) [Mass/Vol] 531 pg/mL Normal 180-914 [facility] Comment on above: Performed By: #### L 500.4050, L503.0106, L506.1001, L100.0100, L501.9520, L3100.5440, L500.4100, L503.6030 ####[facility] [id number] [place], [place], [id number] L506.1001on 02-12-2025 Vitamin D 25-OH 60.9 ng/mL Normal 30-100 [facility] Comment on above: Result Comment: Kiki min D Status Deficiency: <20 ng/mL (50nmol/L) Insufficiency: 20-30 ng/mL (50-75 nmol/L) Sufficiency: 30-100 ng/mL (75-250 nmol/L) Toxicity: >100 ng/mL (>250 nmol/L) Performed By: #### L 500.4050, L503.0106, L506.1001, L100.0100, L501.9520, L3100.5440, L500.4100, L503.6030 ####[facility] [id number] [place], [place], [id number] LDL calc ser/plasOrdered By: Lilia Bergeron on 02-12-2025 Cholesterol in LDL [Mass/Vol] 114 mg/dL [facility] Comment on above: Ifnusoxzfx=336-351 m g/dL & Higher Jklr=234 mg/dL or greater LDL Cholesterol, Calculated 114 mg/dL [facility] Comment on above: Xbdtcgwkld=674-853 m g/dL & Higher Zskv=799 mg/dL or greater Laboratory - Chemistry and C hemistry - challengeOrdered By: Lilia Bergeron on 02-12-2025 AST [Catalytic activity/Vol] 27 U/L <32 [facility] Lipid Profileon 02-12-2025 CHOL:HDL 2.75 Normal [facility] Comment on above: Performed By: #### L 500.4050, L503.0106, L506.1001, L100.0100, L501.9520, L3100.5440, L500.4100, L503.6030 #### [facility] [address] [place], [address] Cholesterol [Mass/Vol] 223 mg/dL High <=200 [facility] Comment on above: Result Comment: Chol esterol level, Desirable <200 mg/dL Borderline high cholesterol 200-239 mg/dL High cholesterol >=240 mg/dL Recommendations of the NCEP Adult Treatment Panel for the following risk-cutoff thresholds for the [place] population. Performed By: #### L 500.4050, L503.0106, L506.1001, L100.0100, L501.9520, L3100.5440, L500.4100, L503.6030 #### [facility] [address] [place], [address] Cholesterol in HDL [Mass/Vol] 81 mg/dL Normal [facility] Comment on above: Result Comment: Samira onal Cholesterol Education Program (NCEP) guidelines: <40 mg/dL: Low HDL-cholesterol (major risk factor for CHD) >= 60 mg/dL: High HDL-cholesterol (negative risk factor for CHD) HDL-cholesterol is affected by a number of factors, e.g. smoking, exercise, hormones, sex and age. Performed By: #### L 500.4050, L503.0106, L506.1001, L100.0100, L501.9520, L3100.5440, L500.4100, L503.6030 #### [facility] [address] [place], [address] Cholesterol in LDL [Mass/Vol] 114 mg/dL Normal [facility] Comment on above: Result Comment: Bord oslome=947-530 mg/dL Higher Rkwu=751 mg/dL or greater Performed By: #### L 500.4050, L503.0106, L506.1001, L100.0100, L501.9520, L3100.5440, L500.4100, L503.6030 #### [facility] [address] [place], [address] Cholesterol in VLDL [Mass/Vol] 28 mg/dL Normal 5-40 [facility] Comment on above: Performed By: #### L 500.4050, L503.0106, L506.1001, L100.0100, L501.9520, L3100.5440, L500.4100, L503.6030 #### [facility] [address] [place], [address] Triglyceride [Mass/Vol] 138 mg/dL Normal [facility] Comment on above: Result Comment: The drugs N-Acetylcysteine and Metamizole may falsely depress this assay. Normal range: <150 mg/dL Borderline High: 150-199 mg/dL High: 200-499 mg/dL Very High: >500 mg/dL Performed By: #### L 500.4050, L503.0106, L506.1001, L100.0100, L501.9520, L3100.5440, L500.4100, L503.6030 #### [facility] [address] [place], [address] Lymphocytes Auto (Unsp spec) [#/Vol]Ordered By: Lilia Bergeron on 02-12-2025 Lymphocytes (Bld) [#/Vol] 2.23 10*3/uL 0.83-4.51 [facility] Lymphocytes/100 WBC Auto (Un sp spec)Ordered By: Lilia Bergeron on 02-12-2025 Lymphocytes/100 WBC (Bld) 26.4 % 19-41 [facility] MCV (mean corpuscular volume ) determinationOrdered By: Lilia Bergeron on 02-12-2025 MCV (RBC) [Entitic vol] 86.9 fL 81-99 [facility] Mean corpuscular hemoglobin (MCH) determinationOrdered By: Lilia Bergeron on 02-12-2025 MCH (RBC) [Entitic mass] 29.0 pg 27.0-32.0 [facility] Mean corpuscular hemoglobin concentration (MCHC) determinationOrdered By: Lilia Bergeron on 02-12-2025 MCHC (RBC) [Mass/Vol] 33.3 g/dL 32-36 [facility] Mean platelet volume determi nationOrdered By: Lilia Bergeron on 02-12-2025 Platelet mean volume (Bld) [Entitic vol] 11.2 fL 6.2-12.0 [facility] Monocyte percentageOrdered B y: Lilia Bergeron on 02-12-2025 Monocytes/100 WBC (Bld) 8.3 % 0-10 [facility] Neutrophil percentageOrdered By: Lilia Bergeron on 02-12-2025 Neutrophils/100 WBC (Bld) 62.0 % 47-70 [facility] No Panel InformationOrdered By: Lilia Bergeron on 02-12-2025 Unsaturated Iron Binding Capacity 293 ug/dL 228-428 [facility] Nucleated red blood cell per centageOrdered By: Lilia Bergeron on 02-12-2025 Nucleated RBC/100 WBC (Bld) [Ratio] 0 % 0-5 [facility] Platelet countOrdered By: Thee Bergeron on 02-12-2025 Platelets (Bld) [#/Vol] 106 10*3/uL Low 150-450 [facility] Potassium (Unsp spec) [Mass/ Vol]Ordered By: Lilia Bergeron on 02-12-2025 Potassium [Moles/Vol] 4.6 mmol/L 3.3-5.1 [facility] Potassium measurement (mass/ volume)Ordered By: Lilia Bergeron on 02-12-2025 Potassium (Unsp spec) [Mass/Vol] 4.6 mmol/L 3.3-5.1 [facility] RBC Auto (Bld) [#/Vol]Ordere d By: Lilia Bergeron on 02-12-2025 RBC (Bld) [#/Vol] 4.11 10*6/uL Low 4.2-5.4 [facility] [employer]YING [employer]INDING SUPERVISOR abOrdered By: Lilia samay on 02-12-2025 [employer]YING [employer]INDING SUPERVISOR Antibody 0.3 AI 0.0-0.9 [facility] Comment on above: Previous reported re sult: TNP AIEdited by: ADAN on 02/13/25:1108 AMENDED REPORT 02/13/25 1108 [employer]YING [employer]INDING SUPERVISOR Ab previously reported as: Test not performed SCL-70 extractable nuclear A b Qn (S)Ordered By: Lilia Bergeron on 02-12-2025 Scl-70 (Scleroderma) Antibody <0.2 AI 0.0-0.9 [facility] SS-A IgG antibody assayOrder ed By: Lilia Bergeron on 02-12-2025 SS-A/Ro IgG Antibody < 0.2 AI 0.0-0.9 [facility] Comment on above: Previous reported re sult: TNP AIEdited by: ADAN on 02/13/25:1108 AMENDED REPORT 02/13/25 1108 Anti-SS-A previously reported as: Test not performed SS-B IgG antibody assayOrder ed By: Lilia Bergeron on 02-12-2025 SS-B/La IgG Antibody < 0.2 AI 0.0-0.9 [facility] Comment on above: Previous reported re sult: TNP AIEdited by: ADAN on 02/13/25:1108 AMENDED REPORT 02/13/25 1108 Anti-SS-B previously reported as: Test not performed Screening total cholesterol/ high density lipoprotein (HDL) cholesterol ratioOrdered By: Lilia Bergeron on 02-12-2025 Cholesterol.total/Choles terol in HDL [Mass ratio] 2.75 {ratio} [facility] Serum DNA double strand anti body assay (units/volume)Ordered By: Lilia Bergeron on 02-12-2025 DNA double strand Ab Qn (S) [IU]/mL 0-9 [facility] Comment on above: Negative <5 Equivoca l 5 - 9 Positive >9 Serum Scl-70 antibody assay (units/volume)Ordered By: Lilia Bergeron on 02-12-2025 SCL-70 extractable nuclear Ab Qn (S) <0.2 AI 0.0-0.9 [facility] Serum creatinine measurement (mass/volume)Ordered By: Lilia Bergeron on 02-12-2025 Creatinine [Mass/Vol] 0.59 mg/dL Low 0.70-1.20 [facility] Serum globulin measurementOr dered By: Lilia Bergeron on 02-12-2025 Globulin (S) [Mass/Vol] 2.8 g/dL 2.2-4.2 [facility] Serum glucose measurement (m ass/volume)Ordered By: Lilia Bergeron on 02-12-2025 Glucose [Mass/Vol] 97 mg/dL 70-99 [facility] Serum or plasma alanine melvin otransferase (ALT) measurementOrdered By: Lilia Bergeron on 02-12-2025 ALT [Catalytic activity/Vol] 23 U/L <35 [facility] Serum or plasma albumin jenny urement (mass/volume)Ordered By: Lilia Bergeron on 02-12-2025 Albumin [Mass/Vol] 4.1 g/dL 3.4-4.8 [facility] Serum or plasma albumin/glob ulin mass ratioOrdered By: Lilia Bergeron on 02-12-2025 Albumin/Globulin [Mass ratio] 1.5 {ratio} 0.9-2.4 [facility] Serum or plasma alkaline sintia sphatase measurementOrdered By: Lilia Bergeron on 02-12-2025 ALP [Catalytic activity/Vol] 83 U/L 35-104 [facility] Serum or plasma calcium jenny urement (mass/volume)Ordered By: Lilia Bergeron on 02-12-2025 Calcium [Mass/Vol] 9.7 mg/dL 7.6-11.0 [facility] Serum or plasma cholesterol in HDL measurement (mass/volume)Ordered By: Lilia Bergeron on 02-12-2025 Cholesterol in HDL [Mass/Vol] 81 mg/dL >40 [facility] Comment on above: National Cholesterol Education Program (NCEP) guidelines:<40 mg/dL: Low HDL-cholesterol (major risk factor for CHD)>= 60 mg/dL: High HDL-cholesterol (negative risk factor for CHD)HDL-cholesterol is affected by a number of factors, e.g. smoking, exercise, hormones, sex and age. Serum or plasma cholesterol measurement (mass/volume)Ordered By: Lilia Bergeron on 02-12-2025 Cholesterol [Mass/Vol] 223 mg/dL High <201 [facility] Comment on above: Cholesterol level, D esirable <200 mg/dLBorderline high cholesterol 200-239 mg/dLHigh cholesterol >=240 mg/dLRecommendations of the NCEP Adult Treatment Panel for the following risk-cutoff thresholds for the [place] population. Serum or plasma iron saturat ion measurement (mass fraction)Ordered By: Lilia Bergeron on 02-12-2025 Iron saturation [Mass fraction] 19.0 % 13-59 [facility] Serum or plasma urea nitroge n measurement (mass/volume)Ordered By: Lilia Bergeron on 02-12-2025 Urea nitrogen [Mass/Vol] 15 mg/dL 4-19 [facility] Sifuentes antibody assayOrdered By: Lilia Bergeron on 02-12-2025 SM Antibody <0.2 AI 0.0-0.9 [facility] Comment on above: Previous reported re sult: TNP AIEdited by: ADAN on 02/13/25:1108 AMENDED REPORT 02/13/25 1108 NAZANIN Ab previously reported as: Test not performed Sodium levelOrdered By: Miah Bergeron on 02-12-2025 Sodium [Moles/Vol] 138 mmol/L 133-145 [facility] TSH DL <= 0.005 mIU/L QnOrde red By: Lilia Bergeron on 02-12-2025 Thyroid Stimulating Hormone (TSH) 2.840 uIU/mL 0.300-4.200 [facility] TSH Qn 2.840 uIU/mL 0.300-4.200 [facility] Thyroid Stim Hormone (TSH)on 02-12-2025 TSH 2.840 uIU/mL Normal 0.300-4.200 [facility] Comment on above: Performed By: #### L 500.4050, L503.0106, L506.1001, L100.0100, L501.9520, L3100.5440, L500.4100, L503.6030 #### [facility] [address] [place], [address] Total proteinOrdered By: Zack Bergeron on 02-12-2025 Protein [Mass/Vol] 7.0 g/dL 5.9-8.4 [facility] Triglycerides measurementOrd ered By: Lilia Bergeron on 02-12-2025 Triglyceride [Mass/Vol] 138 mg/dL <199 [facility] Comment on above: The drugs N-Acetylcy steine and Metamizole may falsely depress this assay. Normal range: <150 mg/dLBorderline High: 150-199 mg/dLHigh: 200-499 mg/dLVery High: >500 mg/dL Vitamin B12 ser/plasOrdered By: Lilia Bergeron on 02-12-2025 Cobalamin (Vitamin B12) [Mass/Vol] 531 pg/mL 180-914 [facility] Vitamin D, 25-hydroxyOrdered By: Lilia Bergeron on 02-12-2025 Vitamin D 25-Hydroxy 60.9 ng/mL 30-100 [facility] Comment on above: Vitamin D StatusDefi ciency: <20 ng/mL (50nmol/L)Insufficiency: 20-30 ng/mL (50-75 nmol/L)Sufficiency: 30-100 ng/mL (75-250 nmol/L)Toxicity: >100 ng/mL (>250 nmol/L) White blood cell (WBC) count Ordered By: Lilia Bergeron on 02-12-2025 WBC (Bld) [#/Vol] 8.5 10*3/uL 4.4-11.0 [facility] Internal Medicine Office Vis iton 02-10-2025 Internal Medicine Office Visit [facility] [address] [place] [address] [place] [address] OFFICE VISIT Date of Service: 02/11/25 MR#: [id number] Acct: [id number] Name: ANA GONZALEZ Rep #: [id number] : 1945 Provider: Dr. 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: No Is patient in pain?: No Allergies acetaminophen (From Tylenol) Allergy (Mild, Verified 07/10/24 09:39) hives ibuprofen Allergy (Mild, Verified 07/10/24 09:44) Other Medications ???Medication ???Instructions ???Recorded ???Confirmed ???Type multivitamin with minerals 1 tab PO BID 11/02/21 02/11/25 His tory (Hair,Skin and Nails tablet) calcium 600 mg (as 1 cap PO BID #180 caps 11/03/22 Rx carbonate)-vitamin D3 12.5 mcg (500 unit) capsule (Calcium with Vit D3) biotin 5,000 mcg chewable tablet mcg PO 11/20/23 02/11/25 History atorvastatin 10 mg tablet 10 mg PO QHS #90 tabs 07/08/24 Rx coenzyme Q10 100 mg capsule 100 mg PO DAILY #90 caps 07/10/24 02/11/25 Rx (CoQ-10) meloxicam 7.5 mg tablet 7.5 mg PO DAILY #90 tabs 08/07/24 02/11/25 Rx levothyroxine 75 mcg tablet 75 mcg PO .COMPLEX #90 TABLETS 11/1102/11/25 Rx denosumab 60 mg/mL subcutaneous 60 mg subcut [id number] osteoperosis 01/09/25 02/11/25 Rx syringe (Prolia) #1 mL cholecalciferol (vitamin D3) 1,250 1,250 mcg PO .COMPLEX #6 caps 02/11/25 Rx mcg (50,000 unit) capsule gabapentin 100 mg capsule 300 mg PO BID 02/11/25 02/11/25 Hi story spironolactone 50 mg tablet 50 mg PO QAM 02/11/25 02/11/25 His tory Have you fallen in the past year?: No Nurse's Note: States she is very tired and sometimes gets random bruises, is requesting labs for vitamins. Is sleeping 6 hours at night and feels rested but is tired throughout the day. is able to fall asleep and stay asleep. Is needing coq10 refilled. Is needing mammogram order. [facility] Medical History Hives of unknown origin Family history of rheumatoid arthritis Multiple joint pain History of hemorrhoids History of fracture Arthritis Hyperlipemia Osteopenia Tremor Hypothyroidism Vitamin D deficiency Surgical History H/O hemorrhoidectomy History of tubal ligation Family History Father Alcoholism Anemia Sister Breast cancer Sister Cancer Sister Thyroid disorder Mother Diabetes Osteoporosis Rheumatoid arthritis Parkinson disease Social History household members: spouse current occupational status: unemployed Smoking Status: Never smoker Electronic Cigarette Use: not used alcohol intake: never substance use type: does not use do you feel safe at home: Yes HPI HPI Details: ANA GONZALEZ, is a 79 F who presents to the office today for a follow up. She is up to date on her routine blood work and would like a mammogram ordered. She isn't due for any immunizations. She doesn't smoke and does need refills. She reports she is eating healthy, but states she doesn't have much of an appetite. She is staying active. She takes her thyroid medication first thing in the morning before anything else. She denies any problems with the medication. She reports her neck has been 'ok.' She reports she will occasionally have pain. She wears her collar which does help. She reports staying active does help. She did follow with ortho spine for her neck who previously recommended surgery. She reports that she is no longer seeing them, however, reporting that she decided against having the surgery. She reports her tremor has been worsening stating she has problems with her left hand now. She has trouble with writing. Since she was last seen, she has been following with neurology and reports that she was changed to gabapentin. She does think it has helped some, but not much. She has an appointment with another neurologist in March for further recommendations. She reports her back pain has been feeling alright. She reports she will occasionally get pain. The patient has concerns about fatigue. She reports she has always struggled with fatigue, but seems to have been worse over the last couple of months. She denies any illnesses or stressors during that time period. The patient reports she just w (more content not included)... Normal [facility] Office Visit Reporton 2024 Office Visit Report [facility] [address] [place] [address] OFFICE VISIT Date of Service: 02/03/25 MR#: [id number] Acct: [id number] Patient: ANA GONZALEZ Rep #: [id number] : 1945 Provider: MIRELLA NURSE Age/Sex: 79/F Location: [facility] Status: Signed Intake Vital Signs 07/10/24 09:45 Height 4 ft 9 in Weight: 121 lb BMI 26.2 BP 116/64 Blood Pressure Location Lt brachial Position Sitting Respiration 14 Pulse 58 L Pulse Source Monitor Temp 97.5 F L Temp Source Temporal Pulse Oximetry (%) 99 Oxygen Delivery Method room air Intake Visit Reasons: PROLIA-$0 Chief Complaint: sciatica pain Allergies acetaminophen (From Tylenol) Allergy (Mild, Verified 07/10/24 09:39) hives ibuprofen Allergy (Mild, Verified 07/10/24 09:44) Other Have you fallen in the past year?: No Office Procedures Injections Procedure performed by: Christin Landrum Is this a patient provided medication?: Yes Office Meds Prolia 60 mg/mL subcutaneous syringe Performing Provider: Lilia Bergeron MD Performing Location: [facility] Administered by: Christin Landrum MA on 02/03/25 11:16 Dose Route Admin Location Dispensed Lot Number Expiration Date [place] Man ufacturer 60 mg subcut [place] 1 mL [id number] 06/18/27 55612-568-19 [facility] Comments: dx:[facility] Assessment and Plan Assessment and Plan (1) Osteoporosis: Status: Acute Orders: Orders Prolia Injection Today M81.0 - Age-related osteoporosis without current pathological fracture Clinical Quality Measures Falls Risk Screening/Assistive Devices Have you fallen in the past year?: No 02/03/25 1223 Date Lilia Bergeron MD [facility] Signature: Date (if applicable) CC: Normal [facility] CNOVon 12-31-2024 CNOV Office Visit (NEMOWS) ---- CARLOSANA ([id number]) 1945 [facility] Date Time Provider Department 12/31/24 11:30 AM SARAH CHOU During your visit today, we recorded the following information about you: Pulse Blood pressure Weight 71/minute 160/85 56.1 kg Sarah Chou PA-C 12/31/2024 12:14 PM Signed [facility] Name: Ana Cruz Carlos Age: [age] year old Gender: female Primary Care Provider: Lilia Bergeron MD Assessment/Plan: 12/31/2024 - General NeurologySarah PA-C ASSESSMENT ASSESSMENT/PLAN: 1. Essential tremor - ICD9: 333.1, ICD10: G25.0 (primary diagnosis) Patient with essential tremor of the right upper extremity, now experiencing some mild symptoms to the left upper extremity. Not visible today, but states it comes and goes when she is doing certain activities. Does have very mild tremor to the right upper extremity on exam, improved from previous. However, patient not currently satisfied where she is, would like to be able to write. Did send to physical therapy but they referred her to occupational therapy and she has yet to schedule this. Has tried wrist weights but was not able to write with it. Has tried propranolol, primidone and is now gabapentin. Is taking gabapentin 300 mg twice daily, discussed increasing it further to 3 times a day but patient deferring. Would not like to try another medication either. Discussed to follow-up with specialty, movement and patient would like to see a specialist at this time. 2. Bilateral hand numbness - ICD9: 782.0, ICD10: R20.0 Does report some new onset numbness to the first 3 digits of both hands over the last month. Only when she wakes up, after shaking her hands her symptoms returned to normal after about a minute. Does have some mild thenar atrophy bilaterally, but negative Tinel's and Phalen's. Has had testing for carpal tunnel in the past per patient report but I do not see this. Discussed wearing wrist braces while she sleeps to keep her hands in anatomical position and prevent any compression of the median nerve. Patient and family agreeable to this and will follow-up if symptoms persist. No signs or symptoms of cord compression, no neck pain, falls. Patient agreeable to treatment plan of care at this time, questions were answered. Patient to follow-up as needed. Sarah Chou PA-C Encounter Diagnosis ICD-10-CM 1. Essential tremor G25.0 CONSULT TO NEUROLOGY 2. Bilateral hand numbness R20.0 Return if symptoms worsen or fail to improve. Chart, labs,and relevant images reviewed. Chief Complaint:Patient presents with: Established Patient: Tremor, memory loss Chart Review: Last Filed Values Date of Most Recent Assessment and Plan 06/24/24 Specialty General Neurology Assessment ASSESSMENT/PLAN: 1. Essential tremor - ICD9: 333.1, ICD10: G25.0 Patient's exam and history consistent with essential tremor. Symptoms starting in the right upper extremity about 20 years ago and gradually worsening, last few weeks has noticed it minimally in left upper extremity. Patient without any rigidity, signs or symptoms of parkinsonism. Does have mother with history of Parkinson's when she was in her 70s, but again exam is overall very reassuring and consistent with essential tremor. No further imaging or workup needed at this time. Plan below. HPI: Last seen on for ET, started PT but PT suggested OT. Increased gabapentin to 300mg bid. Has tried propranolol, primidone and gabapentin. Patient presents with her granddaughter for follow-up appointment. Notes some improvement with increasing gabapentin to 300 mg twice daily, but notes that now she is starting to have some symptoms in her left upper extremity. Not at rest, only when doing activities like writing, drawing, using the hands. Has not scheduled with occupational therapy yet. Has tried wrist weights but is unable to write in them. No new weakness, falls. Does note some paresthesias over the last month to the bilateral 1st through 3rd digit when she wakes up in the morning. Notes that it is every morning, she will shake her hands and her symptoms will resolve. States she was worked up for carpal tunnel syndrome many years ago but the testing was negative. No significant weakness in the hands, no other paresthesias. Review of Systems ACTIVE PROBLEM LIST Cervicalgia Esophageal Reflux Unspecified Hypothyroidism Other Hyperlipidemia Headache(784.0) Pain in Limb Anemia Knee Effusion, Right Rotator Cuff Arthropathy of Both Shoulders Other Osteoporosis Without Current Pathological Fracture Arthralgia Pruritus Primary Osteoarthritis of Both Knees Pre-Op Examination Rotator Cuff Arthropathy, Right Elevated Bp Without Diagnosis of Hypertension S/P Reverse Total Shoulder Arthroplasty, Rigartie (more content not included)... Normal [facility] CNOVon 10-24-2024 CNOV Office Visit (ORMDRG) ---- ANA GONZALEZ ([id number]) 1945 F [facility] Date Time Provider Department 10/24/24 2:15 PM ELAINE MERAZ ORMDRG During your visit today, we recorded the following information about you: Elaine Meraz PA-C 10/24/2024 2:26 PM Signed PAIN EVALUATION 10/24/2024 1414 Pain Level: 2 Pain Location: Shoulder-Left Description: Tightness Duration Amount of Time: -- ongoing Frequency: Intermittent Intervention/Comfor t measure: Reposition;Relaxati on Encounter Diagnosis ICD-10-CM 1. Left shoulder pain, unspecified chronicity M25.512 2. Complete tear of left rotator cuff, unspecified whether traumatic M75.122 Ana Gonzalez returns in follow-up in her left shoulder pain. Continues to do well with pain. Active forward elevation to 160. No pain or giveaway with Kristen test. PLAN: She is doing well. Does not feel she needs an injection today. At this time she can follow-up with an as-needed basis for repeat injections depending on symptoms. Elaine Meraz PA-C Department of Orthopaedic Surgery [facility] Allergies As of Date: 10/24/2024 Noted Allergy Reaction APAP 500 (ACETAMINOPHEN) 06/03/2024 4 - Hives IBUPROFEN 06/03/2024 4 - Hives Date Reviewed: 10/24/2024 Reviewed by: Nan Irizarry LPN - Fully Assessed Reason for Visit: Established Patient [175] Follow Up [171] Pain [78] Primary Visit Diagnosis:Left shoulder pain, unspecified chronicity [M25.512] Other Visit Diagnosis:Complete tear of left rotator cuff, unspecified whether traumatic [M75.122] Prescriptions as of 10/24/2024 - MULTIVIT,[id number]-[id number] C-VITK-CQ10 ORAL Take 100 mg by mouth once daily. - spironolactone (ALDACTONE) 50 mg tablet Take 50 mg by mouth once daily. - gabapentin (NEURONTIN) 300 mg capsule Take 1 capsule by mouth two times a day for 90 days. - cyanocobalamin, vitamin B-12, (VITAMIN B-12) 5,000 mcg subl Dissolve 5,000 mcg under the tongue once daily. - propranolol (INDERAL) 10 mg tablet Week 1: Take one 10 mg pill twice a day. Week 2: Take 2 pills twice a day Week 3 and on: Take 3 pills twice a day - cholecalciferol, vitamin D3, (VITAMIN D3 ORAL) Take 50,000 Units by mouth every 2 weeks. - biotin 1 mg cap Take 1 mg by mouth once daily. - Minoxidil 2 % external solution 1 teaspoon applied topically on scalp once daily - alendronate (FOSAMAX) 70 mg tablet Take 1 tablet by mouth one time a week. On empty stomach with large glass of water. First thing in the am. No other medications. Do not lie down after taking this. - atorvastatin (LIPITOR) 10 mg tablet Take 10 mg by mouth daily at bedtime. - MELOXICAM ORAL Take 7.5 mg by mouth once daily. - LEVOTHYROXINE 50 MCG TAB Take one(1) tablet daily. Problem List As Of Date 10/24/2024 Noted Resolved CERVICALGIA [M54.2] 03/09/2008 ESOPHAGEAL REFLUX [K21.9] 03/30/2008 HYPOTHYROIDISM NOS [E03.9] 03/30/2008 Other hyperlipidemia [E78.49] 03/30/2008 HEADACHE [R51] 03/30/2008 PAIN IN LIMB [M79.609] 03/30/2008 Anemia [D64.9] 04/24/2022 Knee effusion, right [M25.461] 04/24/2022 Rotator cuff arthropathy of both shoulders [M12*04/24/2022 Other osteoporosis without current pathological*2021 Arthralgia [M25.50] 06/21/2022 Pruritus [L29.9] 06/21/2022 Primary osteoarthritis of both knees [M17.0] 06/21/2022 Pre-op examination [Z01.818] 11/26/2023 Rotator cuff arthropathy, right [M12.811] 11/26/2023 Elevated BP without diagnosis of hypertension [*11/28/2023 S/P reverse total shoulder arthroplasty, right *12/12/2023 Encounter Status:Closed by ELAINE MERAZ on 10/24/24 Normal [facility] [id number] 10-09-2024 [id number] HNO ID: [id number] Author: ALEXUS BURGOS PT Service: ? Author Type: Physical Therapist Type: [id number] Filed: 10/09/2024 16:09 Note Text: [facility] Physical Therapy Plan of Care Certification Patient Name: Ana Gonzalez : 1945 [facility] #: [id number] Date: 10/09/2024 To: Sarah Chou PA-C From Therapist: Alexus Burgos PT RE: Patient Certification/ Recertification Your review, approval and electronic signature are required in order to comply with Payor: HURON [facility] MEDICARE / Plan: [facility] MEDIC[facility] / Product Type: Medicare / regulations. The identified Physical Therapy PLAN OF CARE for the patient is as follows: G25.0 Essential tremor PLAN OF CARE: Assessment: Ana Gonzalez presents with chief complaint of right upper extremity tremor that interferes with cooking, feeding self (writing and chopping) . The patient presents with impairments in overall function and strength. PROMIS? (Patient-Reported Outcomes Measurement Information System) scores were reviewed and identified as within normal limits. Prognosis for therapy is Good due to: current objective clinical presentation . Patient with residual weakness to right shoulder post right TSR in November. Instructed in right shoulder strengthening with emphasis on scapular stability. No further PT needs anticipated as patient is Independent with home exercise program. Patient would benefit from OT referral to address essential tremor to provide adaptation for writing and cooking tasks. The patient will benefit from skilled therapy services to meet the goals established for this plan of care as noted below. Goals for Episode of Care: established 10/09/24 [place] in home exercise program. Patient Goals: less tremors. Would like to be able write and chop without difficulty. Time Frame for Goals and Treatment : 11/08/24 Planned Interventions, Frequency, and Duration: Current Frequency: 1 visit Duration: 1 visit Total Number of Visits Planned: 1 Planned Treatment Interventions: Therapeutic exercise ([id number]) PLAN FOR NEXT VISIT: no further PT visits planned Patient demonstrates good understanding of plan of care and treatment. The above goals and plan of care were discussed and agreed upon by patient/family. For further details regarding this patient refer to the Physical Therapy electronically documented visit dated 10/09/2024. Provider Attestation I have reviewed the treatment plan for Ana Gonzalez, [facility]# [id number] for the period of 10/09/24 -- 11/08/24, established on 10/09/2024. Signature certifies the need for therapy services. Normal [facility] CNTHERAPYon 10-09-2024 CNTHERAPY OT/PT/Speech Visit (LDPT) ---- ANA GONZALEZ ([id number]) 1945 F [place][birth year] Date Time Provider Department 10/09/24 3:00 PM ALEXUS BURGOS Date Time Provider Department Center 10/09/2024 3:00 PM [id number] BURGOS [facility] Reason for Visit: PT Eval [747] PT Discharge [752] Visit Diagnosis:Essential tremor [G25.0] Allergies As of Date: 10/09/2024 Noted Allergy Reaction APAP 500 (ACETAMINOPHEN) 06/03/2024 4 - Hives IBUPROFEN 06/03/2024 4 - Hives Date Reviewed: 09/24/2024 Reviewed by: Sarah Chou PA-C - Fully Assessed Prescriptions as of 01/01/2025 - MULTIVIT,[id number] C-VITK-CQ10 ORAL Take 100 mg by mouth once daily. - spironolactone (ALDACTONE) 50 mg tablet Take 50 mg by mouth once daily. - gabapentin (NEURONTIN) 300 mg capsule Take 1 capsule by mouth two times a day for 90 days. - cyanocobalamin, vitamin B-12, (VITAMIN B-12) 5,000 mcg subl Dissolve 5,000 mcg under the tongue once daily. - propranolol (INDERAL) 10 mg tablet Week 1: Take one 10 mg pill twice a day. Week 2: Take 2 pills twice a day Week 3 and on: Take 3 pills twice a day - cholecalciferol, vitamin D3, (VITAMIN D3 ORAL) Take 50,000 Units by mouth every 2 weeks. - biotin 1 mg cap Take 1 mg by mouth once daily. - Minoxidil 2 % external solution 1 teaspoon applied topically on scalp once daily - alendronate (FOSAMAX) 70 mg tablet Take 1 tablet by mouth one time a week. On empty stomach with large glass of water. First thing in the am. No other medications. Do not lie down after taking this. - atorvastatin (LIPITOR) 10 mg tablet Take 10 mg by mouth daily at bedtime. - MELOXICAM ORAL Take 7.5 mg by mouth once daily. - LEVOTHYROXINE 50 MCG TAB Take one(1) tablet daily. Digital Performance Analyst: Addendum Therapy (PT/OT/Speech/Resp) ID: [id number] 10/09/2024 3:50 PM Author: ALEXUS BURGOS Signed by ALEXUS BURGOS PT on 10/09/2024 at 3:50 PM * * * This document replaces document [id number] * * * Document text: Program_ID:[id number] Access Code: [email or web address] URL: [email or web address] m/ Date: 10-09-2024 Prepared By: Felipe Diaz Program Notes Exercises - Shoulder Internal Rotation with Resistance - 1-2 x daily - 5-6 x weekly - 2-3 sets - 10 reps - Shoulder External Rotation with Anchored Resistance - 1-2 x daily - 5-6 x weekly - 2-3 sets - 10 reps Normal [facility] THERAPY NTon 10-09-2024 THERAPY NT HNO ID: [id number] Author: ALEXUS BURGOS PT Service: Physical Therapy Author Type: Physical Therapist Type: Therapy (PT/OT/Speech/Resp) Filed: 10/09/2024 15:50 Note Text: Program_ID:[id number] Access Code: [email or web address] URL: [email or web address] m/ Date: 10-09-2024 Prepared By: Felipe Diaz Program Notes Exercises - Shoulder Internal Rotation with Resistance - 1-2 x daily - 5-6 x weekly - 2-3 sets - 10 reps - Shoulder External Rotation with Anchored Resistance - 1-2 x daily - 5-6 x weekly - 2-3 sets - 10 reps Normal [facility] CNOVon 09-24-2024 CNOV Office Visit (NEMOWS) ---- ANA GONZALEZ ([id number]) 1945 F [place] Date Time Provider Department 09/24/24 4:00 PM SARAH CHOU During your visit today, we recorded the following information about you: Pulse Blood pressure Weight 72/minute 151/80 56.3 kg Sarah Chou PA-C 09/24/2024 4:38 PM Signed ESTABLISHED PATIENT VISIT Last visit: 06/24/24 ASSESSMENT/PLAN: 1. Essential tremor - ICD9: 333.1, ICD10: G25.0 Patient's exam and history consistent with essential tremor. Symptoms starting in the right upper extremity about 20 years ago and gradually worsening, last few weeks has noticed it minimally in left upper extremity. Patient without any rigidity, signs or symptoms of parkinsonism. Does have mother with history of Parkinson's when she was in her 70s, but again exam is overall very reassuring and consistent with essential tremor. No further imaging or workup needed at this time. Plan below. Plan: Essential tremor -Will start propranolol, titration up to 30 mg twice daily and have patient reach out -Discussed we did devices that may be helpful including wrist weights CHIEF COMPLAINT: follow up HISTORY OF PRESENT ILLNESS: Ana Gonzalez is a 79 year old female, BMI 26.88 kg/m2 with a PMH significant for hyperlipidemia, hypothyroidism, anemia. Last seen on 06/24/24 for tremor. Starting in the RUE 20 years ago. Started Propranolol 30mg twice daily. Notes that she was becoming dizzy on this so we tried gabapentin. Patient reports no significant benefit with gabapentin. Was initially started on propranolol but family called in noting that patient was bradycardic so we stopped this medication. Started on gabapentin 100 mg twice daily. Patient not experiencing any side effects but does not appreciate any benefit either. Maybe notes even slight worsening of her tremor from time to time. Patient also reports that she has had a few episodes of memory loss. Notes that she will walk into a room and forget what she is going to the room for. No other memory issues including issues driving, completing ADLs or leaving the stove on, no recent falls. Notes that she has chronic history of being forgetful about names. No other concerns. Prior meds: Propranolol Primidone Gabapentin REVIEW OF SYSTEMS GENERAL:No weight loss, malaise or fevers. HEENT:Negative for frequent or significant headaches, No changes in hearing or vision, no nose bleeds or other nasal problems NECK:Negative for lumps, goiter, pain and significant neck swelling RESPIRATORY: Negative for cough, wheezing or shortness of breath. CARDIOVASCULAR: Negative for chest pain, leg swelling or palpitations. GASTROINTESTINAL: Negative for abdominal discomfort, blood in stools or black stools or change in bowel habits GENITOURINARY: No history of dysuria, frequency or incontinence MUSCULOSKELETAL: Negative for joint pain or swelling, back pain or muscle pain. NEUROLOGIC:Negative for focal numbness or weakness, headaches and dizziness or syncope, vision changes, speech/languag changes - EXCEPT that as per HPI above. SKIN:Negative for lesions, rash, and itching. PSYCHIATRIC: Negative for sleep disturbance, mood disorder and recent psychosocial stressors. HEMATOLOGIC/LYMPHAT IC/IMMUNOLOGIC:Nega tive for prolonged bleeding, bruising easily or swollen nodes. ENDOCRINE: Negative for cold or heat intolerance, polyuria, polydipsia and goiter. The remainder of the ROS was reviewed and is negative. LAB/IMAGING: Those performed since patient's last visit have been reviewed. none MEDICATIONS: MULTIVIT,QNU26-ZDIE C-VITK-CQ10 ORAL Take 100 mg by mouth once daily. spironolactone (ALDACTONE) 50 mg tablet Take 50 mg by mouth once daily. gabapentin (NEURONTIN) 100 mg capsule Take 1 capsule by mouth two times a day for 90 days. cyanocobalamin, vitamin B-12, (VITAMIN B-12) 5,000 mcg subl Dissolve 5,000 mcg under the tongue once daily. propranolol (INDERAL) 10 mg tablet Week 1: Take one 10 mg pill twice a day. Week 2: Take 2 pills twice a day Week 3 and on: Take 3 pills twice a day cholecalciferol, vitamin D3, (VITAMIN D3 ORAL) Take 50,000 Units by mouth every 2 weeks. biotin 1 mg cap Take 1 mg by mouth once daily. atorvastatin (LIPITOR) 10 mg tablet Take 10 mg by mouth daily at bedtime. MELOXICAM ORAL Take 7.5 mg by mouth once daily. LEVOTHYROXINE 50 MCG TAB Take one(1) tablet daily. (Patient taking differently: Take 75 mcg by mouth once daily. Sunday through Sunday) Minoxidil 2 % external solution 1 teaspoon applied topically on scalp once daily (Patient not taking: Reported on 09/24/2024) alendronate (FOSAMAX) 70 mg tablet Take 1 tablet by mouth one time a week. On empty stomach with large glass of water. First thing in the am. No other medications. Do not lie down after taking this. (Patient not taking: Reported on 09/24/20 (more content not included)... Normal [facility] XR Shoulder - left 3 Viewson 07-20-2024 IMPRESSION: AC joint arthrosis and cervical degenerative changes. Manager Ambulatory: NIKOLE Transcribe Date/Time: Jul 20 2024 5:29P Dictated by : HANS DOUGLASS MD This examination was interpreted and the report reviewed and electronically signed by: HANS DOUGLASS MD on Jul 20 2024 5:30PM [facility] * * *Final Report* * * DATE OF EXAM: Jul 18 2024 2:51PM MDO 5252 - XR SHLDR >/=3V AP/TORI AP/OTHR LT / PROCEDURE REASON: multiple diagnoses * * * * Physician Interpretation * * * * PROCEDURE: Left shoulder INDICATION: Chronic left shoulder pain TECHNIQUE: XR SHLDR >/=3V AP/TORI AP/OTHR LT COMPARISON: None FINDINGS: Moderate AC joint arthrosis. Glenohumeral joint and acromiohumeral interval are within normal limits. Reactive changes in the greater tuberosity. No fracture or dislocation. Significant degenerative change in the imaged cervical spine. [facility] Provider, [facility] [place] - 07/20/2024 * * *Final Report* * * DATE OF EXAM: Jul 18 2024 2:51PM MDO 5252 - XR SHLDR >/=3V AP/TORI AP/OTHR LT / PROCEDURE REASON: multiple diagnoses * * * * Physician Interpretation * * * * PROCEDURE: Left shoulder INDICATION: Chronic left shoulder pain TECHNIQUE: XR SHLDR >/=3V AP/TORI AP/OTHR LT COMPARISON: None FINDINGS: Moderate AC joint arthrosis. Glenohumeral joint and acromiohumeral interval are within normal limits. Reactive changes in the greater tuberosity. No fracture or dislocation. Significant degenerative change in the imaged cervical spine. IMPRESSION IMPRESSION: AC joint arthrosis and cervical degenerative changes. Manager Ambulatory: NIKOLE Transcribe Date/Time: Jul 20 2024 5:29P Dictated by : HANS DOUGLASS MD This examination was interpreted and the report reviewed and electronically signed by: HANS DOUGLASS MD on Jul 20 2024 5:30PM EST [facility] XR Shoulder - left 3 ViewsOr dered By: Ccf Provider on 07-20-2024 [facility] Large Joint Arthro/Inj: L sh oulder jointon 07-18-2024 Elaine Meraz PA-C 07/18/2024 3:27 PM Large Joint Arthro/Inj: L shoulder joint Informed Consent Consent Obtained: Verbal Ada Protocol A moment to CARE was completed. SIGN IN Patient/Surrogate Stated/Verified: Patient name, Date of , Relevant allergies and Intended procedure TIME OUT Intended patient and procedure match the source document(s). Consent documented and matches the intended procedure. 07/18/2024 3:26 PM The procedure site was prepped in the usual sterile fashion. Site: L shoulder joint Medications: 80 mg triamcinolone acetonide 40 mg/mL Anesthetics: 4 mL bupivacaine (PF) 0.25 % (2.5 mg/mL) Outcome: Tolerated well, no immediate complications Post-injection instructions were reviewed with the patient and the patient voiced understanding of these instructions. SIGN OUT Post-procedure follow-up management communicated and Plan of Care Visit completed when applicable [facility] XR SHLDR >/=3V AP/TORI AP/OTH R LTon 07-18-2024 XR SHLDR >/=3V AP/TORI AP/OTHR LT * * *Final Report* * * DATE OF EXAM: Jul 18 2024 2:51PM GULSHAN 5252 - XR SHLDR >/=3V AP/TORI AP/OTHR LT / PROCEDURE REASON: multiple diagnoses * * * * Physician Interpretation * * * * PROCEDURE: Left shoulder INDICATION: Chronic left shoulder pain TECHNIQUE: XR SHLDR >/=3V AP/TORI AP/OTHR LT COMPARISON: None FINDINGS: Moderate AC joint arthrosis. Glenohumeral joint and acromiohumeral interval are within normal limits. Reactive changes in the greater tuberosity. No fracture or dislocation. Significant degenerative change in the imaged cervical spine. IMPRESSION: AC joint arthrosis and cervical degenerative changes. Manager Ambulatory: NIKOLE Transcribe Date/Time: Jul 20 2024 5:29P Dictated by : HANS DOUGLASS MD This examination was interpreted and the report reviewed and electronically signed by: HANS DOUGLASS MD on Jul 20 2024 5:30PM EST [id number] [facility] XR Shoulder - left 3 Viewson 07-18-2024 Radiology Study [facility]narrative[facility] CNOV Office Visit (AGHWW1) ---- ANA GONZALEZ ([id number]) 1945 F [place]OTH Date Time Provider Department 06/03/24 2:30 PM ELAINE MERAZ [facility]WW1 During your visit today, we recorded the following information about you: Respiration Weight Height 20/minute 54.4 kg 1.448 m Elaine Meraz PA-C 06/03/2024 2:35 PM Signed PAIN EVALUATION 06/03/2024 1409 Pain Level: 4 Pain Location: Shoulder-Right Description: Sharp Frequency: Intermittent Encounter Diagnosis ICD-10-CM 1. 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 Doing better with range of motion. Examination of right shoulder reveals well healed incision. Forward elevation to 150. Strong deltoid contraction. IMAGING: I did order and interpret radiographs today, 3 views right shoulder. Right reverse TSA intact. No periprosthetic fracture or loosening. PLAN: Doing better with her ROM. Pain is minimal. She can stop PT. Return to clinic as needed. Elaine Meraz PA-C Department of Orthopaedic Surgery [facility] Referring Provider: SELF [200] Allergies As of Date: 06/03/2024 Noted Allergy Reaction APAP 500 (ACETAMINOPHEN) 06/03/2024 4 - Hives IBUPROFEN 06/03/2024 4 - Hives Date Reviewed: 06/03/2024 Reviewed by: Roslyn Sevilla LPN - Fully Assessed Reason for Visit: Established Patient [175] Post Op [174] Pain [78] Primary Visit Diagnosis:S/P reverse total shoulder arthroplasty, right [Z96.611] Order(s):XR SHOULDER 3V AP/Y VIEW/AXILLARY RIGHT (AK) [[id number]] Order #: [id number] Prescriptions as of 06/03/2024 - cholecalciferol, vitamin D3, (VITAMIN D3 ORAL) Take 50,000 Units by mouth every 2 weeks. - biotin 1 mg cap Take 1 mg by mouth once daily. - Minoxidil 2 % external solution 1 teaspoon applied topically on scalp once daily - alendronate (FOSAMAX) 70 mg tablet Take 1 tablet by mouth one time a week. On empty stomach with large glass of water. First thing in the am. No other medications. Do not lie down after taking this. - atorvastatin (LIPITOR) 10 mg tablet Take 10 mg by mouth daily at bedtime. - MELOXICAM ORAL Take 7.5 mg by mouth once daily. - LEVOTHYROXINE 50 MCG TAB Take one(1) tablet daily. Problem List As Of Date 06/03/2024 Noted Resolved CERVICALGIA [M54.2] 03/09/2008 ESOPHAGEAL REFLUX [K21.9] 03/30/2008 HYPOTHYROIDISM NOS [E03.9] 03/30/2008 Other hyperlipidemia [E78.49] 03/30/2008 HEADACHE [R51] 03/30/2008 PAIN IN LIMB [M79.609] 03/30/2008 Anemia [D64.9] 04/24/2022 Knee effusion, right [M25.461] 04/24/2022 Rotator cuff arthropathy of both shoulders [M12*04/24/2022 Other osteoporosis without current pathological*2021 Arthralgia [M25.50] 06/21/2022 Pruritus [L29.9] 06/21/2022 Primary osteoarthritis of both knees [M17.0] 06/21/2022 Pre-op examination [Z01.818] 11/26/2023 Rotator cuff arthropathy, right [M12.811] 11/26/2023 Elevated BP without diagnosis of hypertension [*11/28/2023 S/P reverse total shoulder arthroplasty, right *12/12/2023 Encounter Status:Closed by ELAINE MERAZ on 06/03/24 [facility] CNPNon 05-27-2024 CNPN Telephone (AGPOB1) ---- ANA GONZALEZ ([id number]) 1945 [facility] Date Time Provider Department 05/27/24 BIANKA RIVERA AGPOB1 During your visit today, we recorded the following information about you: Candida Cary 05/27/2024 5:02 PM Signed Spoke with PT and advised Dr. Rivera would not be in on 06/03 and advised her she could see Flavia Meraz at 2:30 same day. PT understood and was fine with the 2:30 appt time. Allergies As of Date: 05/27/2024 (No Known Allergies) Date Reviewed: 03/04/2024 Reviewed by: Elaine Meraz PA-C - Fully Assessed Reason for Visit: Appointment [186] Prescriptions as of 05/27/2024 - cholecalciferol, vitamin D3, (VITAMIN D3 ORAL) Take 50,000 Units by mouth every 2 weeks. - biotin 1 mg cap Take 1 mg by mouth once daily. - Minoxidil 2 % external solution 1 teaspoon applied topically on scalp once daily - alendronate (FOSAMAX) 70 mg tablet Take 1 tablet by mouth one time a week. On empty stomach with large glass of water. First thing in the am. No other medications. Do not lie down after taking this. - atorvastatin (LIPITOR) 10 mg tablet Take 10 mg by mouth daily at bedtime. - MELOXICAM ORAL Take 7.5 mg by mouth once daily. - LEVOTHYROXINE 50 MCG TAB Take one(1) tablet daily. Problem List As Of Date 05/27/2024 Noted Resolved CERVICALGIA [M54.2] 03/09/2008 ESOPHAGEAL REFLUX [K21.9] 03/30/2008 HYPOTHYROIDISM NOS [E03.9] 03/30/2008 Other hyperlipidemia [E78.49] 03/30/2008 HEADACHE [R51] 03/30/2008 PAIN IN LIMB [M79.609] 03/30/2008 Anemia [D64.9] 04/24/2022 Knee effusion, right [M25.461] 04/24/2022 Rotator cuff arthropathy of both shoulders [M12*04/24/2022 Other osteoporosis without current pathological*2021 Arthralgia [M25.50] 06/21/2022 Pruritus [L29.9] 06/21/2022 Primary osteoarthritis of both knees [M17.0] 06/21/2022 Pre-op examination [Z01.818] 11/26/2023 Rotator cuff arthropathy, right [M12.811] 11/26/2023 Elevated BP without diagnosis of hypertension [*11/28/2023 S/P reverse total shoulder arthroplasty, right *12/12/2023 Encounter Status:Closed by CANDIDA CARY [facility]/27/24 [facility] (AGHWW1[facility] ---- ANA GONZALEZ ([id number]) 1945 F [place]OTH Date Time Provider Department 03/04/24 2:15 PM ELAINE MERAZ [facility]WW1 During your visit today, we recorded the following information about you: Temperature Weight Height 98.3 degrees 54.4 kg 1.448 m Gigi Sanchez Tech 03/04/2024 2:57 PM Signed REVIEW OF SYSTEMS: GENERAL: Well developed, well nourished. No acute distress PAIN: Negative for pain, history of chronic pain or current treatment for chronic pain conditions CARDIOVASCULAR: Negative for chest pain, leg swelling and palpations. MSK: Negative for joint swelling SKIN: Negative for lesions, rash, itching, metal sensitivity NEURO: Negative for seizure, trauma, numbness/tingling of extremities. ENDOCRINE: Negative for diabetic associated symptoms HEMATOLOGY: Negative for excessive bleeding, clots, bleeding disorders. Elaine Meraz PA-C 03/04/2024 2:57 PM Signed Elaine Meraz PA-C Department of Orthopaedics March 04, 2024 SURGERY: Reverse total shoulder arthroplasty - right SUBJECTIVE: Returns to clinic now 3 months status post the above procedure. Has completed PT. Still having some stiffness. Feels this continues to improve. Exam: Well healed anterior incision. Active forward elevation to 130 with firm end point. IR back pocket. Strong deltoid contraction against resistance. Nontender along scapular spine or acromion. Imaging: I did order and interpret radiographs today, 3 views right shoulder. Reverse total shoulder arthroplasty intact without evidence of mechanical loosening or periprosthetic fracture. ASSESSMENT: Z96.611 S/P reverse total shoulder arthroplasty, right (primary encounter diagnosis) SUMMARY/PLAN: Patient is progressing with PT. Still having some stiffness. She will continue with daily stretching. Continue to use arm for activity as tolerates. Recheck in 3 months to ensure continued improvement. Elaine Meraz PA-C Referring Provider: SELF [200] Allergies As of Date: 03/04/2024 (No Known Allergies) Date Reviewed: 03/04/2024 Reviewed by: Elaine Meraz PA-C - Fully Assessed Reason for Visit: Follow Up [171] Pain [78] Primary Visit Diagnosis:S/P reverse total shoulder arthroplasty, right [Z96.611] Order(s):XR SHOULDER 3V AP/Y VIEW/AXILLARY RIGHT (AK) [[id number]] Order #: [id number] Prescriptions as of 03/04/2024 - cholecalciferol, vitamin D3, (VITAMIN D3 ORAL) Take 50,000 Units by mouth every 2 weeks. - biotin 1 mg cap Take 1 mg by mouth once daily. - Minoxidil 2 % external solution 1 teaspoon applied topically on scalp once daily - alendronate (FOSAMAX) 70 mg tablet Take 1 tablet by mouth one time a week. On empty stomach with large glass of water. First thing in the am. No other medications. Do not lie down after taking this. - atorvastatin (LIPITOR) 10 mg tablet Take 10 mg by mouth daily at bedtime. - MELOXICAM ORAL Take 7.5 mg by mouth once daily. - LEVOTHYROXINE 50 MCG TAB Take one(1) tablet daily. Problem List As Of Date 03/04/2024 Noted Resolved CERVICALGIA [M54.2] 03/09/2008 ESOPHAGEAL REFLUX [K21.9] 03/30/2008 HYPOTHYROIDISM NOS [E03.9] 03/30/2008 Other hyperlipidemia [E78.49] 03/30/2008 HEADACHE [R51] 03/30/2008 PAIN IN LIMB [M79.609] 03/30/2008 Anemia [D64.9] 04/24/2022 Knee effusion, right [M25.461] 04/24/2022 Rotator cuff arthropathy of both shoulders [M12*04/24/2022 Other osteoporosis without current pathological*2021 Arthralgia [M25.50] 06/21/2022 Pruritus [L29.9] 06/21/2022 Primary osteoarthritis of both knees [M17.0] 06/21/2022 Pre-op examination [Z01.818] 11/26/2023 Rotator cuff arthropathy, right [M12.811] 11/26/2023 Elevated BP without diagnosis of hypertension [*11/28/2023 S/P reverse total shoulder arthroplasty, right *12/12/2023 Encounter Status:Closed by ELAINE MERAZ on 03/04/24 [facility] 01-22-2024 CNOV Office Visit (AGHWW1) ---- ANA GONZALEZ ([id number]) 1945 F [place]OTH Date Time Provider Department 01/22/24 3:15 PM ELAINE MERAZ AGHWW1 During your visit today, we recorded the following information about you: Respiration Weight Height 16/minute 54.4 kg 1.524 m Elaine Meraz PA-C 01/22/2024 3:17 PM Signed Elaine Meraz PA-C Department of Orthopaedics January 22, 2024 SURGERY: Reverse total shoulder arthroplasty - right SUBJECTIVE: Returns to clinic now 6 weeks status post the above procedure. Progressing with PT. Please with her progress. Exam: Well healed anterior incision. Active forward elevation to 100, passive 130. Strong deltoid contraction against resistance. Nontender along scapular spine or acromion. Imaging: I did order and interpret radiographs today, 3 views right shoulder. Reverse total shoulder arthroplasty intact without evidence of mechanical loosening or periprosthetic fracture. ASSESSMENT: Z96.611 S/P reverse total shoulder arthroplasty, right (primary encounter diagnosis) SUMMARY/PLAN: Patient is progressing with PT. Continue to use arm for activity as tolerates. Recheck in 6 weeks with repeat xrays of shoulder at that time. Elaine Meraz PA-C Allergies As of Date: 01/22/2024 (No Known Allergies) Date Reviewed: 01/22/2024 Reviewed by: Elaine Meraz PA-C - Fully Assessed Reason for Visit: Established Patient [175] Follow Up [171] Post Op [174] Primary Visit Diagnosis:S/P reverse total shoulder arthroplasty, right [Z96.611] Order(s):XR SHOULDER 3V AP/Y VIEW/AXILLARY RIGHT ([place]) [[id number]] Order #: [id number] Prescriptions as of 01/22/2024 - cholecalciferol, vitamin D3, (VITAMIN D3 ORAL) Take 50,000 Units by mouth every 2 weeks. - biotin 1 mg cap Take 1 mg by mouth once daily. - Minoxidil 2 % external solution 1 teaspoon applied topically on scalp once daily - alendronate (FOSAMAX) 70 mg tablet Take 1 tablet by mouth one time a week. On empty stomach with large glass of water. First thing in the am. No other medications. Do not lie down after taking this. - atorvastatin (LIPITOR) 10 mg tablet Take 10 mg by mouth daily at bedtime. - MELOXICAM ORAL Take 7.5 mg by mouth once daily. - LEVOTHYROXINE 50 MCG TAB Take one(1) tablet daily. Problem List As Of Date 01/22/2024 Noted Resolved CERVICALGIA [M54.2] 03/09/2008 ESOPHAGEAL REFLUX [K21.9] 03/30/2008 HYPOTHYROIDISM NOS [E03.9] 03/30/2008 Other hyperlipidemia [E78.49] 03/30/2008 HEADACHE [R51] 03/30/2008 PAIN IN LIMB [M79.609] 03/30/2008 Anemia [D64.9] 04/24/2022 Knee effusion, right [M25.461] 04/24/2022 Rotator cuff arthropathy of both shoulders [M12*04/24/2022 Other osteoporosis without current pathological*2021 Arthralgia [M25.50] 06/21/2022 Pruritus [L29.9] 06/21/2022 Primary osteoarthritis of both knees [M17.0] 06/21/2022 Pre-op examination [Z01.818] 11/26/2023 Rotator cuff arthropathy, right [M12.811] 11/26/2023 Elevated BP without diagnosis of hypertension [*11/28/2023 S/P reverse total shoulder arthroplasty, right *12/12/2023 Encounter Status:Closed by ELAINE MERAZ on 01/22/24 Normal [facility] Absolute lymphocyte countOrd ered By: Lilia Bergeron on 11-21-2023 Lymphocytes Auto (Unsp spec) [#/Vol] 1.84 10*3/uL 0.83-4.51 [facility] Basophil percentageOrdered B y: Lilia Bergeron on 11-21-2023 Basophils/100 WBC (Bld) 0.4 % 0-1 [facility] Bilirubin [Mass/Vol] 0.60 mg/dL 0.20-1.00 [facility] Comment on above: For patients on eltr ombopag therapy, use of Dimension [place] TBIL is not recommended. Chloride [Moles/Vol] 107 mmol/L 98-107 [facility] Cholesterol [Mass/Vol] 245 mg/dL <200 [facility] Comment on above: <200 mg/dL Desirable 200-240 mg/dL Borderline >240 mg/dL High Risk Eosinophils/100 WBC (Bld) 3.2 % 0-5 [facility] Glucose [Mass/Vol] 96 mg/dL 74-106 [facility] Neutrophils (Bld) [#/Vol] 4.9 10*3/uL 2.0-7.7 [facility] Neutrophils/100 WBC (Bld) 61.7 % 47-70 [facility] Potassium [Moles/Vol] 5.1 mmol/L 3.5-5.1 [facility] Protein [Mass/Vol] 7.5 g/dL 6.4-8.2 [facility] Sodium [Moles/Vol] 135 mmol/L 136-145 [facility] Triglyceride [Mass/Vol] 135 mg/dL <199 [facility] Comment on above: The drugs N-Acetylcy steine and Metamizole may falsely depress this assay.Serum Triglycerides Reference Interval Normal <150 mg/dL Borderline high 150 - 199 mg/dL High 200 - 499 mg/dL Very High > or = 500 mg/dL WBC (Bld) [#/Vol] 7.9 10*3/uL 4.4-11.0 [facility] Blood erythrocytes count (nu mber/volume)Ordered By: Lilia Bergeron on 11-21-2023 RBC (Bld) [#/Vol] 4.20 10*6/uL 4.2-5.4 [facility] Blood hemoglobin measurement (mass/volume)Ordered By: Lilia Bergeron on 11-21-2023 Hemoglobin (Bld) [Mass/Vol] 12.1 g/dL 12.0-15.0 [facility] Blood lymphocytes/100 leukoc ytesOrdered By: Lilia Bergeron on 11-21-2023 Lymphocytes/100 WBC (Bld) 23.3 % 19-41 [facility] Blood monocytes/100 leukocyt esOrdered By: Lilia Bergeron on 11-21-2023 Monocytes/100 WBC (Bld) 11.0 % 0-10 [facility] Blood platelet mean volumeOr dered By: Lilia Bergeron on 11-21-2023 Platelet mean volume (Bld) [Entitic vol] 9.0 fL 6.2-12.0 [facility] Determination of erythrocyte mean corpuscular volume (MCV)Ordered By: Lilia Bergeron on 11-21-2023 MCV (RBC) [Entitic vol] 89.0 fL 81-99 [facility] Hematocrit Auto (Bld) [Volum e fraction]Ordered By: Lilia Bergeron on 11-21-2023 Hematocrit (Bld) [Volume fraction] 37.4 % 37-47 [facility] Laboratory - Chemistry and C hemistry - challengeOrdered By: Lilia Bergeron on 11-21-2023 ALP [Catalytic activity/Vol] 79 U/L 45-117 [facility] ALT [Catalytic activity/Vol] 26 U/L 13-56 [facility] CO2 [Moles/Vol] 25.0 mmol/L 21.0-32.0 [facility] Globulin (S) [Mass/Vol] 3.9 g/dL 2.2-4.2 [facility] Urea nitrogen/Creatinine [Mass ratio] 31.4 mg/mg 10-20 [facility] Laboratory - Hematology and Cell countsOrdered By: Lilia Bergeron on 11-21-2023 Erythrocyte distribution width (RBC) [Entitic vol] 43.8 fL 35.1-43.9 [facility] Erythrocyte distribution width (RBC) [Ratio] 13.4 % 11.6-14.6 [facility] Immature granulocytes/100 WBC (Bld) 0.400 % 0.0-0.9 [facility] Comment on above: IG% - Immature Granu locytes (promyelocytes, myelocytes and metamyelocytes) > 1% indicates that a LEFT SHIFT is Present. MCH (RBC) [Entitic mass] 28.8 pg 27.0-32.0 [facility] Nucleated RBC/100 WBC (Bld) [Ratio] 0 % 0-5 [facility] MCHC Auto (RBC) [Mass/Vol]Or dered By: Lilia Bergeron on 11-21-2023 MCHC (RBC) [Mass/Vol] 32.4 g/dL 32-36 [facility] No Panel InformationOrdered By: Lilia Bergeron on 11-21-2023 Estimated GFR (MDRD) Amer 124 mL/min >60 [facility] Comment on above: GFR Calc Estimated GFR (MDRD) Non-Af Amer 102 mL/min >60 [facility] Comment on above: Non- GFR Calc Thyroid Stimulating Hormone (TSH) 0.64 uIU/mL 0.358-3.74 [facility] Vitamin D 25-Hydroxy 63.7 ng/mL [facility] Comment on above: Vitamin D 25(OH) Sta tus Range Deficiency <20 ng/mL (50nmol/L) Insufficiency 20 - 30 ng/mL (50 - 75 nmol/L) Sufficiency 30 - 100 ng/mL (75 - 250 nmol/L) Toxicity >100 ng/mL (>250 nmol/L) Platelets bldOrdered By: Zack Bergeron on 11-21-2023 Platelets (Bld) [#/Vol] 169 10*3/uL 150-450 [facility] Serum or plasma albumin jenny urement (mass/volume)Ordered By: Lilia Bergeron on 11-21-2023 Albumin [Mass/Vol] 3.6 g/dL 3.2-5.0 [facility] Serum or plasma albumin/glob ulin mass ratioOrdered By: Lilia Bergeron on 11-21-2023 Albumin/Globulin [Mass ratio] 0.9 {ratio} 0.9-2.4 [facility] Serum or plasma calcium jenny urement (mass/volume)Ordered By: Lilia Bergeron on 11-21-2023 Calcium [Mass/Vol] 9.6 mg/dL 8.5-10.1 [facility] Serum or plasma cholesterol in HDL measurement (mass/volume)Ordered By: Lilia Bergeron on 11-21-2023 Cholesterol in HDL [Mass/Vol] 89 mg/dL >40 [facility] Comment on above: The drugs N-Acetylcy steine and Metamizole may falsely depress this assay. Reference Range HDL <40 mg/dL Low HDL Cholesterol HDL >or= 60 mg/dL High HDL Cholesterol Serum or plasma cholesterol in VLDL measurement (mass/volume)Ordered By: Lilia Bergeron on 11-21-2023 Cholesterol in VLDL [Mass/Vol] 27 mg/dL 5-40 [facility] Serum or plasma creatinine m easurement (mass/volume)Ordered By: Lilia Bergeron on 11-21-2023 Creatinine [Mass/Vol] 0.60 mg/dL 0.55-1.02 [facility] Comment on above: The validity of the calculated GFR & GFRAA in patients over 70 years has not been determined. Clinical correlation is essential. Serum or plasma low density lipoprotein (LDL) cholesterol measurement (mass/volume)Ordered By: Lilia Bergeron on 11-21-2023 Cholesterol in LDL [Mass/Vol] 129 mg/dL 0-130 [facility] Serum or plasma urea nitroge n measurement (mass/volume)Ordered By: Lilia Bergeron on 11-21-2023 Urea nitrogen [Mass/Vol] 19 mg/dL 7-18 [facility] Thin prep Papanicolaou smear with manual screeningOrdered By: Lilia Bergeron on 11-21-2023 Thin prep Papanicolaou smear with manual screening 22 U/L 15-37 [facility] Thin prep Papanicolaou smear with manual screening 3 5-15 [facility] XR Shoulder - right 3 Viewso n 09-06-2023 IMPRESSION: Suspect chronic rotator cuff tear. Manager Ambulatory: [facility] Transcribe Date/Time: Sep 06 2023 8:26A Dictated by : LYNDA ZIMMERMAN MD This examination was interpreted and the report reviewed and electronically signed by: LYNDA ZIMMERMAN MD on Sep 06 2023 8:29AM [facility] * * *Final Report* * * DATE OF EXAM: Sep 03 2023 1:26PM GULSHAN 5253 - XR SHLDR >/=3V AP/TORI AP/OTHR RT / PROCEDURE REASON: [id number] * * * * Physician Interpretation * [...] or dislocation. No abnormal soft tissue calcium [facility] Provider, [facility] [place] - 09/06/2023 * * *Final Report* * * DATE OF EXAM: Sep 03 2023 1:26PM MDO 5253 - XR SHLDR >/=3V AP/TORI AP/OTHR RT / PROCEDURE REASON: [id number] * * * * Physician Interpretation * [...] or dislocation. No abnormal soft tissue calcium IMPRESSION IMPRESSION: Suspect chronic rotator cuff tear. Manager Ambulatory: [facility] Transcribe Date/Time: Sep 06 2023 8:26A Dictated by : LYNDA ZIMMERMAN MD This examination was interpreted and the report reviewed and electronically signed by: LYNDA ZIMMERMAN MD on Sep 06 2023 8:29AM EST [facility] XR Shoulder - right 3 ViewsO rdered By: [facility] Provider on 09-06-2023 [facility] XR SHLDR >/=3V AP/TORI AP/OTH R RTon 09-03-2023 XR SHLDR >/=3V AP/TORI AP/OTHR RT * * *Final Report* * * DATE OF EXAM: Sep 03 2023 1:26PM MDO 5253 - XR SHLDR >/=3V AP/TORI AP/OTHR RT / PROCEDURE REASON: [id number] * * * * Physician Interpretation * [...] or dislocation. No abnormal soft tissue calcium IMPRESSION: Suspect chronic rotator cuff tear. Manager Ambulatory: [facility] Transcribe Date/Time: Sep 06 2023 8:26A Dictated by : LYDNA ZIMMERMAN MD This examination was interpreted and the report reviewed and electronically signed by: LYNDA ZIMMERMAN MD on Sep 06 2023 8:29AM EST [id number] Normal [facility] XR Shoulder - right 3 Viewso n 09-03-2023 Radiology Study observation (narrative) [facility] - Chemistry and C hemistry - challengeOrdered By: Lilia Bergeron on 07-18-2023 Cobalamin (Vitamin B12) [Mass/Vol] 466 pg/mL 211-911 [facility] No Panel InformationOrdered By: Lilia Bergeron on 07-18-2023 Thyroid Stimulating Hormone (TSH) 0.26 uIU/mL 0.358-3.74 [facility] Vitamin D 25-Hydroxy 55.1 ng/mL [facility] Comment on above: Vitamin D 25(OH) Sta tus Range Deficiency <20 ng/mL (50nmol/L) Insufficiency 20 - 30 ng/mL (50 - 75 nmol/L) Sufficiency 30 - 100 ng/mL (75 - 250 nmol/L) Toxicity >100 ng/mL (>250 nmol/L) Absolute lymphocyte countOrd ered By: Dr. Head on 01-10-2023 Lymphocytes Auto (Unsp spec) [#/Vol] 2.57 10*3/uL 0.83-4.51 [facility] Basophil percentageOrdered B y: Dr. Head on 01-10-2023 Basophils/100 WBC (Bld) 0.4 % 0-1 [facility] Bilirubin [Mass/Vol] 0.30 mg/dL 0.20-1.00 [facility] Comment on above: For patients on eltr ombopag therapy, use of Dimension [place] TBIL is not recommended. Chloride [Moles/Vol] 104 mmol/L 98-107 [facility] Cholesterol [Mass/Vol] 307 mg/dL <200 [facility] Comment on above: <200 mg/dL Desirable 200-240 mg/dL Borderline >240 mg/dL High Risk Eosinophils/100 WBC (Bld) 2.7 % 0-5 [facility] Glucose [Mass/Vol] 102 mg/dL 74-106 [facility] Comment on above: Fasting Glucose resu lt from 100 to 125 mg/dL suggests IMPAIRED HOMEOSTASIS per A.D.A. criteria. Neutrophils (Bld) [#/Vol] 6.0 10*3/uL 2.0-7.7 [facility] Neutrophils/100 WBC (Bld) 62.2 % 47-70 [facility] Potassium [Moles/Vol] 4.3 mmol/L 3.5-5.1 [facility] Protein [Mass/Vol] 7.8 g/dL 6.4-8.2 [facility] Sodium [Moles/Vol] 137 mmol/L 136-145 [facility] Triglyceride [Mass/Vol] 144 mg/dL <199 [facility] Comment on above: The drugs N-Acetylcy steine and Metamizole may falsely depress this assay.Serum Triglycerides Reference Interval Normal <150 mg/dL Borderline high 150 - 199 mg/dL High 200 - 499 mg/dL Very High > or = 500 mg/dL WBC (Bld) [#/Vol] 9.7 10*3/uL 4.4-11.0 [facility] Blood erythrocytes count (nu mber/volume)Ordered By: Dr. Head on 01-10-2023 RBC (Bld) [#/Vol] 4.19 10*6/uL 4.2-5.4 [facility] Blood hemoglobin measurement (mass/volume)Ordered By: Dr. Head on 01-10-2023 Hemoglobin (Bld) [Mass/Vol] 12.4 g/dL 12.0-15.0 [facility] Blood lymphocytes/100 leukoc ytesOrdered By: Dr. Head on 01-10-2023 Lymphocytes/100 WBC (Bld) 26.5 % 19-41 [facility] Blood monocytes/100 leukocyt esOrdered By: Dr. Head on 01-10-2023 Monocytes/100 WBC (Bld) 7.8 % 0-10 [facility] Blood platelet mean volumeOr dered By: Dr. Head on 01-10-2023 Platelet mean volume (Bld) [Entitic vol] 8.7 fL 6.2-12.0 [facility] Determination of erythrocyte mean corpuscular volume (MCV)Ordered By: Dr. Head on 01-10-2023 MCV (RBC) [Entitic vol] 90.0 fL 81-99 [facility] Hematocrit Auto (Bld) [Volum e fraction]Ordered By: Dr. Head on 01-10-2023 Hematocrit (Bld) [Volume fraction] 37.7 % 37-47 [facility] Laboratory - Chemistry and C hemistry - challengeOrdered By: Dr. Head on 01-10-2023 ALP [Catalytic activity/Vol] 81 U/L 45-117 [facility] ALT [Catalytic activity/Vol] 26 U/L 13-56 [facility] CO2 [Moles/Vol] 25.0 mmol/L 21.0-32.0 [facility] Globulin (S) [Mass/Vol] 4.2 g/dL 2.2-4.2 [facility] Urea nitrogen/Creatinine [Mass ratio] 26.0 mg/mg 10-20 [facility] Laboratory - Hematology and Cell countsOrdered By: Dr. Head on 01-10-2023 Erythrocyte distribution width (RBC) [Entitic vol] 44.6 fL 35.1-43.9 [facility] Erythrocyte distribution width (RBC) [Ratio] 13.6 % 11.6-14.6 [facility] Immature granulocytes/100 WBC (Bld) 0.400 % 0.0-0.9 [facility] Comment on above: IG% - Immature Granu locytes (promyelocytes, myelocytes and metamyelocytes) > 1% indicates that a LEFT SHIFT is Present. MCH (RBC) [Entitic mass] 29.6 pg 27.0-32.0 [facility] Nucleated RBC/100 WBC (Bld) [Ratio] 0 % 0-5 [facility] MCHC Auto (RBC) [Mass/Vol]Or dered By: Dr. Head on 01-10-2023 MCHC (RBC) [Mass/Vol] 32.9 g/dL 32-36 [facility] No Panel InformationOrdered By: Dr. Head on 01-10-2023 Estimated GFR (MDRD) Amer 131 mL/min >60 [facility] Comment on above: GFR Calc Estimated GFR (MDRD) Non-Af Amer 108 mL/min >60 [facility] Comment on above: Non- GFR Calc Thyroid Stimulating Hormone (TSH) 0.55 uIU/mL 0.358-3.74 [facility] Vitamin D 25-Hydroxy 38.2 ng/mL [facility] Comment on above: Vitamin D 25(OH) Sta tus Range Deficiency <20 ng/mL (50nmol/L) Insufficiency 20 - 30 ng/mL (50 - 75 nmol/L) Sufficiency 30 - 100 ng/mL (75 - 250 nmol/L) Toxicity >100 ng/mL (>250 nmol/L) Platelets bldOrdered By: Dr. Head on 01-10-2023 Platelets (Bld) [#/Vol] 357 10*3/uL 150-450 [facility] Serum or plasma albumin jenny urement (mass/volume)Ordered By: Dr. Head on 01-10-2023 Albumin [Mass/Vol] 3.6 g/dL 3.2-5.0 [facility] Serum or plasma albumin/glob ulin mass ratioOrdered By: Dr. Head on 01-10-2023 Albumin/Globulin [Mass ratio] 0.9 {ratio} 0.9-2.4 [facility] Serum or plasma calcium jenny urement (mass/volume)Ordered By: Dr. Head on 01-10-2023 Calcium [Mass/Vol] 9.8 mg/dL 8.5-10.1 [facility] Serum or plasma cholesterol in HDL measurement (mass/volume)Ordered By: Dr. Head on 01-10-2023 Cholesterol in HDL [Mass/Vol] 87 mg/dL >40 [facility] Comment on above: The drugs N-Acetylcy steine and Metamizole may falsely depress this assay. Reference Range HDL <40 mg/dL Low HDL Cholesterol HDL >or= 60 mg/dL High HDL Cholesterol Serum or plasma cholesterol in VLDL measurement (mass/volume)Ordered By: Dr. Head on 01-10-2023 Cholesterol in VLDL [Mass/Vol] 29 mg/dL 5-40 [facility] Serum or plasma creatinine m easurement (mass/volume)Ordered By: Dr. Head on 01-10-2023 Creatinine [Mass/Vol] 0.58 mg/dL 0.55-1.02 [facility] Comment on above: The validity of the calculated GFR & GFRAA in patients over 70 years has not been determined. Clinical correlation is essential. Serum or plasma low density lipoprotein (LDL) cholesterol measurement (mass/volume)Ordered By: Dr. Head on 01-10-2023 Cholesterol in LDL [Mass/Vol] 191 mg/dL 0-130 [facility] Serum or plasma urea nitroge n measurement (mass/volume)Ordered By: Dr. Head on 01-10-2023 Urea nitrogen [Mass/Vol] 15 mg/dL 7-18 [facility] Thin prep Papanicolaou smear with manual screeningOrdered By: Dr. Head on 01-10-2023 Thin prep Papanicolaou smear with manual screening 21 U/L 15-37 [facility] Thin prep Papanicolaou smear with manual screening 8 5-15 [facility] Absolute lymphocyte counton 01-13-2022 Lymphocytes Auto (Unsp spec) [#/Vol] 2.18 10*3/uL 0.83-4.51 [facility] Work Phone: Basophil percentageon 2021 Basophils/100 WBC (Bld) 0.4 % 0-1 [facility] Work Phone: Chloride [Moles/Vol] 107 mmol/L 98-[address] [facility] Work Phone: Cholesterol [Mass/Vol] 186 mg/dL <200 [facility] Work Phone: Comment on above: <200 mg/dL Desirable 200-240 mg/dL Borderline >240 mg/dL High Risk Eosinophils/100 WBC (Bld) 3.3 % 0-5 [facility] Work Phone: [phone] Glucose [Mass/Vol] 96 mg/dL 74-106 [facility] Work Phone: Neutrophils (Bld) [#/Vol] 5.8 10*3/uL 2.0-7.7 [facility] Work Phone: Neutrophils/100 WBC (Bld) 62.2 % 47-70 [facility] Work Phone: Potassium [Moles/Vol] 4.5 mmol/L 3.5-5.1 [facility] Work Phone: Sodium [Moles/Vol] 136 mmol/L 136-145 [facility] Work Phone: Triglyceride [Mass/Vol] 98 mg/dL [facility] Work Phone: Comment on above: The drugs N-Acetylcy steine and Metamizole may falsely depress this assay.Serum Triglycerides Reference Interval Normal <150 mg/dL Borderline high 150 - 199 mg/dL High 200 - 499 mg/dL Very High > or = 500 mg/dL WBC (Bld) [#/Vol] 9.4 10*3/uL 4.4-11.0 [facility] Work Phone: Blood erythrocytes count (nu mber/volume)on 01-13-2022 RBC (Bld) [#/Vol] 3.79 10*6/uL 4.2-5.4 [facility] Work Phone: Blood hemoglobin measurement (mass/volume)on 01-13-2022 Hemoglobin (Bld) [Mass/Vol] 11.7 g/dL 12.0-15.0 [facility] Work Phone: Blood lymphocytes/100 leukoc yteson 01-13-2022 Lymphocytes/100 WBC (Bld) 23.3 % 19-41 [facility] Work Phone: Blood monocytes/100 leukocyt eson 01-13-2022 Monocytes/100 WBC (Bld) 10.5 % 0-10 [facility] Work Phone: [phone] Blood platelet mean volumeon 01-13-2022 Platelet mean volume (Bld) [Entitic vol] 8.2 fL 6.2-12.0 [facility] Work Phone: Determination of erythrocyte mean corpuscular volume (MCV)on 01-13-2022 MCV (RBC) [Entitic vol] 88.1 fL 81-99 [facility] Work Phone: Hematocrit Auto (Bld) [Volum e fraction]on 01-13-2022 Hematocrit (Bld) [Volume fraction] 33.4 % 37-47 [facility] Work Phone: Laboratory - Chemistry and C hemistry - challengeon 01-13-2022 CO2 [Moles/Vol] 24.0 mmol/L 21.0-32.0 [facility] Work Phone: Urea nitrogen/Creatinine [Mass ratio] 27.8 mg/mg 10-20 [facility] Work Phone: Laboratory - Hematology and Cell countson 01-13-2022 Erythrocyte distribution width (RBC) [Entitic vol] 45.0 fL 35.1-43.9 [facility] Work Phone: Erythrocyte distribution width (RBC) [Ratio] 13.9 % 11.6-14.6 [facility] Work Phone: Immature granulocytes/100 WBC (Bld) 0.300 % 0.0-0.9 [facility] Work Phone: Comment on above: IG% - Immature Granu locytes (promyelocytes, myelocytes and metamyelocytes) > 1% indicates that a LEFT SHIFT is Present. MCH (RBC) [Entitic mass] 30.9 pg 27.0-32.0 [facility] Work Phone: Nucleated RBC/100 WBC (Bld) [Ratio] 0 % 0-5 [facility] Work Phone: MCHC Auto (RBC) [Mass/Vol]on 01-13-2022 MCHC (RBC) [Mass/Vol] 35.0 g/dL 32-36 [facility] Work Phone: No Panel Informationon 01-13 Estimated Creatinine Clearance Calc 41.22 ml/min [facility] Work Phone: Estimated GFR (MDRD) Amer 154 mL/min >60 [facility] Work Phone: Comment on above: GFR Calc Estimated GFR (MDRD) Non-Af Amer 127 mL/min >60 [facility] Work Phone: Comment on above: Non- GFR Calc Troponin I High Sensitivity 10 pg/mL 3.0-54.0 [facility] Work Phone: Comment on above: Please Note: New [place] t Units and Gender Specific Reference Ranges. For more information see Policy Stat Procedure [place] High Sensitivity Troponin (TNIH) and attachments. Platelets bldon 01-13-2022 Platelets (Bld) [#/Vol] 288 10*3/uL 150-450 [facility] Work Phone: Serum or plasma calcium jenny urement (mass/volume)on 01-13-2022 Calcium [Mass/Vol] 8.8 mg/dL 8.5-10.1 [facility] Work Phone: Serum or plasma cholesterol in HDL measurement (mass/volume)on 01-13-2022 Cholesterol in HDL [Mass/Vol] 85 mg/dL [facility] Work Phone: Comment on above: The drugs N-Acetylcy steine and Metamizole may falsely depress this assay. Reference Range HDL <40 mg/dL Low HDL Cholesterol HDL >or= 60 mg/dL High HDL Cholesterol Serum or plasma cholesterol in VLDL measurement (mass/volume)on 01-13-2022 Cholesterol in VLDL [Mass/Vol] 20 mg/dL 5-40 [facility] Work Phone: Serum or plasma creatinine m easurement (mass/volume)on 01-13-2022 Creatinine [Mass/Vol] 0.50 mg/dL 0.55-1.02 [facility] Work Phone: Comment on above: The validity of the calculated GFR & GFRAA in patients over 70 years has not been determined. Clinical correlation is essential. Serum or plasma low density lipoprotein (LDL) cholesterol measurement (mass/volume)on 01-13-2022 Cholesterol in LDL [Mass/Vol] 81 mg/dL 0-130 [facility] Work Phone: Serum or plasma urea nitroge n measurement (mass/volume)on 01-13-2022 Urea nitrogen [Mass/Vol] 14 mg/dL 7-18 [facility] Work Phone: Thin prep Papanicolaou smear with manual screeningon 01-13-2022 Thin prep Papanicolaou smear with manual screening 5 5-15 [facility] Work Phone: .Auto Diffon 08-31-2021 Basophil, Absolute 0.00 10 3/mcL Normal 0.00-0.19 [facility] ([place]) Comment on above: Performed By: #### A CARLEE, LIPID, VIDH, ADIFF, TSH, CBC, GFR, BMP #### [address] [address] Basophils/100 WBC (Bld) 0.4 % Normal 0.0-2.5 [facility] ([place]) Comment on above: Performed By: #### A CARLEE, LIPID, VIDH, ADIFF, TSH, CBC, GFR, BMP #### [address] [address] Eosinophil, Absolute 0.40 10 3/mcL Normal 0.00-0.40 [facility] ([place]) Comment on above: Performed By: #### A CARLEE, LIPID, VIDH, ADIFF, TSH, CBC, GFR, BMP #### [address] [address] Eosinophils/100 WBC (Bld) 4.3 % Normal 0.0-7.0 [facility] ([place]) Comment on above: Performed By: #### A CARLEE, LIPID, VIDH, ADIFF, TSH, CBC, GFR, BMP #### [address] [address] Lymphocyte, Absolute 3.00 10 3/mcL Normal 0.77-3.85 [facility] ([place]) Comment on above: Performed By: #### A CARLEE, LIPID, VIDH, ADIFF, TSH, CBC, GFR, BMP #### [address] [address] Lymphocytes/100 WBC (Bld) 30.8 % Normal 10.0-50.0 [facility] ([place]) Comment on above: Performed By: #### A CARLEE, LIPID, VIDH, ADIFF, TSH, CBC, GFR, BMP #### [address] [address] Monocyte, Absolute 0.70 10 3/mcL Normal 0.15-1.00 [facility] ([place]) Comment on above: Performed By: #### A CARLEE, LIPID, VIDH, ADIFF, TSH, CBC, GFR, BMP #### [address] [address] Monocytes/100 WBC (Bld) 7.4 % Normal 1.7-13.0 [facility] ([place]) Comment on above: Performed By: #### A CARLEE, LIPID, VIDH, ADIFF, TSH, CBC, GFR, BMP #### [address] [address] Neutrophils/100 WBC (Bld) 57.1 % Normal 37.0-80.0 [facility] ([place]) Comment on above: Performed By: #### A CARLEE, LIPID, VIDH, ADIFF, TSH, CBC, GFR, BMP #### [address] [address] .GFRon 08-31-2021 GFR Non- 82 ml/min/1.73sqm Normal [facility] ([place]) Comment on above: Result Comment: GFR Population mean for , Non- Americans Ages 20-29 = 116 mL/min/1.73 sq.m. Ages 30-39 = 107 mL/min/1.73 sq.m. Ages 40-49 = 99 mL/min/1.73 sq.m. Ages 50-59 = 93 mL/min/1.73 sq.m. Ages 60-69 = 85 mL/min/1.73 sq.m. Ages 70+ = 75 mL/min/1.73 sq.m. Chronic Kidney Disease: Less than 60 mL/min/1.73 square meters End Stage Renal Disease: Less than 15 mL/min/1.73 square meters Performed By: #### A CARLEE, LIPID, VIDH, ADIFF, TSH, CBC, GFR, BMP #### [address] [address] GFR 99 ml/min/1.73sqm Normal [facility] ([place]) Comment on above: Result Comment: GFR Population mean for , Non- Americans Ages 20-29 = 116 mL/min/1.73 sq.m. Ages 30-39 = 107 mL/min/1.73 sq.m. Ages 40-49 = 99 mL/min/1.73 sq.m. Ages 50-59 = 93 mL/min/1.73 sq.m. Ages 60-69 = 85 mL/min/1.73 sq.m. Ages 70+ = 75 mL/min/1.73 sq.m. Chronic Kidney Disease: Less than 60 mL/min/1.73 square meters End Stage Renal Disease: Less than 15 mL/min/1.73 square meters Performed By: #### A CARLEE, LIPID, VIDH, ADIFF, TSH, CBC, GFR, BMP #### [address] [address] .NEUABSon 08-31-2021 Neutrophil, Absolute 5.60 10 3/mcL Normal 2.85-6.16 [facility] ([place]) Comment on above: Performed By: #### A CARLEE, LIPID, VIDH, ADIFF, TSH, CBC, GFR, BMP #### [address] [address] BMPon 08-31-2021 BUN/Creatinine Ratio 19 ratio Normal 7-27 [facility] ([place]) Comment on above: Performed By: #### A CARLEE, LIPID, VIDH, ADIFF, TSH, CBC, GFR, BMP #### [address] [address] Calcium [Mass/Vol] 9.8 mg/dL Normal 8.4-10.2 [facility] ([place]) Comment on above: Performed By: #### A CARLEE, LIPID, VIDH, ADIFF, TSH, CBC, GFR, BMP #### [address] [address] Chloride [Moles/Vol] 101 mmol/L Normal 98-107 [facility] ([place]) Comment on above: Performed By: #### A CARLEE, LIPID, VIDH, ADIFF, TSH, CBC, GFR, BMP #### [address] [address] CO2 [Moles/Vol] 28 mmol/L Normal 23-31 [facility] ([place]) Comment on above: Performed By: #### A CARLEE, LIPID, VIDH, ADIFF, TSH, CBC, GFR, BMP #### [address] [address] Creatinine [Mass/Vol] 0.70 mg/dL Normal 0.55-1.02 [facility] ([place]) Comment on above: Performed By: #### A CARLEE, LIPID, VIDH, ADIFF, TSH, CBC, GFR, BMP #### [address] [address] Electrolyte Balance 9.0 mEq/L Normal [facility] ([place]) Comment on above: Performed By: #### A CARLEE, LIPID, VIDH, ADIFF, TSH, CBC, GFR, BMP #### [address] [address] Glucose [Mass/Vol] 105 mg/dL Normal 83-110 [facility] ([place]) Comment on above: Performed By: #### A CARLEE, LIPID, VIDH, ADIFF, TSH, CBC, GFR, BMP #### [address] [address] Potassium [Moles/Vol] 5.6 mmol/L High 3.5-5.1 [facility] ([place]) Comment on above: Performed By: #### A CARLEE, LIPID, VIDH, ADIFF, TSH, CBC, GFR, BMP #### [address] [address] Sodium [Moles/Vol] 138 mmol/L Normal 136-145 [facility] ([place]) Comment on above: Performed By: #### A CARLEE, LIPID, VIDH, ADIFF, TSH, CBC, GFR, BMP #### [place] [address] Urea nitrogen [Mass/Vol] 13 mg/dL Normal 7-18 [facility] ([place]) Comment on above: Performed By: #### A CARLEE, LIPID, VIDH, ADIFF, TSH, CBC, GFR, BMP #### [place] [id number] CBCon 08-31-2021 Erythrocyte distribution width (RBC) [Ratio] 13.7 % Normal 11.5-14.5 [facility] ([place]) Comment on above: Performed By: #### A CARLEE, LIPID, VIDH, ADIFF, TSH, CBC, GFR, BMP #### [place] [address] Hematocrit (Bld) [Volume fraction] 38.7 % Normal 37.0-47.0 [facility] ([place]) Comment on above: Performed By: #### A CARLEE, LIPID, VIDH, ADIFF, TSH, CBC, GFR, BMP #### [address] [address] Hgb 13.1 G/dL Normal 12.0-16.0 [facility] ([place]) Comment on above: Performed By: #### A CARLEE, LIPID, VIDH, ADIFF, TSH, CBC, GFR, BMP #### [place] [address] MCH (RBC) [Entitic mass] 30.1 pg Normal 27.0-31.2 [facility] ([place]) Comment on above: Performed By: #### A CARLEE, LIPID, VIDH, ADIFF, TSH, CBC, GFR, BMP #### [address] [address] MCHC 33.8 G/dL Normal 33.0-37.0 [facility] ([place]) Comment on above: Performed By: #### A CARLEE, LIPID, VIDH, ADIFF, TSH, CBC, GFR, BMP #### [address] [address] MCV (RBC) [Entitic vol] 88.9 fL Normal 80.0-94.0 [facility] ([place]) Comment on above: Performed By: #### A CARLEE, LIPID, VIDH, ADIFF, TSH, CBC, GFR, BMP #### [address] [address] Platelet 369 10 3/mcL Normal 130-400 [facility] ([place]) Comment on above: Performed By: #### A CARLEE, LIPID, VIDH, ADIFF, TSH, CBC, GFR, BMP #### [place] [phone] Platelet mean volume (Bld) [Entitic vol] 6.9 fL Low 7.4-10.4 [facility] ([place]) Comment on above: Performed By: #### A CARLEE, LIPID, VIDH, ADIFF, TSH, CBC, GFR, BMP #### [address] [address] RBC 4.36 10 6/mcL Normal 4.20-5.40 [facility] ([place]) Comment on above: Performed By: #### A CARLEE, LIPID, VIDH, ADIFF, TSH, CBC, GFR, BMP #### [address] [address] WBC 9.80 10 3/mcL Normal 4.60-10.80 [facility] ([place]) Comment on above: Performed By: #### A CARLEE, LIPID, VIDH, ADIFF, TSH, CBC, GFR, BMP #### [address] [address] LABORATORYOrdered By: Gregorio Troy on 08-31-2021 Basophil, Absolute 0.00 103/mcL Invalid Interpretation Code 0.00 - 0.19 10^3/mcL AO Auto Heme SS Basophils/100 WBC (Bld) 0.4 % Invalid Interpretation Code 0.0 - 2.5 % AO Auto Heme SS Calcium [Mass/Vol] 9.8 mg/dL Invalid Interpretation Code 8.4 - 10.2 mg/dL AO ADM SS Chloride [Moles/Vol] 101 mmol/L Invalid Interpretation Code 98 - 107 mmol/L AO ADM SS Cholesterol [Mass/Vol] 256 mg/dL Invalid Interpretation Code 0 - 200 mg/dL AO ADM SS Cholesterol in HDL [Mass/Vol] 89 mg/dL Invalid Interpretation Code 40 - 60 mg/dL AO ADM SS Cholesterol in LDL [Mass/Vol] 136 mg/dL Invalid Interpretation Code 0 - 130 mg/dL AO ADM SS CO2 [Moles/Vol] 28 mmol/L Invalid Interpretation Code 23 - 31 mmol/L AO ADM SS Creatinine [Mass/Vol] 0.70 mg/dL Invalid Interpretation Code 0.55 - 1.02 mg/dL AO ADM SS Electrolyte Balance 9.0 mEq/L Invalid Interpretation Code AO ADM SS Eosinophil, Absolute 0.40 103/mcL Invalid Interpretation Code 0.00 - 0.40 10^3/mcL AO Auto Heme SS Eosinophils/100 WBC (Bld) 4.3 % Invalid Interpretation Code 0.0 - 7.0 % AO Auto Heme SS Erythrocyte distribution width (RBC) [Ratio] 13.7 % Invalid Interpretation Code 11.5 - 14.5 % AO Auto Heme SS Glucose [Mass/Vol] 105 mg/dL Invalid Interpretation Code 83 - 110 mg/dL AO ADM SS Hematocrit (Bld) [Volume fraction] 38.7 % Invalid Interpretation Code 37.0 - 47.0 % AO Auto Heme SS Hemoglobin (Bld) [Mass/Vol] 13.1 G/dL Invalid Interpretation Code 12.0 - 16.0 G/dL AO Auto Heme SS Lymphocyte, Absolute 3.00 103/mcL Invalid Interpretation Code 0.77 - 3.85 10^3/mcL AO Auto Heme SS Lymphocytes/100 WBC (Bld) 30.8 % Invalid Interpretation Code 10.0 - 50.0 % AO Auto Heme SS MCH (RBC) [Entitic mass] 30.1 pg Invalid Interpretation Code 27.0 - 31.2 pg AO Auto Heme SS MCHC (RBC) [Mass/Vol] 33.8 G/dL Invalid Interpretation Code 33.0 - 37.0 G/dL AO Auto Heme SS MCV (RBC) [Entitic vol] 88.9 fL Invalid Interpretation Code 80.0 - 94.0 fL AO Auto Heme SS Monocyte, Absolute 0.70 103/mcL Invalid Interpretation Code 0.15 - 1.00 10^3/mcL AO Auto Heme SS Monocytes/100 WBC (Bld) 7.4 % Invalid Interpretation Code 1.7 - 13.0 % AO Auto Heme SS Neutrophil, Absolute 5.60 103/mcL Invalid Interpretation Code 2.85 - 6.16 10^3/mcL AO Auto Heme SS Neutrophils/100 WBC (Bld) 57.1 % Invalid Interpretation Code 37.0 - 80.0 % AO Auto Heme SS Platelet mean volume (Bld) [Entitic vol] 6.9 fL Invalid Interpretation Code 7.4 - 10.4 fL AO Auto Heme SS Platelets (Bld) [#/Vol] 369 103/mcL Invalid Interpretation Code 130 - 400 10^3/mcL AO Auto Heme SS Potassium [Moles/Vol] 5.6 mmol/L Invalid Interpretation Code 3.5 - 5.1 mmol/L AO ADM SS RBC (Bld) [#/Vol] 4.36 106/mcL Invalid Interpretation Code 4.20 - 5.40 10^6/mcL AO Auto Heme SS Sodium [Moles/Vol] 138 mmol/L Invalid Interpretation Code 136 - 145 mmol/L AO ADM SS Triglyceride [Mass/Vol] 156 mg/dL Invalid Interpretation Code 0 - 150 mg/dL AO ADM SS TSH Qn 0.84 m[IU]/L Invalid Interpretation Code 0.36 - 3.74 mcIU/mL AO ADM SS Urea nitrogen [Mass/Vol] 13 mg/dL Invalid Interpretation Code 7 - 18 mg/dL AO ADM SS Urea nitrogen/Creatinine [Mass ratio] 19 ratio Invalid Interpretation Code 7 - 27 ratio AO ADM SS Vit. D 25-Hydroxy 63.3 ng/mL Invalid Interpretation Code AO ADM SS WBC (Bld) [#/Vol] 9.80 103/mcL Invalid Interpretation Code 4.60 - 10.80 10^3/mcL AO Auto Heme SS LABORATORYOrdered By: SYSTEM SYSTEM on 08-31-2021 GFR 99 ml/min/1.73sqm Invalid Interpretation Code AO Chemistry S GFR Non- 82 ml/min/1.73sqm Inval id Interpretation Code AO Chemistry S LIPIDon 08-31-2021 Cholesterol [Mass/Vol] 256 mg/dL High 0-200 [facility] ([place]) Comment on above: Result Comment: Chol esterol Reference Interval: Less than 200 Desirable 200-239 Borderline high risk 240 and above High risk Performed By: #### A CARLEE, LIPID, VIDH, ADIFF, TSH, CBC, GFR, BMP #### [address] [address] Cholesterol in HDL [Mass/Vol] 89 mg/dL High 40-60 [facility] ([place]) Comment on above: Performed By: #### A CARLEE, LIPID, VIDH, ADIFF, TSH, CBC, GFR, BMP #### [place] [address] Cholesterol in LDL [Mass/Vol] 136 mg/dL High 0-130 [facility] ([place]) Comment on above: Performed By: #### A CARLEE, LIPID, VIDH, ADIFF, TSH, CBC, GFR, BMP #### [place] [address] Triglyceride [Mass/Vol] 156 mg/dL High 0-150 [facility] ([place]) Comment on above: Result Comment: Trig lyceride Reference Interval: Less than 150 Normal 150-199 Borderline high risk 200-499 High risk 500 or higher Very high risk Performed By: #### A CARLEE, LIPID, VIDH, ADIFF, TSH, CBC, GFR, BMP #### [place] [id number] TSHon 08-31-2021 TSH Qn 0.84 m[IU]/L Normal 0.36-3.74 [facility] ([place]) Comment on above: Performed By: #### A CARLEE, LIPID, VIDH, ADIFF, TSH, CBC, GFR, BMP #### [place] [id number] VIDHon 08-31-2021 Vit. D 25-Hydroxy 63.3 ng/mL Normal [facility] ([place]) Comment on above: Result Comment: Inte rpretive Values Based on Total 25(OH) Vitamin D: Deficient <20 ng/mL Insufficient 20 - <30 ng/mL Sufficient 30-100 ng/mL Performed By: #### A CARLEE, LIPID, VIDH, ADIFF, TSH, CBC, GFR, BMP #### [place] [address] IA236al 06-14-2021 CA 125 7.0 U/mL Normal 2.0-35.0 [facility] ([place]) Comment on above: Performed By: #### A CARLEE, LIPID, VIDH, ADIFF, TSH, CBC, GFR, BMP #### Al[address] [place], [place] [address] US PELVIS NON-OB W/TRANSVAGI NALon 06-06-2021 US PELVIS NON-OB W/TRANSVAGINAL ORIGINAL EXAMINATION: Transabdominal and TRANSVAGINAL PELVIC ULTRASOUND 06/06/2021 COMPARISON: None HISTORY: ORDERING SYSTEM PROVIDED HISTORY: pelvic pain Reason for Exam: pelvic pain FINDINGS: The uterus is retroverted and retroflexed, and measures 3.8 x 3.8 x 2.0 cm. There is a junctional zone calcification measuring 3 mm, likely incidental. Endometrial stripe measures 1 mm. Questionable minute amount fluid within the endometrial canal. Right ovary measures 4.5 x 3.8 x 2.9 cm with a simple appearing right ovarian/adnexal 3.6 x 3.5 x 2.7 cm cyst. Blood flow to the right ovary is demonstrated. The left ovary is not visualized, likely due to overlying bowel gas. No left adnexal mass. Trace free fluid in the cul-de-sac. IMPRESSION: Normal endometrial thickness. There may be a trace amount of fluid within the endometrial canal. Simple right ovarian 3.6 cm cyst. Recommend annual follow-up. No comparison exams are available at time of dictation to establish stability. Nonvisualized left ovary. Nonspecific trace free fluid within the pelvis. I have personally reviewed the images of this examination and agree with the resident's findings and interpretation. Interpreted by: Kennedy Pope Preliminary Report By: Chucky Salomon Electronically signed By Kennedy Pope Dictated Date: 06/06/2021 4:07:57 PM Prelim Date: 06/06/2021 4:14:00 PM Sign Date: 06/06/2021 4:25:18 PM Ordering Provider: NAN Smart [facility] ([place]) .Auto Diffon 03-02-2021 Basophil, Absolute 0.10 10 3/mcL Normal 0.00-0.19 [facility] ([place]) Comment on above: Performed By: #### A CARLEE, LIPID, VIDH, ADIFF, TSH, CBC, GFR, BMP #### [address] [address] Basophils/100 WBC (Bld) 0.8 % Normal 0.0-2.5 [facility] ([place]) Comment on above: Performed By: #### A CARLEE, LIPID, VIDH, ADIFF, TSH, CBC, GFR, BMP #### [address] [address] Eosinophil, Absolute 0.30 10 3/mcL Normal 0.00-0.40 [facility] ([place]) Comment on above: Performed By: #### A CARLEE, LIPID, VIDH, ADIFF, TSH, CBC, GFR, BMP #### [address] [address] Eosinophils/100 WBC (Bld) 2.7 % Normal 0.0-7.0 [facility] ([place]) Comment on above: Performed By: #### A CARLEE, LIPID, VIDH, ADIFF, TSH, CBC, GFR, BMP #### [address] [address] Lymphocyte, Absolute 2.90 10 3/mcL Normal 0.77-3.85 [facility] ([place]) Comment on above: Performed By: #### A CARLEE, LIPID, VIDH, ADIFF, TSH, CBC, GFR, BMP #### [address] [address] Lymphocytes/100 WBC (Bld) 29.2 % Normal 10.0-50.0 [facility] ([place]) Comment on above: Performed By: #### A CARLEE, LIPID, VIDH, ADIFF, TSH, CBC, GFR, BMP #### [address] [address] Monocyte, Absolute 0.80 10 3/mcL Normal 0.15-1.00 [facility] ([place]) Comment on above: Performed By: #### A CARLEE, LIPID, VIDH, ADIFF, TSH, CBC, GFR, BMP #### [address] [address] Monocytes/100 WBC (Bld) 8.2 % Normal 1.7-13.0 [facility] ([place]) Comment on above: Performed By: #### A CARLEE, LIPID, VIDH, ADIFF, TSH, CBC, GFR, BMP #### [address] [address] Neutrophils/100 WBC (Bld) 59.1 % Normal 37.0-80.0 [facility] ([place]) Comment on above: Performed By: #### A CARLEE, LIPID, VIDH, ADIFF, TSH, CBC, GFR, BMP #### [address] [address] .GFRon 03-02-2021 GFR Non- 102 ml/min/1.73sqm Normal [facility] ([place]) Comment on above: Result Comment: GFR Population mean for , Non- Americans Ages 20-29 = 116 mL/min/1.73 sq.m. Ages 30-39 = 107 mL/min/1.73 sq.m. Ages 40-49 = 99 mL/min/1.73 sq.m. Ages 50-59 = 93 mL/min/1.73 sq.m. Ages 60-69 = 85 mL/min/1.73 sq.m. Ages 70+ = 75 mL/min/1.73 sq.m. Chronic Kidney Disease: Less than 60 mL/min/1.73 square meters End Stage Renal Disease: Less than 15 mL/min/1.73 square meters Performed By: #### A CARLEE, LIPID, VIDH, ADIFF, TSH, CBC, GFR, BMP #### [address] [address] GFR 124 ml/min/1.73sqm Normal [facility] ([place]) Comment on above: Result Comment: GFR Population mean for , Non- Americans Ages 20-29 = 116 mL/min/1.73 sq.m. Ages 30-39 = 107 mL/min/1.73 sq.m. Ages 40-49 = 99 mL/min/1.73 sq.m. Ages 50-59 = 93 mL/min/1.73 sq.m. Ages 60-69 = 85 mL/min/1.73 sq.m. Ages 70+ = 75 mL/min/1.73 sq.m. Chronic Kidney Disease: Less than 60 mL/min/1.73 square meters End Stage Renal Disease: Less than 15 mL/min/1.73 square meters Performed By: #### A CARLEE, LIPID, VIDH, ADIFF, TSH, CBC, GFR, BMP #### [place] [address] .NEUABSon 03-02-2021 Neutrophil, Absolute 5.90 10 3/mcL Normal 2.85-6.16 [facility] ([place]) Comment on above: Performed By: #### A CARLEE, LIPID, VIDH, ADIFF, TSH, CBC, GFR, BMP #### [place] [address] CBCon 03-02-2021 Erythrocyte distribution width (RBC) [Ratio] 13.4 % Normal 11.5-14.5 [facility] ([place]) Comment on above: Performed By: #### A CARLEE, LIPID, VIDH, ADIFF, TSH, CBC, GFR, BMP #### [place] [address] Hematocrit (Bld) [Volume fraction] 39.2 % Normal 37.0-47.0 [facility] ([place]) Comment on above: Performed By: #### A CARLEE, LIPID, VIDH, ADIFF, TSH, CBC, GFR, BMP #### [place] [address] Hgb 13.2 G/dL Normal 12.0-16.0 [facility] ([place]) Comment on above: Performed By: #### A CARLEE, LIPID, VIDH, ADIFF, TSH, CBC, GFR, BMP #### [place] [address] MCH (RBC) [Entitic mass] 30.0 pg Normal 27.0-31.2 [facility] ([place]) Comment on above: Performed By: #### A CARLEE, LIPID, VIDH, ADIFF, TSH, CBC, GFR, BMP #### [address] [address] MCHC 33.7 G/dL Normal 33.0-37.0 [facility] ([place]) Comment on above: Performed By: #### A CARLEE, LIPID, VIDH, ADIFF, TSH, CBC, GFR, BMP #### [address] [address] MCV (RBC) [Entitic vol] 89.1 fL Normal 80.0-94.0 [facility] ([place]) Comment on above: Performed By: #### A CARLEE, LIPID, VIDH, ADIFF, TSH, CBC, GFR, BMP #### [address] [address] Platelet 334 10 3/mcL Normal 130-400 [facility] ([place]) Comment on above: Performed By: #### A CARLEE, LIPID, VIDH, ADIFF, TSH, CBC, GFR, BMP #### [place] [phone] Platelet mean volume (Bld) [Entitic vol] 6.9 fL Low 7.4-10.4 [facility] ([place]) Comment on above: Performed By: #### A CARLEE, LIPID, VIDH, ADIFF, TSH, CBC, GFR, BMP #### [address] [address] RBC 4.40 10 6/mcL Normal 4.20-5.40 [facility] ([place]) Comment on above: Performed By: #### A CARLEE, LIPID, VIDH, ADIFF, TSH, CBC, GFR, BMP #### [place] [phone] WBC 9.90 10 3/mcL Normal 4.60-10.80 [facility] ([place]) Comment on above: Performed By: #### A CARLEE, LIPID, VIDH, ADIFF, TSH, CBC, GFR, BMP #### [address] [address] CMPon 03-02-2021 Albumin Level 3.9 G/dL Normal 3.4-4.8 [facility] ([place]) Comment on above: Performed By: #### A CARLEE, LIPID, VIDH, ADIFF, TSH, CBC, GFR, BMP #### [address] [address] Albumin/Globulin [Mass ratio] 1.1 {ratio} Normal 1.1-2.5 [facility] ([place]) Comment on above: Performed By: #### A CARLEE, LIPID, VIDH, ADIFF, TSH, CBC, GFR, BMP #### [address] [address] ALP [Catalytic activity/Vol] 89 U/L Normal 40-135 [facility] ([place]) Comment on above: Performed By: #### A CARLEE, LIPID, VIDH, ADIFF, TSH, CBC, GFR, BMP #### [address] [address] ALT [Catalytic activity/Vol] 27 U/L Normal 14-59 [facility] ([place]) Comment on above: Performed By: #### A CARLEE, LIPID, VIDH, ADIFF, TSH, CBC, GFR, BMP #### [address] [address] AST [Catalytic activity/Vol] 19 U/L Normal 10-40 [facility] ([place]) Comment on above: Performed By: #### A CARLEE, LIPID, VIDH, ADIFF, TSH, CBC, GFR, BMP #### [address] [address] Bili Total 0.3 mg/dL Normal 0.2-1.0 [facility] ([place]) Comment on above: Result Comment: Use of this assay is not recommended for patients undergoing treatment with eltrombopag due to the potential for falsely elevated results. Performed By: #### A CARLEE, LIPID, VIDH, ADIFF, TSH, CBC, GFR, BMP #### [address] [address] BUN/Creatinine Ratio 22 ratio Normal 7-27 [facility] ([place]) Comment on above: Performed By: #### A CARLEE, LIPID, VIDH, ADIFF, TSH, CBC, GFR, BMP #### [address] [address] Calcium [Mass/Vol] 9.7 mg/dL Normal 8.4-10.2 [facility] ([place]) Comment on above: Performed By: #### A CARLEE, LIPID, VIDH, ADIFF, TSH, CBC, GFR, BMP #### [address] [address] Chloride [Moles/Vol] 103 mmol/L Normal 98-107 [facility] ([place]) Comment on above: Performed By: #### A CARLEE, LIPID, VIDH, ADIFF, TSH, CBC, GFR, BMP #### [address] [address] CO2 [Moles/Vol] 28 mmol/L Normal 23-31 [facility] ([place]) Comment on above: Performed By: #### A CARLEE, LIPID, VIDH, ADIFF, TSH, CBC, GFR, BMP #### [address] [address] Creatinine [Mass/Vol] 0.58 mg/dL Normal 0.55-1.02 [facility] ([place]) Comment on above: Performed By: #### A CARLEE, LIPID, VIDH, ADIFF, TSH, CBC, GFR, BMP #### [address] [address] Electrolyte Balance 9.0 mEq/L Normal [facility] ([place]) Comment on above: Performed By: #### A CARLEE, LIPID, VIDH, ADIFF, TSH, CBC, GFR, BMP #### [address] [address] Globulin 3.6 G/dL Normal [facility] ([place]) Comment on above: Performed By: #### A CARLEE, LIPID, VIDH, ADIFF, TSH, CBC, GFR, BMP #### [address] [address] Glucose [Mass/Vol] 103 mg/dL Normal 83-110 [facility] ([place]) Comment on above: Performed By: #### A CARLEE, LIPID, VIDH, ADIFF, TSH, CBC, GFR, BMP #### [address] [address] Potassium [Moles/Vol] 5.8 mmol/L High 3.5-5.1 [facility] ([place]) Comment on above: Performed By: #### A CARLEE, LIPID, VIDH, ADIFF, TSH, CBC, GFR, BMP #### [address] [address] Sodium [Moles/Vol] 140 mmol/L Normal 136-145 [facility] ([place]) Comment on above: Performed By: #### A CARLEE, LIPID, VIDH, ADIFF, TSH, CBC, GFR, BMP #### [address] [address] Total Protein 7.5 G/dL Normal 6.4-8.2 [facility] ([place]) Comment on above: Performed By: #### A CARLEE, LIPID, VIDH, ADIFF, TSH, CBC, GFR, BMP #### [address] [address] Urea nitrogen [Mass/Vol] 13 mg/dL Normal 7-18 [facility] ([place]) Comment on above: Performed By: #### A CARLEE, LIPID, VIDH, ADIFF, TSH, CBC, GFR, BMP #### [address] [address] FT4on 03-02-2021 Free T4 [Mass/Vol] 1.06 ng/dL Normal 0.76-1.46 [facility] ([place]) Comment on above: Performed By: #### G FR #### [address] [address] #### ADIFF, CBC, LIPID, FT4, ANEU, TSH, CMP #### [address] [address] LIPIDon 03-02-2021 Cholesterol [Mass/Vol] 272 mg/dL High 0-200 [facility] ([place]) Comment on above: Result Comment: Chol esterol Reference Interval: Less than 200 Desirable 200-239 Borderline high risk 240 and above High risk Performed By: #### A CARLEE, LIPID, VIDH, ADIFF, TSH, CBC, GFR, BMP #### [address] [address] Cholesterol in HDL [Mass/Vol] 93 mg/dL High 40-60 [facility] ([place]) Comment on above: Performed By: #### A CARLEE, LIPID, VIDH, ADIFF, TSH, CBC, GFR, BMP #### [address] [address] Cholesterol in LDL [Mass/Vol] 149 mg/dL High 0-130 [facility] ([place]) Comment on above: Performed By: #### A CARLEE, LIPID, VIDH, ADIFF, TSH, CBC, GFR, BMP #### [address] [address] Triglyceride [Mass/Vol] 150 mg/dL Normal 0-150 [facility] ([place]) Comment on above: Result Comment: Trig lyceride Reference Interval: Less than 150 Normal 150-199 Borderline high risk 200-499 High risk 500 or higher Very high risk Performed By: #### A CARLEE, LIPID, VIDH, ADIFF, TSH, CBC, GFR, BMP #### [address] [address] TSHon 03-02-2021 TSH Qn 3.51 m[IU]/L Normal 0.36-3.74 [facility] ([place]) Comment on above: Performed By: #### G FR #### [facility] [address] [place] [address] #### ADIFF, CBC, LIPID, FT4, ANEU, TSH, CMP #### [address] [address] CMPon 03-01-2019 Albumin mass conc 4.0 g/dL Normal 3.2-5.0 [facility] Comment on above: Performed By: #### L 500.06176, [id number], L500.53545, L500.91082, L500.50333, L500.91744, L550.53598 #### [facility] [place] [address] Albumin/Globulin mass ratio 1.1 {ratio} Normal 0.8-2.0 [facility] Comment on above: Performed By: #### L [id number], L500.48546, L500.78156, L500.14495, L500.88603, L500.27620, L550.71981 #### [facility] [place] [id number] ALK PHOS 75 U/L Normal 45-117 [facility] Comment on above: Performed By: #### L 500.04844, L500.95240, L500.85196, L500.51491, L500.65881, L500.04773, L550.84349 #### [facility] [address] [place] [address] ALT enzyme act/vol 24 U/L Normal 13-61 [facility] Comment on above: Result Comment: RESU LTS MAY BE FALSELY DEPRESSED AFTER THE ADMINISTRATION OF SULFASALAZINE AND/OR SULFAPYRIDINE. Performed By: #### L 500.81541, L500.59251, L500.63649, L500.00352, L500.12273, L500.46344, L550.52953 #### [facility] [address] [place] [address] Anion gap molar conc 4 mmol/L Low 5-16 [facility] Comment on above: Performed By: #### L 500.96505, L500.88384, L500.46071, L500.64645, L500.95012, L500.59385, L550.37411 #### [facility] [place] [address] BILI TOTAL 0.4 MG/DL Normal 0.2-1.0 [facility] Comment on above: Performed By: #### L 500.58425, L500.33615, L500.87684, L500.41996, L500.30470, L500.13779, L550.27415 #### [facility] [place] [address] Calcium mass conc 9.5 mg/dL Normal 8.5-10.1 [facility] Comment on above: Performed By: #### L 500.66958, L500.83365, L500.73477, L500.02405, L500.75124, L500.14090, L550.83525 #### [facility] [address] [place] [address] Chloride molar conc 105 mmol/L Normal 98-107 [facility] Comment on above: Performed By: #### L 500.96546, L500.52339, L500.79134, L500.52685, L500.63217, L500.82473, L550.43838 #### [facility] [address] [place] [address] CO2 molar conc 27 mmol/L Normal 21-32 [facility] Comment on above: Performed By: #### L 500.67493, L500.70925, L500.72151, L500.44112, L500.67015, L500.51239, L550.88113 #### [facility] [address] [place], [place] [address] Creatinine mass conc 0.489 mg/dL Low 0.510-0.950 [facility] Comment on above: Result Comment: Rea ents receiving either N-Acetylcysteine (NAC) or Metamizole prior to venipuncture, may have falsely depressed results. Performed By: #### L 500.68949, L500.93741, L500.06239, L500.94218, L500.99927, L500.78936, L550.36129 #### [facility] [place] [id number] Globulin mass conc (S) 3.6 g/dL Normal 2.2-4.2 [facility] Comment on above: Performed By: #### L 500.37345, L500.88187, L500.78751, L500.98375, L500.23215, L500.86682, L550.30616 #### [facility] [address] [place] [address] Glucose mass conc 103 mg/dL High 70-100 [facility] Comment on above: Result Comment: 70-1 00- Normal Fasting; 100-125 Impaired Fasting; greater than 126 on more than one result- Diabetes. ADA guidelines. Results may be falsely elevated after the administration of Sulfapyridine. Results may be falsely depressed after the administration of Sulfasalazine. Performed By: #### L 500.12682, L500.48869, L500.94921, L500.19806, L500.80535, L500.08012, L550.42479 #### [facility] [address] [place] [address] Potassium molar conc 5.0 mmol/L Normal 3.5-5.1 [facility] Comment on above: Performed By: #### L 500.82377, L500.77875, L500.47057, L500.44889, L500.95876, L500.30968, L550.91093 #### [facility] [place] [address] Protein mass conc 7.6 g/dL Normal 6.0-8.5 [facility] Comment on above: Performed By: #### L 500.94847, L500.47040, L500.48862, L500.21897, L500.08055, L500.11797, L550.98372 #### [facility] [place] [address] SGOT (AST) 19 U/L Normal 8-34 [facility] Comment on above: Result Comment: RESU LTS MAY BE FALSELY DEPRESSED AFTER THE ADMINISTRATION OF SULFASALAZINE AND/OR SULFAPYRIDINE. Performed By: #### L 500.51877, L500.81432, L500.08446, L500.25476, L500.96016, L500.04127, L550.67407 #### [facility] [address] [place] [address] Sodium molar conc 136 mmol/L Normal 136-145 [facility] Comment on above: Performed By: #### L 500.03107, L500.13288, L500.58396, L500.82445, L500.04716, L500.04734, L550.40772 #### [facility] [address] [place] [address] Urea nitrogen mass conc 15 mg/dL Normal 7-26 [facility] Comment on above: Performed By: #### L 500.81966, L500.80059, L500.44906, L500.39143, L500.40630, L500.38110, L550.31959 #### [facility] [address] [place] [address] Urea nitrogen/Creatinine mass ratio 31 mg/mg High 15-24 [facility] Comment on above: Performed By: #### L 500.42773, L500.82147, L500.89321, L500.25504, L500.07280, L500.38507, L550.10439 #### [facility] [address] [place] [address] GFR ESTon 03-01-2019 IF AMER Greater than 60 Normal [facility] Comment on above: Performed By: #### L 500.35871, L500.97193, L500.13489, L500.47615, L500.82527, L500.97805, L550.57316 #### [facility] [place] [address] IF non-AFR AMER Greater than 60 Normal [facility] Comment on above: Performed By: #### L 500.69070, L500.18169, L500.92460, L500.55145, L500.43567, L500.02484, L550.57533 #### [facility] [address] [place] [address] HGB A1C GLYCOHBon 03-01-2019 Hemoglobin A1c/Hemoglobin.total mass fraction (Bld) 5.6 % Normal 4.3-6.0 [facility] Comment on above: Performed By: #### L 500.04094, L500.18046, L500.48975, L500.78862, L500.29656, L500.07747, L550.87794 #### [facility] [address] [place] [address] LIPIDon 03-01-2019 Cholesterol in HDL mass conc 80 mg/dL Normal [place] 40 [facility] Comment on above: Result Comment: Rea ents receiving Metamizole prior to venipuncture, may have falsely depressed results. Performed By: #### L 500.26500, L500.37979, L500.93489, L500.06455, L500.64594, L500.06512, L550.97187 #### [facility] [address] [place], [place] [address] Cholesterol in LDL mass conc 123 mg/dL Normal 0-129 [facility] Comment on above: Result Comment: ___C HOLESTEROL/HDL RATIO RISK___ CHD RISK = Total CHOL LDL HDL (CHOL/HDL) Recommended <200 <130 >35 <3.4 Borderline 200-239 130-159 3.4-4.99 High >240 >160 >5.0 Performed By: #### L 500.03831, L500.52691, L500.55501, L500.46003, L500.69222, L500.74249, L550.05536 #### [facility] [place] [address] Cholesterol mass conc 228 mg/dL High 0-199 [facility] Comment on above: Performed By: #### L 500.09091, L500.37826, L500.68292, L500.19759, L500.16450, L500.76150, L550.13352 #### [facility] [address] [place] [address] Triglyceride mass conc 125 mg/dL Normal 30-149 [facility] Comment on above: Result Comment: Rea ents receiving either N-Acetylcysteine (NAC) or Metamizole prior to venipuncture, may have falsely depressed results. Performed By: #### L 500.29468, L500.35510, L500.67101, L500.55251, L500.76714, L500.47310, L550.96456 #### [facility] [address] [place], [place] [address] T3 UPon 03-01-2019 T3 UP 35.0 % Normal 30.0-39.0 [facility] Comment on above: Performed By: #### L 500.99774, L500.80544, L500.27122, L500.99070, L500.33306, L500.13371, L550.78214 #### [facility] [address] [place] [address] T4 FREEon 03-01-2019 T4 free mass conc 1.21 ng/dL Normal 0.76-1.46 [facility] Comment on above: Performed By: #### L 500.51864, L500.90440, L500.01908, L500.97697, L500.57803, L500.74977, L550.08428 #### [facility] [address] [place] [address] TSHon 03-01-2019 Thyrotropin Qn 0.056 UIU/ML Low 0.358-3.740 [facility] Comment on above: Result Comment: 3rd generation ultra sensitive TSH Performed By: #### L 500.44867, L500.38660, L500.14778, L500.35151, L500.48712, L500.30985, L550.18796 #### [facility] [address] [place], [place] [address] [id number] 03-01-2019 [id number] 51.9 NG/ML Normal 30.0-100.0 [facility] Comment on above: Result Comment: Defi ciency Less than 20 ng/mL Insufficiency 20 - Less than 30 ng/mL Sufficiency 30 - 100 ng/mL Performed By: #### L 500.23252, L500.12826, L500.10345, L500.92211, L500.36810, L500.76780, L550.60367 #### [facility] [address] [place] [address] CBCon 10-26-2018 Nucleated RBC/100 WBC Ratio (Bld) 0.0 % Normal Less than 1 [facility] Comment on above: Performed By: #### L 500.53116, L500.26548, L500.12907, L500.67306, L500.60190, L500.36924, L550.42847 #### [facility] [address] [place] [address] Platelet mean volume Entitic volume (Bld) 8.9 fL Low 9.4-12.4 [facility] Comment on above: Performed By: #### L 500.49973, L500.73235, L500.65727, L500.65259, L500.01984, L500.90814, L550.82316 #### [facility] [address] [place] [address] Erythrocyte distribution width Ratio (RBC) 13.7 % Normal 11-14.5 [facility] Comment on above: Performed By: #### L 500.70561, L500.42992, L500.99956, L500.15702, L500.60502, L500.40063, L550.69672 #### [facility] [address] [place] [address] Hematocrit Volume Fraction (Bld) 36.4 % Normal 35.0-47.0 [facility] Comment on above: Performed By: #### L 500.59220, L500.37272, L500.34954, L500.76192, L500.84677, L500.63649, L550.43877 #### [facility] [place] [id number] Hemoglobin mass conc (Bld) 12.2 g/dL Normal 11.5-15.5 [facility] Comment on above: Performed By: #### L 500.48667, L500.04731, L500.45678, L500.88083, L500.65490, L500.46326, L550.12262 #### [facility] [address] [place] [address] MCHC mass conc (RBC) 33.5 g/dL Normal 32.0-36.0 [facility] Comment on above: Performed By: #### L 500.08836, L500.39175, L500.24237, L500.64088, L500.95693, L500.92744, L550.36783 #### [facility] [address] [place] [address] MCV Entitic volume (RBC) 86.7 fL Normal 80.0-99.0 [facility] Comment on above: Performed By: #### L 500.70825, L500.37279, L500.67765, L500.98415, L500.92610, L500.53899, L550.82767 #### [facility] [address] [place] [address] Platelets #/vol (Bld) 344 K/CU MM Normal 150-450 [facility] Comment on above: Performed By: #### L 500.67478, L500.78688, L500.04216, L500.62102, L500.86956, L500.74945, L550.04894 #### [facility] [address] [place] [address] RBC #/vol (Bld) 4.20 M/CU MM Normal 3.9-5.30 [facility] Comment on above: Performed By: #### L 500.27858, L500.99096, L500.59194, L500.93232, L500.88273, L500.19722, L550.21179 #### [facility] [address] [place] [address] WBC #/vol (Bld) 6.7 K/CU MM Normal 4.5-11.0 [facility] Comment on above: Performed By: #### L 500.04752, L500.38479, L500.89061, L500.88338, L500.63659, L500.05344, L550.99958 #### [facility] [address] [place] [address] CMPon 10-26-2018 Albumin mass conc 4.0 g/dL Normal 3.2-5.0 [facility] Comment on above: Performed By: #### L 500.86166, L500.14056, L500.78123, L500.39909, L500.49797, L500.67912, L550.26139 #### [facility] [address] [place] [address] Albumin/Globulin mass ratio 1.1 {ratio} Normal 0.8-2.0 [facility] Comment on above: Performed By: #### L 500.54693, L500.55587, L500.80733, L500.88603, L500.41373, L500.34421, L550.06367 #### [facility] [address] [place] [address] ALK PHOS 86 U/L Normal 45-117 [facility] Comment on above: Performed By: #### L 500.41090, L500.36813, L500.69328, L500.94588, L500.65153, L500.28608, L550.16559 #### [facility] [place] [address] ALT enzyme act/vol 37 U/L Normal 13-61 [facility] Comment on above: Result Comment: RESU LTS MAY BE FALSELY DEPRESSED AFTER THE ADMINISTRATION OF SULFASALAZINE AND/OR SULFAPYRIDINE. Performed By: #### L 500.46712, L500.59523, L500.23674, L500.35918, L500.26892, L500.17885, L550.79456 #### [facility] [address] [place] [address] Anion gap molar conc 6 mmol/L Normal 5-16 [facility] Comment on above: Performed By: #### L 500.90612, L500.20060, L500.69222, L500.68554, L500.46480, L500.44771, L550.70561 #### [facility] [address] [place] [address] BILI TOTAL 0.3 MG/DL Normal 0.2-1.0 [facility] Comment on above: Performed By: #### L 500.48683, L500.76978, L500.71148, L500.72767, L500.55705, L500.89586, L550.62412 #### [facility] [address] [place] [address] Calcium mass conc 9.3 mg/dL Normal 8.5-10.1 [facility] Comment on above: Performed By: #### L 500.68585, L500.63593, L500.97506, L500.86253, L500.64547, L500.73549, L550.59928 #### [facility] [address] [place] [address] Chloride molar conc 104 mmol/L Normal 98-107 [facility] Comment on above: Performed By: #### L 500.75320, L500.54538, L500.86024, L500.69737, L500.72041, L500.63942, L550.96620 #### [facility] [address] [place] [address] CO2 molar conc 26 mmol/L Normal 21-32 [facility] Comment on above: Performed By: #### L 500.88149, L500.15498, L500.55479, L500.48249, L500.68890, L500.23391, L550.98584 #### [facility] [address] [place] [address] Creatinine mass conc 0.589 mg/dL Normal 0.510-0.950 [facility] Comment on above: Result Comment: Rea ents receiving either N-Acetylcysteine (NAC) or Metamizole prior to venipuncture, may have falsely depressed results. Performed By: #### L 500.48994, L500.14546, L500.15656, L500.27555, L500.82782, L500.52858, L550.98188 #### [facility] [address] [place] [address] Globulin mass conc (S) 3.6 g/dL Normal 2.2-4.2 [facility] Comment on above: Performed By: #### L 500.39793, L500.23676, L500.98117, L500.53232, L500.37319, L500.83609, L550.50006 #### [facility] [address] [place], [place] [address] Glucose mass conc 102 mg/dL High 70-100 [facility] Comment on above: Result Comment: 70-1 00- Normal Fasting; 100-125 Impaired Fasting; greater than 126 on more than one result- Diabetes. ADA guidelines. Results may be falsely elevated after the administration of Sulfapyridine. Results may be falsely depressed after the administration of Sulfasalazine. Performed By: #### L 500.30481, L500.64562, L500.18798, L500.72230, L500.93917, L500.65479, L550.75469 #### [facility] [place] [address] Potassium molar conc 4.6 mmol/L Normal 3.5-5.1 [facility] Comment on above: Performed By: #### L 500.90737, L500.94896, L500.68751, L500.15504, L500.98397, L500.94606, L550.69062 #### [facility] [address] [place] [address] Protein mass conc 7.6 g/dL Normal 6.0-8.5 [facility] Comment on above: Performed By: #### L 500.73810, L500.04620, L500.26524, L500.15343, L500.07469, L500.46252, L550.83430 #### [facility] [address] [place] [address] SGOT (AST) 28 U/L Normal 8-34 [facility] Comment on above: Result Comment: RESU LTS MAY BE FALSELY DEPRESSED AFTER THE ADMINISTRATION OF SULFASALAZINE AND/OR SULFAPYRIDINE. Performed By: #### L 500.30269, L500.67474, L500.33776, L500.42630, L500.61797, L500.47478, L550.60787 #### [facility] [address] [place] [address] Sodium molar conc 137 mmol/L Normal 136-145 [facility] Comment on above: Performed By: #### L 500.25780, L500.82722, L500.40349, L500.30587, L500.35330, L500.06719, L550.14688 #### [facility] [address] [place], [place] [address] Urea nitrogen mass conc 12 mg/dL Normal 7-26 [facility] Comment on above: Performed By: #### L 500.03089, L500.00201, L500.79227, L500.34607, L500.64976, L500.23024, L550.33173 #### [facility] [address] [place], [place] [address] Urea nitrogen/Creatinine mass ratio 20 mg/mg Normal 15-24 [facility] Comment on above: Performed By: #### L 500.82645, L500.76279, L500.20114, L500.02619, L500.18730, L500.93350, L550.68248 #### [facility] [address] [place] [address] GFR ESTon 10-26-2018 IF AMER Greater than 60 Normal [facility] Comment on above: Performed By: #### L 500.75813, L500.89979, L500.45235, L500.38888, L500.28448, L500.89849, L550.25845 #### [facility] [address] [place] [address] IF non-AFR AMER Greater than 60 Normal [facility] Comment on above: Performed By: #### L 500.56055, L500.15392, L500.26637, L500.99663, L500.66109, L500.97828, L550.98521 #### [facility] [address] [place], [place] [address] HGB A1C GLYCOHBon 10-26-2018 Hemoglobin A1c/Hemoglobin.total mass fraction (Bld) 5.8 % Normal 4.3-6.0 [facility] Comment on above: Performed By: #### L 500.07618, L500.45332, L500.03446, L500.75532, L500.83416, L500.41742, L550.94839 #### [facility] [address] [place] [address] LIPIDon 10-26-2018 Cholesterol in HDL mass conc 85 mg/dL Normal [place] [facility] Comment on above: Result Comment: Rea ents receiving Metamizole prior to venipuncture, may have falsely depressed results. Performed By: #### L 500.39465, L500.03404, L500.21133, L500.24884, L500.39838, L500.53543, L550.87054 #### [facility] [address] [place] [address] Cholesterol in LDL mass conc 65 mg/dL Normal 0-129 [facility] Comment on above: Result Comment: ___C HOLESTEROL/HDL RATIO RISK___ CHD RISK = Total CHOL LDL HDL (CHOL/HDL) Recommended <200 <130 >35 <3.4 Borderline 200-239 130-159 3.4-4.99 High >240 >160 >5.0 Performed By: #### L 500.70967, L500.95926, L500.76544, L500.16464, L500.08455, L500.86800, L550.75954 #### [facility] [address] [place] [address] Cholesterol mass conc 161 mg/dL Normal 0-199 [facility] Comment on above: Performed By: #### L 500.06383, L500.65673, L500.48366, L500.08610, L500.34112, L500.29067, L550.22710 #### [facility] [address] [place] [address] Triglyceride mass conc 53 mg/dL Normal 30-149 [facility] Comment on above: Result Comment: Rea ents receiving either N-Acetylcysteine (NAC) or Metamizole prior to venipuncture, may have falsely depressed results. Performed By: #### L 500.75086, L500.39150, L500.17797, L500.84446, L500.86494, L500.67176, L550.37224 #### [facility] [address] [place] [address] T3 UPon 10-26-2018 T3 UP 37.0 % Normal 30.0-39.0 [facility] Comment on above: Performed By: #### L 500.17455, L500.33675, L500.00024, L500.79584, L500.97638, L500.38338, L550.81982 #### [facility] [address] [place] [address] T4 FREEon 10-26-2018 T4 free mass conc 1.31 ng/dL Normal 0.76-1.46 [facility] Comment on above: Performed By: #### L 500.47632, L500.81824, L500.25176, L500.67603, L500.72027, L500.23490, L550.14636 #### [facility] [address] [place] [address] TSHon 10-26-2018 Thyrotropin Qn 0.208 UIU/ML Low 0.358-3.740 [facility] Comment on above: Result Comment: 3rd generation ultra sensitive TSH Performed By: #### L 500.34753, L500.55386, L500.49351, L500.70261, L500.24354, L500.09538, L550.32105 #### [facility] [address] [place] [address] [id number] 10-26-2018 [id number] 62.5 NG/ML Normal 30.0-100.0 [facility] Comment on above: Result Comment: Defi ciency Less than 20 ng/mL Insufficiency 20 - Less than 30 ng/mL Sufficiency 30 - 100 ng/mL Performed By: #### L 500.61737, L500.85702, L500.55245, L500.05171, L500.76008, L500.58532, L550.85105 #### [facility] [address] [place] [id number] CMPon 06-20-2018 Albumin mass conc 4.0 g/dL Normal 3.2-5.0 [facility] Comment on above: Performed By: #### L 500.17124, L500.31512, L500.23552, L500.63011, L500.49901, L500.00174, L550.32571 #### [facility] [address] [place], [place] [id number] Albumin/Globulin mass ratio 1.1 {ratio} Normal 0.8-2.0 [facility] Comment on above: Performed By: #### L 500.27310, L500.82984, L500.85827, L500.24190, L500.33363, L500.88631, L550.61250 #### [facility] [place] [address] ALK PHOS 77 U/L Normal 45-117 [facility] Comment on above: Performed By: #### L 500.10534, L500.77941, L500.87457, L500.33320, L500.51747, L500.04761, L550.50855 #### [facility] [address] [place] [address] ALT enzyme act/vol 25 U/L Normal 13-61 [facility] Comment on above: Result Comment: RESU LTS MAY BE FALSELY DEPRESSED AFTER THE ADMINISTRATION OF SULFASALAZINE AND/OR SULFAPYRIDINE. Performed By: #### L 500.03050, L500.59222, L500.60036, L500.76266, L500.66436, L500.83153, L550.86307 #### [facility] [address] [place] [id number] Anion gap molar conc 10 mmol/L Normal 5-16 [facility] Comment on above: Performed By: #### L 500.38557, L500.84266, L500.49114, L500.74254, L500.27927, L500.91540, L550.08419 #### [facility] [place] [address] BILI TOTAL 0.4 MG/DL Normal 0.2-1.0 [facility] Comment on above: Performed By: #### L 500.29739, L500.67259, L500.11729, L500.38589, L500.44581, L500.06093, L550.58507 #### [facility] [place] [address] Calcium mass conc 9.5 mg/dL Normal 8.5-10.1 [facility] Comment on above: Performed By: #### L 500.94583, L500.26233, L500.88000, L500.01868, L500.13825, L500.42664, L550.23625 #### [facility] [address] [place] [address] Chloride molar conc 104 mmol/L Normal 98-107 [facility] Comment on above: Performed By: #### L 500.79468, L500.05542, L500.74216, L500.60629, L500.25911, L500.18359, L550.13712 #### [facility] [address] [place] [address] CO2 molar conc 24 mmol/L Normal 21-32 [facility] Comment on above: Performed By: #### L 500.52956, L500.45655, L500.99534, L500.95149, L500.48336, L500.03210, L550.16025 #### [facility] [address] [place] [address] Creatinine mass conc 0.608 mg/dL Normal 0.510-0.950 [facility] Comment on above: Result Comment: Rea ents receiving either N-Acetylcysteine (NAC) or Metamizole prior to venipuncture, may have falsely depressed results. Performed By: #### L 500.85655, L500.61312, L500.42790, L500.07300, L500.71278, L500.99217, L550.77206 #### [facility] [address] [place] [address] Globulin mass conc (S) 3.7 g/dL Normal 2.2-4.2 [facility] Comment on above: Performed By: #### L 500.68329, L500.30712, L500.51760, L500.56682, L500.56634, L500.23812, L550.03665 #### [facility] [place] [address] Glucose mass conc 101 mg/dL High 70-100 [facility] Comment on above: Result Comment: 70-1 00- Normal Fasting; 100-125 Impaired Fasting; greater than 126 on more than one result- Diabetes. ADA guidelines. Results may be falsely elevated after the administration of Sulfapyridine. Results may be falsely depressed after the administration of Sulfasalazine. Performed By: #### L 500.36549, L500.02381, L500.93120, L500.86681, L500.31566, L500.72724, L550.84984 #### [facility] [address] [place] [address] Potassium molar conc 4.7 mmol/L Normal 3.5-5.1 [facility] Comment on above: Performed By: #### L 500.62257, L500.42965, L500.06594, L500.99898, L500.86711, L500.28284, L550.36331 #### [facility] [address] [place] [address] Protein mass conc 7.7 g/dL Normal 6.0-8.5 [facility] Comment on above: Performed By: #### L 500.99472, L500.66541, L500.79200, L500.10485, L500.88443, L500.81224, L550.81715 #### [facility] [address] [place] [address] SGOT (AST) 20 U/L Normal 8-34 [facility] Comment on above: Result Comment: RESU LTS MAY BE FALSELY DEPRESSED AFTER THE ADMINISTRATION OF SULFASALAZINE AND/OR SULFAPYRIDINE. Performed By: #### L 500.53157, L500.84072, L500.00424, L500.11895, L500.26377, L500.23456, L550.02140 #### [facility] [place] [address] Sodium molar conc 138 mmol/L Normal 136-145 [facility] Comment on above: Performed By: #### L 500.44398, L500.95393, L500.34085, L500.89845, L500.03393, L500.52785, L550.73476 #### [facility] [address] [place], [place] [id number] Urea nitrogen mass conc 13 mg/dL Normal 7-26 [facility] Comment on above: Performed By: #### L 500.04329, L500.46356, L500.26353, L500.09634, L500.56859, L500.84270, L550.12883 #### [facility] [address] [place] [address] Urea nitrogen/Creatinine mass ratio 21 mg/mg Normal 15-24 [facility] Comment on above: Performed By: #### L 500.83077, L500.00026, L500.14711, L500.06350, L500.01370, L500.25542, L550.48292 #### [facility] [address] [place] [address] GFR ESTon 06-20-2018 IF AMER Greater than 60 Normal [facility] Comment on above: Performed By: #### L 500.50798, L500.45592, L500.57127, L500.52991, L500.10617, L500.54527, L550.42392 #### [facility] [address] [place] [address] IF non-AFR AMER Greater than 60 Normal [facility] Comment on above: Performed By: #### L 500.72930, L500.37330, L500.68829, L500.56934, L500.19043, L500.08557, L550.94983 #### [facility] [address] [place], [place] [id number] HGB A1C GLYCOHBon 06-20-2018 Hemoglobin A1c/Hemoglobin.total mass fraction (Bld) 6.0 % Normal 4.3-6.0 [facility] Comment on above: Performed By: #### L 550.07811 #### [facility] [address] [place] [address] LIPIDon 06-20-2018 Cholesterol in HDL mass conc 85 mg/dL Normal [place] [facility] Comment on above: Result Comment: Rea ents receiving Metamizole prior to venipuncture, may have falsely depressed results. Performed By: #### L 500.32384, L500.95571, L500.16947, L500.26352, L500.88719, L500.02368, L550.87702 #### [facility] [address] [place] [address] Cholesterol in LDL mass conc 98 mg/dL Normal 0-129 [facility] Comment on above: Result Comment: ___C HOLESTEROL/HDL RATIO RISK___ CHD RISK = Total CHOL LDL HDL (CHOL/HDL) Recommended <200 <130 >35 <3.4 Borderline 200-239 130-159 3.4-4.99 High >240 >160 >5.0 Performed By: #### L 500.97137, L500.29969, L500.59612, L500.40070, L500.01172, L500.10722, L550.98864 #### [facility] [address] [place] [address] Cholesterol mass conc 209 mg/dL High 0-199 [facility] Comment on above: Performed By: #### L 500.21720, L500.38933, L500.29981, L500.41803, L500.71319, L500.49201, L550.87623 #### [facility] [address] [place] [address] Triglyceride mass conc 129 mg/dL Normal 30-149 [facility] Comment on above: Result Comment: Rea ents receiving either N-Acetylcysteine (NAC) or Metamizole prior to venipuncture, may have falsely depressed results. Performed By: #### L 500.39906, L500.43137, L500.47719, L500.81874, L500.59673, L500.77320, L550.26489 #### [facility] [address] [place] [address] T3 UPon 06-20-2018 T3 UP 36.0 % Normal 30.0-39.0 [facility] Comment on above: Performed By: #### L 500.72660, L500.48473, L500.93038, L500.88652, L500.91331, L500.64504, L550.12112 #### [facility] [place] [address] T4 FREEon 06-20-2018 T4 free mass conc 1.06 ng/dL Normal 0.76-1.46 [facility] Comment on above: Performed By: #### L 500.94744, L500.98228, L500.59723, L500.03777, L500.08113, L500.44292, L550.70161 #### [facility] [address] [place] [address] 287[address] TSHon 06-20-2018 Thyrotropin Qn 0.595 UIU/ML Normal 0.358-3.740 [facility] Comment on above: Result Comment: 3rd generation ultra sensitive TSH Performed By: #### L 500.46869, L500.39362, L500.32482, L500.55373, L500.32991, L500.39429, L550.51292 #### [facility] [address] [place] [address] [id number] 06-20-2018 [id number] 38.8 NG/ML Normal 30.0-100.0 [facility] Comment on above: Result Comment: Defi ciency Less than 20 ng/mL Insufficiency 20 - Less than 30 ng/mL Sufficiency 30 - 100 ng/mL Performed By: #### L 500.53865, L500.79905, L500.27304, L500.09613, L500.84715, L500.50102, L550.53463 #### [facility] [address] [place] [address] Vital Signs Date Time Vital Sign Value Performing Clinician Facility 08-26-2025 14:21-0400 Body height 144.[address] Lilia Bergeron MD Work Phone: [facility] 08-26-2025 14:21-0400 Body mass index (BMI) [Ratio] 26.5 kg/m2 Dr. Lilia Bergeron MD Work Phone: [facility] 08-26-2025 14:21-0400 Body temperature 96.7 [degF] Dr. Lilia Bergeron MD Work Phone: [facility] 08-26-2025 14:21-0400 Body weight 55.[address] Lilia Bergeron MD Work Phone: [facility] 08-26-2025 14:21-0400 Diastolic blood pressure 68 mm[Hg] Dr. Lilia Bergeron MD Work Phone: [facility] 08-26-2025 14:21-0400 Heart rate 51 /min Dr. Lilia Bergeron MD Work Phone: [facility] 08-26-2025 14:21-0400 Respiratory rate 16 /min Dr. Lilia Bergeron MD Work Phone: [facility] 08-26-2025 14:21-0400 SaO2% (BldA) [Mass fraction] 98 % Dr. Lilia Bergeron MD Work Phone: [facility] 08-26-2025 14:21-0400 Systolic blood pressure 118 mm[Hg] Dr. Lilia Bergeron MD Work Phone: [facility] 03-20-2025 13:35-0400 Body height 144.8 cm Brandi López MD Work Phone: [facility] 03-20-2025 13:35-0400 Body mass index (BMI) [Ratio] 26.81 kg/m2 Brandi López MD Work Phone: [facility] 03-20-2025 13:35-0400 Body weight 56.2 kg Brandi Lóepz MD Work Phone: [facility] 03-20-2025 13:35-0400 Diastolic blood pressure 80 mm[Hg] Brandi López MD Work Phone: [facility] 03-20-2025 13:35-0400 Heart rate 75 /min Brandi Lpóez MD Work Phone: [facility] 03-20-2025 13:35-0400 SaO2% (BldA) [Mass fraction] 97 % Brandi López MD Work Phone: [facility] 03-20-2025 13:35-0400 Systolic blood pressure 169 mm[Hg] Brandi López MD Work Phone: [facility] 02-11-2025 12:58-0400 Body height 144.[address] Lilia Bergeron MD Work Phone: [facility] 02-11-2025 12:58-0400 Body mass index (BMI) [Ratio] 27.4 kg/m2 Dr. Lilia Bergeron MD Work Phone: [facility] 02-11-2025 12:58-0400 Body temperature 97 [degF] Dr. Lilia Bergeron MD Work Phone: [facility] 02-11-2025 12:58-0400 Body weight 57.[address] Lilia Bergeron MD Work Phone: [facility] 02-11-2025 12:58-0400 Diastolic blood pressure 74 mm[Hg] Dr. Lilia Bergeron MD Work Phone: [facility] 02-11-2025 12:58-0400 Heart rate 67 /min Dr. Lilia Bergeron MD Work Phone: [facility] 02-11-2025 12:58-0400 Respiratory rate 14 /min Dr. Lilia Bergeron MD Work Phone: [facility] 02-11-2025 12:58-0400 SaO2% (BldA) [Mass fraction] 97 % Dr. Lilia Bergeron MD Work Phone: [facility] 02-11-2025 12:58-0400 Systolic blood pressure 122 mm[Hg] Dr. Lilia Bergeron MD Work Phone: [facility] 12-31-2024 11:25-0500 Body mass index (BMI) [Ratio] 26.75 kg/m2 Sarah Queener PA-C Work Phone: [facility] 12-31-2024 11:25-0500 Body weight 56.06 kg Sarah Queener PA-C Work Phone: [facility] 12-31-2024 11:25-0500 Diastolic blood pressure 85 mm[Hg] Sarah Queener PA-C Work Phone: [facility] 12-31-2024 11:25-0500 Heart rate 71 /min Sarah Queener PA-C Work Phone: [facility] 12-31-2024 11:25-0500 SaO2% (BldA) [Mass fraction] 99 % Sarah Queener PA-C Work Phone: [facility] 12-31-2024 11:25-0500 Systolic blood pressure 160 mm[Hg] Sarah Queener PA-C Work Phone: [facility] 09-24-2024 16:07-0500 Body mass index (BMI) [Ratio] 26.88 kg/m2 Sarah Queener PA-C Work Phone: [facility] 09-24-2024 16:07-0500 Body weight 56.34 kg Sarah Queener PA-C Work Phone: [facility] 09-24-2024 16:07-0500 Diastolic blood pressure 80 mm[Hg] Sarah Queener PA-C Work Phone: [facility] 09-24-2024 16:07-0500 Heart rate 72 /min Sarah Queener PA-C Work Phone: [facility] 09-24-2024 16:07-0500 SaO2% (BldA) [Mass fraction] 98 % Sarah Combser PA-C Work Phone: [facility] 09-24-2024 16:07-0500 Systolic blood pressure 151 mm[Hg] Sarahvince Combser PA-C Work Phone: [facility] 06-24-2024 14:56-0400 Body mass index (BMI) [Ratio] 26.14 kg/m2 Sarah Combser PA-C Work Phone: [facility] 06-24-2024 14:56-0400 Body weight 54.8 kg Sarah Combser PA-C Work Phone: [facility] 06-24-2024 14:56-0400 Diastolic blood pressure 81 mm[Hg] Sarahvince Combser PA-C Work Phone: [facility] 06-24-2024 14:56-0400 Heart rate 70 /min Sarahvince Combser PA-C Work Phone: [facility] 06-24-2024 14:56-0400 SaO2% (BldA) [Mass fraction] 100 % Sarah Combser PA-C Work Phone: [facility] 06-24-2024 14:56-0400 Systolic blood pressure 153 mm[Hg] Sarah Combser PA-C Work Phone: [facility] 06-03-2024 14:10-0400 Body height 144.8 cm Elaine Kt PA-C Work Phone: [facility] 06-03-2024 14:10-0400 Body mass index (BMI) [Ratio] 25.97 kg/m2 Elaine Kt PA-C Work Phone: [facility] 06-03-2024 14:10-0400 Body weight 54.43 kg Elaine Kt PA-C Work Phone: [facility] 06-03-2024 14:10-0400 Respiratory rate 20 /min Elaine Kt PA-C Work Phone: [facility] 03-04-2024 14:00-0400 Body height 144.8 cm Elainecolumba Meraz PA-C Work Phone: [facility] 03-04-2024 14:00-0400 Body temperature 98.29 [degF] Elaine Kt PA-C Work Phone: [facility] 03-04-2024 14:00-0400 Body weight 54.43 kg Elainecolumba Meraz PA-C Work Phone: [facility] 01-03-2024 10:43-0500 Body height 144.[address] Lilia Bergeron Work Phone: [facility] 01-03-2024 10:43-0500 Body mass index (BMI) [Ratio] 26.2 kg/m2 Dr. Lilia Bergeron Work Phone: [facility] 01-03-2024 10:43-0500 Body temperature 97.4 [degF] Dr. Lilia Bergeron Work Phone: [facility] 01-03-2024 10:43-0500 Body weight 54.[address] Lilia Bergeron Work Phone: [facility] 01-03-2024 10:43-0500 Diastolic blood pressure 74 mm[Hg] Dr. Lilia Bergeron Work Phone: [facility] 01-03-2024 10:43-0500 Heart rate 73 /min Dr. Lilia Bergeron Work Phone: [facility] 01-03-2024 10:43-0500 Respiratory rate 16 /min Dr. Lilia Bergeron Work Phone: [facility] 01-03-2024 10:43-0500 SaO2% (BldA) [Mass fraction] 99 % Dr. Lilia Bergeron Work Phone: [facility] 01-03-2024 10:43-0500 Systolic blood pressure 118 mm[Hg] Dr. Lilia Bergeron Work Phone: [facility] 11-20-2023 10:40-0500 Body height 144.[address] Lilia Bergeron Work Phone: [facility] 11-20-2023 10:40-0500 Body mass index (BMI) [Ratio] 26.4 kg/m2 Dr. Lilia Bergeron Work Phone: [facility] 11-20-2023 10:40-0500 Body temperature 97.2 [degF] Dr. Lilia Bergeron Work Phone: [facility] 11-20-2023 10:40-0500 Body weight 55.[address] Lilia Bergeron Work Phone: [facility] 11-20-2023 10:40-0500 Diastolic blood pressure 60 mm[Hg] Dr. Lilia Bergeron Work Phone: [facility] 11-20-2023 10:40-0500 Heart rate 80 /min Dr. Lilia Bergeron Work Phone: [facility] 11-20-2023 10:40-0500 Respiratory rate 16 /min Dr. Lilia Bergeron Work Phone: [facility] 11-20-2023 10:40-0500 SaO2% (BldA) [Mass fraction] 99 % Dr. Lilia Bergeron Work Phone: [facility] 11-20-2023 10:40-0500 Systolic blood pressure 124 mm[Hg] Dr. Lilia Bergeron Work Phone: [facility] 09-25-2023 10:47-0500 Body height 146.1 cm Bianka Rivera MD Work Phone: [facility] 09-25-2023 10:47-0500 Body weight 54.98 kg Bianka Rivera MD Work Phone: [facility] 09-25-2023 10:47-0500 Respiratory rate 20 /min Bianka Rivera MD Work Phone: [facility] 07-18-2023 13:00-0400 Body height 144.[address] Neli Head Work Phone: [facility] 07-18-2023 13:00-0400 Body mass index (BMI) [Ratio] 25.9 kg/m2 Dr. Neli Head Work Phone: [facility] 07-18-2023 13:00-0400 Body temperature 97.8 [degF] Dr. Neli Head Work Phone: [facility] 07-18-2023 13:00-0400 Body weight 54.[address] Neli Head Work Phone: [facility] 07-18-2023 13:00-0400 Diastolic blood pressure 68 mm[Hg] Dr. Neli Head Work Phone: [facility] 07-18-2023 13:00-0400 Heart rate 64 /min Dr. Neli Head Work Phone: [facility] 07-18-2023 13:00-0400 Respiratory rate 18 /min Dr. Neli Head Work Phone: [facility] 07-18-2023 13:00-0400 SaO2% (BldA) [Mass fraction] 96 % Dr. Neli Head Work Phone: [facility] 07-18-2023 13:00-0400 Systolic blood pressure 116 mm[Hg] Dr. Neli Head Work Phone: [facility] 12-27-2022 15:07-0500 Body temperature 98.2 [degF] Dr. Neli Head Work Phone: [facility] 12-27-2022 15:07-0500 Body weight 53.[address] Neli Head Work Phone: [facility] 12-27-2022 15:07-0500 Diastolic blood pressure 81 mm[Hg] Dr. Neli Head Work Phone: [facility] 12-27-2022 15:07-0500 Heart rate 74 /min Dr. Neli Head Work Phone: [facility] 12-27-2022 15:07-0500 Respiratory rate 16 /min Dr. Neli Head Work Phone: [facility] 12-27-2022 15:07-0500 SaO2% (BldA) [Mass fraction] 98 % Dr. Neli Head Work Phone: [facility] 12-27-2022 15:07-0500 Systolic blood pressure 147 mm[Hg] Dr. Neli Head Work Phone: [facility] 06-21-2022 11:44-0400 Body height 146.1 cm Chela Bertrand MD Work Phone: [facility] 06-21-2022 11:44-0400 Body temperature 98.01 [degF] Chela Bertrand MD Work Phone: [facility] 06-21-2022 11:44-0400 Body weight 52.16 kg Chela Bertrand MD Work Phone: [facility] 06-21-2022 11:44-0400 Diastolic blood pressure 80 mm[Hg] Chela Bertrand MD Work Phone: [facility] 06-21-2022 11:44-0400 Heart rate 62 /min Chela Bertrand MD Work Phone: [facility] 06-21-2022 11:44-0400 Systolic blood pressure 154 mm[Hg] Chela Bertrand MD Work Phone: [facility] 03-01-2022 15:33-0400 Body height 144.[address] Neli Head Work Phone: [facility] Work Phone: 03-01-2022 15:33-0400 Body mass index (BMI) [Ratio] 25.1 kg/m2 Dr. Neli Head Work Phone: [facility] Work Phone: 03-01-2022 15:33-0400 Body temperature 98.6 [degF] Dr. Neli Head Work Phone: [facility] Work Phone: 03-01-2022 15:33-0400 Body weight 52.[address] Neli Head Work Phone: [facility] Work Phone: 03-01-2022 15:33-0400 Diastolic blood pressure 70 mm[Hg] Dr. Neli Head Work Phone: [facility] Work Phone: 03-01-2022 15:33-0400 Heart rate 73 /min Dr. Neli Head Work Phone: [facility] Work Phone: 03-01-2022 15:33-0400 Respiratory rate 16 /min Dr. Neli Head Work Phone: [facility] Work Phone: 03-01-2022 15:33-0400 SaO2% (BldA) [Mass fraction] 99 % Dr. Neli Head Work Phone: [facility] Work Phone: 03-01-2022 15:33-0400 Systolic blood pressure 130 mm[Hg] Dr. Neli Head Work Phone: [facility] Work Phone: 01-13-2022 13:59-0500 Heart rate 63 /min Dr. Neli Head Work Phone: [facility] Work Phone: 01-13-2022 10:27-0500 Body temperature 97.8 [degF] Dr. Neli Head Work Phone: [facility] Work Phone: 01-13-2022 10:27-0500 Diastolic blood pressure 57 mm[Hg] Dr. Neli Head Work Phone: [facility] Work Phone: 01-13-2022 10:27-0500 Respiratory rate 18 /min Dr. Neli Head Work Phone: [facility] Work Phone: 01-13-2022 10:27-0500 SaO2% (BldA) [Mass fraction] 98 % Dr. Neli Head Work Phone: [facility] Work Phone: 01-13-2022 10:27-0500 Systolic blood pressure 121 mm[Hg] Dr. Neli Head Work Phone: [facility] Work Phone: 01-12-2022 21:11-0500 Body mass index (BMI) [Ratio] 25.2 kg/m2 Dr. Neli Head Work Phone: [facility] Work Phone: 01-12-2022 21:11-0500 Body weight 52.[address] Neli Head Work Phone: [facility] Work Phone: Encounters Encounter Date Encounter Type Care Provider Facility Start: 09-21-2025 End: 09-21-2025 ambulatory [facility] Facility:[facility] Start: 08-26-2025 End: 08-26-2025 Patient encounter procedure Itz PIZANO -[facility] Work Phone: Start: 08-26-2025 End: 08-26-[address] Lilia Bergeron MD Work Phone: -[facility] Start: 08-13-2025 End: 08-13-2025 Patient encounter procedure MIRELLA GUSMAN -[facility] Work Phone: Start: 08-13-2025 End: 08-13-[address] Lilia Bergeron MD Work Phone: -[facility] Start: 07-31-2025 End: 07-31-2025 Refill Brandi López MD Work Phone: Neurology Comment on above: Refill Request Start: 04-09-2025 End: 04-09-[address] Lilia Bergeron MD Work Phone: [facility] Work Phone: Start: 04-09-2025 End: 04-09-[address] Lilia Bergeron MD -[facility] Work Phone: Start: 04-09-2025 End: 04-09-2025 ambulatory Lilia Bergeron Facility:[facility] Start: 03-24-2025 End: 03-24-2025 Refill Brandi López MD Work Phone: Neurology Comment on above: Refill Request Patient Question Start: 03-20-2025 End: 03-20-2025 Patient encounter procedure Brandi López MD Work Phone: Neurology Comment on above: Essential tremor (Pr imary Dx) Start: 03-20-2025 End: 03-20-2025 ambulatory BRANDI LÓPEZ Facility:[facility] Start: 02-12-2025 End: 02-12-[address] Lilia Bergeron MD Work Phone: [facility] Work Phone: Start: 02-12-2025 End: 02-12-[address] Lilia Bergeron MD -Laboratory, [place] Start: 02-11-2025 End: 02-11-[address] Lilia Bergeron MD -[facility] Work Phone: Start: 02-11-2025 End: 02-12-2025 ambulatory Lilia Bergeron Facility:[facility] Start: 02-06-2025 End: 02-06-2025 Refill Sarah Chou PA-C Work Phone: Neurology Comment on above: Refill Request Start: 02-03-2025 End: 02-03-[address] Lilia Bergeron MD -[facility] Work Phone: Start: 02-03-2025 End: 02-03-2025 ambulatory Lilia Bergeron Facility:[facility] Start: 12-31-2024 End: 12-31-2024 Patient encounter procedure Sarah Chou PA-C Work Phone: Neurology Comment on above: Essential tremor (Pr imary Dx); Bilateral hand numbness Start: 12-31-2024 End: 12-31-2024 ambulatory [address] [facility] Facility:[facility] Start: 10-24-2024 End: 10-24-2024 ambulatory BIANKA RIVERA Facility:[facility] Start: 10-24-2024 End: 10-24-2024 Patient encounter procedure Elaine Meraz PA-C Work Phone: Orthopedics Comment on above: Left shoulder pain, unspecified chronicity (Primary Dx); Complete tear of left rotator cuff, unspecified whether traumatic Start: 10-10-2024 End: 10-10-2024 ambulatory Sarah Chou HARINDER-Tamika Work Phone: Neurology Comment on above: Tremor Start: 10-10-2024 End: 10-10-2024 E-mail encounter from caregiver Sarah Chou FER Work Phone: Neurology Start: 10-09-2024 End: 10-10-2024 ambulatory Alexus Burgos PT Work Phone: [facility] Comment on above: Essential tremor Start: 09-24-2024 End: 09-24-2024 Patient encounter procedure Sarah Chou PA-C Work Phone: Neurology Comment on above: Essential tremor (Pr imary Dx); Memory loss Start: 09-24-2024 End: 09-24-2024 ambulatory SAR[address] [facility] Facility:[facility] Start: 08-22-2024 End: 08-22-2024 Patient encounter procedure Bianka Rivera MD Work Phone: Orthopedics Comment on above: Complete tear of lef t rotator cuff, unspecified whether traumatic (Primary Dx) Start: 07-18-2024 End: 07-18-2024 Orders Only Bianka Rivera MD Work Phone: Orthopedics Comment on above: Chronic left shoulde r pain (Primary Dx) Complete tear of lef t rotator cuff, unspecified whether traumatic (Primary Dx); Left shoulder pain, unspecified chronicity Chronic left shoulde r pain [M25.512, G89.29] Start: 2024 End: 08-11-2024 Telephone encounter Sarah HAUSERC Work Phone: [facility] Comment on above: Patient Update Start: 07-03-2024 Orders Only Bianka Rivera MD Work Phone: Orthopedics Comment on above: Chronic right should er pain (Primary Dx) Start: 06-24-2024 End: 06-24-2024 Patient encounter procedure Sarah Chou PA-C Work Phone: Neurology Comment on above: Essential tremor (Pr imary Dx) Start: 06-03-2024 End: 06-03-2024 Patient encounter procedure Elaine HAUSERC Work Phone: [facility] Comment on above: S/P reverse total sh oulder arthroplasty, right (Primary Dx) Start: 06-03-2024 End: 06-03-2024 ambulatory [facility] Facility[facility] Start: 06-03-2024 End: 08-26-2024 Telephone encounter Bianka Rivera MD Work Phone: Orthopaedics Comment on above: Appointment Start: 05-27-2024 Telephone encounter Bianka Rivera MD Work Phone: [facility] Comment on above: Appointment Start: 05-15-2024 Telephone encounter Neurology Provid er Neurology Start: 03-04-2024 End: 03-04-2024 Patient encounter procedure Elaine PIZANO-C Work Phone: [facility] Comment on above: S/P reverse total sh oulder arthroplasty, right (Primary Dx) Start: 03-04-2024 End: 03-04-2024 ambulatory LILIA BERGERON Facility:[facility] Start: 02-18-2024 End: 02-18-2024 ambulatory Felipe Diaz PT Work Phone: [facility] Comment on above: S/P reverse total sh oulder arthroplasty, right (Primary Dx) Start: 02-11-2024 End: 02-11-2024 ambulatory Felipe Diaz PT Work Phone: [facility] Comment on above: S/P reverse total sh oulder arthroplasty, right (Primary Dx) Start: 02-07-2024 End: 02-07-2024 ambulatory Scott Rivera PT, DPT [facility] Comment on above: S/P reverse total sh oulder arthroplasty, right (Primary Dx) Start: 02-04-2024 End: 02-04-2024 ambulatory Francine Monson CLAIMS PROCESSOR Work Phone: [facility] Comment on above: S/P reverse total sh oulder arthroplasty, right (Primary Dx) Start: 01-31-2024 End: 01-31-2024 ambulatory Felipe Diaz PT Work Phone: [facility] Comment on above: S/P reverse total sh oulder arthroplasty, right (Primary Dx) Start: 01-28-2024 End: 01-28-2024 ambulatory Felipe Diaz PT Work Phone: [facility] Comment on above: S/P reverse total sh oulder arthroplasty, right (Primary Dx) Start: 01-28-2024 End: 01-28-[address] Lilia Bergeron Work Phone: [facility] Work Phone: Start: 01-23-2024 End: 01-23-2024 ambulatory Scott Rivera PT, DPT [facility] Comment on above: S/P reverse total sh oulder arthroplasty, right (Primary Dx) Start: 01-22-2024 End: 01-22-2024 ambulatory LILIA BERGERON Facility:[facility] Start: 01-17-2024 End: 01-17-2024 ambulatory Scott Rivera PT, DPT [facility] Comment on above: S/P reverse total sh oulder arthroplasty, right (Primary Dx) Start: 01-15-2024 End: 01-15-2024 ambulatory Francine Monson CLAIMS PROCESSOR Work Phone: [facility] Comment on above: S/P reverse total sh oulder arthroplasty, right (Primary Dx) Start: 01-04-2024 End: 01-04-2024 ambulatory Francine Monson CLAIMS PROCESSOR Work Phone: [facility] Comment on above: S/P reverse total sh oulder arthroplasty, right (Primary Dx) Start: 01-03-2024 End: 01-03-[address] Lilia Bergeron Work Phone: [facility] Work Phone: Start: 12-21-2023 End: 12-21-2023 Orders Only Bianka Rivera MD Work Phone: [facility] Comment on above: S/P reverse total sh oulder arthroplasty, right (Primary Dx) Start: 11-26-2023 Preprocedural examin ation done Bianka Rivera MD Work Phone: [facility] Work Phone: Start: 11-21-2023 End: 11-21-[address] Lilia Bergeron Work Phone: [facility] Work Phone: Start: 11-21-2023 End: 11-21-[address] Lilia Bergeron Work Phone: [facility] Start: 11-20-2023 End: 11-20-2023 Encounter for other preprocedural examination Dr. Lilia Bergeron Work Phone: [facility] Start: 11-20-2023 End: 11-20-[address] Lilia Bergeron Work Phone: [facility] Work Phone: Start: 11-09-2023 End: 11-09-[address] Lilia Bergeron Work Phone: [facility]opa[facility] Work Phone: Start: 09-27-2023 Orders Only Bianka Rivera MD Work Phone: [facility] Comment on above: Rotator cuff arthrop athy, right (Primary Dx) Start: 09-25-2023 End: 09-25-2023 Patient encounter procedure Bianka Rivera MD Work Phone: [facility] Comment on above: Rotator cuff arthrop athy of right shoulder (Primary Dx) Start: 09-12-2023 End: 09-12-[address] 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 Neli Head Work Phone: [facility] Work Phone: Start: 08-29-2023 End: 08-29-[address] [facility] Work Phone: Start: 08-13-2023 Orders Only Steffany Xavier rojas PA-C Work Phone: [facility] [place] Comment on above: Pain (Primary Dx) Start: 07-18-2023 End: 07-18-[address] Neli Head Work Phone: [facility] Work Phone: Start: 07-18-2023 End: 07-18-[address] Neli Head Work Phone: [facility] Start: 07-18-2023 End: 07-18-[address] Neli Head Work Phone: [facility] Work Phone: Start: 06-01-2023 End: 06-01-[address] Neli Head Work Phone: [facility] Work Phone: Start: 01-24-2023 End: 01-24-[address] Neli Head Work Phone: [facility] Work Phone: Start: 01-24-2023 End: 01-24-[address] Neli Head Work Phone: [facility] Start: 01-10-2023 End: 01-10-[address] Neli Head Work Phone: [facility] Work Phone: Start: 01-10-2023 End: 01-10-[address] Neli Head Work Phone: [facility] Start: 12-27-2022 End: 12-27-[address] Neli Head Work Phone: [facility] [place] Start: 06-21-2022 End: 06-21-2022 Patient encounter procedure Chela Bertrand MD Work Phone: [facility] [place] Comment on above: Other osteoporosis w ithout current pathological fracture (Primary Dx); Arthralgia, unspecified joint; Other hyperlipidemia; Primary osteoarthritis of both knees; Pruritus Start: 04-24-2022 End: 04-24-2022 Subsequent hospital visit by physician Ashly Ferrell [facility] Comment on above: Knee effusion, right [M25.461] Start: 03-01-2022 End: 03-01-[address] Neli Head Work Phone: [facility] Start: 03-01-2022 End: 03-01-[address] Neli Head Work Phone: [facility] Start: 01-25-2022 End: 01-25-[address] Neli Head Work Phone: [facility] Start: 01-23-2022 End: 01-23-[address] Neli Head Work Phone: [facility] Start: 01-20-2022 End: 01-20-[address] Neli Head Work Phone: [facility] Start: 01-13-2022 Non-patient / Non-visit Dr. Sonal Head Work Phone: [facility] Start: 01-12-2022 Non-patient / Non-visit Dr. Sonal Head Work Phone: [facility] Start: 01-12-2022 End: 01-13-2022 Evaluation and management of inpatient Dr. Neli Head Work Phone: [facility] Start: 08-31-2021 End: 08-31-2021 Patient encounter procedure TUNDE [facility] Procedures Date Procedure Procedure Detail Performing Clinician Start: 04-09-2025 Screening mammography Pebbles Bergeron MD Work Phone: Start: 02-12-2025 Antibody to centrome re measurement Dr. Lilia Bergeron MD Work Phone: Comment on above: Previous reported re sult: TNP AIEdited by: INFCE on 02/13/25:1108 AMENDED REPORT 02/13/25 1106 ANTI-CENT B previously reported as: Test not performed Start: 02-12-2025 Antibody to extracta ble nuclear antigen measurement Dr. Lilia Bergeron MD Work Phone: Comment on above: Previous reported re sult: TNP AIEdited by: INFCE on 02/13/25:1108 AMENDED REPORT 02/13/25 1104 SIFUENTES Ab previously reported as: Test not performed Start: 02-12-2025 Antibody to PRACHI-[address] Lilia Bergeron MD Work Phone: Comment on above: Previous reported re sult: TNP AIEdited by: INFCE on 02/13/25:1108 AMENDED REPORT 02/13/25 1108 ANTI-PRACHI previously reported as: Test not performed Start: 02-12-2025 Antibody to lupus La protein measurement Dr. Lilia Bergeron MD Work Phone: Comment on above: Previous reported re sult: TNP AIEdited by: INFCE on 02/13/25:1108 AMENDED REPORT 02/13/25 1108 Anti-SS-B previously reported as: Test not performed Start: 02-12-2025 Antibody to SS-A measurement Dr. Lilia Bergeron MD Work Phone: Comment on above: Previous reported re sult: TNP AIEdited by: INFCE on 02/13/25:1108 AMENDED REPORT 02/13/25 1108 Anti-SS-A previously reported as: Test not performed Start: 02-12-[address] Lilia Bergeron MD Work Phone: Comment on above: Previous reported re sult: TNP AIEdited by: INFCE on 02/13/25:1108 AMENDED REPORT 02/13/25 1108 ANTICHROMATIN previously reported as: Test not performed Start: 02-12-2025 [employer]YING AND WINDING SUPERVISOR antibody measurement Dr. Lilia Bergeron MD Work Phone: Comment on above: Previous reported re sult: TNP AIEdited by: INFCE on 02/13/25:1108 AMENDED REPORT 02/13/25 1100 [employer]YING AND WINDING SUPERVISOR Ab previously reported as: Test not performed Start: 02-12-2025 Total iron binding capacity measurement Dr. Lilia Bergeron MD Work Phone: Start: 02-12-2025 Vitamin D, 25-hydrox y measurement Dr. Lilia Bergeron MD Work Phone: Comment on above: Vitamin D StatusDefi ciency: <20 ng/mL (50nmol/L)Insufficiency: 20-30 ng/mL (50-75 nmol/L)Sufficiency: 30-100 ng/mL (75-250 nmol/L)Toxicity: >100 ng/mL (>250 nmol/L) Start: 07-18-2024 Arthrocentesis aspir &/inj major jt/bursa w/o us Elaine Meraz PA-C Work Phone: Start: 07-18-2024 Radex shoulder compl ete minimum 2 views Elaine Meraz PA-C Work Phone: Start: 01-28-2024 Screening mammography Pebbles Bergeron Work Phone: Start: 09-12-2023 X-ray of cervical spine Dr. Lilia Bergeron Work Phone: Start: 09-03-2023 Radex shoulder compl ete minimum 2 views Steffany Rodriguez PA-C Work Phone: Start: 08-29-2023 MRI of cervical spine Pebbles Head Work Phone: Start: 06-01-2023 Plain X-ray of shoulder Dr. Neli Head Work Phone: Start: 01-24-2023 Screening mammography Pebbles Head Work Phone: Start: 04-24-2022 Radiologic examinati on knee 1/2 views Chela Bertrand MD Work Phone: Start: 03-01-2022 End: 03-01-2022 MRI of joint of lower extremity Dr. Neli Head Work Phone: Start: 01-23-2022 Screening mammography Pebbles Head Work Phone: Start: 01-13-2022 Radionuclide imaging of perfusion of myocardium under exercise stress Dr. Neli Head Work Phone: Start: 01-12-2022 Plain chest X-ray Dr. Marilou Head Work Phone: Start: 08-28-2014 Colonoscopy Xr Green H/O: tubal ligation History of t ubal ligation Dr. Neli Head Work Phone: Hemorrhoid operation TUNDE EVERETT Plan of Treatment Date Care Activity Detail Author Start: 07-18-2028 Pneumococcal Vaccine: 50+ (3 of 3 - PCV20 or PCV21) Pneumococcal Vaccine: 50+ (3 of 3 - PCV20 or PCV21) [facility] Start: 07-18-2028 Pneumococcal Vaccine: 65+ (3 - PPSV23 or PCV20) Pneumococcal Vaccine: 65+ (3 - PPSV23 or PCV20) [facility] Start: 07-18-2028 Pneumococcal Vaccine: 65+ (3 of 3 - PPSV23 or PCV20) Pneumococcal Vaccine: 65+ (3 of 3 - PPSV23 or PCV20) [facility] Start: 12-13-2026 Diabetes Screening Diabetes Screening [facility] Start: 09-21-2025 End: 09-21-2025 Patient encounter procedure Neurology Comment on above: Return in about 5 months Start: 08-26-2025 Thyroid stimulating hormone measurement [facility] Start: 08-26-2025 Tilt table test [facility] Start: 07-20-2025 Influenza vaccination Influenza Vaccine (#1) [facility] Start: 04-24-2025 DIABETES SCREEN DIABETES SCREEN [facility] Start: 04-24-2025 Diabetes Screening Diabetes Screening [facility] Start: 03-20-2025 End: 03-20-2025 Patient encounter procedure 03/20/2025 2:00 PM EDT Office Visit Neurology [address] [place] [phone] Brandi López MD [address] [place] [address] Essential tremor [G25.0] Neurology Comment on above: Essential tremor [G25.0] Start: 12-31-2024 End: 12-31-2024 Patient encounter procedure 12/31/2024 11:30 AM EST Office Visit Neurology [address] [place] [address] Sarah Chou PA-C [address] [place], [place] [id number] 3 mo f/u Neurology Comment on above: 3 mo f/u Start: 11-19-2024 Advance Directive Discussion Advance Directive Discussion [facility] Start: 11-19-2024 Medicare Advantage Annual Wellness Visit Medicare Advantage Annual Wellness Visit [facility] Start: 10-24-2024 End: 10-24-2024 Patient encounter procedure 10/24/2024 2:15 PM EST Office Visit Orthopedics [address] [facility] [address] [place] [phone] Bianka Rivera MD [address] [facility] [place] [address] 2 month f/u, left [facility] Comment on above: 2 month f/u, left shelby Start: 10-09-2024 End: 10-09-2024 ambulatory 10/09/2024 3:00 PM EST OT/PT/Speech Visit [facility] [address] [place] [address] Alexus Burgos, [facility] [address] [facility] [place] [address] Essential tremor [G25.0] [facility] Comment on above: Essential tremor [G25.0] Start: 09-24-2024 End: 09-24-2024 Patient encounter procedure 09/24/2024 4:00 PM EST Office Visit Neurology [address] [place], [place] [address] Sarah Chou PA-C [address] [place], [place] [phone] 3 mo f/u Neurology Comment on above: 3 mo f/u Start: 08-28-2024 Colonoscopy COLONOSCOPY [facility] Start: 08-28-2024 COLORECTAL CANCER SCREENING COLORECTAL CANCER SCREENING [facility] Start: 08-22-2024 End: 08-22-2024 Patient encounter procedure 08/22/2024 2:15 PM EDT Office Visit Orthopedics [address] [facility] [address] [place] [phone] Bianka Rivera MD [address] [facility] [place] [address] 6 week f/u, left shosukhjinderler Orthopedics Comment on above: 6 week f/u, left shoudler Start: 07-20-2024 Covid-19 Vaccine ( season) Covid-19 Vaccine ( season) [facility] Start: 07-20-2024 Covid-19 Vaccine ( season) Covid-19 Vaccine ( season) [facility] Start: 07-20-2024 Influenza vaccination Influenza Vaccine (#1) [facility] Start: 07-18-2024 End: 07-18-2024 Patient encounter procedure Orthopedics Comment on above: follow up for shoulder R shoulder R-RTSA 12/12/23 Start: 07-04-2024 End: 07-04-2024 Patient encounter procedure 07/04/2024 2:30 PM EDT Office Visit Orthopedics [address] [facility] [address] [place] [address] Bianka Rivera MD [address] [place] [address] follow up for shoulder Orthopedics Comment on above: follow up for shoulder Start: 06-24-2024 End: 06-24-2024 Patient encounter procedure 06/24/2024 2:45 PM EDT Office Visit Neurology [address] [place], [place] [phone] Sarah Chou [facility]C [address] [facility] [place] [phone] Dx R 25.1 Tremor, (family Hx Parkinson's ) Neurology Comment on above: Dx R 25.1 Tremor, (family Hx Parkinson's ) Start: 06-03-2024 End: 06-03-2024 Patient encounter procedure [place] [facility] Orthopedics Comment on above: RIGHT SHOULDER F/U RIGHT SHOULDER F/U ( ok per Marcene) Start: 03-01-2024 LIPID SCREEN LIPID SCREEN [facility] Start: 11-19-2023 Advance Directive Discussion Advance Directive Discussion [facility] Start: 11-19-2023 Behavioral Health Screening Behavioral Health Screening [facility] Start: 11-19-2023 Depression Assessment Depression Assessment [facility] Start: 07-20-2023 Covid-19 Vaccine () Covid-19 Vaccine () [facility] Start: 07-20-2023 Influenza vaccination Influenza Vaccine (#1) [facility] Start: 11-19-2022 Advance Directive Discussion Advance Directive Discussion [facility] Start: 11-19-2022 Depression Assessment Depression Assessment [facility] Start: 07-20-2022 Influenza vaccination [facility] Start: 2022 RSV Vaccine (1 - 1-dose 75+ series) RSV Vaccine (1 - 1-dose 75+ series) [facility] Start: 08-19-2022 Covid-19 Vaccine (5 - Moderna series) Covid-19 Vaccine (5 - Moderna series) [facility] Start: 06-21-2022 End: 08-21-2022 25-hydroxyvitamin D3 [Mass/volume] in Serum or Plasma VITAMIN D 25 HYDROXY Lab Routine Other osteoporosis without current pathological fracture Arthralgia, unspecified joint Expected: 06/21/2022, Expires: 08/21/2022 [facility] Work Phone: Comment on above: Expected: 06/21/2022, Expires: 2 Start: 06-21-2022 End: 08-21-2022 JOHN BY IFA SCREEN JOHN BY IFA SCREEN Lab Routine Other osteoporosis without current pathological fracture Arthralgia, unspecified joint Expected: 06/21/2022, Expires: 08/21/2022 [facility] Work Phone: Comment on above: Expected: 06/21/2022, Expires: 2 Start: 06-21-2022 End: 08-21-2022 CBC W Auto Differential panel - Blood CBC + DIFF Lab Routine Arthralgia, unspecified joint Expected: 06/21/2022, Expires: 08/21/2022 [facility] Work Phone: Comment on above: Expected: 06/21/2022, Expires: 2 Start: 06-21-2022 End: 08-21-2022 Cyclic citrullinated peptide IgG Ab [Units/volume] in Serum or Plasma CCP ANTIBODY IGG Lab Routine Other osteoporosis without current pathological fracture Arthralgia, unspecified joint Expected: 06/21/2022, Expires: 08/21/2022 [facility] Work Phone: Comment on above: Expected: 06/21/2022, Expires: 2 Start: 06-21-2022 End: 08-21-2022 Lipid 1996 panel - Serum or Plasma LIPID PANEL BASIC Lab Routine Other hyperlipidemia Expected: 06/21/2022, Expires: 08/21/2022 [facility] Work Phone: Comment on above: Expected: 06/21/2022, Expires: 2 Start: 06-21-2022 End: 08-21-2022 Mitochondria Ab [Presence] in Serum by Immunofluorescence MITOCHONDRIAL AB PNL SCRN Lab Routine Other osteoporosis without current pathological fracture Arthralgia, unspecified joint Expected: 06/21/2022, Expires: 08/21/2022 [facility] Work Phone: Comment on above: Expected: 06/21/2022, Expires: 2 Start: 01-25-2022 Patient referral [facility] Work Phone: Start: 01-21-2022 COVID-19 VACCINE (4 - Booster for Moderna series) COVID-19 VACCINE (4 - Booster for Moderna series) [facility] Start: 11-19-2021 ADVANCE DIRECTIVE DISCUSSION ADVANCE DIRECTIVE DISCUSSION [facility] Start: 05-23-2018 LIPID SCREEN LIPID SCREEN [facility] Start: 05-23-2016 DIABETES SCREEN DIABETES SCREEN [facility] Start: 2012 BONE DENSITY BONE DENSITY [facility] Start: 2012 Bone Density Screening Bone Density Screening [facility] Start: 2012 Pneumococcal Vaccine: 65+ (1 - PCV) Pneumococcal Vaccine: 65+ (1 - PCV) [facility] Start: 2012 PNEUMOCOCCAL: 65+ (1 - PCV) PNEUMOCOCCAL: 65+ (1 - PCV) [facility] Start: 2012 Screening for osteoporosis Bone Density Screening [facility] Start: 2007 RSV Vaccine (1 - 1-dose 60+ series) RSV Vaccine (1 - 1-dose 60+ series) [facility] Start: 1997 SHINGRIX VACCINE (1 of 2) SHINGRIX VACCINE (1 of 2) [facility] Start: 1992 COLOGUARD (FIT-DNA) COLOGUARD (FIT-DNA) [facility] Start: [address] COLONOGRAPHY [facility] Start: 1992 FECAL OCCULT BLOOD FECAL OCCULT BLOOD [facility] Start: 1992 SIGMOIDOSCOPY SIGMOIDOSCOPY [facility] Start: 1987 Mammography MAMMOGRAM [facility] Start: 1966 [facility] Start: 1965 ANNUAL PCP TEAM CHRONIC DISEASE VISIT ANNUAL PCP TEAM CHRONIC DISEASE VISIT [facility] Start: 1965 Anxiety Screening Anxiety Screening [facility] Start: 1965 Depression Screening Depression Screening [facility] Start: 1965 HEPATITIS C SCREENING HEPATITIS C SCREENING [facility] Start: 1965 Hepatitis C screening Hepatitis C Screening [facility] Start: 1959 Adult depression screening assessment DEPRESSION SCREENING [facility] CBC W Auto Different ial panel - Blood [facility] Comprehensive metabo lic 2000 panel - Serum or Plasma [facility] Magnesium measurement [facility] MG Breast - bilatera l Screening [facility] MG Breast - bilatera l Screening [facility] MR Cervical spine [facility] Patient referral [facility] Work Phone: XR HAND GENERAL 3V PA/LAT/OBL LEFT XR HAND GENERAL 3V PA/LAT/OBL LEFT Radiology Routine Arthralgia, unspecified joint 06/21/2022 12:48 PM EDT [facility] Work Phone: XR HAND GENERAL 3V PA/LAT/OBL RIGHT XR HAND GENERAL 3V PA/LAT/OBL RIGHT Radiology Routine Arthralgia, unspecified joint 06/21/2022 12:48 PM EDT [facility] Work Phone: XR KNEE LIMITED 2V A P/LAT RIGHT XR KNEE LIMITED 2V AP/LAT RIGHT Radiology Routine Knee effusion, right 04/24/2022 11:59 AM EDT [facility] Work Phone: XR Shoulder - left 3 Views C [facility] Work Phone: Comment on above: 1 Occurrences starting 07/18/2024 XR Shoulder - right 3 Views XR S HOULDER GENERAL 3V OR MORE AP/TRUE AP/OTHER RIGHT Radiology Routine Chronic right shoulder pain 1 Occurrences starting 07/03/2024 [facility] Work Phone: Comment on above: 1 Occurrences starting 07/03/2024 XR Shoulder - right AP and Axillary and Y XR SHOULDER 3V AP/Y VIEW/AXILLARY RIGHT (AK) Radiology Routine S/P reverse total shoulder arthroplasty, right Ordered: 03/04/2024 [facility] Work Phone: Comment on above: Ordered: 03/04/2024 XR Shoulder - right AP and Axillary and Y XR SHOULDER 3V AP/Y VIEW/AXILLARY RIGHT (AK) Radiology Routine S/P reverse total shoulder arthroplasty, right Ordered: 06/03/2024 [facility] Work Phone: Comment on above: Ordered: 06/03/2024 End: 09-11-2024 XR SHOULDER GENERAL 3V OR MORE AP/TRUE AP/OTHER RIGHT XR SHOULDER GENERAL 3V OR MORE AP/TRUE AP/OTHER RIGHT Radiology Routine Pain 1 Occurrences starting 08/13/2023 until 09/11/2024 [facility] Work Phone: Comment on above: 1 Occurrences starting 08/13/2023 until 09/11/[address] [facility] Immunizations Immunization Date Immunization Notes Care Provider [facility] 08-13-2025 Seasonal trivalent influenza vaccine, adjuvanted, preservative free Dr. Lilia Bergeron MD Work Phone: [facility] 10-01-2024 influenza, high dose seasonal, preservative-free Dr. Lilia Bergeron MD Work Phone: [facility] 10-01-2024 influenza virus vaccine, unspecified formulation Brandi López MD Work Phone: [facility] 11-20-2023 influenza, injectabl e, quadrivalent, preservative free Dr. Lilia Bergeron Work Phone: [facility] 11-20-2023 influenza virus vaccine, unspecified formulation Neurology Provider [facility] 07-18-2023 pneumococcal conjuga te vaccine, [address] Neli Head Work Phone: [facility] 11-24-2022 Covid Moderna Bivale nt Booster Dr. Lilia Bergeron Work Phone: [facility] 10-06-2022 Influenza High-Dose Quadrivalent Dr. Lilia Bergeron Work Phone: [facility] 10-06-2022 Influenza, high dose seasonal Dr. Lilia Bergeron MD Work Phone: [facility] 10-06-2022 influenza, high dose seasonal, preservative-free Dr. Neli Head Work Phone: [facility] 10-06-2022 influenza virus vaccine, unspecified formulation Steffany Regotti PA-C Work Phone: [facility] 05-12-2022 Covid (Moderna) Dr. Neli casanova Work Phone: [facility] 09-23-2021 Covid (Moderna) Dr. Neli casanova Work Phone: [facility] 09-06-[address] Neli Head Work Phone: [facility] 02-14-2021 Covid (Moderna) Dr. Neli casanova Work Phone: [facility] 01-17-2021 Covid (Moderna) Dr. Neli casanova Work Phone: [facility] 11-06-2019 Influenza, high dose seasonal Dr. Lilia Bergeron MD Work Phone: [facility] 11-06-2019 influenza, high dose seasonal, preservative-free Dr. Neli Head Work Phone: [facility] 11-06-2019 influenza virus vaccine, unspecified formulation Steffany Regotti PA-C Work Phone: [facility] Payers Date Payer Category Payer Self-pay [id number] 2024 Medicare (Managed Care) [facility] MEDIC[facility] [id number] 2024 Unknown [id number] 2019 Medicaid [id number] 2019 Medicare [id number] 2019 Medicare [employer] [facility] MEDICARE [id number] 2019-Present [phone] [address] [place] [address] Medicare [id number] 2016 Unknown [id number] 2016 Unknown [id number] Medicare [id number] Unknown [id number] Unknown [id number] Unknown [id number] Unknown [id number] Unknown [id number] Unknown [id number] Social History Date Type Detail Facility Start: 03-15-2021 End: 01-02-2024 Never smoked tobacco (finding) [facility] Sex Assigned At [facility] Start: 03-01-2022 End: 01-02-2024 Tobacco smoking status NHIS Unknown if ever smoked [facility] Start: 1945 Sex Assigned At Female [facility] Start: 04-24-2022 End: 03-20-2025 Alcohol intake Current non-drinker of alcohol (finding) [facility] Start: 1945 Sex Assigned At Not on file [facility] Start: 04-14-2022 End: 06-21-2022 Exposure to SARS-CoV-2 (event) Not sure [facility] Start: 04-16-2019 End: 09-03-2023 Tobacco use and exposure Smokeless tobacco non-user [facility] Start: 06-21-2022 End: 09-25-2023 History of Social function [facility] Start: 06-21-2022 End: 09-25-2023 Tobacco use panel [facility] Start: 10-20-2012 National Score (1-100), lower number is lower risk 67 [facility] Start: 02-17-2025 Sex Female (finding) [facility] Medical Equipment Procedure Code Equipment Code Equipment Origin al Text Equipment Identifier Dates Head Rsp 36mm Neutral Glenoid Retain Screw - [id number] Start: 12-12-2023 Stem Humeral Altivate Reverse Small Shell Sz 1c261ty - [id number] Start: 12-12-2023 Insert Ar Small Diarpe41mn Neutral Eplus - [id number] Start: 12-12-2023 Baseplate Rsp P2 30mm Glenoid Sterile - [id number] Start: 12-12-2023 Screw Rsp 5mm 26 mm Bone Lock Glenoid Baseplate Shoulder - [id number] Start: 12-12-2023 Screw Rsp 5mm 22 mm Bone Lock Glenoid Baseplate Shoulder - [id number] Start: 12-12-2023 Screw Rsp 5mm 18 mm Bone Lock Glenoid Baseplate Shoulder - [id number] Start: 12-12-2023 Screw Rsp 5mm 18 mm Bone Lock Glenoid Baseplate Shoulder - [id number] Start: 12-12-2023 Functional Status Date Assessment Result Facility 12-13-2023 Are you deaf, or do you have serious difficulty hearing No 12/13/2023 8:35 AM Lynda Chatman RN No [facility] 12-13-2023 Are you blind, or do you have serious difficulty seeing, even when wearing glasses No 12/13/2023 8:35 AM Lynda Chatman RN No [facility] 12-13-2023 Do you have serious difficulty walking or climbing stairs No 12/13/2023 8:35 AM Lynda Chatman, DIVYA No [facility] 12-13-2023 Do you have difficul ty dressing or bathing No 12/13/2023 8:35 AM Lynda Chatman, DIVYA No [facility] 12-13-2023 Because of a physica l, mental, or emotional condition, do you have difficulty doing errands alone such as visiting a physician's office or shopping No 12/13/2023 8:35 AM Lynda Chatman, DIVYA No [facility] 01-13-2022 Functional status [facility] Work Phone: Mental Status Date Assessment Result Facility 12-13-2023 Because of a physica l, mental, or emotional condition, do you have serious difficulty concentrating, remembering, or making decisions No 12/13/2023 8:35 AM Lynda Chatman RN No [facility] 01-12-2022 Cognitive function Voice/Name [facility] Work Phone: Clinical Notes 03-15-2021 to 09-21-2025 Note Date & Type Note Facility 09-21-2025 Note HNO ID: [id number] Author: BRANDI LÓPEZ MD Service: ? Author Type: Physician Type: Progress Notes Filed: 09/21/2025 17:34 Note Text: FOLLOW UP NOTE Subjective Ana Gonzalez is a 80 year old female who presents for follow up. 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 Her examination demonstrates bilateral primarily kinetic and writing tremor. We discussed her presentation, which is consistent with ET. Explained condition including treatment approach. Propranolol best medication for it, tried up to 60 mg and called in with possible side effects, she denies having had any side effects today though. Will retry and titrate to 60 mg daily, and if doing OK on this dose can change to long-acting formulation and titrate higher. Taper off gabapentin for now. Consider retrial primidone at higher dose if propranolol side effects. Explained surgical treatments in case medication not helping and she is bothered enough by tremor to want to pursue. HPI Current Issues - Tremor is similar to last visit - Propranolol 60 mg LA without clear benefit or side effects - Danced one night and the next day felt terrible, headache, dizzy the whole day, then the following day bent over and felt dizzy when she stood up, this lasted 15 days and then improved. - Able to give her insulin without tremor, very cautious with it - Was at the [employer] and couldn't remember the word for pumpkin in Faroese or Sammarinese. Occasionally will forget her phone number. - She is able to do all her ADLs Current Outpatient Medications Medication Sig Dispense Refill propranolol ER (INDERAL LA) 60 mg 24 hr capsule Take 1 capsule by mouth once daily. 90 capsule 1 gabapentin (NEURONTIN) 300 mg capsule Take 1 capsule by mouth once daily for 7 days. Then stop 7 capsule 0 MULTIVIT,[id number] ORAL Take 100 mg by mouth once daily. spironolactone (ALDACTONE) 50 mg tablet Take 50 mg by mouth once daily. cyanocobalamin, vitamin B-12, (VITAMIN B-12) 5,000 mcg subl Dissolve 5,000 mcg under the tongue once daily. cholecalciferol, vitamin D3, (VITAMIN D3 ORAL) Take 50,000 Units by mouth every 2 weeks. biotin 1 mg cap Take 1 mg by mouth once daily. Minoxidil 2 % external solution 1 teaspoon applied topically on scalp once daily alendronate (FOSAMAX) 70 mg tablet Take 1 tablet by mouth one time a week. On empty stomach with large glass of water. First thing in the am. No other medications. Do not lie down after taking this. 12 tablet 0 atorvastatin (LIPITOR) 10 mg tablet Take 10 mg by mouth daily at bedtime. MELOXICAM ORAL Take 7.5 mg by mouth once daily. LEVOTHYROXINE 50 MCG TAB Take one(1) tablet daily. 30 0 No current facility-administered medications for this visit. Objective OBJECTIVE 09/21/25 1554 BP: 148/70 Pulse: (!) 57 SpO2: 100% Weight: 56.1 kg (123 lb 10.9 oz) General: General Appearance: Well appearing, alert, in no acute distress, well-hydrated, well nourished. Head: Normocephalic Neck: Supple Heart: RRR Neurologic Exam: Mental Status: She is alert. She is fully oriented. Attention is intact. Memory is intact. Language shows normal comprehension and fluency. Affect is appropriate. Cranial Nerves: Extraocular movements show full and smooth pursuits. No nystagmus. Visual ambrose are full to confrontation. Facial activation is symmetric. Hearing is intact to conversation. There is no hypomimia. There is no hypophonia. There is no dysarthria. Tongue is midline. Palate elevates symmetrically. Shoulder shrug is normal. Motor: Muscle bulk is normal. Rapid alternating movements are normal. Muscle power is full. No rest tremor, subtle intermittent chin tremor. Postural tremor emerges in right hand with hand close to chest, none when outstretched, also occurs with holding cup close to face to drink. Severe with writing. Mod bilateral kinetic tremor. Coordination: Finger to nose is smooth without ataxia. Gait/station: Normal DATA REVIEW Actual films/image/tracing reviewed and summarized as follows: n/a Old records reviewed and summarized as follows: TSH 1.17 Assessment/Plan ASSESSMENT AND PLAN: Ana Gonzalez is a 80 year old RH female who presents for follow up of ET. Her examination shows R>L postural kinetic tremor. 1. ET - Discussed treatment options, bothered enough by tremor to want to increase propranolol up to 120 mg daily. Explained possible side effects - Multiple prior med trials, don't see another good med option - Episode of dizziness sounds like vertigo - Not concerned about memory symptoms which sounds like normal aging Follow-up: 6 months Risks AND Side Effects of Newly Prescribed Medication, Discussed with Patient: YES Brandi López MD [facility] Neurology [facility] 08-13-2025 Evaluation note Diagnosis Onset Date Resolution Osteoporosis acute August 132024 11:13am Immunization due noneactive Septembe r 2024 11:13am Orthostasis acute August 26, 2025 1:59pm [facility] Work Phone: 1(980) 804-693809-25-2025 [facility] [address] [place] [address] OFFICE VISIT Date of Service: 08/13/25 MR#: [id number] Acct: [id number] Patient: ANA GONZALEZ p #: [id number] : 1945 Provider: MIRELLA Aviles Age/Sex: 80/F Location: [facility] Status: Signed Intake Vital Signs 02/11/25 12:58 Height 4 ft 9 in Weight: 127 lb BMI 27.4 BP 122/74 H Blood Pressure Location Lt brachial Position Sitting Respiration 14 Pulse 67 Pulse Source Monitor Temp 97 F L Temp Source Temporal Pulse Oximetry (%) 97 Oxygen Delivery Method room air Intake Visit Reasons: PROLIA-$0 Chief Complaint: sciatica pain Allergies acetaminophen (From Tylenol) Allergy (Mild, Verified 07/10/24 09:39) hives ibuprofen Allergy (Mild, Verified 07/10/24 09:44) Other Have you fallen in the past year?: No Nurse's Note: Pt here for prolia, and is pt provided. Pt also requesting flu shot Office Procedures Injections Procedure performed by: Christin Landrum Is this a patient provided medication?: Yes Office Meds Prolia 60 mg/mL subcutaneous syringe Performing Provider: Lilia Bergeron MD Performing Location: [facility] Administered by: Christin Landrum MA on 08/13/25 11:29 Dose Route Admin Location Dispensed Lot Number Expiration Date Pack age NDC NDC Arrt Technologist 60 mg subcut LD 1 mL [id number] 04/18/28 93391-592-36 [id number] 1 AMGEN Comments: patient provided Dx: osteo Immunizations Fluad 65yr up(PF)45 mcg(15 mcgx3)/0.5 mL intramuscular syringe Performing Provider: Lliia Bergeron MD Performing Location: [facility] Administered by: Christin Landrum MA on 08/13/25 11:29 Dose Route Admin Location Dispensed Lot Number Expiration Date Pack age NDC NDC Arrt Technologist 45 mcg IM Left Deltoid 0.5 mL [id number] 03/16/26 68612-914-46 [id number] [employer], [employer]. VIS Given Date VIS Provided VIS Publication Date 08/13/25 Single Vaccine 24 Eligibility Eligibility Date Funding Source Not Applicable Assessment and Plan Assessment and Plan (1) Osteoporosis: Status: Acute Qualifiers: Osteoporosis type: age-related Presence of current pathological fracture: without current pathological fracture Qualified Code(s): M81.0 - Age-related osteoporosis without current pathological fracture (2) Immunization due: Orders: Orders Prolia Injection Today M81.0 - Age-related osteoporosis without current pathological fracture Influenza Immunization Today Z23 - Encounter for immunization Clinical Quality Measures Falls Risk Screening/Assistive Devices Have you fallen in the past year?: No 08/13/25 1517 y MD> Date _ Lilia Bergeron MD Cosigner Signature: Date (if applicable) CC: ~ [facility] [id number] Telephone encounter Note* Telephone Encounter - Brandi López MD - 07/31/2025 2:57 PM EDT I changed her from 30 mg BID short acting to 60 mg long-acting for convenience if you can let her know. Thanks [facility]09-12-2025 Miscellaneous Notes* Telephone Encounter - Brandi López MD - 07/31/2025 2:57 PM EDT I changed her from 30 mg BID short acting to 60 mg long-acting for convenience if you can let her know. Thanks * Telephone Encounter - Kristine Stewart RN - 07/31/2025 11:11 AM EDT Last OV:03/20/2025 Last Refill: 03/20/2025 F/U OV: 09/21/2025 Appropriate for refill. Routed to for review. WILLIAM Fox, RN, BA documented in this encounterUniversity [facility]09-12-[facility]25 Telephone encounter Note * Telephone Encounter - Kristine Stewart RN - 07/31/2025 11:11 AM EDT Last OV:03/20/2025 Last Refill: 03/20/2025 F/U OV: 09/21/2025 Appropriate for refill. Routed to for review. WILLIAM Fox, RN, BA [facility] Work Phone: 1(969) 755-429205-06-2025 Telephone encounter Note* Telephone Encounter - Brandi López MD - 03/24/2025 11:25 AM EDT Cool thanks, I sent it in [facility]05-06-2025 Miscellaneous Notes* Telephone Encounter - Brandi López MD - 03/24/2025 11:25 AM EDT Huyen thanks, I sent it in * Telephone Encounter - Kristine Stewart RN - 03/24/2025 10:57 AM EDT This RN called and spoke with Ms. Gonzalez and she states that she does not have enough to finish the taper and will need a one-week supply. Sent to for review and signature. Kristine Stewart, WILLIAM, RN, BA * Telephone Encounter - Brandi López MD - 03/24/2025 10:33 AM EDT Can you just double check if she needs the 1 week tapering supply to get her off, or tried reducingand wants to go back on? I think she means the 1 week taper but want to be sure. Thanks * Telephone Encounter - Liliam Pena - 03/24/2025 10:04 AM EDT Call received for Brandi López MD regarding Ana Gonzalez 1945. Caller: Self Patient Identified by Name and : Yes Was permission obtained from patient ? NA Reason for Call: Other: The patient called the office asking of Dr. López can prescribe Gabapentin 300 mg . She's asking for a 1 week supply? Last Office Visit: Visit 03/20/25 Last [facility] visit: Visit date not found Next scheduled appointment: 09/21/2025 Best number to reach caller: [phone] (home) Best time to reach caller: any Is it OK to leave a detailed voice message? Yes Liliam Pena documented in this encounterUniversity [facility]05-06-2025 Telephone encounter Note * Telephone Encounter - Kristine Stewart RN - 03/24/2025 10:57 AM EDT This RN called and spoke with Ms. Gonzalez and she states that she does not have enough to finish the taper and will need a one-week supply. Sent to for review and signature. WILLIAM Fox, RN, BA [facility] Work Phone: 1(512) 265-945905-06-2025 Telephone encounter Note* Telephone Encounter - Brandi López MD - 03/24/2025 10:33 AM EDT Can you just double check if she needs the 1 week tapering supply to get her off, or tried reducingand wants to go back on? I think she means the 1 week taper but want to be sure. Thanks [facility]05-06-2025 Telephone encounter Note* Telephone Encounter - Liliam Pena - 03/24/2025 10:04 AM EDT Call received for Brandi López MD regarding Ana Gonzalez 1945. Caller: Self Patient Identified by Name and : Yes Was permission obtained from patient ? NA Reason for Call: Other: The patient called the office asking of Dr. López can prescribe Gabapentin 300 mg . She's asking for a 1 week supply? Last Office Visit: Visit 03/20/25 Last [facility] visit: Visit date not found Next scheduled appointment: 09/21/2025 Best number to reach caller: [phone] (home) Best time to reach caller: any Is it OK to leave a detailed voice message? Yes Liliam Pena [facility]05-02-2025 Instructions* Patient Instructions* Brandi López MD - 03/20/2025 2:04 PM EDT 1. First lets taper off gabapentin - take 1 pill once a day for a week then stop 2. Then restart propranolol - its a beta goyo, which can lower heart rate or blood pressure - watch out for light-headedness or fatigue if these get too low. Keep an eye on these with your home blood pressure cuff. Also watch out for mood changes or breathing difficulty. We will start a low dosetwice a day version and can increase it over time and/or change to a once a day version in the future. Week 1: Take one 10 mg pill twice a day Week 2: Take 2 pills twice a day Week 3 and on: Take 3 pills twice a day Message me after you've been on the full dose for a few a weeks and if tolerating it OK without side effects we can change to a once a day version and increase the dose. documented in this encounterUniversity Hospitals [facility]05-02-2025 NoteHNO ID: [id number] Author: BRANDI LÓPEZ MD Service: ? Author Type: Physician Type: Progress Notes Filed: 03/20/2025 14:47 Note Text: NEW PATIENT EVALUATION Subjective HPI Ana Gonzalez is a 79 year old right-handed female who presents for evaluation of tremor. Sarah Chou PA-C is the referring provider. Dr. Lilia Bergeron MD is the PCP. She has had tremor for around 20 years or more. Started in the right hand and slowly worsening over time. Has noticed it in the left hand slightly only over the last year. Tremor is present when using the hands and while writing. Generally not spilling food or drink, handwriting. Mom had PD, no family history of tremor. Minimal alcohol not aware of response. 1 cup of coffee a day. Smell is fine. No constipation. No dream behavior. Previous med trials: - Gabapentin 300 mg BID -> currently on, no benefit / no side effects - Propranolol 30 mg BID -> bradycardia / dizziness per reports, she denies side effects but says it didn't help - Primidone 100 mg QHS -> no benefit / no side effects Medications: Current Outpatient Medications Medication Sig Dispense Refill gabapentin (NEURONTIN) 300 mg capsule Take 1 capsule by mouth two times a day for 180 days. 60 capsule 5 MULTIVIT,[id number] ORAL Take 100 mg by mouth once daily. spironolactone (ALDACTONE) 50 mg tablet Take 50 mg by mouth once daily. cyanocobalamin, vitamin B-12, (VITAMIN B-12) 5,000 mcg subl Dissolve 5,000 mcg under the tongue once daily. propranolol (INDERAL) 10 mg tablet Week 1: Take one 10 mg pill twice a day. Week 2: Take 2 pills twice a day Week 3 and on: Take 3 pills twice a day 60 tablet 0 cholecalciferol, vitamin D3, (VITAMIN D3 ORAL) Take 50,000 Units by mouth every 2 weeks. biotin 1 mg cap Take 1 mg by mouth once daily. Minoxidil 2 % external solution 1 teaspoon applied topically on scalp once daily atorvastatin (LIPITOR) 10 mg tablet Take 10 mg by mouth daily at bedtime. MELOXICAM ORAL Take 7.5 mg by mouth once daily. LEVOTHYROXINE 50 MCG TAB Take one(1) tablet daily. 30 0 alendronate (FOSAMAX) 70 mg tablet Take 1 tablet by mouth one time a week. On empty stomach with large glass of water. First thing in the am. No other medications. Do not lie down after taking this. (Patient not taking: Reported on 09/24/2024) 12 tablet 0 No current facility-administered medications for this visit. ROS ROS: Her ROS was positive for that mentioned in the HPI. Otherwise a 10-point ROS was completed and was negative. ALLERGIES Allergen Reactions Apap 500 [Acetamino* Hives Ibuprofen Hives Past Medical History: PAST MEDICAL HISTORY Diagnosis Date Fibromyalgia Hypercholesteremia Hypothyroidism Osteoporosis Right shoulder pain Rotator cuff arthropathy Family History: FAMILY HISTORY Problem Relation Age of Onset Diabetes Mother other (parkinson [Other]) Mother Alcohol/Drug Father Breast Cancer Sister Social History: Social History Tobacco Use Smoking status: Never Smokeless tobacco: Never Vaping Use Vaping status: Never Used Substance Use Topics Alcohol use: No Drug use: Never Objective 03/20/25 1335 BP: 169/80 Pulse: 75 SpO2: 97% Weight: 56.2 kg (123 lb 14.4 oz) Height: 144.8 cm (4' 9) Physical Examination General Appearance: Well appearing, alert, in no acute distress, well-hydrated, well nourished. Head: Normocephalic Neck: Supple Heart: RRR Peripheral Pulses: Normal Neurologic Examination Mental Status: She is alert. She is fully oriented. Attention is intact. Recent and remote memory is intact. Language shows normal comprehension and fluency. Praxis is normal. Affect is appropriate. Cranial Nerves: PExtraocular movements show full and smooth pursuits. No nystagmus. Visual ambrose are full to confrontation. Facial sensation is intact. Facial activation is symmetric. Hearing is intact to conversation. There is no hypomimia. There is no hypophonia. There is no dysarthria. Tongue is midline. Palate elevates symmetrically. Shoulder shrug is normal. Motor: Muscle bulk is normal. Rapid alternating movements are normal. Muscle power is full. No rest tremor, subtle intermittent chin tremor. Postural tremor only emerged briefly with arms close to chest, none hands outstretched. Mod bilateral kinetic tremor. Handwriting large and tremulous but able to write name. Spirals with tremor with axis. No right hand tremor when writing with left hand. Coordination: Finger to nose is smooth without ataxia. Gait/station: Normal DATA REVIEWED Actual films/image/tracing reviewed and summarized as follows: n/a Old records reviewed and summarized as follows: Reviewed referral records summarized in HPI TSH 1.17 Assessment/Plan Assessment AND Plan: Ana Gonzalez is a 79 year old right-handed female with a history of ET who presents for evaluation. Her examination demonstrates bi (more content not included)...[facility]05-02-2025 History of Present illness Narrative* Brandi López MD - 03/20/2025 1:33 PM EDT NEW PATIENT EVALUATION Subjective HPI Ana Gonzalez is a 79 year old right-handed female who presents for evaluation of tremor. Sarah Chou PA-C is the referring provider. Dr. Lilia Bergeron MD is the PCP. She has had tremor for around 20 years or more. Started in the right hand and slowly worsening overtime. Has noticed it in the left hand slightly only over the last year. Tremor is present when using the hands and while writing. Generally not spilling food or drink, handwriting. Mom had PD, no family history of tremor. Minimal alcohol not aware of response. 1 cup of coffee a day. Smell is fine. No constipation. No dream behavior. Previous med trials: - Gabapentin 300 mg BID -> currently on, no benefit / no side effects - Propranolol 30 mg BID -> bradycardia / dizziness per reports, she denies side effects but saysit didn't help - Primidone 100 mg QHS -> no benefit / no side effects Medications: Current Outpatient Medications Medication Sig Dispense Refill gabapentin (NEURONTIN) 300 mg capsule Take 1 capsule by mouth two times a day for 180 days. 60 capsule 5 MULTIVIT,[id number] ORAL Take 100 mg by mouth once daily. spironolactone (ALDACTONE) 50 mg tablet Take 50 mg by mouth once daily. cyanocobalamin, vitamin B-12, (VITAMIN B-12) 5,000 mcg subl Dissolve 5,000 mcg under the tongue once daily. propranolol (INDERAL) 10 mg tablet Week 1: Take one 10 mg pill twice a day. Week 2: Take 2 pills twice a day Week 3 and on: Take 3 pills twice a day 60 tablet 0 cholecalciferol, vitamin D3, (VITAMIN D3 ORAL) Take 50,000 Units by mouth every 2 weeks. biotin 1 mg cap Take 1 mg by mouth once daily. Minoxidil 2 % external solution 1 teaspoon applied topically on scalp once daily atorvastatin (LIPITOR) 10 mg tablet Take 10 mg by mouth daily at bedtime. MELOXICAM ORAL Take 7.5 mg by mouth once daily. LEVOTHYROXINE 50 MCG TAB Take one(1) tablet daily. 30 0 alendronate (FOSAMAX) 70 mg tablet Take 1 tablet by mouth one time a week. On empty stomach with large glass of water. First thing in the am. No other medications. Do not lie down after taking this. (Patient not taking: Reported on 09/24/2024) 12 tablet 0 No current facility-administered medications for this visit. ROS ROS: Her ROS was positive for that mentioned in the HPI. Otherwise a 10-point ROS was completed andwas negative. ALLERGIES Allergen Reactions Apap 500 [Acetamino* Hives Ibuprofen Hives Past Medical History: PAST MEDICAL HISTORY Diagnosis Date Fibromyalgia Hypercholesteremia Hypothyroidism Osteoporosis Right shoulder pain Rotator cuff arthropathy Family History: FAMILY HISTORY Problem Relation Age of Onset Diabetes Mother other (parkinson [Other]) Mother Alcohol/Drug Father Breast Cancer Sister Social History: Social History Tobacco Use Smoking status: Never Smokeless tobacco: Never Vaping Use Vaping status: Never Used Substance Use Topics Alcohol use: No Drug use: Never Objective 03/20/25 1335 BP: 169/80 Pulse: 75 SpO2: 97% Weight: 56.2 kg (123 lb 14.4 oz) Height: 144.8 cm (4' 9) Physical Examination General Appearance: Well appearing, alert, in no acute distress, well-hydrated, well nourished. Head: Normocephalic Neck: Supple Heart: RRR Peripheral Pulses: Normal Neurologic Examination Mental Status: She is alert. She is fully oriented. Attention is intact. Recent and remote memory is intact. Language shows normal comprehension and fluency. Praxis is normal. Affect is appropriate. Cranial Nerves: PExtraocular movements show full and smooth pursuits. No nystagmus. Visual ambrose are full to confrontation. Facial sensation is intact. Facial activation is symmetric. Hearing is intact to conversation. There is no hypomimia. There is no hypophonia. There is no dysarthria. Tongue is midline. Palate elevates symmetrically. Shoulder shrug is normal. Motor: Muscle bulk is normal. Rapid alternating movements are normal. Muscle power is full. No resttremor, subtle intermittent chin tremor. Postural tremor only emerged briefly with arms close to chest, none hands outstretched. Mod bilateral kinetic tremor. Handwriting large and tremulous but ableto write name. Spirals with tremor with axis. No right hand tremor when writing with left hand. Coordination: Finger to nose is smooth without ataxia. Gait/station: Normal DATA REVIEWED Actual films/image/tracing reviewed and summarized as follows: n/a Old records reviewed and summarized as follows: Reviewed referral records summarized in HPI TSH 1.17 Assessment/Plan Assessment & Plan: Ana Gonazlez is a 79 year old right-handed female with a history of ET who presents for evaluation. Her examination demonstrates bilateral primarily kinetic and writing tremor. We discussed her presentation, which is consistent with ET. Explained condition including treatmentapproach. Propranolol best medication for it, tried up to 60 mg and called in with possible side effects, she denies having had any side effects today though. Will retry and titrate to 60 mg daily, and if doing OK on this dose can change to long-acting formulation and titrate higher. Taper off gabapentin for now. Consider retrial primidone at higher dose if propranolol side effects. Explained surgical treatments in case medication not helping and she is bothered enough by tremor to want to pursue. She should return to see me in 5 months. Brandi López MD [facility] Neurology documented in this encounterUniversity Hospitals [facility]03-21-2025 Telephone encounter Note * Telephone Encounter - Sarah Chou PA-C - 02/06/2025 2:06 PM EDT Refill for gabapentin 300mg bid sent for 6 months. PDMP website checked and validated. All prescriptions have been APPROPRIATELY filled. No suspiciousactivity was identified. 02/06/2025 by Sarah Chou PA-C [facility]03-21-2025 Miscellaneous Notes* Telephone Encounter - Sarah Chou PA-C - 02/06/2025 2:06 PM EDT Refill for gabapentin 300mg bid sent for 6 months. PDMP website checked and validated. All prescriptions have been APPROPRIATELY filled. No suspiciousactivity was identified. 02/06/2025 by Sarah Chou PA-C * Telephone Encounter - Marva Denton - 02/06/2025 9:29 AM EDT Requesting 90 day Patient has been identified by name and date of : Yes, Patient phones for refill(s): Requested Prescriptions Pending Prescriptions Disp Refills gabapentin (NEURONTIN) 300 mg capsule 60 capsule 2 Sig: Take 1 capsule by mouth two times a day for 90 days. Date of last office visit in primary care: 12/31/2024 Date of next office visit in primary care: Visit date not found Please advise. Thank you. Marva Denton. documented in this encounterUniversity Hospitals [facility]03-21-2025 Telephone encounter Note * Telephone Encounter - Marva Denton - 02/06/2025 9:29 AM EDT Requesting 90 day Patient has been identified by name and date of : Yes, Patient phones for refill(s): Requested Prescriptions Pending Prescriptions Disp Refills gabapentin (NEURONTIN) 300 mg capsule 60 capsule 2 Sig: Take 1 capsule by mouth two times a day for 90 days. Date of last office visit in primary care: 12/31/2024 Date of next office visit in primary care: Visit date not found Please advise. Thank you. Marva Denton. [facility]03-18-2025 Evaluation note* Diagnosis Onset Date Resolution Status Admit Date Osteoporosis acute February 03, 2025 11:08am DJD of both shoulders acute Jan 12:49pm Hypothyroidism acute January 12:49pm Osteoporosis acute February 11, 2025 12:49pm Tremor acute February 11 12:49pm Fatigue noneactive February 11 12:49pm Mixed hyperlipidemia noneactive [employer] 2024 12:49pm Muscle cramps noneactive February 11, 2025 12:49pm Easy bruising noneactive February 11, 2025 12:49pm Shooting pain noneactive February 11, 2025 12:49pm Screening for breast cancer noneacti ve February 11, 2025 12:49pm Cervical radicular pain noneactive [facility] 2024 12:49pm [facility] Work Phone: [phone]) 975-644302-13-2025 NoteHNO ID: [id number] Author: ALEXUS BURGOS, ETHAN Service: ? Author Type: Physical Therapist Type: Progress Notes Filed: 01/01/2025 10:38 Note Text: 01/01/2025 [facility] PHYSICAL THERAPY DISCONTINUANCE OF CARE Plan of Care Period: Start of Care Date: 10/09/24 Last Visit Date: 10/09/2024 Therapy Program: Patient did not return for follow up care as planned. Please refer to last visit note for interventions provided for this episode of care. Assessment: Unable to formally assess goal achievement. Reason for Discontinuation of Care: Intended for evaluation visit only. [facility] Burgos [facility]02-12-2025 Instructions* Patient Instructions* Sarah Chou PA-C - 12/31/2024 11:49 AM EST Wear braces when sleeping for concern of carpal tunnel syndrome Continue with gabapentin 300mg twice daily Occupational therapy for tremor management See movement specialist (Dr. López) documented in this encounterUniversity Hospitals [facility]hu[facility]02-12-2025 NoteHNO ID: [id number] Author: MACRINA FREITAS LPN Service: ? Author Type: LICENSED NURSE Type: Progress Notes Filed: 12/31/2024 12:14 Note Text: C/o tremors in hands, pt feels left hand is now shaking, pt states she thinks medication may be causing her to itching in the last 2 weeks Macrina Freitas LPN December 31, 2024 11:27 [facility]02-12-2025 History of Present illness Narrative* Macrina Freitas LPN - 12/31/2024 11:26 AM EST C/o tremors in hands, pt feels left hand is now shaking, pt states she thinks medication may be causing her to itching in the last 2 weeks Macrina Freitas LPN December 31, 2024 11:27 AM * Sarah Chou PA-C - 12/31/2024 11:23 AM EST Images from the original note were not included. [facility] Name: Ana Gonzalez Age: [age] year old Gender: female Primary Care Provider: Lilia Bergeron MD Assessment/Plan: 12/31/2024 - General Neurology, Sarah Chou PA-C ASSESSMENT ASSESSMENT/PLAN: 1. Essential tremor - ICD9: 333.1, ICD10: G25.0 (primary diagnosis) Patient with essential tremor of the right upper extremity, now experiencing some mild symptoms to the left upper extremity. Not visible today, but states it comes and goes when she is doing certain activities. Does have very mild tremor to the right upper extremity on exam, improved from previous.However, patient not currently satisfied where she is, would like to be able to write. Did send to physical therapy but they referred her to occupational therapy and she has yet to schedule this. Hastried wrist weights but was not able to write with it. Has tried propranolol, primidone and is now gabapentin. Is taking gabapentin 300 mg twice daily, discussed increasing it further to 3 times a day but patient deferring. Would not like to try another medication either. Discussed to follow- up with specialty, movement and patient would like to see a specialist at this time. 2. Bilateral hand numbness - ICD9: 782.0, ICD10: R20.0 Does report some new onset numbness to the first 3 digits of both hands over the last month. Only when she wakes up, after shaking her hands her symptoms returned to normal after about a minute. Doeshave some mild thenar atrophy bilaterally, but negative Tinel's and Phalen's. Has had testing for carpal tunnel in the past per patient report but I do not see this. Discussed wearing wrist braces while she sleeps to keep her hands in anatomical position and prevent any compression of the median nerve. Patient and family agreeable to this and will follow-up if symptoms persist. No signs or symptoms of cord compression, no neck pain, falls. Patient agreeable to treatment plan of care at this time, questions were answered. Patient to follow-up as needed. Sarah Chou PA-C Encounter Diagnosis ICD-10-CM 1. Essential tremor G25.0 CONSULT TO NEUROLOGY 2. Bilateral hand numbness R20.0 Return if symptoms worsen or fail to improve. Chart, labs,and relevant images reviewed. Chief Complaint:Patient presents with: Established Patient: Tremor, memory loss Chart Review: Last Filed Values Date of Most Recent Assessment and Plan 06/24/24 Specialty General Neurology Assessment ASSESSMENT/PLAN: 1. Essential tremor - ICD9: 333.1, ICD10: G25.0 Patient's exam and history consistent with essential tremor. Symptoms starting in the right upper extremity about 20 years ago and gradually worsening, last few weeks has noticed it minimally in leftupper extremity. Patient without any rigidity, signs or symptoms of parkinsonism. Does have mother with history of Parkinson's when she was in her 70s, but again exam is overall very reassuring and consistent with essential tremor. No further imaging or workup needed at this time. Plan below. HPI: Last seen on for ET, started PT but PT suggested OT. Increased gabapentin to 300mg bid. Has tried propranolol, primidone and gabapentin. Patient presents with her granddaughter for follow-up appointment. Notes some improvement with increasing gabapentin to 300 mg twice daily, but notes that now she is starting to have some symptoms inher left upper extremity. Not at rest, only when doing activities like writing, drawing, using the hands. Has not scheduled with occupational therapy yet. Has tried wrist weights but is unable to write in them. No new weakness, falls. Does note some paresthesias over the last month to the bilateral 1st through 3rd digit when she wakes up in the morning. Notes that it is every morning, she will shake her hands and her symptoms willresolve. States she was worked up for carpal tunnel syndrome many years ago but the testing was negative. No significant weakness in the hands, no other paresthesias. Review of Systems ACTIVE PROBLEM LIST Cervicalgia Esophageal Reflux Unspecified Hypothyroidism Other Hyperlipidemia Headache(784.0) Pain in Limb Anemia Knee Effusion, Right Rotator Cuff Arthropathy of Both Shoulders Other Osteoporosis Without Current Pathological Fracture Arthralgia Pruritus Primary Osteoarthritis of Both Knees Pre-Op Examination Rotator Cuff Arthropathy, Right Elevated Bp Without Diagnosis of Hypertension S/P Reverse Total Shoulder Arthroplasty, Right PAST MEDICAL HISTORY Diagnosis Date Fibromyalgia Hypercholesteremia Hypothyroidism Osteoporosis Right shoulder pain Rotator cuff arthropathy Medications: Reviewed MULTIVIT,[id number] ORAL Take 100 mg by mouth once daily. spironolactone (ALDACTONE) 50 mg tablet Take 50 mg by mouth once daily. gabapentin (NEURONTIN) 300 mg capsule Take 1 capsule by mouth two times a day for 90 days. cyanocobalamin, vitamin B-12, (VITAMIN B-12) 5,000 mcg subl Dissolve 5,000 mcg under the tongue once daily. propranolol (INDERAL) 10 mg tablet Week 1: Take one 10 mg pill twice a day. Week 2: Take 2 pills twice a day Week 3 and on: Take 3 pills twice a day cholecalciferol, vitamin D3, (VITAMIN D3 ORAL) Take 50,000 Units by mouth every 2 weeks. biotin 1 mg cap Take 1 mg by mouth once daily. Minoxidil 2 % external solution 1 teaspoon applied topically on scalp once daily atorvastatin (LIPITOR) 10 mg tablet Take 10 mg by mouth daily at bedtime. MELOXICAM ORAL Take 7.5 mg by mouth once daily. LEVOTHYROXINE 50 MCG TAB Take one(1) tablet daily. alendronate (FOSAMAX) 70 mg tablet Take 1 tablet by mouth one time a week. On empty stomach with large glass of water. First thing in the am. No other medications. Do not lie down after taking this. (Patient not taking: Reported on 09/24/2024) ALLERGIES Allergen Reactions Apap 500 [Acetamino* Hives Ibuprofen Hives FAMILY HISTORY Problem Relation Age of Onset Diabetes Mother other (parkinson [Other]) Mother Alcohol/Drug Father Breast Cancer Sister PAST SURGICAL HISTORY Procedure Laterality Date COLONOSCOPY FLX DX W/COLLJ SPEC WHEN PFRMD 08/28/2014 Colonoscopy HEMORRHOIDAL PAST SURGICAL HISTORY OF Right 12/12/2023 shoulder S TUBAL LIGATION Social Hx: @Alcohol Use: Not on file Tobacco Use: Low Risk (10/24/2024) Patient History Smoking Tobacco Use: Never Smokeless Tobacco Use: Never Passive Exposure: Not on file 12/31/24 1125 BP: 160/85 Pulse: 71 Neurologic Exam Cognitive and Language: Alert and answered questions appropriately. Language was fluent. Cranial Nerves: Extraocular movements were full with no diplopia or nystagmus. Facial strength was symmetric. Motor: Full strength throughout upper and lower extremities. Slight atrophy of the thenar eminence bilaterally, slightly worse on the right. Negative Tinel's and Phalen's. Sensory: Intact light touch. Coordination: Normal finger to nose and heel to whatley testing bilaterally. Normal gait. Mild postural tremor to the right upper extremity, no rigidity. Labs: Lab Results Component Value Date WBC 12.79 (H) 12/13/2023 HCT 27.4 (L) 12/13/2023 MCV 89.0 12/13/2023 PLT 92 (L) 12/13/2023 Lab Results Component Value Date HBA1C 5.6 03/01/2019 HBA1C 6.0 05/23/2013 Cholesterol, Total Date Value Ref Range Status 06/22/2022 336 (H) <200 mg/dL Final Comment: <200 mg/dL, Desirable 200-239 mg/dL, Borderline high >239 mg/dL, High HDL Cholesterol Date Value Ref Range Status 06/22/2022 106 >39 mg/dL Final Comment: 40-59 mg/dL, Acceptable >59 mg/dL, High: Negative risk factor for coronary heart disease <40 mg/dL, Low: Positive risk factor for coronary heart disease LDL Cholesterol Date Value Ref Range Status 06/22/2022 206 (H) <100 mg/dL Final Comment: <100 mg/dL, Optimal 100-129 mg/dL, Near optimal/above optimal 130-159 mg/dL, Borderline high 160-189 mg/dL, High >189 mg/dL, Very high Secondary prevention optimal LDL Cholesterol levels are recommended to be < 70 mg/dL Triglyceride Date Value Ref Range Status 06/22/2022 121 <150 mg/dL Final Comment: <150 mg/dL, Normal 150-199 mg/dL, Borderline high 200-499 mg/dL, High >499 mg/dL, Very high Radiology: This note was dictated using eTect speech recognition software and may contain some errors that were a result of the program not accurately transcribing what was dictated, despite efforts to make corrections. Note that unless urgent, test and MRI results will be discussed at next follow- up visit. PROMIS (Patient-Reported Outcomes Measurement Information System) is a set of person-centered measures that evaluates and monitors physical, social, and emotional health. It can be used with the general population and with individuals living with chronic conditions. PROMIS 10: PHYSICAL AND MENTAL HEALTH: Medical Decision Making: Medical Decision Making Level: 1 - N/A I spent a total of 30 minutes on the date of the service which included preparing to see the patient, [id number] patient care, completing clinical documentation, obtaining and/or reviewing separately obtained history, performing a medically appropriate examination, counseling and educating the pat ient/family/caregiver, and ordering medications, tests, or procedures. documented in this encounterUniversity Hospitals [facility]02-12-2025 NoteHNO ID: [id number] Author: SARAH CHOU PA-C Service: ? Author Type: Physician Web Ui Developer Type: Progress Notes Filed: 12/31/2024 12:14 Note Text: [facility] Name: Ana Gonzalez Age: [age] year old Gender: female Primary Care Provider: Lilia Bergeron MD Assessment/Plan: 12/31/2024 - General Neurology, Sarah Chou PA-C ASSESSMENT ASSESSMENT/PLAN: 1. Essential tremor - ICD9: 333.1, ICD10: G25.0 (primary diagnosis) Patient with essential tremor of the right upper extremity, now experiencing some mild symptoms to the left upper extremity. Not visible today, but states it comes and goes when she is doing certain activities. Does have very mild tremor to the right upper extremity on exam, improved from previous. However, patient not currently satisfied where she is, would like to be able to write. Did send to physical therapy but they referred her to occupational therapy and she has yet to schedule this. Has tried wrist weights but was not able to write with it. Has tried propranolol, primidone and is now gabapentin. Is taking gabapentin 300 mg twice daily, discussed increasing it further to 3 times a day but patient deferring. Would not like to try another medication either. Discussed to follow-up with specialty, movement and patient would like to see a specialist at this time. 2. Bilateral hand numbness - ICD9: 782.0, ICD10: R20.0 Does report some new onset numbness to the first 3 digits of both hands over the last month. Only when she wakes up, after shaking her hands her symptoms returned to normal after about a minute. Does have some mild thenar atrophy bilaterally, but negative Tinel's and Phalen's. Has had testing for carpal tunnel in the past per patient report but I do not see this. Discussed wearing wrist braces while she sleeps to keep her hands in anatomical position and prevent any compression of the median nerve. Patient and family agreeable to this and will follow-up if symptoms persist. No signs or symptoms of cord compression, no neck pain, falls. Patient agreeable to treatment plan of care at this time, questions were answered. Patient to follow-up as needed. Sarah Chou PA-C Encounter Diagnosis ICD-10-CM 1. Essential tremor G25.0 CONSULT TO NEUROLOGY 2. Bilateral hand numbness R20.0 Return if symptoms worsen or fail to improve. Chart, labs,and relevant images reviewed. Chief Complaint:Patient presents with: Established Patient: Tremor, memory loss Chart Review: Last Filed Values Date of Most Recent Assessment and Plan 06/24/24 Specialty General Neurology Assessment ASSESSMENT/PLAN: 1. Essential tremor - ICD9: 333.1, ICD10: G25.0 Patient's exam and history consistent with essential tremor. Symptoms starting in the right upper extremity about 20 years ago and gradually worsening, last few weeks has noticed it minimally in left upper extremity. Patient without any rigidity, signs or symptoms of parkinsonism. Does have mother with history of Parkinson's when she was in her 70s, but again exam is overall very reassuring and consistent with essential tremor. No further imaging or workup needed at this time. Plan below. HPI: Last seen on for ET, started PT but PT suggested OT. Increased gabapentin to 300mg bid. Has tried propranolol, primidone and gabapentin. Patient presents with her granddaughter for follow-up appointment. Notes some improvement with increasing gabapentin to 300 mg twice daily, but notes that now she is starting to have some symptoms in her left upper extremity. Not at rest, only when doing activities like writing, drawing, using the hands. Has not scheduled with occupational therapy yet. Has tried wrist weights but is unable to write in them. No new weakness, falls. Does note some paresthesias over the last month to the bilateral 1st through 3rd digit when she wakes up in the morning. Notes that it is every morning, she will shake her hands and her symptoms will resolve. States she was worked up for carpal tunnel syndrome many years ago but the testing was negative. No significant weakness in the hands, no other paresthesias. Review of Systems ACTIVE PROBLEM LIST Cervicalgia Esophageal Reflux Unspecified Hypothyroidism Other Hyperlipidemia Headache(784.0) Pain in Limb Anemia Knee Effusion, Right Rotator Cuff Arthropathy of Both Shoulders Other Osteoporosis Without Current Pathological Fracture Arthralgia Pruritus Primary Osteoarthritis of Both Knees Pre-Op Examination Rotator Cuff Arthropathy, Right Elevated Bp Without Diagnosis of Hypertension S/P Reverse Total Shoulder Arthroplasty, Right PAST MEDICAL HISTORY Diagnosis Date Fibromyalgia Hypercholesteremia Hypothyroidism Osteoporosis Right shoulder pain Rotator cuff arthropathy Medications: Reviewed MULTIVIT,[id number] ORAL Take 100 mg by mouth once fallon (more content not included)...[facility]12-06-2024 NoteHNO ID: [id number] Author: ELAINE MERAZ PA-C Service: ? Author Type: Physician Web Ui Developer Type: Progress Notes Filed: 10/24/2024 14:26 Note Text: PAIN EVALUATION 10/24/2024 1414 Pain Level: 2 Pain Location: Shoulder-Left Description: Tightness Duration Amount of Time: -- ongoing Frequency: Intermittent Intervention/Comfort measure: Reposition;Relaxation Encounter Diagnosis ICD-10-CM 1. Left shoulder pain, unspecified chronicity M25.512 2. Complete tear of left rotator cuff, unspecified whether traumatic M75.122 Ana Gonzalez returns in follow-up in her left shoulder pain. Continues to do well with pain. Active forward elevation to 160. No pain or giveaway with Kristen test. PLAN: She is doing well. Does not feel she needs an injection today. At this time she can follow-up with an as-needed basis for repeat injections depending on symptoms. Elaine Meraz PA-C Department of Orthopaedic Surgery [facility]12-06-2024 History of Present illness Narrative* Elaine Meraz PA-C - 10/24/2024 2:23 PM EST Images from the original note were not included. PAIN EVALUATION 10/24/2024 1414 Pain Level: 2 Pain Location: Shoulder-Left Description: Tightness Duration Amount of Time: -- ongoing Frequency: Intermittent Intervention/Comfort measure: Reposition;Relaxation Encounter Diagnosis ICD-10-CM 1. Left shoulder pain, unspecified chronicity M25.512 2. Complete tear of left rotator cuff, unspecified whether traumatic M75.122 Ana Gonzalez returns in follow-up in her left shoulder pain. Continues to do well with pain. Active forward elevation to 160. No pain or giveaway with Kristen test. PLAN: She is doing well. Does not feel she needs an injection today. At this time she can follow-up with an as-needed basis for repeat injections depending on symptoms. Elaine Meraz PA-C Department of Orthopaedic Surgery [facility] documented in this encounterUniversity [facility]24 NoteHNO ID: [id number] Author: ALEXUS BURGOS, PT Service: ? Author Type: Physical Therapist Type: Progress Notes Filed: 10/09/2024 16:23 Note Text: Summary: PT eval Episode Visit Count: 1 Therapist That Will Accept/Oversee The Plan Of Care: Tamika Burgos Start of Care Date: 10/09/24 Onset Date: 10/09/19 Plan of Care Certification Date: 10/09/24 Next Certification Due Date: 11/08/24 Patient Identified by Name and Date of : Yes REHABILITATION AND SPORTS THERAPY PHYSICAL THERAPY EVALUATION PLAN OF CARE: Assessment: Ana Gonzalez presents with chief complaint of right upper extremity tremor that interferes with cooking, feeding self (writing and chopping) . The patient presents with impairments in overall function and strength. PROMIS? (Patient-Reported Outcomes Measurement Information System) scores were reviewed and identified as within normal limits. Prognosis for therapy is Good due to: current objective clinical presentation . Patient with residual weakness to right shoulder post right TSR in November. Instructed in right shoulder strengthening with emphasis on scapular stability. No further PT needs anticipated as patient is Independent with home exercise program. Patient would benefit from OT referral to address essential tremor to provide adaptation for writing and cooking tasks. The patient will benefit from skilled therapy services to meet the goals established for this plan of care as noted below. Goals for Episode of Care: established 10/09/24 [place] in home exercise program. Patient Goals: less tremors. Would like to be able write and chop without difficulty. Time Frame for Goals and Treatment : 11/08/24 Planned Interventions, Frequency, and Duration: Current Frequency: 1 visit Duration: 1 visit Total Number of Visits Planned: 1 Planned Treatment Interventions: Therapeutic exercise ([id number]) PLAN FOR NEXT VISIT: no further PT visits planned Patient demonstrates good understanding of plan of care and treatment. The above goals and plan of care were discussed and agreed upon by patient/family. SUBJECTIVE: Patient reports 30+ more years of R UE tremor, recently noted in L UE as well. Patient was concerned it may be parkison's but neurologist does not feel patient has signs of PD Patient Goals: less tremors. Would like to be able write and chop without difficulty. Functional Limitations: cooking, feeding self (writing and chopping) Prior Level of Function: Independent without limitations Relevant History Past Relevant Medical Conditions: Thyroid Disease Past Relevant Surgical Conditions: Total Shoulder Replacement-Right (TSR 12/09/23) Right or Left Handed: Right Home Environment Patient Lives With: Spouse Assistance Available: PRN Equipment Owned: Grab Bars- Shower, Shower Chair Intake Information: Prescription present Previous Treatment: None Pain: Pain Pain Level: 0 Post Treatment Pain Post Treatment Pain Level: No Change PROMIS Scales 10/09/2024 01/11/2024 Higher is Better Phys Func - Score 46 (within normal limits) 47 (within normal limits) Phys Func - Percentile 34 38 Self-Eff Symptom - Score 48 (Average) 48 (Average) Self-Eff Symptom - Percentile 42 42 T-scores: mean of general population = 50. 5 points is clinically meaningfully difference Percentiles provide an indication of how the patient's score ranks in relation to the general population. Higher percentile rankings indicate better function/quality of life. 50th percentile is the average of the general population and indicates half of respondents had a worse score. OBJECTIVE MEASURES WITH LEVEL OF FUNCTION: Posture / Alignment Posture: Good UE AROM R UE AROM: shoulder flex and abduction limited to ~110 L UE AROM: WNL UE and Cervical Strength R Shoulder Flexion: 4-/5 R Shoulder Abduction (C5): 4-/5 R Elbow Extension (C7): 5/5 R Elbow Flexion (C6): 5/5 Movement Description Movement Impairment(s): Tremor, MiniUPDRS Tremor Comments: R UE only with hand writing. MiniUPDRS Bradykinesia: 0- None Posture in standin- Normal Hand Tremor Postural Right: 0- Normal Hand Tremor Postural Left: 0- Normal Hand Tremor Kinetic Right: 2- Mild: tremor 1-3 cm amplitude Hand Tremor Kinetic Left: 0- Normal Finger Tapping Right: 0- Normal Finger Tapping Left: 0- Normal Hand Movements Right: 0- Normal Hand Movements Left: 0- Normal Hand Pronation/Supination Right: 0- Normal Hand Pronation/Supination Left: 0- Normal Toe Tapping Right: 0- Normal Toe Tapping Left: 0- Normal Leg Ability Right: 0- Normal Leg Ability Left: 0- Normal Falls: 0- None Freezing when walkin- None Walkin- Normal Gait: 0- Normal Posture: 0- Normal erect Postural Stability: 0- Normal Mi (more content not included)...[facility]11-21-2024 History of Present illness Narrative* Alexus Burgos, PT - 10/09/2024 3:59 PM EST Summary: PT eval Episode Visit Count: 1 Therapist That Will Accept/Oversee The Plan Of Care: Tamika Burgos Start of Care Date: 10/09/24 Onset Date: 10/09/19 Plan of Care Certification Date: 10/09/24 Next Certification Due Date: 11/08/24 Patient Identified by Name and Date of : Yes REHABILITATION AND SPORTS THERAPY PHYSICAL THERAPY EVALUATION PLAN OF CARE: Assessment: Ana Gonzalez presents with chief complaint of right upper extremity tremor that interferes with cooking, feeding self (writing and chopping) . The patient presents with impairments in overall function and strength. PROMIS (Patient-Reported Outcomes Measurement Information System) s cores were reviewed and identified as within normal limits. Prognosis for therapy is Good due to: current objective clinical presentation . Patient with residual weakness to right shoulder post rightTSR in November. Instructed in right shoulder strengthening with emphasis on scapular stability. No further PT needs anticipated as patient is Independent with home exercise program. Patient would benefit from OT referral to address essential tremor to provide adaptation for writing and cooking tasks. The patient will benefit from skilled therapy services to meet the goals established for this plan of care as noted below. Goals for Episode of Care: established 10/09/24 [place] in home exercise program. Patient Goals: less tremors. Would like to be able write and chop without difficulty. Time Frame for Goals and Treatment : 11/08/24 Planned Interventions, Frequency, and Duration: Current Frequency: 1 visit Duration: 1 visit Total Number of Visits Planned: 1 Planned Treatment Interventions: Therapeutic exercise ([id number]) PLAN FOR NEXT VISIT: no further PT visits planned Patient demonstrates good understanding of plan of care and treatment. The above goals and plan of care were discussed and agreed upon by patient/family. SUBJECTIVE: Patient reports 30+ more years of R UE tremor, recently noted in L UE as well. Patient was concerned it may be parkison's but neurologist does not feel patient has signs of PD Patient Goals: less tremors. Would like to be able write and chop without difficulty. Functional Limitations: cooking, feeding self (writing and chopping) Prior Level of Function: Independent without limitations Relevant History Past Relevant Medical Conditions: Thyroid Disease Past Relevant Surgical Conditions: Total Shoulder Replacement-Right (TSR 12/09/23) Right or Left Handed: Right Home Environment Patient Lives With: Spouse Assistance Available: PRN Equipment Owned: Grab Bars- Shower, Shower Chair Intake Information: Prescription present Previous Treatment: None Pain: Pain Pain Level: 0 Post Treatment Pain Post Treatment Pain Level: No Change PROMIS Scales 10/09/2024 01/11/2024 Higher is Better Phys Func - Score 46 (within normal limits) 47 (within normal limits) Phys Func - Percentile 34 38 Self-Eff Symptom - Score 48 (Average) 48 (Average) Self-Eff Symptom - Percentile 42 42 T-scores: mean of general population = 50. 5 points is clinically meaningfully difference Percentiles provide an indication of how the patient's score ranks in relation to the general population. Higher percentile rankings indicate better function/quality of life. 50th percentile is the average of the general population and indicates half of respondents had a worse score. OBJECTIVE MEASURES WITH LEVEL OF FUNCTION: Posture / Alignment Posture: Good UE AROM R UE AROM: shoulder flex and abduction limited to ~110 L UE AROM: WNL UE and Cervical Strength R Shoulder Flexion: 4-/5 R Shoulder Abduction (C5): 4-/5 R Elbow Extension (C7): 5/5 R Elbow Flexion (C6): 5/5 Movement Description Movement Impairment(s): Tremor, MiniUPDRS Tremor Comments: R UE only with hand writing. MiniUPDRS Bradykinesia: 0- None Posture in standin- Normal Hand Tremor Postural Right: 0- Normal Hand Tremor Postural Left: 0- Normal Hand Tremor Kinetic Right: 2- Mild: tremor 1-3 cm amplitude Hand Tremor Kinetic Left: 0- Normal Finger Tapping Right: 0- Normal Finger Tapping Left: 0- Normal Hand Movements Right: 0- Normal Hand Movements Left: 0- Normal Hand Pronation/Supination Right: 0- Normal Hand Pronation/Supination Left: 0- Normal Toe Tapping Right: 0- Normal Toe Tapping Left: 0- Normal Leg Ability Right: 0- Normal Leg Ability Left: 0- Normal Falls: 0- None Freezing when walkin- None Walkin- Normal Gait: 0- Normal Posture: 0- Normal erect Postural Stability: 0- Normal Mini UPDRS Score (Calculation): 2 Balance Static Standing Balance: Narrow Base of Support Narrow Base of Support: good Education: Education Learning Preferences: Performance, Printed Materials Barriers: None Learning/educational needs: Home exercise program Education Provided: Yes, see treatment interventions for education provided Education Provided To: Patient Education Mode/Type: Performance, Literature/Printed Materials Response to Education/Teach Back: Return Demonstration TREATMENT: PT Treatment Interventions: Therapeutic Exercise Evaluation Therapeutic Exercise: 1: *standing mid trap row green band, R and B 2: *R shoulder resisted IR/ER green band 10x ea, standing Skilled Intervention: Patient was educated in proper exercise technique and purpose for exercises. Reviewed and educated patient on additions/changes for home exercise program as above (*). Skilled judgment was used in selection of appropriate interventions. Provided written instruction for home exercise program to facilitate proper performance and compliance. Correct performance of therapeutic exercises was facilitated with verbal, visual, and tactile cuing. Billing * Evaluation Low Complexity: 1 Unit Therapeutic Exercise Treatment Minutes: 10 Skilled Treatment Time Minutes (timed and untimed codes): 35 Total Session Time (minutes): 35 Session Start Time : 1515 Session Stop Time : 1550 Alexus Burgos PT * Alexus Burgos PT - 10/09/2024 3:50 PM EST Program_ID:[id number] Access Code: [email or web address] URL: [email or web address] Date: 10-09-2024 Prepared By: Felipe Diaz Program Notes Exercises - Shoulder Internal Rotation with Resistance - 1-2 x daily - 5-6 x weekly - 2-3 sets - 10 reps - Shoulder External Rotation with Anchored Resistance - 1-2 x daily - 5-6 x weekly - 2-3 sets - 10 reps documented in this encounterUniversity [facility]als [facility]11-06-2024 Instructions* Patient Instructions* Sarah Chou PA-C - 09/24/2024 4:24 PM EST Increase gabapentin to 300mg twice daily (message me if you have not had any benefit in a few weeks) Physical therapy for strengthening your hands and wrists to help with tremor Follow up in 3-4 months documented in this encounterUniversity Hospitals [facility]11-06-2024 NoteHNO ID: [id number] Author: SARAH CHOU PA-C Service: ? Author Type: Physician Web Ui Developer Type: Progress Notes Filed: 09/24/2024 16:38 Note Text: ESTABLISHED PATIENT VISIT Last visit: 06/24/24 ASSESSMENT/PLAN: 1. Essential tremor - ICD9: 333.1, ICD10: G25.0 Patient's exam and history consistent with essential tremor. Symptoms starting in the right upper extremity about 20 years ago and gradually worsening, last few weeks has noticed it minimally in left upper extremity. Patient without any rigidity, signs or symptoms of parkinsonism. Does have mother with history of Parkinson's when she was in her 70s, but again exam is overall very reassuring and consistent with essential tremor. No further imaging or workup needed at this time. Plan below. Plan: Essential tremor -Will start propranolol, titration up to 30 mg twice daily and have patient reach out -Discussed we did devices that may be helpful including wrist weights CHIEF COMPLAINT: follow up HISTORY OF PRESENT ILLNESS: Ana Gonzalez is a 79 year old female, BMI 26.88 kg/m2 with a PMH significant for hyperlipidemia, hypothyroidism, anemia. Last seen on 06/24/24 for tremor. Starting in the RUE 20 years ago. Started Propranolol 30mg twice daily. Notes that she was becoming dizzy on this so we tried gabapentin. Patient reports no significant benefit with gabapentin. Was initially started on propranolol but family called in noting that patient was bradycardic so we stopped this medication. Started on gabapentin 100 mg twice daily. Patient not experiencing any side effects but does not appreciate any benefit either. Maybe notes even slight worsening of her tremor from time to time. Patient also reports that she has had a few episodes of memory loss. Notes that she will walk into a room and forget what she is going to the room for. No other memory issues including issues driving, completing ADLs or leaving the stove on, no recent falls. Notes that she has chronic history of being forgetful about names. No other concerns. Prior meds: Propranolol Primidone Gabapentin REVIEW OF SYSTEMS GENERAL:No weight loss, malaise or fevers. HEENT:Negative for frequent or significant headaches, No changes in hearing or vision, no nose bleeds or other nasal problems NECK:Negative for lumps, goiter, pain and significant neck swelling RESPIRATORY: Negative for cough, wheezing or shortness of breath. CARDIOVASCULAR: Negative for chest pain, leg swelling or palpitations. GASTROINTESTINAL: Negative for abdominal discomfort, blood in stools or black stools or change in bowel habits GENITOURINARY: No history of dysuria, frequency or incontinence MUSCULOSKELETAL: Negative for joint pain or swelling, back pain or muscle pain. NEUROLOGIC:Negative for focal numbness or weakness, headaches and dizziness or syncope, vision changes, speech/languag changes - EXCEPT that as per HPI above. SKIN:Negative for lesions, rash, and itching. PSYCHIATRIC: Negative for sleep disturbance, mood disorder and recent psychosocial stressors. HEMATOLOGIC/LYMPHATIC/IMMUNOLOGIC:Negative for prolonged bleeding, bruising easily or swollen nodes. ENDOCRINE: Negative for cold or heat intolerance, polyuria, polydipsia and goiter. The remainder of the ROS was reviewed and is negative. LAB/IMAGING: Those performed since patient's last visit have been reviewed. none MEDICATIONS: MULTIVIT,[id number] ORAL Take 100 mg by mouth once daily. spironolactone (ALDACTONE) 50 mg tablet Take 50 mg by mouth once daily. gabapentin (NEURONTIN) 100 mg capsule Take 1 capsule by mouth two times a day for 90 days. cyanocobalamin, vitamin B-12, (VITAMIN B-12) 5,000 mcg subl Dissolve 5,000 mcg under the tongue once daily. propranolol (INDERAL) 10 mg tablet Week 1: Take one 10 mg pill twice a day. Week 2: Take 2 pills twice a day Week 3 and on: Take 3 pills twice a day cholecalciferol, vitamin D3, (VITAMIN D3 ORAL) Take 50,000 Units by mouth every 2 weeks. biotin 1 mg cap Take 1 mg by mouth once daily. atorvastatin (LIPITOR) 10 mg tablet Take 10 mg by mouth daily at bedtime. MELOXICAM ORAL Take 7.5 mg by mouth once daily. LEVOTHYROXINE 50 MCG TAB Take one(1) tablet daily. (Patient taking differently: Take 75 mcg by mouth once daily. Sunday through Sunday) Minoxidil 2 % external solution 1 teaspoon applied topically on scalp once daily (Patient not taking: Reported on 09/24/2024) alendronate (FOSAMAX) 70 mg tablet Take 1 tablet by mouth one time a week. On empty stomach with large glass of water. First thing in the am. No other medications. Do not lie down after taking this. (Patient not taking: Reported on 09/24/2024) HISTORIES PAST MEDICAL HISTORY Diagnosis Date Fibromyalgia Hypercholesteremia Hypothyroidism Osteoporosis Right shoulder pain Rotator cuff arthropathy FAMILY HISTORY Problem Relation Age of Onset Diabetes Mother other (more content not included)...[facility]11-06-2024 History of Present illness Narrative* Sarah Chou PA-C - 09/24/2024 4:00 PM EST ESTABLISHED PATIENT VISIT Last visit: 06/24/24 ASSESSMENT/PLAN: 1. Essential tremor - ICD9: 333.1, ICD10: G25.0 Patient's exam and history consistent with essential tremor. Symptoms starting in the right upper extremity about 20 years ago and gradually worsening, last few weeks has noticed it minimally in leftupper extremity. Patient without any rigidity, signs or symptoms of parkinsonism. Does have mother with history of Parkinson's when she was in her 70s, but again exam is overall very reassuring and consistent with essential tremor. No further imaging or workup needed at this time. Plan below. Plan: Essential tremor -Will start propranolol, titration up to 30 mg twice daily and have patient reach out -Discussed we did devices that may be helpful including wrist weights CHIEF COMPLAINT: follow up HISTORY OF PRESENT ILLNESS: Ana Gonzalez is a 79 year old female, BMI 26.88 kg/m2 with a PMH significant for hyperlipidemia, hypothyroidism, anemia. Last seen on 06/24/24 for tremor. Starting in the RUE 20 years ago. Started Propranolol 30mg twice daily. Notes that she was becoming dizzy on this so we tried gabapentin. Patient reports no significant benefit with gabapentin. Was initially started on propranolol but family called in noting that patient was bradycardic so we stopped this medication. Started on gabapentin 100 mg twice daily. Patient not experiencing any side effects but does not appreciate any benefit either. Maybe notes even slight worsening of her tremor from time to time. Patient also reports that she has had a few episodes of memory loss. Notes that she will walk into a room and forget what she is going to the room for. No other memory issues including issues driving, completing ADLs or leaving the stove on, no recent falls. Notes that she has chronic history of being forgetful about names. No other concerns. Prior meds: Propranolol Primidone Gabapentin REVIEW OF SYSTEMS GENERAL:No weight loss, malaise or fevers. HEENT:Negative for frequent or significant headaches, No changes in hearing or vision, no nose bleeds or other nasal problems NECK:Negative for lumps, goiter, pain and significant neck swelling RESPIRATORY: Negative for cough, wheezing or shortness of breath. CARDIOVASCULAR: Negative for chest pain, leg swelling or palpitations. GASTROINTESTINAL: Negative for abdominal discomfort, blood in stools or black stools or change in bowel habits GENITOURINARY: No history of dysuria, frequency or incontinence MUSCULOSKELETAL: Negative for joint pain or swelling, back pain or muscle pain. NEUROLOGIC:Negative for focal numbness or weakness, headaches and dizziness or syncope, vision changes, speech/languag changes - EXCEPT that as per HPI above. SKIN:Negative for lesions, rash, and itching. PSYCHIATRIC: Negative for sleep disturbance, mood disorder and recent psychosocial stressors. HEMATOLOGIC/LYMPHATIC/IMMUNOLOGIC:Negative for prolonged bleeding, bruising easily or swollen nodes. ENDOCRINE: Negative for cold or heat intolerance, polyuria, polydipsia and goiter. The remainder of the ROS was reviewed and is negative. LAB/IMAGING: Those performed since patient's last visit have been reviewed. none MEDICATIONS: MULTIVIT,[id number] ORAL Take 100 mg by mouth once daily. spironolactone (ALDACTONE) 50 mg tablet Take 50 mg by mouth once daily. gabapentin (NEURONTIN) 100 mg capsule Take 1 capsule by mouth two times a day for 90 days. cyanocobalamin, vitamin B-12, (VITAMIN B-12) 5,000 mcg subl Dissolve 5,000 mcg under the tongue once daily. propranolol (INDERAL) 10 mg tablet Week 1: Take one 10 mg pill twice a day. Week 2: Take 2 pills twice a day Week 3 and on: Take 3 pills twice a day cholecalciferol, vitamin D3, (VITAMIN D3 ORAL) Take 50,000 Units by mouth every 2 weeks. biotin 1 mg cap Take 1 mg by mouth once daily. atorvastatin (LIPITOR) 10 mg tablet Take 10 mg by mouth daily at bedtime. MELOXICAM ORAL Take 7.5 mg by mouth once daily. LEVOTHYROXINE 50 MCG TAB Take one(1) tablet daily. (Patient taking differently: Take 75 mcg by mouth once daily. Sunday through Sunday) Minoxidil 2 % external solution 1 teaspoon applied topically on scalp once daily (Patient not taking: Reported on 09/24/2024) alendronate (FOSAMAX) 70 mg tablet Take 1 tablet by mouth one time a week. On empty stomach with large glass of water. First thing in the am. No other medications. Do not lie down after taking this. (Patient not taking: Reported on 09/24/2024) HISTORIES PAST MEDICAL HISTORY Diagnosis Date Fibromyalgia Hypercholesteremia Hypothyroidism Osteoporosis Right shoulder pain Rotator cuff arthropathy FAMILY HISTORY Problem Relation Age of Onset Diabetes Mother other (parkinson [Other]) Mother Alcohol/Drug Father Breast Cancer Sister SOCIAL HISTORY Social History Tobacco Use Smoking status: Never Smokeless tobacco: Never Vaping Use Vaping status: Never Used Substance Use Topics Alcohol use: No Drug use: Never PHYSICAL EXAMINATION BP 151/80 (BP Site: Left Arm, BP Position: Sitting) Pulse 72 Wt 56.3 kg (124 lb 3.2 oz) SpO2 98% BMI 26.88 kg/m GENERAL EXAM: General appearance: NAD, pleasant. HEENT: NC/AT, nasal congestion absent, no oral lesions, membranes moist. NECK: No masses, supple. Lungs: Breathing comfortably Extr: Moves all extremities without difficulty Skin: Cool to touch. No rash. NEUROLOGICAL EXAM: General: Awake, alert, oriented x3 (person,place,time), speech fluent, no dysarthria; comprehension, naming, repetition intact. Short and ocean transportation intermediary memory intact. CN: PERRL, EOMI and without nystagmus, VFF to confrontation, facial sensation and strength are normal and symmetric, hearing is intact to finger rub bilaterally, palate and tongue movements are intact and symmetric. SCM and trapezius strength normal. Motor: Normal tone, bulk and strength (5/5) bilaterally (throughout extremities x4). Reflexes: 2/4 and symmetric, plantar stimulation is flexor. Coordination: FNF intact. Postural tremor of the RUE Sensation: No evidence of neglect. Gait: Narrow based and stable with normal stride and arm swing. Assessment and Plan: ASSESSMENT/PLAN: 1. 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 Patient presents for tremor follow-up, was originally started on propranolol but notes bradycardia so she stopped this.Was started then on gabapentin as she had already tried primidone. Was started at a low dose at 100g twice daily, notes no significant improvement, but on exam I do appreciate improvement from previo us visit. However, patient notes at home that maybe at some points in the day her tremor is worse. No side effects with the gabapentin, discussed increasing to 300 mg twice daily and patient is amenable to this. Additionally, discussed alternative therapies including wrist weights and physical therapy, patient amenable to starting physical therapy for essential tremor. Still appreciate normal tone on exam. No other neurologic concerns today. 2. Memory loss - ICD9: 780.93, ICD10: R41.3 Patient does report 2 episodes of forgetfulness within the last few months, walking to the room andforgot what she was doing. No other short-term memory issues, notes chronically she is poor at remembering people's names but this has been a longstanding issue. No issues with driving, forgetting conversations, completing ADLs, leaving the stove on, etc. Will continue to monitor but do not believeany further workup is needed at this time. Patient is agreeable to treatment plan of care at this time, questions were answered. Patient to follow-up in 3 months. Sarah Chou PA-C I spent a total of 30 minutes on the date of the service which included preparing to see the patient, [id number] patient care, completing clinical documentation, obtaining and/or reviewing separately obtained history, performing a medically appropriate examination, counseling and educating the pat ient/family/caregiver, and ordering medications, tests, or procedures. This document has been created with the use of voice recognition technology. It may contain inaccuracies: (e.g. misspellings, inaccurate syntax or word sense) that have escaped review. PDMP website checked and validated. All prescriptions have been APPROPRIATELY filled. No suspiciousactivity was identified. 09/24/2024 by Sarah Chou PA-C documented in this encounterUniversity Hospitals Ahuja [facility] Center10-04-2024 History of Present illness Narrative* Bianka Rivera MD - 08/22/2024 3:18 PM EDT PAIN EVALUATION 08/22/2024 1454 Pain Location: Shoulder-Left Description: Shooting Frequency: Intermittent Comments: last L-shoulder CSI 07/18/24 Encounter Diagnosis ICD-10-CM 1. Complete tear of left rotator cuff, unspecified whether traumatic M75.122 Ana Gonzalez returns to follow up on left shoulder pain Doing better after injection Mobility still very good Exam today shows good overhead and rotational use of the left shoulder, no pain Good strength to rotator cuff testing with mild pain PLAN: Continue to use shoulder for activities as tolerated Return in 2 months for repeat injection or PRN Bianka Rivera MD Shoulder & Elbow Surgeon Department of Orthopaedic [facility] documented in this encounterUniversity Hospitals Ahuja [facility] Center08-30-2024 History of Present illness Narrative* Elaine Meraz PA-C - 07/18/2024 3:23 PM EDTAssociated Order(s): Large Joint Arthro/Inj: L shoulder joint Post-Procedure Diagnose(s): Left shoulder pain, unspecified chronicity; Complete tear of left rotator cuff, unspecified whether traumatic Images from the original note were not included. PAIN EVALUATION 07/18/2024 1457 Pain Location: Shoulder-Left Description: Aching;Radiating radiates to elbow Duration Units: Years Frequency: Intermittent Encounter Diagnosis ICD-10-CM 1. Complete tear of left rotator cuff, unspecified whether traumatic M75.122 2. Left shoulder pain, unspecified chronicity M25.512 Ana Gonzalez presents to clinic with left shoulder pain. This has been a problem for the lastcouple of years. Underwent MRI evaluation back in 2021 which showed a full-thickness tear of her supraspinatus. Did have a corticosteroid injection back there which she did not find helpful. Shoulders been more painful recently. Here to discuss options. Examination of left shoulder reveals active forward ovation 160. Abduction 160. External rotation to 60. Internal rotation L5. 5 out of 5 abduction strength. Strong belly press. Imaging: I did order and interpret radiographs today, 3 view left shoulder. No acute fractures or dislocations. Chronic changes greater tuberosity. MRI showed full-thickness supraspinatus tear 1 cm with muscle belly atrophy. PLAN: Recommend a repeat corticosteroid injection and home exercise program. Recheck in 6 weeks to see how she responds. Large Joint Arthro/Inj: L shoulder joint Informed Consent Consent Obtained: Verbal Ada Protocol A moment to CARE was completed. SIGN IN Patient/Surrogate Stated/Verified: Patient name, Date of , Relevant allergies and Intended procedure TIME OUT Intended patient and procedure match the source document(s). Consent documented and matches the intended procedure. 07/18/2024 3:26 PM The procedure site was prepped in the usual sterile fashion. Site: L shoulder joint Medications: 80 mg triamcinolone acetonide 40 mg/mL Anesthetics: 4 mL bupivacaine (PF) 0.25 % (2.5 mg/mL) Outcome: Tolerated well, no immediate complications Post-injection instructions were reviewed with the patient and the patient voiced understanding of these instructions. SIGN OUT Post-procedure follow-up management communicated and Plan of Care Visit completed when applicable Elaine Meraz PA-C Department of Orthopaedic Surgery [facility] documented in this encounterUniversity Hospitals Ahuja Medical Center08-30-2024 History of Present illness Narrative* Sunshine Spencer Tech - 07/18/2024 2:10 PM EDT Radiology Service Progress Note PATIENT NAME: Ana Gonzalez DATE OF SERVICE: July 18, 2024 TIME: 2:51 PM PATIENT IDENTITY VERIFICATION COMPLETED USING TWO (2) IDENTIFIERS: Name and Date of confirmedby patient verbally. FALL SCREENING: Has the patient had 2 falls in the last year or 1 fall with injury or currently using an Ambulatory Assistive Device (Walker, Cane, Wheelchair, Crutches, etc.)? No PATIENT GENDER DATA: Female. status: : No status: NO. PATIENT RELEVANT IMPLANT DATA REVIEWED: Not Applicable PATIENT PRESENTS WITH AN IMPLANTABLE OR ATTACHED PRODUCT MARKETING ENGINEER: No RADIOLOGY DEPARTMENT: General X-ray: Exam(s) Completed: Upper Extremity X- Ray(s): Shoulder, TRUE AP/ AXILLARY / SUPRA OUTLET left PERIPHERAL IV DATA: Not applicable SIGNED BY: Tia Jimenez July 18, 2024 2:51 PM documented in this encounterUniversity Hospitals Ahuja Medical Center08-30-2024 NoteHNO ID: [id number] Author: SUNSHINE SPENCER Tech Service: Radiology Author Type: Senior Specialist Type: Progress Notes Filed: 07/18/2024 14:52 Note Text: Radiology Service Progress Note PATIENT NAME: Ana Gonzalez DATE OF SERVICE: July 18, 2024 TIME: 2:51 PM PATIENT IDENTITY VERIFICATION COMPLETED USING TWO (2) IDENTIFIERS: Name and Date of confirmed by patient verbally. FALL SCREENING: Has the patient had 2 falls in the last year or 1 fall with injury or currently using an Ambulatory Assistive Device (Walker, Cane, Wheelchair, Crutches, etc.)? No PATIENT GENDER DATA: Female. status: : No status: NO. PATIENT RELEVANT IMPLANT DATA REVIEWED: Not Applicable PATIENT PRESENTS WITH AN IMPLANTABLE OR ATTACHED PRODUCT MARKETING ENGINEER: No RADIOLOGY DEPARTMENT: General X-ray: Exam(s) Completed: Upper Extremity X-Ray(s): Shoulder, TRUE AP / AXILLARY / SUPRA OUTLET left PERIPHERAL IV DATA: Not applicable SIGNED BY: Tia Jimenez July 18, 2024 2:51 PMMer[facility] Health [facility] Medical [id number] Telephone encounter Note* Telephone Encounter - Macrina Freitas LPN - 07/11/2024 3:47 PM EDT Patient states the gabapentin will be ok, advised patient to let office know if this medication causes side effects listed below. Patient verbalized understanding. Pharmacy verified. Macrina Freitas LPN July 11, 2024 3:48 PM [facility]08-23-2024 Miscellaneous Notes* Telephone Encounter - Macrina Freitas LPN - 07/11/2024 3:47 PM EDT Patient states the gabapentin will be ok, advised patient to let office know if this medication causes side effects listed below. Patient verbalized understanding. Pharmacy verified. Macrina Freitas LPN July 11, 2024 3:48 PM * Telephone Encounter - Sarah Chou PA-C - 07/11/2024 2:58 PM EDT We can start gabapentin 100 mg twice a day. May cause some fatigue or dizziness, if this is an issue let me know. Sarah Chou PA-C PDMP website checked and validated. All prescriptions have been APPROPRIATELY filled. No suspiciousactivity was identified. 07/11/2024 by Sarah Chou PA-C * Telephone Encounter - Macrina Freitas LPN - 07/11/2024 2:17 PM EDT Spoke to patient, verified name and date of . Patient states she took Primidone before and medication didn't work for her. Patient states she can't handle dizziness caused by current medication. Please review and advise. Macrina Freitas LPN July 11, 2024 2:18 PM * Telephone Encounter - Sarah Chou PA-C - 07/11/2024 12:36 PM EDT Since patient is having some dizziness with this, we can try a different medication called primidone. Please let me know if patient is amenable to starting this. Sarah Chou PA-C * Telephone Encounter - Alem Suarez LPN - 2024 1:07 PM EDT Spoke with granddaughter Rayne patient present for conversation. Patient was at another doctor visit today and advised that she should contact office about her propranolol. States that since taking medication has been feeling dizzy. Has noticed no improvement in her tremors since taking. She has titrated up as instructed and taking the 3 pills 2 times daily. At her visit today was told her heart rate was just a little low at 58 also. Patient is almost out of medication and wondering what to do if she should discontinue? Advised her that go ahead and refill while awaiting instructions. Even ifthey are to stop will probably taper off and will need the refill. Verbalize understanding and will await instructions. Ok to contact patient with instructions. documented in this encounterUniversity Hospitals Ahuja [facility] Center08-23-2024 Telephone encounter Note * Telephone Encounter - Sarah Chou PA-C - 07/11/2024 2:58 PM EDT We can start gabapentin 100 mg twice a day. May cause some fatigue or dizziness, if this is an issue let me know. Sarah Chou PA-C PDMP website checked and validated. All prescriptions have been APPROPRIATELY filled. No suspiciousactivity was identified. 07/11/2024 by Sarah Chou PA-C [facility]08-23-2024 Telephone encounter Note* Telephone Encounter - Macrina Freitas LPN - 07/11/2024 2:17 PM EDT Spoke to patient, verified name and date of . Patient states she took Primidone before and medication didn't work for her. Patient states she can't handle dizziness caused by current medication. Please review and advise. Macrina Freitas LPN July 11, 2024 2:18 PM [facility]08-23-2024 Telephone encounter Note* Telephone Encounter - Sarah Chou PA-C - 07/11/2024 12:36 PM EDT Since patient is having some dizziness with this, we can try a different medication called primidone. Please let me know if patient is amenable to starting this. Sarah Chou PA-C [facility]08-22-2024 Telephone encounter Note* Telephone Encounter - Alem Suarez LPN - 2024 1:07 PM EDT Spoke with granddaughter Rayne patient present for conversation. Patient was at another doctor visit today and advised that she should contact office about her propranolol. States that since taking medication has been feeling dizzy. Has noticed no improvement in her tremors since taking. She has titrated up as instructed and taking the 3 pills 2 times daily. At her visit today was told her heart rate was just a little low at 58 also. Patient is almost out of medication and wondering what to do if she should discontinue? Advised her that go ahead and refill while awaiting instructions. Even ifthey are to stop will probably taper off and will need the refill. Verbalize understanding and will await instructions. Ok to contact patient with instructions. [facility]08-06-2024 Instructions* Patient Instructions* Sarah Chou PA-C - 06/24/2024 3:10 PM EDT Lets try a medicine called propranolol. Its a beta goyo, which can lower heart rate or blood pressure - watch out for light-headedness or fatigue if these get too low. Also watch out for mood changes or breathing difficulty. We will start a low dose twice a day version and can increase it over time and/or change to a once a day version in the future. Week 1: Take one 10 mg pill twice a day Week 2: Take 2 pills twice a day Week 3 and on: Take 3 pills twice a day (reach out to me about how this medicine is helping your tremor. Let me know if you would like to stay at this dose or increase) 2. Wrist weights for essential tremor 3. Follow up in 3 months documented in this encounterUniversity Hospitals Ahu[facility] Center08-06-2024 History of Present illness Narrative* Sarah Chou PA-C - 06/24/2024 2:47 PM EDT Images from the original note were not included. [facility] for General Neurology Name: Ana Gonzalez Age: [age] year old Gender: female Primary Care Provider: Lilia Bergeron MD Consult requested for tremor by Lilia Bergeron. Recommendations will be communicated via shared medical record or US mail. Chief Complaint:New Patient Evaluation (C/o tremors *20yrs, mother had parkinson's, patient states when sitting still no tremors but when trying to carry something hands tremor, right hand more than left. Concerned about driving) 06/24/2024 - General Neurology, Sarah Chou PA-C ASSESSMENT ASSESSMENT/PLAN: 1. Essential tremor - ICD9: 333.1, ICD10: G25.0 Patient's exam and history consistent with essential tremor. Symptoms starting in the right upper extremity about 20 years ago and gradually worsening, last few weeks has noticed it minimally in leftupper extremity. Patient without any rigidity, signs or symptoms of parkinsonism. Does have mother with history of Parkinson's when she was in her 70s, but again exam is overall very reassuring and consistent with essential tremor. No further imaging or workup needed at this time. Plan below. Encounter Diagnosis ICD-10-CM 1. Essential tremor G25.0 We discussed pathophysiology of essential tremor and that it does not need to be treated to preventprogression. Consider weighted glove, weighted utensils. Plan: Essential tremor -Will start propranolol, titration up to 30 mg twice daily and have patient reach out -Discussed we did devices that may be helpful including wrist weights Return in about 3 months (around 09/24/2024). Chart, labs,and relevant images reviewed. HPI: This is a 78 year old female presenting with tremor. Has tremor, tried primidone without help. Was told to have neck surgery but does not want it. PCP APPT: 04/21/24 Per patient: Patient notes about 20 years ago she began experiencing shaking in her right upper extremity, worsened when she went to do something like right, drink coffee, drive. Is not present at rest. 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 Notes that she is having difficulty driving because when she goes to steer she has difficulty with shaking. Is concerned because her mother had Parkinson's disease and also shakes like she did. Notes that her mother was diagnosed in her 70s. Was started on primidone without any benefit. Notes that she was given a short supply of propranolol which did seem to help her symptoms but she does not know the dosage. Notes that she ran out of refills so she stopped taking it. Has not tried any physical therapy or other medications for this. Denies any weakness, falls, tripping, decreased dexterity in the hands. No other family members with any neurologic disease. Denies any oral tremor or head tremor. Does not worsen with caffeine, patient does not drink so she is unsure if it improves with alcohol. 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 No Loss of sense of smell? No Family History of PD/tremor: Yes Caffeine intake: Alcohol: Worse with anxiety: Action tremor: Head tremor: Review of Systems ACTIVE PROBLEM LIST Cervicalgia Esophageal Reflux Unspecified Hypothyroidism Other Hyperlipidemia Headache(784.0) Pain in Limb Anemia Knee Effusion, Right Rotator Cuff Arthropathy of Both Shoulders Other Osteoporosis Without Current Pathological Fracture Arthralgia Pruritus Primary Osteoarthritis of Both Knees Pre-Op Examination Rotator Cuff Arthropathy, Right Elevated Bp Without Diagnosis of Hypertension S/P Reverse Total Shoulder Arthroplasty, Right PAST MEDICAL HISTORY No date: Fibromyalgia No date: Hypercholesteremia No date: Hypothyroidism No date: Osteoporosis No date: Right shoulder pain No date: Rotator cuff arthropathy Medications: Reviewed cyanocobalamin, vitamin B-12, (VITAMIN B-12) 5,000 mcg subl Dissolve 5,000 mcg under the tongue once daily. cholecalciferol, vitamin D3, (VITAMIN D3 ORAL) Take 50,000 Units by mouth every 2 weeks. biotin 1 mg cap Take 1 mg by mouth once daily. Minoxidil 2 % external solution 1 teaspoon applied topically on scalp once daily alendronate (FOSAMAX) 70 mg tablet Take 1 tablet by mouth one time a week. On empty stomach with large glass of water. First thing in the am. No other medications. Do not lie down after taking this. atorvastatin (LIPITOR) 10 mg tablet Take 10 mg by mouth daily at bedtime. MELOXICAM ORAL Take 7.5 mg by mouth once daily. LEVOTHYROXINE 50 MCG TAB Take one(1) tablet daily. (Patient taking differently: Take 75 mcg by mouth once daily. Sunday through Sunday) propranolol (INDERAL) 10 mg tablet Week 1: Take one 10 mg pill twice a day. Week 2: Take 2 pills twice a day Week 3 and on: Take 3 pills twice a day ALLERGIES Allergen Reactions Apap 500 [Acetamino* Hives Ibuprofen Hives FAMILY HISTORY Problem Relation Age of Onset Diabetes Mother other (parkinson [Other]) Mother Alcohol/Drug Father Breast Cancer Sister PAST SURGICAL HISTORY 08/28/2014: COLONOSCOPY FLX DX W/COLLJ SPEC WHEN PFRMD Comment: Colonoscopy No date: HEMORRHOIDAL 12/12/2023: PAST SURGICAL HISTORY OF; Right Comment: shoulder No date: S TUBAL LIGATION SOCIAL HISTORY No social history on file. Tobacco Use: Low Risk (06/24/2024) Patient History Smoking Tobacco Use: Never Smokeless Tobacco Use: Never Passive Exposure: Not on file PHYSICAL EXAM 06/24/24 1456 BP: 153/81 Pulse: 70 Neurological Exam Cognitive and Language: Alert and answered questions appropriately. Language was fluent. Followed simple and complex commands. Cranial Nerves: Visual ambrose were full tested binocularly to finger counting in all 4 quadrants with no visual extinction. Pupils were equal and both reactive to light. Extraocular movements were full with no diplopia or nystagmus. Facial sensation was normal to light touch in V1 to V3. Facial strength was symmetric. Normal hearing grossly bilaterally. Palatal raise was symmetric. Shoulder shrug was symmetric. Tongue protrusion was symmetric with no fasciculations. Head tremor: No Right Left Shoulder Abduction: 5 5 Elbow Extension 5 5 Elbow Flexion 5 5 Wrist Extension 5 5 Finger Extension 5 5 Finger Abduction 5 5 Right Left Hip Flexion 5 5 Knee Extension 5 5 Knee Flexion 5 5 Dorsiflexion 5 5 Plantar Flexion 5 5 Rest tremor: absent Postural tremor: Yes Wing-beating tremor: No Vocal tremor: No Tone: Normal in all four limbs Bradykinesia: Finger taps: Normal Hand open/closure: Normal Reflexes: Right Left Brachioradialis 2 2 Biceps 2 2 Triceps 2 2 Patella 2 2 Ankle 2 2 Sensory: normal to light touch bilaterally. Coordination: Normal finger to nose and heel to whatley testing bilaterally. Negative romberg. Normal gait. Labs: Lab Results Component Value Date WBC 12.79 (H) 12/13/2023 HCT 27.4 (L) 12/13/2023 MCV 89.0 12/13/2023 PLT 92 (L) 12/13/2023 Lab Results Component Value Date HBA1C 5.6 03/01/2019 HBA1C 6.0 05/23/2013 Cholesterol, Total Date Value Ref Range Status 06/22/2022 336 (H) <200 mg/dL Final Comment: <200 mg/dL, Desirable 200-239 mg/dL, Borderline high >239 mg/dL, High HDL Cholesterol Date Value Ref Range Status 06/22/2022 106 >39 mg/dL Final Comment: 40-59 mg/dL, Acceptable >59 mg/dL, High: Negative risk factor for coronary heart disease <40 mg/dL, Low: Positive risk factor for coronary heart disease LDL Cholesterol Date Value Ref Range Status 06/22/2022 206 (H) <100 mg/dL Final Comment: <100 mg/dL, Optimal 100-129 mg/dL, Near optimal/above optimal 130-159 mg/dL, Borderline high 160-189 mg/dL, High >189 mg/dL, Very high Secondary prevention optimal LDL Cholesterol levels are recommended to be < 70 mg/dL Triglyceride Date Value Ref Range Status 06/22/2022 121 <150 mg/dL Final Comment: <150 mg/dL, Normal 150-199 mg/dL, Borderline high 200-499 mg/dL, High >499 mg/dL, Very high TSH Date Value 03/01/2019 0.056 UIU/ML 05/23/2013 0.416 uU/mL Radiology: None This note was dictated using eTect speech recognition software and may contain some errors that were a result of the program not accurately transcribing what was dictated, despite efforts to make corrections. Note that unless urgent, test and MRI results will be discussed at next follow- up visit. PROMIS (Patient-Reported Outcomes Measurement Information System) is a set of person-centered measures that evaluates and monitors physical, social, and emotional health. It can be used with the general population and with individuals living with chronic conditions. PROMIS 10: PHYSICAL AND MENTAL HEALTH: Medical Decision Making: Medical Decision Making Level: 1 - N/A I spent a total of 45 minutes on the date of the service which included preparing to see the patient, [id number] patient care, completing clinical documentation, obtaining and/or reviewing separately obtained history, performing a medically appropriate examination, counseling and educating the pat ient/family/caregiver, and ordering medications, tests, or procedures. documented in this encounterUniversity Hospitals Ahu[facility] Center07-17-2024 Telephone encounter Note * Telephone Encounter - Lydia Harris - 06/04/2024 1:33 PM EDT LVM to let pt know that her appointment with Miguel from 07/04 has been rescheduled to 07/18 at 2:30pm due to him having surgery in the afternoon on 07/04 ab [facility]07-17-2024 Miscellaneous Notes* Telephone Encounter - Lydia Harris - 06/04/2024 1:33 PM EDT LVM to let pt know that her appointment with Miguel from 07/04 has been rescheduled to 07/18 at 2:30pm due to him having surgery in the afternoon on 07/04 ab * Telephone Encounter - Amy Braswell - 06/03/2024 3:33 PM EDT Patient has been scheduled * Telephone Encounter - Rhea Mcpherson - 06/03/2024 2:39 PM EDT Please reach out and schedule this patient to see Dr. Rivera for her left shoulder. She saw Flavia today and she needs to follow-up now with Dr. Rivera. Thank you. Rhea Bernal documented in this encounterUniversity Hospitals Ahu[facility] Center07-16-2024 Telephone encounter Note * Telephone Encounter - Edward Braswellelle - 06/03/2024 3:33 PM EDT Patient has been scheduled [facility]07-16-2024 Telephone encounter Note* Telephone Encounter - Rhea Mcpherson - 06/03/2024 2:39 PM EDT Please reach out and schedule this patient to see Dr. Rivera for her left shoulder. She saw Flavia today and she needs to follow-up now with Dr. Rivera. Thank you. Rhea Bernal [facility]07-16-2024 NoteHNO ID: [id number] Author: ELAINE MERAZ PA-C Service: ? Author Type: Physician Web Ui Developer Type: Progress Notes Filed: 06/03/2024 14:35 Note Text: PAIN EVALUATION 06/03/2024 1409 Pain Level: 4 Pain Location: Shoulder-Right Description: Sharp Frequency: Intermittent Encounter Diagnosis ICD-10-CM 1. 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 Doing better with range of motion. Examination of right shoulder reveals well healed incision. Forward elevation to 150. Strong deltoid contraction. IMAGING: I did order and interpret radiographs today, 3 views right shoulder. Right reverse TSA intact. No periprosthetic fracture or loosening. PLAN: Doing better with her ROM. Pain is minimal. She can stop PT. Return to clinic as needed. Elaine Meraz PA-C Department of Orthopaedic Surgery [facility]07-16-2024 History of Present illness Narrative* Elaine Meraz PA-C - 06/03/2024 2:16 PM EDT PAIN EVALUATION 06/03/2024 1409 Pain Level: 4 Pain Location: Shoulder-Right Description: Sharp Frequency: Intermittent Encounter Diagnosis ICD-10-CM 1. 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 Doing better with range of motion. Examination of right shoulder reveals well healed incision. Forward elevation to 150. Strong deltoid contraction. IMAGING: I did order and interpret radiographs today, 3 views right shoulder. Right reverse TSA intact. No periprosthetic fracture or loosening. PLAN: Doing better with her ROM. Pain is minimal. She can stop PT. Return to clinic as needed. Elaine Meraz PA-C Department of Orthopaedic Surgery [facility] documented in this encounterUniversity [facility]als [facility]07-[facility]24 Telephone encounter Note * Telephone Encounter - Candida Cary - 05/27/2024 5:00 PM EDTSummary: Moved 06/03 appt to Flavia's schedule Spoke with PT and advised Dr. Rivera would not be in on 06/03 and advised her she could see Flavia Meraz at 2:30 same day. PT understood and was fine with the 2:30 appt time. [facility]07-09-2024 Miscellaneous Notes* Telephone Encounter - Candida Cary - 05/27/2024 5:00 PM EDTSumalviny: Isabelle 06/03 appt to Flavia's schedule Spoke with PT and advised Dr. Rivera would not be in on 06/03 and advised her she could see Flavia Meraz at 2:30 same day. PT understood and was fine with the 2:30 appt time. documented in this encounterUniversity Hospitals [facility]07-08-2024 Telephone encounter Note * Telephone Encounter - Kenisha Cruz LPN - 05/26/2024 2:26 PM EDT Appointment scheduled with Delia Chou 06/24/2024 for Dx Tremor. Kenisha Cruz LPN [facility]07-08-2024 Miscellaneous Notes* Telephone Encounter - Kenisha Cruz LPN - 05/26/2024 2:26 PM EDT Appointment scheduled with Delia Chou 06/24/2024 for Dx Tremor. Kenisha Cruz LPN * Telephone Encounter - Ena Ramos - 05/20/2024 9:21 AM EDT 1st attempt LVM to schedule with neurology * Telephone Encounter - Kenisha Cruz LPN - 05/15/2024 3:42 PM EDT Referral from [facility] for Dx R 25.1 Tremor, (family Hx Parkinson's ) Kenisha Cruz LPN. documented in this encounterUniversity Hospitals [facility]07-02-2024 Telephone encounter Note * Telephone Encounter - Ena Ramos - 05/20/2024 9:21 AM EDT 1st attempt LVM to schedule with neurology [facility]06-27-2024 Telephone encounter Note* Telephone Encounter - Kenisha Cruz LPN - 05/15/2024 3:42 PM EDT Referral from [facility] for Dx R 25.1 Tremor, (family Hx Parkinson's ) Kenisha Cruz LPN. [facility]04-16-2024 NoteHNO ID: [id number] Author: ELAINE MERAZ PA-C Service: ? Author Type: Physician Web Ui Developer Type: Progress Notes Filed: 03/04/2024 14:57 Note Text: Elaine Meraz PA-C Department of Orthopaedics March 04, 2024 SURGERY: Reverse total shoulder arthroplasty - right SUBJECTIVE: Returns to clinic now 3 months status post the above procedure. Has completed PT. Still having some stiffness. Feels this continues to improve. Exam: Well healed anterior incision. Active forward elevation to 130 with firm end point. IR back pocket. Strong deltoid contraction against resistance. Nontender along scapular spine or acromion. Imaging: I did order and interpret radiographs today, 3 views right shoulder. Reverse total shoulder arthroplasty intact without evidence of mechanical loosening or periprosthetic fracture. ASSESSMENT: Z96.611 S/P reverse total shoulder arthroplasty, right (primary encounter diagnosis) SUMMARY/PLAN: Patient is progressing with PT. Still having some stiffness. She will continue with daily stretching. Continue to use arm for activity as tolerates. Recheck in 3 months to ensure continued improvement. [facility] History of Present illness Narrative* Elaine Meraz PA-C - 03/04/2024 2:27 PM EDT Elaine Meraz PA-C Department of Orthopaedics March 04, 2024 SURGERY: Reverse total shoulder arthroplasty - right SUBJECTIVE: Returns to clinic now 3 months status post the above procedure. Has completed PT. Stillhaving some stiffness. Feels this continues to improve. Exam: Well healed anterior incision. Active forward elevation to 130 with firm end point. IR back pocket.Strong deltoid contraction against resistance. Nontender along scapular spine or acromion. Imaging: I did order and interpret radiographs today, 3 views right shoulder. Reverse total shoulder arthroplasty intact without evidence of mechanical loosening or periprosthetic fracture. ASSESSMENT: Z96.611 S/P reverse total shoulder arthroplasty, right (primary encounter diagnosis) SUMMARY/PLAN: Patient is progressing with PT. Still having some stiffness. She will continue with daily stretching. Continue to use arm for activity as tolerates. Recheck in 3 months to ensure continued improvement. Elaine Meraz PA-C * Gigi Sanchez Tech - 03/04/2024 1:56 PM EDT REVIEW OF SYSTEMS: GENERAL: Well developed, well nourished. No acute distress PAIN: Negative for pain, history of chronic pain or current treatment for chronic pain conditions CARDIOVASCULAR: Negative for chest pain, leg swelling and palpations. MSK: Negative for joint swelling SKIN: Negative for lesions, rash, itching, metal sensitivity NEURO: Negative for seizure, trauma, numbness/tingling of extremities. ENDOCRINE: Negative for diabetic associated symptoms HEMATOLOGY: Negative for excessive bleeding, clots, bleeding disorders. documented in this encounterUniversity Hospitals Ahu[facility]04-16-2024 NoteHNO ID: [id number] Author: GIGI SANCHEZ Tech Service: ? Author Type: Senior Specialist Type: Progress Notes Filed: 03/04/2024 14:57 Note Text: REVIEW OF SYSTEMS: GENERAL: Well developed, well nourished. No acute distress PAIN: Negative for pain, history of chronic pain or current treatment for chronic pain conditions CARDIOVASCULAR: Negative for chest pain, leg swelling and palpations. MSK: Negative for joint swelling SKIN: Negative for lesions, rash, itching, metal sensitivity NEURO: Negative for seizure, trauma, numbness/tingling of extremities. ENDOCRINE: Negative for diabetic associated symptoms HEMATOLOGY: Negative for excessive bleeding, clots, bleeding disorders.[facility]04-01-2024 History of Present illness Narrative* Felipe Diaz, PT - 02/18/2024 2:43 PM EDT Episode Visit Count: 13 Therapist That Will Accept/Oversee The Plan Of Care: Felipe Diaz PT Start of Care Date: 12/21/23 Onset Date: 12/12/23 Plan of Care Certification Date: 01/17/24 Next Certification Due Date: 02/14/24 Patient Identified by Name and Date of : Yes REHABILITATION AND SPORTS THERAPY PHYSICAL THERAPY DISCONTINUANCE OF CARE PLAN OF CARE UPDATE: Assessment: Ana Gonzalez is discontinued from Physical Therapy services due to Patient/Clinician mutual decision to discontinue current plan of care.. Patient was seen for 13 visits from Start of Care Date: 12/21/23 to 02/18/2024 and treatment included: Therapeutic exercise, Manual therapy, Self-alf management, and Patient/Family/Caregiver Education. Goals updated 02/18/2024 Goals for Episode of Care: created on 12/21/23 through 03/14/24 Updated 01/17/2024 Pt will be able to dress and groom without pain in 12 weeks or less. --MET [place] in home exercise program.--Met Increase ROM of RUE to 120 degrees or greater of elevation for reaching up into cabinets . --progressed Increased strength of RUE to 4+/5 or greater for return to PLOF and completion of moderately challenging tasks--progressed Patient Goals: Return to PLOF SUBJECTIVE: The shoulder was sore yesterday. Patient Goals: Return to PLOF Functional Limitations: lifting Prior Level of Function: Independent without limitations Intake Information: Prescription present Pain: Pain Pain Level: 0 Pain Location: Shoulder - Right PROMIS Scales 01/11/2024 Higher is Better Phys Func - Score 47 (within normal limits) Phys Func - Percentile 38 Self-Eff Symptom - Score 48 (Average) Self-Eff Symptom - Percentile 42 T-scores: mean of general population = 50. 5 points is clinically meaningfully difference Percentiles provide an indication of how the patient's score ranks in relation to the general population. Higher percentile rankings indicate better function/quality of life. 50th percentile is the average of the general population and indicates half of respondents had a worse score. OBJECTIVE MEASURES WITH LEVEL OF FUNCTION: UE AROM R Shoulder Flex: 102 Degrees (110 with use of pulleys) R Shoulder ABduction: 102 Degrees R Shoulder Internal Rotation (Functional): Thumb to R back pocket R Shoulder External Rotation: 30 Degrees R Shoulder External Rotation (Functional): Back of head UE and Cervical Strength R UE Strength: Grossly 4/5 TREATMENT: Therapeutic Exercise: 1: Pulleys into flexion x2 minutes, abduction x2 minutes 2: Standing scaption 2# 2 x 8 3: Standing shoulder ext AAROM wand x 20 4: All objective measures taken this session Skilled Intervention: Patient was educated in proper exercise technique and purpose for exercises. Skilled judgment was used in selection of appropriate interventions. Provided written instruction for home exercise program to facilitate proper performance and compliance. Billing Therapeutic Exercise Treatment Minutes: 30 Skilled Treatment Time Minutes (timed and untimed codes): 30 Total Session Time (minutes): 30 Session Start Time : 1443 Session Stop Time : 1513 Felipe Diaz PT documented in this encounterUniversity Hospitals [facility]03-25-2024 History of Present illness Narrative* Felipe Diaz PT - 02/11/2024 2:49 PM EDT Episode Visit Count: 11 Therapist That Will Accept/Oversee The Plan Of Care: Felipe Diaz PT Start of Care Date: 12/21/23 Onset Date: 12/12/23 Plan of Care Certification Date: 01/17/24 Next Certification Due Date: 02/14/24 Patient Identified by Name and Date of : Yes REHABILITATION AND SPORTS THERAPY PHYSICAL THERAPY TREATMENT NOTE ASSESSMENT: Ana Gonzalez tolerated the session with no issues. She demonstrated good tolerance to all therapeutic exercises performed this session. The patient will continue to benefit from ongoing skilled physical therapy to progress toward set goals. PLAN FOR NEXT VISIT: Continue with loading deltoid of RUE SUBJECTIVE: Doing well. No pain since last . Pain: Pain Pain Level: 0 Pain Location: Shoulder - Right Post Treatment Pain Post Treatment Pain Level: No Change Post Treatment Pain Location: Shoulder - Right OBJECTIVE MEASURES WITH LEVEL OF FUNCTION: Pt able to reach 80 degrees of elevation during scaption with 1# TREATMENT: Therapeutic Exercise: 1: Pulleys into flexion x2 minutes, abduction x2 minutes 2: Standing scaption 1# 2 x 8 3: Standing shoulder ext AAROM wand x 20 4: Standing cross body stretch 2 x 30 sec 5: Standing IR GTB 2 x 10 6: Standing ER GTB 2 x 10 7: Standing bicep curl3# 2 x 10 8: Wall push-ups 2 x 10 9: Circles on wall with ball CW/CCW x 20 each Skilled Intervention: Patient was educated in proper exercise technique and purpose for exercises. Correct performance of therapeutic exercises was facilitated with verbal and visual cuing. Billing Therapeutic Exercise Treatment Minutes: 33 Skilled Treatment Time Minutes (timed and untimed codes): 33 Total Session Time (minutes): 33 Session Start Time : 1445 Session Stop Time : 1518 Felipe Diaz PT documented in this encounterUniversity Hospitals [facility]03-21-2024 History of Present illness Narrative* Scott Rivera PT, DPT - 02/07/2024 3:52 PM EDT Episode Visit Count: 10 Therapist That Will Accept/Oversee The Plan Of Care: Felipe Diaz PT Start of Care Date: 12/21/23 Onset Date: 12/12/23 Plan of Care Certification Date: 01/17/24 Next Certification Due Date: 02/14/24 Patient Identified by Name and Date of : Yes REHABILITATION AND SPORTS THERAPY PHYSICAL THERAPY TREATMENT NOTE ASSESSMENT: Ana Gonzalez tolerated the session with expected muscle soreness. She demonstrated good tolerance of all exercises this session. Good form noted with standing row exercise. Difficulty with rhythmic rotation at wall. The patient will continue to benefit from ongoing skilled physical therapy to progress toward set goals. PLAN FOR NEXT VISIT: Shoulder AAROM and strength as patient tolerates SUBJECTIVE: Patient reports she is feeling well. Doing HEP consistently. Pain: Pain Pain Level: 0 Pain Location: Shoulder - Right Post Treatment Pain Post Treatment Pain Level: 0 Post Treatment Pain Location: Shoulder - Right OBJECTIVE MEASURES WITH LEVEL OF FUNCTION: UE AROM R Shoulder Flex: (120 degrees AAROM with dowel) TREATMENT: Therapeutic Exercise: 1: Pulleys into flexion x2 minutes, abduction x2 minutes 2: Shoulder ER and IR OTB 2 x 10 3: Standing row verse PTB 2x10 4: SA pull down verse PTB 2x10 5: Standing extension AAROM with wand 2x10 6: Standing IR and ER AAROM wand behind back 2x10 7: Standing rhythmic rotation with ball at wall 2x20 cw/ccw 8: Standing wall slides into flexion 2x10 9: SL ER and abduction AROM 2x10 Skilled Intervention: Patient was educated in proper exercise technique and purpose for exercises. Reviewed and educated patient on additions/changes for home exercise program as above (*). Skilled judgment was used in selection of appropriate interventions. Correct performance of therapeutic exercises was facilitated with verbal and visual cuing. Billing Therapeutic Exercise Treatment Minutes: 40 Skilled Treatment Time Minutes (timed and untimed codes): 40 Total Session Time (minutes): 40 Session Start Time : 1547 Session Stop Time : 1627 Scott Rivera PT, DPT documented in this encounterUniversity Hospitals [facility]03-18-2024 History of Present illness Narrative* Felipe Diaz, PT - 02/04/2024 2:01 PM EDT Episode Visit Count: 9 Therapist That Will Accept/Oversee The Plan Of Care: Felipe Diaz PT Start of Care Date: 12/21/23 Onset Date: 12/12/23 Plan of Care Certification Date: 01/17/24 Next Certification Due Date: 02/14/24 Patient Identified by Name and Date of : Yes REHABILITATION AND SPORTS THERAPY PHYSICAL THERAPY TREATMENT NOTE ASSESSMENT: Ana Gonzalez tolerated the session with fatigue and expected muscle soreness. Shedemonstrated improvements in AAROM IR of R shoulder. The patient will continue to benefit from ongoing skilled physical therapy to progress toward set goals. PLAN FOR NEXT VISIT: Shoulder AAROM and strengthening per protocol SUBJECTIVE: Pt reports that yesterday she had pain in her biceps and triceps (2/10) intermittently,but today she feels okay. Pt reports buying 3# DB for home. Pain: Pain Pain Level: 0 Pain Location: Shoulder - Right Post Treatment Pain Post Treatment Pain Level: 0 Post Treatment Pain Location: Shoulder - Right OBJECTIVE MEASURES WITH LEVEL OF FUNCTION: Standing AAROM flexion with wand above 90 degrees. TREATMENT: Therapeutic Exercise: 1: Pulleys into flexion x2 minutes, abduction x2 minutes 2: Shoulder ER OTB 2 x 10 3: Shoulder IR OTB 2 x 10 4: Seated flexion AAROM with wand 2x10 5: Standing extension AAROM with wand 2x10 6: Standing IR AAROM wand behind back 2x10 7: Bicep curls 3# ,3x10 8: Body blade IR/ER 3x30 seconds RUE 9: Circles on wall with ball [address] Skilled Intervention: Patient was educated in proper exercise technique and purpose for exercises. Skilled judgment was used in selection of appropriate interventions. Correct performance of therapeutic exercises was facilitated with verbal and visual cuing. Billing Therapeutic Exercise Treatment Minutes: 42 Skilled Treatment Time Minutes (timed and untimed codes): 42 Total Session Time (minutes): 42 Session Start Time : 1358 Session Stop Time : 1440 JONO Burnham PT documented in this encounterUniversity Hospitals [facility]03-14-2024 History of Present illness Narrative* Felipe Diaz PT - 01/31/2024 10:45 AM EDT Episode Visit Count: 8 Therapist That Will Accept/Oversee The Plan Of Care: Felipe Diaz PT Start of Care Date: 12/21/23 Onset Date: 12/12/23 Plan of Care Certification Date: 01/17/24 Next Certification Due Date: 02/14/24 Patient Identified by Name and Date of : Yes REHABILITATION AND SPORTS THERAPY PHYSICAL THERAPY TREATMENT NOTE ASSESSMENT: Ana Gonzalez tolerated the session with no issues. She demonstrated good form with all therapeutic exercises. The patient will continue to benefit from ongoing skilled physical therapy to progress toward set goals. PLAN FOR NEXT VISIT: Shoulder AAROM and strengthening per protocol SUBJECTIVE: Some pain in the other arm because she has been using that more due to her surgery. Pain: Pain Pain Location: Shoulder - Right OBJECTIVE MEASURES WITH LEVEL OF FUNCTION: TREATMENT: Therapeutic Exercise: 1: Pulleys into flexion x2 minutes, abduction x2 minutes 2: Standing shoulder ER and IR AROM 2 x 10 each 3: Standing extension AAROM with wand 2x10 4: Seated flexion AAROM with wand 2x10 5: Shoulder flexion iso into ball with rotation CW/CCW 2 x 10 6: Shoulder ER OTB 2 x 10 7: Shoulder IR OTB 2 x 10 8: Standing bicep curl 2# x 10 then 3# 2 x 10 9: Pushing into ball on wall 2 x 10 10: Circles on wall with ball [address] Skilled Intervention: Patient was educated in proper exercise technique and purpose for exercises. Correct performance of therapeutic exercises was facilitated with verbal cuing. Billing Therapeutic Exercise Treatment Minutes: 40 Skilled Treatment Time Minutes (timed and untimed codes): 40 Total Session Time (minutes): 40 Session Start Time : 1044 Session Stop Time : 1124 Felipe Diaz PT documented in this encounterUniversity Hospitals [facility]03-11-2024 History of Present illness Narrative* Felipe Diaz PT - 01/28/2024 2:09 PM EDT Episode Visit Count: 7 Therapist That Will Accept/Oversee The Plan Of Care: Felipe Diaz PT Start of Care Date: 12/21/23 Onset Date: 12/12/23 Plan of Care Certification Date: 01/17/24 Next Certification Due Date: 02/14/24 Patient Identified by Name and Date of : Yes REHABILITATION AND SPORTS THERAPY PHYSICAL THERAPY TREATMENT NOTE ASSESSMENT: Ana Gonzalez tolerated the session with no issues. She demonstrated improvements in decreased pain by the end of the session. The patient will continue to benefit from ongoing skilled physical therapy to progress toward set goals. PLAN FOR NEXT VISIT: Continue per protocol SUBJECTIVE: Has pain at times in the arm and back of the shoulder but was told this was normal. Exercising helps decrease the pain. Pain: Pain Pain Level: 2 Pain Location: Shoulder - Right Post Treatment Pain Post Treatment Pain Level: 0 Post Treatment Pain Location: Shoulder - Right OBJECTIVE MEASURES WITH LEVEL OF FUNCTION: UE AROM R Shoulder Flex: 88 Degrees (119 with pulleys) TREATMENT: Therapeutic Exercise: 1: Pulleys into flexion x2 minutes, abduction x2 minutes 2: Standing shoulder ER and IR AROM 2 x 10 each 3: Standing extension AAROM with wand 2x10 4: Seated flexion AAROM with wand 2x10 5: Shoulder flexion iso into ball with rotation CW/CCW 2 x 10 6: Shoulder ER OTB 2 x 10 (Challenging and may need to check form next session) 7: Shoulder IR OTB 2 x 10 8: Standing bicep curl 2# x 10 then 3# 2 x 10 Skilled Intervention: Patient was educated in proper exercise technique and purpose for exercises. Provided written instruction for home exercise program to facilitate proper performance and compliance. Correct performance of therapeutic exercises was facilitated with verbal and visual cuing. Billing Therapeutic Exercise Treatment Minutes: 40 Skilled Treatment Time Minutes (timed and untimed codes): 40 Total Session Time (minutes): 40 Session Start Time : 1404 Session Stop Time : 1444 Felipe Diaz PT documented in this encounterUniversity Hospitals Ahu[facility]03-06-2024 History of Present illness Narrative* Scott Rivera PT, DPT - 01/23/2024 2:52 PM EST Program_ID:[id number] Access Code: [email or web address] URL: [email or web address] Date: 01-23-2024 Prepared By: Felipe Diaz Program Notes Exercises - Supine Shoulder Flexion with Dowel - 1 x daily - 7 x weekly - 3 sets - 10 reps - Supine Bicep Curl with Cane - 1 x daily - 7 x weekly - 3 sets - 10 reps - Supine Shoulder External Rotation with Dowel - 1 x daily - 7 x weekly - 3 sets - 10 reps - Standing Shoulder Internal Rotation AAROM with Dowel - 1 x daily - 7 x weekly - 2 sets - 10 reps - Isometric Shoulder Extension at Wall - 1 x daily - 7 x weekly - 2 sets - 10 reps - Isometric Shoulder External Rotation at Wall - 1 x daily - 7 x weekly - 3 sets - 10 reps - Isometric Shoulder Abduction at Wall - 1 x daily - 7 x weekly - 2 sets - 10 reps - Standing Isometric Shoulder Internal Rotation with Towel Roll at Doorway - 1 x daily - 7 x weekly - 2 sets - 10 reps - Isometric Shoulder Adduction - 1 x daily - 7 x weekly - 2 sets - 10 reps - Scapular Retraction with Resistance - 2 x daily - 7 x weekly - 2 sets - 10 reps - Sidelying Shoulder External Rotation - 1 x daily - 7 x weekly - 2 sets - 10 reps - Shoulder Flexion Wall Slide with Towel - 1 x daily - 7 x weekly - 2 sets - 10 reps * Scott Rivera PT, DPT - 01/23/2024 2:08 PM EST Episode Visit Count: 6 Therapist That Will Accept/Oversee The Plan Of Care: Felipe Diaz PT Start of Care Date: 12/21/23 Onset Date: 12/12/23 Plan of Care Certification Date: 01/17/24 Next Certification Due Date: 02/14/24 Patient Identified by Name and Date of : Yes REHABILITATION AND SPORTS THERAPY PHYSICAL THERAPY TREATMENT NOTE ASSESSMENT: Ana Gonzalez tolerated the session with decreased symptoms. She demonstrated difficulty with shoulder abduction isometric due to weakness. She demonstrated good tolerance of all strengthening exercises. The patient will continue to benefit from ongoing skilled physical therapy to progress toward set goals. PLAN FOR NEXT VISIT: Continue with AAROM>AROM, light strengthening as able SUBJECTIVE: Patient had follow-up appointment with surgeon's team, and they are pleased with her progress. She has some pain at the back of her shoulder. HEP is going well. Pain: Pain Pain Level: 2 Pain Location: Shoulder - Right Post Treatment Pain Post Treatment Pain Level: 0 Post Treatment Pain Location: Shoulder - Right OBJECTIVE MEASURES WITH LEVEL OF FUNCTION: UE AROM R Shoulder Flex: (120 AAROM wall slides) R Shoulder ABduction: (118 AAROM with pulleys) TREATMENT: Therapeutic Exercise: 1: Pulleys into flexion x2 minutes, abduction x2 minutes 2: Standing shoulder IR bilat AAROM with wand 2x10 3: Standing extension AAROM with wand 2x10 4: Seated flexion AAROM with wand 2x10 5: Shoulder isometrics at wall 5 sec hold 2x10 each flexion, extension, abduction 6: ER/IR band iso walk out verse OTB 2x10 7: Wall slide into flexion 2x10, verbal cues for patient to move slowly 8: SL shoulder ER and ABD 3x10 right Skilled Intervention: Patient was educated in proper exercise technique and purpose for exercises. Reviewed and educated patient on additions/changes for home exercise program as above (*). Skilled judgment was used in selection of appropriate interventions. Provided written instruction for home exercise program to facilitate proper performance and compliance. Correct performance of therapeutic exercises was facilitated with verbal and visual cuing. Manual Therapy: 1: PROM into flexion, abduction, IR, ER to patient's tolerance. Skilled Intervention: Manual skills to improve joint mobility, ROM, and decrease pain. Utilized anatomy knowledge of the therapist, and assessment of patient's response to intervention. Billing Therapeutic Exercise Treatment Minutes: 36 Manual TherapyTreatment Minutes: 10 Skilled Treatment Time Minutes (timed and untimed codes): 46 Total Session Time (minutes): 46 Session Start Time : 1413 Session Stop Time : 1459 Scott Rivera PT, DPT documented in this encounterUniversity Hospitals Ahuja Medical Center03-05-2024 NoteHNO ID: [id number] Author: ELAINE MERAZ PA-C Service: ? Author Type: Physician Web Ui Developer Type: Progress Notes Filed: 01/22/2024 15:17 Note Text: Elaine Meraz PA-C Department of Orthopaedics January 22, 2024 SURGERY: Reverse total shoulder arthroplasty - right SUBJECTIVE: Returns to clinic now 6 weeks status post the above procedure. Progressing with PT. Please with her progress. Exam: Well healed anterior incision. Active forward elevation to 100, passive 130. Strong deltoid contraction against resistance. Nontender along scapular spine or acromion. Imaging: I did order and interpret radiographs today, 3 views right shoulder. Reverse total shoulder arthroplasty intact without evidence of mechanical loosening or periprosthetic fracture. ASSESSMENT: Z96.611 S/P reverse total shoulder arthroplasty, right (primary encounter diagnosis) SUMMARY/PLAN: Patient is progressing with PT. Continue to use arm for activity as tolerates. Recheck in 6 weeks with repeat xrays of shoulder at that time. [facility] History of Present illness Narrative* Scott Rivera PT, DPT - 01/17/2024 1:01 PM EST Episode Visit Count: 5 Therapist That Will Accept/Oversee The Plan Of Care: Felipe Diaz PT Start of Care Date: 12/21/23 Onset Date: 12/12/23 Plan of Care Certification Date: 01/17/24 Next Certification Due Date: 02/14/24 Patient Identified by Name and Date of : Yes REHABILITATION AND SPORTS THERAPY PHYSICAL THERAPY PROGRESS REPORT PLAN OF CARE UPDATE: Assessment: Ana Gonzalez demonstrates improvements in ability to perform ADLs such as grooming/cooking/dressing, though it is still somewhat painful. She continues to show progress in shoulder ROM, reducedpain levels overall, and improvements in right shoulder strength. She has progressed toward goals. Patient continues to present with impairments in ADL's, overall function, range of motion, soft tissu e healing, strength, and symptom management that interfere with reaching overhead, lifting, pushing, carrying, pulling, grooming, cleaning . Current prognosis is Good due to: current objective clinical presentation, good overall health status, good support system/ coping skills . She will benefit from continued skilled therapy services to meet the updated goals for this plan of care as noted below. Goals for Episode of Care: created on 12/21/23 through 03/14/24 Updated 01/17/2024 Pt will be able to dress and groom without pain in 12 weeks or less. --progressing [place] in home exercise program.--Met, continue to monitor Increase ROM of RUE to 120 degrees or greater of elevation for reaching up into cabinets . --progressing Increased strength of RUE to 4+/5 or greater for return to PLOF and completion of moderately challenging tasks--progressing Patient Goals: Return to PLOF Planned Interventions, Frequency, and Duration: 2x/week, 4 weeks Total Number of Visits Planned: 8 Patient to be seen for Therapeutic exercise (93796), Neuromuscular re-education (00940), Manual therapy (13909), Therapeutic activities (35263), Self-alf management (39274), Patient/Family/Caregiver Education PLAN FOR NEXT VISIT: Continue with AAROM>AROM, light strengthening as able SUBJECTIVE: Patient reports some increased pain since previous PT session. She states the wall slide seems to increase her pain. Functional Limitations: reaching overhead, lifting, pushing, carrying, pulling, grooming, cleaning Pain: Pain Pain Level: 2 Pain Location: Shoulder - Right Post Treatment Pain Post Treatment Pain Level: 0 Post Treatment Pain Location: Shoulder - Right PROMIS Scales Higher is Better 01/11/2024 Phys Func - Score 47 (within normal limits) Phys Func - Percentile 38% Self-Eff Symptom - Score 48 (Average) Self-Eff Symptom - Percentile 42% T-scores: mean of general population = 50. 5 points is clinically meaningfully difference Percentiles provide an indication of how the patient's score ranks in relation to the general population. Higher percentile rankings indicate better function/quality of life. 50th percentile is the average of the general population and indicates half of respondents had a worse score. OBJECTIVE MEASURES WITH LEVEL OF FUNCTION: Posture / Alignment Posture: Good Shoulder Observations R Shoulder Presents with: Incision Incision: Well healed, no scabbing, no signs of infection. R Shoulder Palpation Tenderness: (anterior shoulder, not over acromion) UE AROM R Shoulder Flex: (87 degrees scaption AROM, 112 with dowel AAROM supine) R Shoulder ABduction: (104 AAROM) R Shoulder Internal Rotation (Functional): top of R PSIS R Shoulder External Rotation (Functional): C3 UE and Cervical Strength Strength Tested: Shoulder All R Shoulder Flexion: 3/5 R Shoulder Abduction (C5): 3+/5 R Shoulder Internal Rotation: 4-/5 R Shoulder External Rotation: 3+/5 TREATMENT: Therapeutic Exercise: 1: Pulleys into flexion x2 minutes, abduction x2 minutes 2: Re-assessment per above 3: HEP review 4: Seated flexion AAROM with wand 2x10 5: Seated wand ER AAROM 2x10 6: Standing wall slides 3x10 7: *Scapular retractions with PTB 3x10 8: Supine shoulder flexion AAROM with dowel 2x10 9: *Wand AAROM IR and extension 3x10 each Skilled Intervention: Patient was educated in proper exercise technique and purpose for exercises. Reviewed and educated patient on additions/changes for home exercise program as above (*). Skilled judgment was used in selection of appropriate interventions. Correct performance of therapeutic exercises was facilitated with verbal and visual cuing. Billing Therapeutic Exercise Treatment Minutes: 46 Skilled Treatment Time Minutes (timed and untimed codes): 46 Total Session Time (minutes): 46 Session Start Time : 1246 Session Stop Time : 1332 McSharlene Rivera PT, DPT documented in this encounterUniversity Hospitals Ahuja Medical Center02-27-2024 History of Present illness Narrative* Francine Monson PTA - 01/15/2024 2:40 PM EST Program_ID:[id number] Access Code: [email or web address] URL: [email or web address] Date: 01-15-2024 Prepared By: Felipe Diaz Program Notes Exercises - Supine Shoulder Flexion with Dowel - 1 x daily - 7 x weekly - 3 sets - 10 reps - Supine Bicep Curl with Cane - 1 x daily - 7 x weekly - 3 sets - 10 reps - Supine Shoulder External Rotation with Dowel - 1 x daily - 7 x weekly - 3 sets - 10 reps - Towel Roll Squeeze - 1 x daily - 7 x weekly - 3 sets - 10 reps - Isometric Shoulder Flexion at Wall - 1 x daily - 7 x weekly - 2 sets - 10 reps - Isometric Shoulder Extension at Wall - 1 x daily - 7 x weekly - 2 sets - 10 reps - Isometric Shoulder Abduction at Wall - 1 x daily - 7 x weekly - 2 sets - 10 reps - Standing Isometric Shoulder External Rotation with Doorway - 1 x daily - 7 x weekly - 2 sets - 10 reps - Standing Isometric Shoulder Internal Rotation with Towel Roll at Doorway - 1 x daily - 7 x weekly - 2 sets - 10 reps - Isometric Shoulder Adduction - 1 x daily - 7 x weekly - 2 sets - 10 reps - Scapular Retraction with Resistance - 2 x daily - 7 x weekly - 2 sets - 10 reps - Standing Shoulder Internal Rotation AAROM with Dowel - 1 x daily - 7 x weekly - 2 sets - 10 reps * Scott Rivera PT, DPT - 01/15/2024 2:02 PM EST Episode Visit Count: 4 Therapist That Will Accept/Oversee The Plan Of Care: Felipe Joe, PT Start of Care Date: 12/21/23 Onset Date: 12/12/23 Plan of Care Certification Date: 12/21/23 Next Certification Due Date: 01/25/24 Patient Identified by Name and Date of : Yes REHABILITATION AND SPORTS THERAPY PHYSICAL THERAPY TREATMENT NOTE ASSESSMENT: Ana Gonzalez tolerated the session with expected muscle soreness. She demonstrated improvements in tolerance to exercise without increase in pain in R shoulder. The patient will continue to benefit from ongoing skilled physical therapy to progress toward set goals. PLAN FOR NEXT VISIT: Continue with AAROM>AROM, light strengthening as able SUBJECTIVE: Pt reports that her shoulder is feeling good, little by little it's getting better. Pain: Pain Pain Level: 0 Pain Location: Shoulder - Right Post Treatment Pain Post Treatment Pain Level: 0 Post Treatment Pain Location: Shoulder - Right OBJECTIVE MEASURES WITH LEVEL OF FUNCTION: UE AROM R Shoulder Internal Rotation (Functional): top of R PSIS R Shoulder External Rotation (Functional): to R ear UE PROM R Shoulder Flex: 115 Degrees (AAROM) R Shoulder ABduction: 88 Degrees (AAROM wand in standing) TREATMENT: Therapeutic Exercise: 1: Seated wand flexion AAROM 2x10 2: Seated wand ER AAROM 2x10 3: Standing AAROM abduction 2x10 4: AAROM circles CW and CCW 2x10 each 5: AROM bicep curls 2x10 6: Standing wall slides 2x10 7: Shoulder isometrics at wall with use of ball 10 second holds x 10 , all directions 8: *Scapular retractions with OTB 2x10 9: *Wand AAROM behind the back 2x10 Skilled Intervention: Patient was educated in proper exercise technique and purpose for exercises. Reviewed and educated patient on additions/changes for home exercise program as above (*). Skilled judgment was used in selection of appropriate interventions. Provided written instruction for home exercise program to facilitate proper performance and compliance. Correct performance of therapeutic exercises was facilitated with verbal and visual cuing. Billing Therapeutic Exercise Treatment Minutes: 44 Skilled Treatment Time Minutes (timed and untimed codes): 44 Total Session Time (minutes): 44 Session Start Time : 1400 Session Stop Time : 1444 JONO Burnham PT, DPT documented in this encounterUniversity Hospitals Ahuja Medical Center02-16-2024 History of Present illness Narrative* Francine Monson PTA - 01/04/2024 2:06 PM EST Episode Visit Count: 2 Therapist That Will Accept/Oversee The Plan Of Care: Felipe Diaz PT Start of Care Date: 12/21/23 Onset Date: 12/12/23 Plan of Care Certification Date: 12/21/23 Next Certification Due Date: 01/25/24 Patient Identified by Name and Date of : Yes REHABILITATION AND SPORTS THERAPY PHYSICAL THERAPY TREATMENT NOTE ASSESSMENT: Ana Gonzalez tolerated the session with fatigue and expected muscle soreness. Shedemonstrated improvements in AAROM of R shoulder flexion. The patient will continue to benefit fromongoing skilled physical therapy to progress toward set goals. PLAN FOR NEXT VISIT: Asses response to isometrics and add more if pt not too sore. SUBJECTIVE: Pt reports that her shoulder is feeling okay today. Some soreness near incision. Pain: Pain Pain Level: 0 Pain Location: Shoulder - Right OBJECTIVE MEASURES WITH LEVEL OF FUNCTION: UE PROM R Shoulder Flex: 117 Degrees (AAROM) TREATMENT: Therapeutic Exercise: 1: Supine wand flexion 2 x 10 2: Supine wand AAROM ER 2 x 10 (Tactile cues for technique) 3: Pulleys for flexion and scaption 2x10 4: *ER isometric with wand x10 with 5 second hold 5: *IR isometric with wand 5 second holds x 10 6: Supine bicep curl AAROM with wand x 10 7: Scapular retractions 2x10 Skilled Intervention: Patient was educated in proper exercise technique and purpose for exercises. Reviewed and educated patient on additions/changes for home exercise program as above (*). Skilled judgment was used in selection of appropriate interventions. Correct performance of therapeutic exercises was facilitated with verbal and visual cuing. Billing Therapeutic Exercise Treatment Minutes: 38 Skilled Treatment Time Minutes (timed and untimed codes): 38 Total Session Time (minutes): 38 Session Start Time : 1405 Session Stop Time : 1443 Francine Monson PTA documented in this encounterUniversity Hospitals Ahuja [facility] Center02-02-2024 History of Present illness Narrative* Felipe Diaz PT - 12/21/2023 2:00 PM EST Program_ID:[id number] Access Code: [email or web address] URL: [email or web address] Date: 12-21-2023 Prepared By: Felipe Diaz Program Notes Exercises - Supine Shoulder Flexion with Dowel - 1 x daily - 7 x weekly - 3 sets - 10 reps - Supine Bicep Curl with Cane - 1 x daily - 7 x weekly - 3 sets - 10 reps - Supine Shoulder External Rotation with Dowel - 1 x daily - 7 x weekly - 3 sets - 10 reps - Towel Roll Squeeze - 1 x daily - 7 x weekly - 3 sets - 10 reps * Felipe Diaz PT - 12/21/2023 1:31 PM EST Episode Visit Count: 1 Therapist That Will Accept/Oversee The Plan Of Care: Felipe Diaz PT Start of Care Date: 12/21/23 Onset Date: 12/12/23 Plan of Care Certification Date: 12/21/23 Next Certification Due Date: 01/25/24 Patient Identified by Name and Date of : Yes REHABILITATION AND SPORTS THERAPY PHYSICAL THERAPY EVALUATION PLAN OF CARE: Assessment: Ana Gonzalez presents with diagnosis of R reverse TSA on 12/12/2023 that interferes with reaching overhead, lifting, pushing, carrying, pulling, grooming, dressing, cooking, cleaning. She presents with impairments in ADL's, independence in exercise, overall function, range of motion, and strength. Patient did not complete the PROMIS (Patient Reported Outcome Measures InformationSystem). Prognosis for therapy is Good due to: current objective clinical presentation, good overall health status, good support system/ coping skills . She will benefit from skilled therapy servicesto meet the goals established for this plan of care as noted below. Goals for Episode of Care: created on 12/21/23 through 03/14/24 Pt will be able to dress and groom without pain in 12 weeks or less Re[place] in home exercise program. Increase ROM of RUE to 120 degrees or greater of elevation for reaching up into cabinets Increased strength of RUE to 4+/5 or greater for return to PLOF and completion of moderately challenging tasks Patient Goals: Return to PLOF Planned Interventions, Frequency, and Duration: Current Frequency: 2x/week Duration: 4 weeks Total Number of Visits Planned: 8 Planned Treatment Interventions: Therapeutic exercise (61377), Neuromuscular re- education (54561), Manual therapy (26258), Therapeutic activities (09908), Self- alf management (72444), Patient/Family/Caregiver Education PLAN FOR NEXT VISIT: Continue with R TSA rehab protocol. PROM/AAROM Patient demonstrates good understanding of plan of care and treatment. The above goals and plan of care were discussed and agreed upon by patient/family. SUBJECTIVE: Surgery. Sleeping ok. Patient Goals: Return to PLOF Functional Limitations: reaching overhead, lifting, pushing, carrying, pulling, grooming, dressing,cooking, cleaning Prior Level of Function: Independent without limitations Intake Information: Prescription present Previous Treatment: NSAIDs Pain: Pain Pain Level: 0 Pain Location: Shoulder - Right PROMIS Scales T-scores: mean of general population = 50. 5 points is clinically meaningfully difference Percentiles provide an indication of how the patient's score ranks in relation to the general population. Higher percentile rankings indicate better function/quality of life. 50th percentile is the average of the general population and indicates half of respondents had a worse score. OBJECTIVE MEASURES WITH LEVEL OF FUNCTION: Posture / Alignment Posture: Good Cervical Spine ROM Cervical ROM : (WNL) UE AROM R UE AROM: Not tested due to post-op status UE PROM R Shoulder Flex: 50 Degrees R Shoulder Internal Rotation: (To belly with arm at side) R Shoulder External Rotation: 20 Degrees (Pain at end range) UE and Cervical Strength R UE Strength: Deferred due to post-op status Education: Education Learning Preferences: Demonstration, Explanation, Performance, Printed Materials Barriers: None Learning/educational needs: Home exercise program, Plan of Care Education Provided: Yes, see treatment interventions for education provided Education Provided To: Patient Education Mode/Type: Demonstration, Explanation/Discussion, Literature/Printed Materials, Performance Response to Education/Teach Back: States/Identifies, Return Demonstration TREATMENT: PT Treatment Interventions: Therapeutic Exercise Evaluation Therapeutic Exercise: 1: Discussed exam findings, purpose of the HEP and the HEP handout was provided to the pt. HEP discussed in detail with hot to safely and properly perform each therapeutic exercise. 2: Supine wand flexion x 10 3: Supine wand AAROM ER x 10 (towel roll placed under the arm for comfort) 4: Seated shoulder scaption using pulleys x 15 5: Towel squeezes x 10 6: Supine bicep curl AAROM with wand x 10 Skilled Intervention: Patient was educated in proper exercise technique and purpose for exercises. Provided written instruction for home exercise program to facilitate proper performance and compliance. Correct performance of therapeutic exercises was facilitated with verbal and visual cuing. Billing * Evaluation Low Complexity: 1 Unit Therapeutic Exercise Treatment Minutes: 19 Skilled Treatment Time Minutes (timed and untimed codes): 35 Total Session Time (minutes): 35 Session Start Time : 1331 Session Stop Time : 1406 Felipe Diaz PT documented in this encounterUniversity Hospitals Ahuja Medical Center11-09-2023 History of Present illness Narrative* Michaela Colunga - 09/27/2023 11:54 AM EST CAYETANO documented in this encounterUniversity Hospitals Ahuja Medical Center11-07-2023 History of Present illness Narrative* Bianka Rivera MD - 09/25/2023 1:13 PM EST ORTHOPAEDIC SHOULDER & ELBOW SERVICE HISTORY & PHYSICAL EXAM REFERRING PROVIDER: Steffany Rodriguez [address] [facility] [address] CHIEF COMPLAINT: Right shoulder pain and weakness PAIN EVALUATION 09/25/2023 1044 Pain Level: 5 Pain Location: Shoulder-Right Description: Burning;Other: See comment;Numbness Duration Amount of Time: 1 Duration Units: Years Frequency: Continuous Comments: pinching, weakness Ana Gonzalez is a 78 year old woman [...] comes to me as a consultation from [facility] where she was evaluated and has [...] EXAMINATION: Resp 20 Ht 146.1 cm (4' 9.5) Wt 55 kg (121 lb 3.2 oz) [...] negative Drop arm test: negative Biceps/sonja Signs [place]'s test: positive Clicking/popping: negative Speed's test: positive [...] undersurface of the acromion. MEDICAL DECISION MAKING: (M12.811) Rotator cuff arthropathy of right shoulder (primary encounter diagnosis) Comment: Ana Gonzalez presents today with full weakness of the right shoulder due to advancedrotator cuff tear arthropathy. Based on my evaluation [...] was discussed in detail and signed in theoffice today. Significant risks of surgery including those [...] electronic medical record. Steffany Rodriguez [address] [facility] [address] Bianka Rivera MD Shoulder & Elbow Surgeon Department of Orthopaedic Surgery [facility] documented in this encounterUniversity Hospitals Ahuja Medical Center10-16-2023 History of Present illness Narrative* Steffany Rodriguez PA-C - 09/03/2023 2:50 PM EDT Steffany Rodriguez PA-C Department of Orthopaedics Orthopaedics [address] [id number] Dept: [phone] September 03, 2023 SUBJECTIVE: CHIEF COMPLAINT: New and Pain of the Right Shoulder and New and Pain of the Left Shoulder HPI: Ms. Ana Gonzalez is a 78 year old right [...] notes that the injections previously administered provided les s than a week of relief. She denies [...] mouth daily at bedtime. (Patient not taking: Reportedon 04/24/2022) primidone (MYSOLINE) 50 mg tablet Take [...] HPI Psych: no depression, anxiety OBJECTIVE: Ms. Ana Gonzalez is a pleasant 78 year old [...] Impression IMPRESSION: Suspect chronic rotator cuff tear. Manager Ambulatory: [facility] Transcribe Date/Time: Sep 06 2023 8:26A Dictated by : LYNDA ZIMMERMAN MD This examination was interpreted and the report reviewed and electronically signed by: LYNDA ZIMMERMAN MD on Sep 06 2023 8:29AM EST Results-Findings * * *Final Report* * * DATE OF EXAM: Sep 03 2023 1:26PM GULSHAN 5253 - XR SHLDR >/=3V AP/TORI AP/OTHR RT / PROCEDURE REASON: [id number] * * * * Physician Interpretation * [...] Discussed repeat corticosteroid injection vs surgical intervention. Atthis point patient is not interested in corticosteroid injections as she did not get significant relief from her last round of injections. She is interested in discussing right shoulder surgical options as her ROM has decreased and she needs her arm to work better as she helps care for her .Recommend she schedule follow up with Dr. Rivera. FOLLOW UP INSTRUCTIONS: Dr. Rivera surgical consult Steffany Rodriguez PA-C documented in this encounterUniversity Hospitals Ahuja Medical Center10-16-2023 History of Present illness Narrative* Sunshine Spencer Tech - 09/03/2023 1:40 PM EDT Radiology Service Progress Note PATIENT NAME: Ana Gonzalez DATE OF SERVICE: September 03, 2023 TIME: 1:28 PM PATIENT IDENTITY VERIFICATION COMPLETED USING TWO (2) IDENTIFIERS: Name and Date of confirmedby patient verbally. FALL SCREENING: Has the patient had 2 falls in the last year or 1 fall with injury or currently using an Ambulatory Assistive Device (Walker, Cane, Wheelchair, Crutches, etc.)? No PATIENT GENDER DATA: Female. status: : No status: NO. PATIENT RELEVANT IMPLANT DATA REVIEWED: Not Applicable RADIOLOGY DEPARTMENT: General X-ray: Exam(s) Completed: Upper Extremity X- Ray(s): Shoulder, AP / TRUE AP / AXILLARY right PERIPHERAL IV DATA: Not applicable SIGNED BY: Tia Jimenez September 03, 2023 1:28 PM documented in this encounterUniversity Hospitals Ahuja Medical Center10-16-2023 NoteHNO ID: [id number] Author: Sunshine Spencer Tech Service: Radiology Author Type: Senior Specialist Type: Progress Notes Filed: 09/03/2023 1:29 PM Note Text: Radiology Service Progress Note PATIENT NAME: Ana Gonzalez DATE OF SERVICE: September 03, 2023 [...] BY: Tia Jimenez September 03, 2023 1:28 PMMer[facility] Health [facility] Medical [id number] History of Present illness Narrative* Chela Bertrand MD - 06/21/2022 2:53 PM EDT Images from the original note were not included. [facility] General Arthritis and Rheumatology Chela Portillo [address] [address] RHEUMATOLOGY PROGRESS NOTE Established Patient Patient presents with: Patient Question: review results HPI: Ana Gonzalez is a 76 year old female who presents for follow up of shoulder pains. Previous xrays showed damage to rotator cuff and AC joint disease. She now reports pains in her elbow and occasionally on the top of her hands near the MCP joints. She has pruritus since August and went to [facility]. She was prescribed Minoxidil for hair loss. [...] C (98 F) Ht 146.1 cm (4' 9.5) Wt 52.2 kg (115 lb) BMI 24.45kg/m Physical Exam GENERAL: Well appearing, alert, comfortable, in no acute distress, well- hydrated, well nourished. HEENT: Negative for external ears [...] Primary osteoarthritis of both knees (L29.9) Pruritus Ana was seen today for patient question. Diagnoses and all orders for this visit: Other osteoporosis without current pathological fracture - JOHN BY IFA SCREEN; Future - CCP ANTIBODY IGG; Future - MITOCHONDRIAL AB PNL SCRN; Future - alendronate (FOSAMAX) 70 mg tablet; Take 1 tablet by mouth one time a week. On empty stomach withlarge glass of water. First thing in the am. No other medications. Do not lie down after taking this. - VITAMIN D 25 HYDROXY; Future Arthralgia, unspecified joint - JOHN BY IFA SCREEN; Future - CCP ANTIBODY IGG; Future - MITOCHONDRIAL AB PNL SCRN; Future - alendronate (FOSAMAX) 70 mg tablet; Take 1 tablet by mouth one time a week. On empty stomach withlarge glass of water. First thing in the [...] in about 3 months (around 09/21/2022), or Milad for in office followup. I spent a total of minutes on the date of the service which included preparing to see the patient, [id number] patient care, completing clinical documentation, obtaining and/or [...] look for other causes. [facility] Instructions* Patient Instructions* Chela Bertrand MD - 06/21/2022 12:24 PM EDT Stop calcium tablets. Your calcium level is too high. You have low bone density (osteoporosis) And Osteoarthritis (causes joint pains.) Your itchiness may be caused by a medication. I will look for other causes. documented in this encounter[facility] Evaluation + Plan note Future Scheduled Tests Laboratory* Cancer Antigen 125 03/15/21 [facility] Evaluation note* Diagnosis Onset Date Resolution Status Chest pain, unspecified reso lved Degenerative disc disease, cervical acute DJD of both shoulders acute Family history of rheumatoid arthritis acute Multiple joint pain acute Tendonitis of both rotator cuffs acute Arthritis acute Hyperlipemia acute Hypothyroidism acute Itching acute Tremor acute Vitamin D deficiency acute [facility] Work Phone: Evaluation note* Diagnosis Knee effusion, right Effusion of lower leg joint [facility] Diagnosis Other osteoporosis without current pathological fracture- Primary Arthralgia, unspecified joint Other hyperlipidemia Primary osteoarthritis of both knees Primary localized osteoarthrosis, lower leg Pruritus Unspecified pruritic disorder [facility] Diagnosis Onset Date Resolution Status Arthritis acute Hives of unknown origin acut e Hyperlipemia acute Hypothyroidism acute Itching acute Osteopenia acute Tremor acute Vitamin D deficiency acute [facility] Work Phone: Evaluation note* Diagnosis Onset Date Resolution Status Cervical spondylosis acute DJD of both shoulders acute Tendonitis of both rotator cuffs acute DJD of both shoulders acute Hypothyroidism acute Osteopenia acute Tremor acute Vitamin D deficiency acute Immunization due noneactive Establishing care with new doctor, encounter for noneactive Cervical radicular pain none active [facility] Work Phone: Evaluation note* Diagnosis Pain- Primary Generalized pain documented in this encounter [facility] note* Diagnosis Rotator cuff arthropathy of both shoulders- Primary [facility]* Diagnosis Rotator cuff arthropathy of right shoulder- Primary documented in this encounter [facility] note* Diagnosis Rotator cuff arthropathy, right- Primary Rotator cuff arthropathy, right documented [facility] this encounter [facility]* Diagnosis Onset Date Resolution Status Cervical myelopathy with cervical radiculopathy acute Right shoulder pain acute Cervical myelopathy with cervical radiculopathy acute Right shoulder pain acute DJD of both shoulders acute Hypothyroidism acute Osteopenia acute Tremor acute Immunization due noneactive Preoperative clearance nonea ctive Mixed hyperlipidemia noneact malia Neck pain noneactive Cervical radicular pain none active [facility] Work Phone: Evaluation note* Diagnosis S/P reverse total shoulder arthroplasty, right- Primary documented in this encounter [facility]* Diagnosis S/P reverse total shoulder arthroplasty, right- Primary documented in this encounter [facility]* Diagnosis S/P reverse total shoulder arthroplasty, right- Primary documented in this encounter [facility]* Diagnosis S/P reverse total shoulder arthroplasty, right- Primary documented in this encounter [facility]* Diagnosis S/P reverse total shoulder arthroplasty, right- Primary documented in this encounter [facility]* Diagnosis S/P reverse total shoulder arthroplasty, right- Primary documented in this encounter [facility]* Diagnosis Onset Date Resolution Status Cervical myelopathy with cervical radiculopathy acute Right shoulder pain acute DJD of both shoulders acute Hypothyroidism acute Osteopenia acute Tremor acute Immunization due noneactive Preoperative clearance nonea ctive Mixed hyperlipidemia noneact malia Neck pain noneactive Cervical radicular pain none active DJD of both shoulders acute Hypothyroidism acute Osteopenia acute Tremor acute RUQ pain noneactive Mixed hyperlipidemia noneact malia Cervical radicular pain none active [facility] Work Phone: Evaluation note* Diagnosis S/P reverse total shoulder arthroplasty, right- Primary documented in this encounter [facility]* Diagnosis S/P reverse total shoulder arthroplasty, right- Primary documented in this encounter [facility] note* Diagnosis S/P reverse total shoulder arthroplasty, right- Primary documented in this encounter [facility] note* Diagnosis S/P reverse total shoulder arthroplasty, right- Primary documented in this encounter [facility] note* Diagnosis Essential tremor- Primary Essential and other specified forms of tremor documented in this encounter [facility] note* Diagnosis Chronic right shoulder pain- Primary Pain in joint, shoulder region documented in this encounter [facility] note* Diagnosis Pre-op examination Preoperative examination, unspecified Rotator cuff arthropathy, right Other hyperlipidemia Gastroesophageal reflux disease, unspecified whether esophagitis present Unspecified hypothyroidism Anemia, unspecified type Elevated BP without diagnosis of hypertension Chronic left shoulder pain- Primary Pain in joint, shoulder region documented in this encounter [facility] note* Diagnosis Pre-op examination Preoperative examination, unspecified Rotator cuff arthropathy, right Other hyperlipidemia Gastroesophageal reflux disease, unspecified whether esophagitis present Unspecified hypothyroidism Anemia, unspecified type Elevated BP without diagnosis of hypertension Complete tear of left rotator cuff, unspecified whether traumatic- Primary Left shoulder pain, unspecified chronicity documented in this encounter [facility] note* Diagnosis Pre-op examination Preoperative examination, unspecified Rotator cuff arthropathy, right Other hyperlipidemia Gastroesophageal reflux disease, unspecified whether esophagitis present Unspecified hypothyroidism Anemia, unspecified type Elevated BP without diagnosis of hypertension Chronic right shoulder pain Pain in joint, shoulder region Chronic left shoulder pain Pain in joint, shoulder region documented in this encounter [facility] note* Diagnosis Pain Generalized pain Pre-op examination Preoperative examination, unspecified Rotator cuff arthropathy, right Other hyperlipidemia Gastroesophageal reflux disease, unspecified whether esophagitis present Unspecified hypothyroidism Anemia, unspecified type Elevated BP without diagnosis of hypertension documented in this encounter [facility] note* Diagnosis Pre-op examination Preoperative examination, unspecified Rotator cuff arthropathy, right Other hyperlipidemia Gastroesophageal reflux disease, unspecified whether esophagitis present Unspecified hypothyroidism Anemia, unspecified type Elevated BP without diagnosis of hypertension Complete tear of left rotator cuff, unspecified whether traumatic- Primary documented in this encounter [facility] note* Diagnosis Pre-op examination Preoperative examination, unspecified Rotator cuff arthropathy, right Other hyperlipidemia Gastroesophageal reflux disease, unspecified whether esophagitis present Unspecified hypothyroidism Anemia, unspecified type Elevated BP without diagnosis of hypertension Essential tremor- Primary Essential and other specified forms of tremor Memory loss documented in this encounter [facility]* Diagnosis Pre-op examination Preoperative examination, unspecified Rotator cuff arthropathy, right Other hyperlipidemia Gastroesophageal reflux disease, unspecified whether esophagitis present Unspecified hypothyroidism Anemia, unspecified type Elevated BP without diagnosis of hypertension Essential tremor Essential and other specified forms of tremor documented in this encounter [facility]* Diagnosis Pre-op examination Preoperative examination, unspecified Rotator cuff arthropathy, right Other hyperlipidemia Gastroesophageal reflux disease, unspecified whether esophagitis present Unspecified hypothyroidism Anemia, unspecified type Elevated BP without diagnosis of hypertension Essential tremor- Primary Essential and other specified forms of tremor documented in this encounter [facility] note* Diagnosis Pre-op examination Preoperative examination, unspecified Rotator cuff arthropathy, right Other hyperlipidemia Gastroesophageal reflux disease, unspecified whether esophagitis present Unspecified hypothyroidism Anemia, unspecified type Elevated BP without diagnosis of hypertension Left shoulder pain, unspecified chronicity- Primary Complete tear of left rotator cuff, unspecified whether traumatic documented in this encounter [facility]* Diagnosis Pre-op examination Preoperative examination, unspecified Rotator cuff arthropathy, right Other hyperlipidemia Gastroesophageal reflux disease, unspecified whether esophagitis present Unspecified hypothyroidism Anemia, unspecified type Elevated BP without diagnosis of hypertension Essential tremor- Primary Essential and other specified forms of tremor Bilateral hand numbness Disturbance of skin sensation documented in this encounter [facility] note* Diagnosis Pre-op examination Preoperative examination, unspecified Rotator cuff arthropathy, right Other hyperlipidemia Gastroesophageal reflux disease, unspecified whether esophagitis present Unspecified hypothyroidism Anemia, unspecified type Elevated BP without diagnosis of hypertension Essential tremor- Primary Essential and other specified forms of tremor documented in this encounter [facility]* Diagnosis Pre-op examination Preoperative examination, unspecified Rotator cuff arthropathy, right Other hyperlipidemia Gastroesophageal reflux disease, unspecified whether esophagitis present Unspecified hypothyroidism Anemia, unspecified type Elevated BP without diagnosis of hypertension Essential tremor Essential and other specified forms of tremor documented in this encounter [facility]* Diagnosis Onset Date Resolution Status Admit Date Osteoporosis acute August 132024 11:13am Immunization due noneactive Septembe r 2024 11:13am [facility] Work Phone: Hospital course Narrative No data available for this section [facility] Hospital Discharge instructions No data available for this section [facility] Progress note Author Lilia Bergeron [facility] Note Date/Time August 13, 2025 11:29am [facility] [address] [address] OFFICE VISIT Date of Service: 08/13/25 MR#: [id number] Acct: [id number] Patient: ANA GONZALEZ p #: [id number] : 1945 Provider: MIRELLA Aviles Age/Sex: 80/F Location: [facility] Status: Signed Intake Vital Signs 02/11/25 12:58 Height 4 ft 9 in Weight: 127 lb BMI 27.4 BP 122/74 H Blood Pressure Location Lt brachial Position Sitting Respiration 14 Pulse 67 Pulse Source Monitor Temp 97 F L Temp Source Temporal Pulse Oximetry (%) 97 Oxygen Delivery Method room air Intake Visit Reasons: PROLIA-$0 Chief Complaint: sciatica pain Allergies acetaminophen (From Tylenol) Allergy (Mild, Verified 07/10/24 09:39) hives ibuprofen Allergy (Mild, Verified 07/10/24 09:44) Other Have you fallen in the past year?: No Nurse's Note: Pt here for prolia, and is pt provided. Pt also requesting flu shot Office Procedures Injections Procedure performed by: Christin Landrum Is this a patient provided medication?: Yes Office Meds Prolia 60 mg/mL subcutaneous syringe Performing Provider: Lilia Bergeron MD Performing Location: [facility] Administered by: Christin Landurm MA on 08/13/25 11:29 Dose Route Admin Location Dispensed Lot Number Expiration Date Pack age NDC NDC Arrt Technologist 60 mg subcut LD 1 mL [id number] 04/18/28 82689-651-40 [id number] 1 AMGEN Comments: patient provided Dx: osteo Immunizations Fluad 65yr up(PF)45 mcg(15 mcgx3)/0.5 mL intramuscular syringe Performing Provider: Lilia Bergeron MD Performing Location: [facility] Administered by: Christin Landrum MA on 08/13/25 11:29 Dose Route Admin Location Dispensed Lot Number Expiration Date Pack age NDC NDC Arrt Technologist 45 mcg IM Left Deltoid 0.5 mL [id number] 03/16/26 54507-996-61 [id number] SWYF. VIS Given Date VIS Provided VIS Publication Date 08/13/25 Single Vaccine 24 Eligibility Eligibility Date Funding Source Not Applicable Assessment and Plan Assessment and Plan (1) Osteoporosis: Status: Acute Qualifiers: Osteoporosis type: age-related Presence of current pathological fracture: without current pathological fracture Qualified Code(s): M81.0 - Age-related osteoporosis without current pathological fracture (2) Immunization due: Orders: Orders Prolia Injection Today M81.0 - Age-related osteoporosis without current pathological fracture Influenza Immunization Today Z23 - Encounter for immunization Clinical Quality Measures Falls Risk Screening/Assistive Devices Have you fallen in the past year?: No 08/13/25 1517 <Electronically signed by Lilia cruz MD> Date _ Lilia Bergeron MD Cosigner Signature: Date (if applicable) CC: ~ [facility] [employer] Work Phone: Reason for referral (narrative)* Diagnostic Procedure Only (Routine) - Closed Specialty Diagnoses / Procedures Referred By Contac t Referred To Contact XR IMAGING Diagnoses Knee effusion, right Procedures XR KNEE LIMITED 2V AP/LAT RIGHT RADIOLOGIC EXAMINATION KNEE 1/2 VIEWS Chela Montana MD [address] [address] Xr Imaging Referral ID Status Reason Start Date Expiration Date V isits Requested Visits Authorized [id number] Closed Auto-Generate d Referral 04/24/2022 05/24/2023 1 1 [facility] for referral (narrative)* Diagnostic Procedure Only (Routine) - Closed Specialty Diagnoses / Procedures Referred By Contac t Referred To Contact XR IMAGING Diagnoses Arthralgia, unspecified joint Procedures XR HAND GENERAL 3V PA/LAT/OBL LEFT RADEX HAND MINIMUM 3 VIEWS O Chela Bertrand MD 1943 [facility] [address] [place] [address] Xr Imaging Referral ID Status Reason Start Date Expiration Date V isits Requested Visits Authorized [id number] Closed Auto-Generate d Referral 06/21/2022 07/21/2023 1 1 * Diagnostic Procedure Only (Routine) - Closed Specialty Diagnoses / Procedures Referred By Contac t Referred To Contact XR IMAGING Diagnoses Arthralgia, unspecified joint Procedures XR HAND GENERAL 3V PA/LAT/OBL RIGHT RADEX HAND MINIMUM 3 VIEWS O Chela Bertrand MD 1943 [facility] [address] [place] [address] Xr Imaging Referral ID Status Reason Start Date Expiration Date V isits Requested Visits Authorized [id number] Closed Auto-Generate d Referral 06/21/2022 07/21/2023 1 1 [facility] for referral (narrative)* Diagnostic Procedure Only (Routine) - Authorized Specialty Diagnoses / Procedures Referred By Contac t Referred To Contact XR IMAGING Diagnoses Pain Procedures XR SHOULDER GENERAL 3V OR MORE AP/TRUE AP/OTHER RIGHT RADEX SHOULDER COMPLETE MINIMUM 2 VIEWS Steffany Rodriguez PA-C [address] [place] [address] [place] [address] Referral ID Status Reason Start Date Expiration Date Visits Requested Visits Authorized [id number] Authorized Auto-Generat ed Referral 08/13/2023 09/11/2024 1 1 [facility] for referral (narrative)* Diagnostic Procedure Only (Routine) - Pending Review Specialty Diagnoses / Procedures Referred By Contac t Referred To Contact XR IMAGING Diagnoses S/P reverse total shoulder arthroplasty, right Procedures XR SHOULDER 3V AP/Y VIEW/AXILLARY RIGHT (AK) RADEX SHOULDER COMPLETE MINIMUM 2 VIEWS Elaine Meraz PA-C [address] [place] [address] [place] [address] Referral ID Status Reason Start Date Expiration Date Visits Requested Visits Authorized [id number] Pending Review Auto-Generat ed Referral 03/04/2024 04/03/2025 1 1 T [facility] for referral (narrative)* Diagnostic Procedure Only (Routine) - New Request Specialty Diagnoses / Procedures Referred By Contac t Referred To Contact XR IMAGING Diagnoses S/P reverse total shoulder arthroplasty, right Procedures XR SHOULDER 3V AP/Y VIEW/AXILLARY RIGHT (AK) RADEX SHOULDER COMPLETE MINIMUM 2 VIEWS Elaine Meraz PA-C [address] [place] [address] [place] [address] Referral ID Status Reason Start Date Expiration Date Visits Requested Visits Authorized [id number] New Request Auto-Generat ed Referral 06/03/2024 07/03/2025 1 1 T [facility] for referral (narrative)* Diagnostic Procedure Only (Routine) - New Request Specialty Diagnoses / Procedures Referred By Contac t Referred To Contact XR IMAGING Diagnoses Chronic right shoulder pain Procedures XR SHOULDER GENERAL 3V OR MORE AP/TRUE AP/OTHER RIGHT RADEX SHOULDER COMPLETE MINIMUM 2 VIEWS Elaine Meraz PA-C [address] [place] [address] [place] [address] Referral ID Status Reason Start Date Expiration Date Visits Requested Visits Authorized [id number] New Request Auto-Generat ed Referral 07/03/2024 08/02/2025 1 1 [facility] for referral (narrative)* Diagnostic Procedure Only (Routine) - Closed Specialty Diagnoses / Procedures Referred By Contac t Referred To Contact XR IMAGING Diagnoses Chronic left shoulder pain Procedures XR SHOULDER GENERAL 3V OR MORE AP/TRUE AP/OTHER LEFT RADEX SHOULDER COMPLETE MINIMUM 2 VIEWS Elaine Meraz PA-C [address] [place] [address] [place] [address] Referral ID Status Reason Start Date Expiration Date V isits Requested Visits Authorized [id number] Closed Auto-Generate d Referral 07/18/2024 08/17/2025 1 1 [facility] for referral (narrative)* Diagnostic Procedure Only (Routine) - Closed Specialty Diagnoses / Procedures Referred By Contac t Referred To Contact XR IMAGING Diagnoses Chronic left shoulder pain Procedures XR SHOULDER GENERAL 3V OR MORE AP/TRUE AP/OTHER LEFT RADEX SHOULDER COMPLETE MINIMUM 2 VIEWS Elaine Meraz PA-C [address] [place] [address] [place] [address] Referral ID Status Reason Start Date Expiration Date V isits Requested Visits Authorized [id number] Closed Auto-Generate d Referral 07/18/2024 08/17/2025 1 1 [facility] for referral (narrative)* Diagnostic Procedure Only (Routine) - Closed Specialty Diagnoses / Procedures Referred By Contac t Referred To Contact XR IMAGING Diagnoses Pain Procedures XR SHOULDER GENERAL 3V OR MORE AP/TRUE AP/OTHER RIGHT RADEX SHOULDER COMPLETE MINIMUM 2 VIEWS Steffany Rodriguez PA-C [address] [place] [address] [place] [address] Referral ID Status Reason Start Date Expiration Date V isits Requested Visits Authorized [id number] Closed Auto-Generate d Referral 08/13/2023 09/11/2024 1 1 [facility] for referral (narrative)No reason for referral [facility] Work Phone: Reason for visit Narrative* Diagnostic Procedure Only (Routine) - Closed Specialty Diagnoses / Procedures Referred By Contac t Referred To Contact XR IMAGING Diagnoses Knee effusion, right Procedures XR KNEE LIMITED 2V AP/LAT RIGHT RADIOLOGIC EXAMINATION KNEE 1/2 VIEWS Chela Montana MD 1943 [facility] [address] [place] [address] Xr Imaging Referral ID Status Reason Start Date Expiration Date V isits Requested Visits Authorized [id number] Closed Auto-Generate d Referral 04/24/2022 05/24/2023 1 1 [facility] for visit Narrative* Diagnostic Procedure Only (Routine) - Closed Specialty Diagnoses / Procedures Referred By Contac t Referred To Contact XR IMAGING Diagnoses Chronic right shoulder pain Procedures XR SHOULDER GENERAL 3V OR MORE AP/TRUE AP/OTHER RIGHT RADEX SHOULDER COMPLETE MINIMUM 2 VIEWS Elaine Meraz PA-C [address] [place] [address] [place] [address] Referral ID Status Reason Start Date Expiration Date V isits Requested Visits Authorized [id number] Closed Auto-Generate d Referral 07/03/2024 08/02/2025 1 1 [facility] for visit Narrative* Diagnostic Procedure Only (Routine) - Closed Specialty Diagnoses / Procedures Referred By Contac t Referred To Contact XR IMAGING Diagnoses Pain Procedures XR SHOULDER GENERAL 3V OR MORE AP/TRUE AP/OTHER RIGHT RADEX SHOULDER COMPLETE MINIMUM 2 VIEWS Steffany Rodriguez PA-C [address] [place] [address] [place] [address] Referral ID Status Reason Start Date Expiration Date V isits Requested Visits Authorized [id number] Closed Auto-Generate d Referral 08/13/2023 09/11/2024 1 1 [facility] Summary Purpose Family History No Family History Records Found Relationship Condition Age at Onset Recorded Date/T johny Not Specified Diabetes mellitus Unknown Osteoporosis Unknown Alcoholism Unknown Anemia Unknown Depression Unknown Malignant neoplasm of breast Unknown Malignant neoplasm Unknown Parkinson's disease Unknown Disorder of thyroid Unknown Relationship Condition Age at Onset Recorded Date/T johny father Alcoholism Unknown Anemia Unknown sister Malignant neoplasm of breast Unknown sister Malignant neoplasm Unknown sister Disorder of thyroid Unknown mother Diabetes mellitus Unknown Osteoporosis Unknown Rheumatoid arthritis Unknown Parkinson's disease Unknown Advance Directives No Advanced Directives Records Found Advance Directive Response Recorded Date/ Time Living Will No January 12 11:13pm Power of Door Opener No January 12, 2022 11:13pm Advance Directive Response Recorded Date/ Time Living Will No January 12 10:13pm Power of Door Opener No January 12, 2022 10:13pm Chief Complaint and Reason for Visit Chief Complaint CHEST PAIN CHEST PAIN CHEST PAIN CHEST PAIN CHEST PAIN CERVICAL DDD, ROT CUFF INFLAM/IMPINGEMENT RX HERE SCREENING BILAT SHOULDER BILATERAL PAIN Hospital FU Reason for Visit Chest pain, unspecif ied Degenerative disc disease, cervical DJD of both shoulders Family history of rheumatoid arthritis Multiple joint pain Tendonitis of both rotator cuffs Arthritis Hyperlipemia Hypothyroidism Itching Tremor Vitamin D deficiency Chief Complaint 10 M FU Reason for Visit Arthritis Hives of unknown origin Hyperlipemia Hypothyroidism Itching Osteopenia Tremor Vitamin D deficiency Chief Complaint 10 M FU SCREENING Reason for Visit Arthritis Hives of unknown origin Hyperlipemia Hypothyroidism Itching Osteopenia Tremor Vitamin D deficiency Chief Complaint [facility] Room 2 RN TESTING EST CARE-TRANSFERRING FROM DR HEAD Reason for Visit Cervical spondylosis DJD of both shoulders Tendonitis of both rotator cuffs DJD of both shoulders Hypothyroidism Osteopenia Tremor Vitamin D deficiency Immunization due Establishing care with new doctor, encounter for Cervical radicular pain Chief Complaint [facility] Room 2 RN TESTING EST CARE-TRANSFERRING FROM DR HEAD Radiculopathy, cervical region Reason for Visit Cervical spondylosis DJD of both shoulders Tendonitis of both rotator cuffs DJD of both shoulders Hypothyroidism Osteopenia Tremor Vitamin D deficiency Immunization due Establishing care with new doctor, encounter for Cervical radicular pain Chief Complaint Radiculopathy, cervi riley region CERVICAL SPINE Room 3 CERVICAL SPINE SURGICAL CLEARANCE Reason for Visit Cervical myelopathy with cervical radiculopathy Right shoulder pain Cervical myelopathy with cervical radiculopathy Right shoulder pain DJD of both shoulders Hypothyroidism Osteopenia Tremor Immunization due Preoperative clearance Mixed hyperlipidemia Neck pain Cervical radicular pain Chief Complaint CERVICAL SPINE SURGICAL CLEARANCE FOLLOW UP SCREEN Reason for Visit Cervical myelopathy with cervical radiculopathy Right shoulder pain DJD of both shoulders Hypothyroidism Osteopenia Tremor Immunization due Preoperative clearance Mixed hyperlipidemia Neck pain Cervical radicular pain DJD of both shoulders Hypothyroidism Osteopenia Tremor RUQ pain Mixed hyperlipidemia Cervical radicular pain Chief Complaint Admit Date PROLIA-$0 February 03, 2025 11: 08am fu February 11, 2025 12: 49pm Reason for Visit Admit Date Osteoporosis February 03, 2025 11: 08am DJD of both shoulders February 11, 2025 1 2:49pm Hypothyroidism February 11, 2025 12: 49pm Osteoporosis February 11, 2025 12: 49pm Tremor February 11, 2025 12: 49pm Fatigue February 11, 2025 12: 49pm Mixed hyperlipidemia February 11, 2025 12 :49pm Muscle cramps February 11, 2025 12: 49pm Easy bruising February 11, 2025 12: 49pm Shooting pain February 11, 2025 12: 49pm Screening for breast cancer February 11, 2025 12:49pm Cervical radicular pain February 11, 2025 12:49pm Chief Complaint Admit Date PROLIA-$0 February 03, 2025 11: 08am fu February 11, 2025 12: 49pm screening April 09, 2025 3:07p m Chief Complaint Admit Date PROLIA-$0 August 13, 2025 11:13am Reason for Visit Admit Date Osteoporosis August 13, 2025 11:13am Immunization due August 13, 2025 11:13am Chief Complaint Admit Date PROLIA-$0 August 13, 2025 11:13am dizziness x1 month August 26, 2025 1: 59pm Reason for Visit Admit Date Osteoporosis August 13, 2025 11:13am Immunization due August 13, 2025 11:13am Orthostasis August 26, 2025 1: 59pm Reason for Referral Specialty Diagnoses / Procedures Referred By Arianna norman Referred To Contact [facility] Diagnoses Essential tremor Procedures CONSULT TO PHYSICAL THERAPY PHYSICAL THERAPY EVALUATION HIGH COMPLEX 45 MINS Sarah Chou PA-C [address] [place] [address] [facility] [address] [place] [address] Referral ID Status Reason Start Date Expiration Date Visits Requested Visits Authorized [id number] Pending Review Auto-Generat ed Referral 09/24/2024 09/24/2025 1 1 Specialty Diagnoses / Procedures Referred By Contac t Referred To Contact [facility] Diagnoses S/P reverse total shoulder arthroplasty, right Procedures CONSULT TO PHYSICAL THERAPY PHYSICAL THERAPY EVALUATION HIGH COMPLEX 45 MINS Miguel, Bianka Pineda MD [address] [facility] [place] [address] [facility] [address] [place] [address] Referral ID Status Reason Start Date Expiration Date Visits Requested Visits Authorized [id number] Pending Review Auto-Generat ed Referral 12/21/2023 12/20/2024 1 1 Additional Source Comments INFORMATION SOURCE (unrecogn ized section and content) DATE CREATED AUTHOR 04/29/2019 [facility] DATE CREATED AUTHOR AUTHOR'S ORGANIZ ATION 09/01/2021 [facility] ([place]) DATE CREATED AUTHOR AUTHOR'S ORGANIZ ATION 07/20/2024 [facility] DATE CREATED AUTHOR AUTHOR'S ORGANIZ ATION 01/03/2025 [facility] DATE CREATED AUTHOR AUTHOR'S ORGANIZ ATION 08/28/2025 [facility] DATE CREATED AUTHOR AUTHOR'S ORGANIZ ATION 09/22/2025 [facility] Goals (unrecognized section and content) Goals may be documented in a n alternate section Source Comments (unrecognize d section and content) In the event this informatio n is protected by the Federal Confidentiality of Alcohol and Drug Abuse Patient Records regulations: The Federal rules restrict any use of the information to criminally investigate or prosecute any alcohol or drug abuse patient.[facility] Center[facility] the event this information is protected by the Federal Confidentiality of Alcohol and Drug Abuse Patient Records regulations: The Federal rules restrict any use of the information to criminally investigate or prosecute any alcohol or drug abuse patient.[facility] CenterIn the event this information is protected by the Federal Confidentiality of Alcohol and Drug Abuse Patient Records regulations: The Federal rules restrict any use of the information to criminally investigate or prosecute any alcohol or drug abuse patient.[facility] CenterIn the event this information is protected by the Federal Confidentiality of Alcohol and Drug Abuse Patient Records regulations: The Federal rules restrict any use of the information to criminally investigate or prosecute any alcohol or drug abuse patient.[facility] CenterIn the event this information is protected by the Federal Confidentiality of Alcohol and Drug Abuse Patient Records regulations: The Federal rules restrict any use of the information to criminally investigate or prosecute any alcohol or drug abuse patient.[facility]In the event this information is protected by the Federal Confidentiality of Alcohol and Drug Abuse Patient Records regulations: The Federal rules restrict any use of the information to criminally investigate or prosecute any alcohol or drug abuse patient.[facility] CenterIn the event this information is protected by the Federal Confidentiality of Alcohol and Drug Abuse Patient Records regulations: The Federal rules restrict any use of the information to criminally investigate or prosecute any alcohol or drug abuse patient.[facility] CenterIn the event this information is protected by the Federal Confidentiality of Alcohol and Drug Abuse Patient Records regulations: The Federal rules restrict any use of the information to criminally investigate or prosecute any alcohol or drug abuse patient.[facility] CenterIn the event this information is protected by the Federal Confidentiality of Alcohol and Drug Abuse Patient Records regulations: The Federal rules restrict any use of the information to criminally investigate or prosecute any alcohol or drug abuse patient.[facility] CenterIn the event this information is protected by the Federal Confidentiality of Alcohol and Drug Abuse Patient Records regulations: The Federal rules restrict any use of the information to criminally investigate or prosecute any alcohol or drug abuse patient.[facility] CenterIn the event this information is protected by the Federal Confidentiality of Alcohol and Drug Abuse Patient Records regulations: The Federal rules restrict any use of the information to criminally investigate or prosecute any alcohol or drug abuse patient.[facility] CenterIn the event this information is protected by the Federal Confidentiality of Alcohol and Drug Abuse Patient Records regulations: The Federal rules restrict any use of the information to criminally investigate or prosecute any alcohol or drug abuse patient.[facility] CenterIn the event this information is protected by the Federal Confidentiality of Alcohol and Drug Abuse Patient Records regulations: The Federal rules restrict any use of the information to criminally investigate or prosecute any alcohol or drug abuse patient.[facility] CenterIn the event this information is protected by the Federal Confidentiality of Alcohol and Drug Abuse Patient Records regulations: The Federal rules restrict any use of the information to criminally investigate or prosecute any alcohol or drug abuse patient.[facility] CenterIn the event this information is protected by the Federal Confidentiality of Alcohol and Drug Abuse Patient Records regulations: The Federal rules restrict any use of the information to criminally investigate or prosecute any alcohol or drug abuse patient.[facility] CenterIn the event this information is protected by the Federal Confidentiality of Alcohol and Drug Abuse Patient Records regulations: The Federal rules restrict any use of the information to criminally investigate or prosecute any alcohol or drug abuse patient.[facility] CenterIn the event this information is protected by the Federal Confidentiality of Alcohol and Drug Abuse Patient Records regulations: The Federal rules restrict any use of the information to criminally investigate or prosecute any alcohol or drug abuse patient.[facility] CenterIn the event this information is protected by the Federal Confidentiality of Alcohol and Drug Abuse Patient Records regulations: The Federal rules restrict any use of the information to criminally investigate or prosecute any alcohol or drug abuse patient.[facility] CenterIn the event this information is protected by the Federal Confidentiality of Alcohol and Drug Abuse Patient Records regulations: The Federal rules restrict any use of the information to criminally investigate or prosecute any alcohol or drug abuse patient.[facility] CenterIn the event this information is protected by the Federal Confidentiality of Alcohol and Drug Abuse Patient Records regulations: The Federal rules restrict any use of the information to criminally investigate or prosecute any alcohol or drug abuse patient.[facility] CenterIn the event this information is protected by the Federal Confidentiality of Alcohol and Drug Abuse Patient Records regulations: The Federal rules restrict any use of the information to criminally investigate or prosecute any alcohol or drug abuse patient.[facility] CenterIn the event this information is protected by the Federal Confidentiality of Alcohol and Drug Abuse Patient Records regulations: The Federal rules restrict any use of the information to criminally investigate or prosecute any alcohol or drug abuse patient.[facility] CenterIn the event this information is protected by the Federal Confidentiality of Alcohol and Drug Abuse Patient Records regulations: The Federal rules restrict any use of the information to criminally investigate or prosecute any alcohol or drug abuse patient.[facility] CenterIn the event this information is protected by the Federal Confidentiality of Alcohol and Drug Abuse Patient Records regulations: The Federal rules restrict any use of the information to criminally investigate or prosecute any alcohol or drug abuse patient.[facility] CenterIn the event this information is protected by the Federal Confidentiality of Alcohol and Drug Abuse Patient Records regulations: The Federal rules restrict any use of the information to criminally investigate or prosecute any alcohol or drug abuse patient.[facility] CenterIn the event this information is protected by the Federal Confidentiality of Alcohol and Drug Abuse Patient Records regulations: The Federal rules restrict any use of the information to criminally investigate or prosecute any alcohol or drug abuse patient.[facility] CenterIn the event this information is protected by the Federal Confidentiality of Alcohol and Drug Abuse Patient Records regulations: The Federal rules restrict any use of the information to criminally investigate or prosecute any alcohol or drug abuse patient.[facility] CenterIn the event this information is protected by the Federal Confidentiality of Alcohol and Drug Abuse Patient Records regulations: The Federal rules restrict any use of the information to criminally investigate or prosecute any alcohol or drug abuse patient.[facility] CenterIn the event this information is protected by the Federal Confidentiality of Alcohol and Drug Abuse Patient Records regulations: The Federal rules restrict any use of the information to criminally investigate or prosecute any alcohol or drug abuse patient.[facility] CenterIn the event this information is protected by the Federal Confidentiality of Alcohol and Drug Abuse Patient Records regulations: The Federal rules restrict any use of the information to criminally investigate or prosecute any alcohol or drug abuse patient.[facility] CenterIn the event this information is protected by the Federal Confidentiality of Alcohol and Drug Abuse Patient Records regulations: The Federal rules restrict any use of the information to criminally investigate or prosecute any alcohol or drug abuse patient.[facility] CenterIn the event this information is protected by the Federal Confidentiality of Alcohol and Drug Abuse Patient Records regulations: The Federal rules restrict any use of the information to criminally investigate or prosecute any alcohol or drug abuse patient.[facility] CenterIn the event this information is protected by the Federal Confidentiality of Alcohol and Drug Abuse Patient Records regulations: The Federal rules restrict any use of the information to criminally investigate or prosecute any alcohol or drug abuse patient.[facility] CenterIn the event this information is protected by the Federal Confidentiality of Alcohol and Drug Abuse Patient Records regulations: The Federal rules restrict any use of the information to criminally investigate or prosecute any alcohol or drug abuse patient.[facility] CenterIn the event this information is protected by the Federal Confidentiality of Alcohol and Drug Abuse Patient Records regulations: The Federal rules restrict any use of the information to criminally investigate or prosecute any alcohol or drug abuse patient.[facility] CenterIn the event this information is protected by the Federal Confidentiality of Alcohol and Drug Abuse Patient Records regulations: The Federal rules restrict any use of the information to criminally investigate or prosecute any alcohol or drug abuse patient.[facility] CenterIn the event this information is protected by the Federal Confidentiality of Alcohol and Drug Abuse Patient Records regulations: The Federal rules restrict any use of the information to criminally investigate or prosecute any alcohol or drug abuse patient.[facility] CenterIn the event this information is protected by the Federal Confidentiality of Alcohol and Drug Abuse Patient Records regulations: The Federal rules restrict any use of the information to criminally investigate or prosecute any alcohol or drug abuse patient.[facility] CenterIn the event this information is protected by the Federal Confidentiality of Alcohol and Drug Abuse Patient Records regulations: The Federal rules restrict any use of the information to criminally investigate or prosecute any alcohol or drug abuse patient.[facility] CenterIn the event this information is protected by the Federal Confidentiality of Alcohol and Drug Abuse Patient Records regulations: The Federal rules restrict any use of the information to criminally investigate or prosecute any alcohol or drug abuse patient.[facility] CenterIn the event this information is protected by the Federal Confidentiality of Alcohol and Drug Abuse Patient Records regulations: The Federal rules restrict any use of the information to criminally investigate or prosecute any alcohol or drug abuse patient.[facility] Care Teams (unrecognized sec tion and content) Technician Anatomic Pathology Relationship Specialty Start Date End Date Neli Head MD [address] [facility] [address] PCP - General Internal Medicine 04/24/22 Xander Santos, DO [address] [place] [address] Orthopedics 04/24/22 Technician Anatomic Pathology Relationship Specialty Start Date End Date Neli Head MD [address] [place] [address] PCP - General Internal Medicine 04/24/22 Xander Santos, DO [address] [place] [address] Orthopedics 04/24/22 Team Status: Active Member Role Status Dates LYNDA CLARKE Family Provider Active Dr. Neli Head MD Primary Care Provider Active Team Status: Inactive Member Role Status Dates Dr. Neli Head MD Primary Care Provider, Attendi Provider Active Team Status: Inactive Member Role Status Dates Dr. Neli Head MD Primary Care Pro vider, Attending Provider, Referring Provider Active Team Status: Active Member Role Status Dates LYNDA CLARKE Family Provider Active Dr. Lilia Bergeron MD Primary Care Provider Active Team Status: Inactive Member Role Status Dates Dr. Neli Head MD Primary Care Provider, Referri ng Provider Active Dr. Hector Santos DO Attending Provider Active Team Status: Inactive Member Role Status Dates Dr. Neli Head MD Primary Care Provider, Referri ng Provider Active Dr. Lilia Bergeron MD Attending Provider Active Team Status: Inactive Member Role Status Dates Dr. Neli Head MD Primary Care Provider Active Dr. Vasile Crawford MD Attending Provider Active Team Status: Inactive Member Role Status Dates Dr. Neli Head MD Primary Care Provider Active Dr. Lilia Bergeron MD Attending Provider Active Technician Anatomic Pathology Relationship Specialty Start Date End Date Neli Head MD [address] [place] [address] PCP - General Internal Medicine 04/24/22 Prachi Santosspeh, DO [address] [place] [address] Orthopedics 04/24/22 Team Status: Inactive Member Role Status Dates Dr. Lilia Bergeron MD Primary Care Pro vider, Attending Provider, Referring Provider Active Technician Anatomic Pathology Relationship Specialty Start Date End Date Neli Head MD [address] [place] [address] PCP - General Internal Medicine 04/24/22 Prachi Santosspeh, DO [address] [place] [address] Orthopedics 04/24/22 Technician Anatomic Pathology Relationship Specialty Start Date End Date Neli Head MD [address] [place] [address] PCP - General Internal Medicine 04/24/22 NguyenruPrachispeh, DO [address] [place] [address] Orthopedics 04/24/22 Technician Anatomic Pathology Relationship Specialty Start Date End Date Neli Head MD [address] [place] [address] PCP - General Internal Medicine 04/24/22 Prachi Santosspeh, DO [address] [place] [address] Orthopedics 04/24/22 Team Status: Inactive Member Role Status Dates Dr. Lilia Bergeron MD Primary Care Provider, Referri Provider Active Dr. Raul Willis MD Attending Provider Active Team Status: Inactive Member Role Status Dates Dr. Lilia Bergeron MD Primary Care Provider Active Dr. Vasile Crawford MD Attending Provider Active Technician Anatomic Pathology Relationship Specialty Start Date End Date Lilia Bergeron MD [address] [place] [address] PCP - General Internal Medicine 12/12/23 Prachi Santosspeh, DO [address] [place] [address] Orthopedics 04/24/22 Yeimi Celeste, DIVYA Specialty Toucher Up Orthopedics 12/12/23 Technician Anatomic Pathology Relationship Specialty Start Date End Date Lilia Bergeron MD [address] [place] [address] PCP - General Internal Medicine 12/12/23 Prachi Santosspivan, DO [address] [place] [address] Orthopedics 04/24/22 Yeimi Celeste, RN Specialty Toucher Up Orthopedics 12/12/23 Technician Anatomic Pathology Relationship Specialty Start Date End Date Lilia Bergeron MD [address] [place] [address] PCP - General Internal Medicine 12/12/23 Prachi Santosspivan, DO [address] [place] [address] Orthopedics 04/24/22 Yeimi Celeste, DIVYA Specialty Toucher Up Orthopedics 12/12/23 Technician Anatomic Pathology Relationship Specialty Start Date End Date Lilia Bergeron MD [address] [place] [address] PCP - General Internal Medicine 12/12/23 Borru, Jospeh, DO [address] [place] [address] Orthopedics 04/24/22 Technician Anatomic Pathology Relationship Specialty Start Date End Date Lilia Bergeron MD [address] [place] [address] PCP - General Internal Medicine 12/12/23 [place], Jospeh, DO [address] [place] [address] Orthopedics 04/24/22 Technician Anatomic Pathology Relationship Specialty Start Date End Date Lilia Bergeron MD [address] [place] [address] PCP - General Internal Medicine 12/12/23 [place], Prachispeh, DO [address] [place] [address] Orthopedics 04/24/22 Technician Anatomic Pathology Relationship Specialty Start Date End Date Lilia Bergeron MD [address] [place] [address] PCP - General Internal Medicine 12/12/23 NguyenPrachi umanzorspeh, DO [address] [place] [address] Orthopedics 04/24/22 Technician Anatomic Pathology Relationship Specialty Start Date End Date Lilia Bergeron MD [address] [place] [address] PCP - General Internal Medicine 12/12/23 [place], Jospeh, DO [address] [place] [address] Orthopedics 04/24/22 Technician Anatomic Pathology Relationship Specialty Start Date End Date Lilia Bergeron MD [address] [place] [address] PCP - General Internal Medicine 12/12/23 Borruso, Jospeh, DO [address] [place] [address] Orthopedics 04/24/22 Technician Anatomic Pathology Relationship Specialty Start Date End Date Lilia Bergeron MD [address] [place] [address] PCP - General Internal Medicine 12/12/23 Borruso, Jospeh, DO [address] [place] [address] Orthopedics 04/24/22 Technician Anatomic Pathology Relationship Specialty Start Date End Date Lilia Bergeron MD [address] [place] [address] PCP - General Internal Medicine 12/12/23 [place], Jospeh, DO [address] [place] [address] Orthopedics 04/24/22 Technician Anatomic Pathology Relationship Specialty Start Date End Date Lilia Bergeron MD [address] [place] [address] PCP - General Internal Medicine 12/12/23 Nguyenruerna Jospeh, DO [address] [place] [address] Orthopedics 04/24/22 Technician Anatomic Pathology Relationship Specialty Start Date End Date Lilia Bergeron MD [address] [place] [address] PCP - General Internal Medicine 12/12/23 [facility], Jospeh, DO [address] [place] [address] Orthopedics 04/24/22 Technician Anatomic Pathology Relationship Specialty Start Date End Date Lilia Bergeron MD [address] [place] [address] PCP - General Internal Medicine 12/12/23 Nguyenruso, Jospeh, DO [address] [place] [address] Orthopedics 04/24/22 Technician Anatomic Pathology Relationship Specialty Start Date End Date Lilia Bergeron MD [address] [place] [address] PCP - General Internal Medicine 12/12/23 Borruso, Jospeh, DO Orthopedics 04/24/22 Technician Anatomic Pathology Relationship Specialty Start Date End Date Lilia Bergeron MD [address] [place] [address] PCP - General Internal Medicine 12/12/23 Borruso, Jospeh, DO Orthopedics 04/24/22 Technician Anatomic Pathology Relationship Specialty Start Date End Date Lilia Bergeron MD [address] [place] [address] PCP - General Internal Medicine 12/12/23 Borruso, Jospeh, DO Orthopedics 04/24/22 Technician Anatomic Pathology Relationship Specialty Start Date End Date Neli Head MD [address] [place] [address] PCP - General Internal Medicine 04/24/22 12/11/23 Borruso, Jospeh, DO [address] [place] [address] Orthopedics 04/24/22 Technician Anatomic Pathology Relationship Specialty Start Date End Date Lilia Bergeron MD [address] [place] [address] PCP - General Internal Medicine 12/12/23 Borruso, Jospeh, DO Orthopedics 04/24/22 Technician Anatomic Pathology Relationship Specialty Start Date End Date Lilia Bergeron MD [address] [place] [address] PCP - General Internal Medicine 12/12/23 Borruso, Jospeh, DO Orthopedics 04/24/22 Technician Anatomic Pathology Relationship Specialty Start Date End Date Lilia Bergeron MD [address] [place] [address] PCP - General Internal Medicine 12/12/23 Borruso, Jospeh, DO Orthopedics 04/24/22 Technician Anatomic Pathology Relationship Specialty Start Date End Date Lilia Bergeron MD [address] [place] [address] PCP - General Internal Medicine 12/12/23 Borruso, Jospeh, DO Orthopedics 04/24/22 Technician Anatomic Pathology Relationship Specialty Start Date End Date Lilia Bergeron MD [address] [place] [address] PCP - General Internal Medicine 12/12/23 Borruso, Jospeh, DO Orthopedics 04/24/22 Technician Anatomic Pathology Relationship Specialty Start Date End Date Lilia Bergeron MD [address] [place] [address] PCP - General Internal Medicine 12/12/23 Borruso, Jospeh, DO Orthopedics 04/24/22 Technician Anatomic Pathology Relationship Specialty Start Date End Date Lilia Bergeron MD [address] [place] [address] PCP - General Internal Medicine 12/12/23 Borruso, Jospeh, DO Orthopedics 04/24/22 Team Status: Inactive Member Role Status Dates Dr. Lilia Bergeron MD Primary Care Provider Active Start: February 03, 2025 End: February 03, 2025 Dr. Lilia Bergeron MD Attending Provider Active Start: February 03, 2025 End: February 03, 2025 Dr. Lilia Bergeron MD Referring Provider Active Start: February 03, 2025 End: February 03, 2025 Team Status: Inactive Member Role Status Dates Dr. Lilia Bergeron MD Primary Care Provider Active Start: February 11, 2025 End: February 11, 2025 Dr. Lilia Bergeron MD Attending Provider Active Start: February 11, 2025 End: February 11, 2025 Dr. Lilia Bergeron MD Referring Provider Active Start: February 11, 2025 End: February 11, 2025 Team Status: Inactive Member Role Status Dates Dr. Lilia Bergeron MD Primary Care Provider Active Start: February 12, 2025 End: February 12, 2025 Dr. Lilia Bergeron MD Attending Provider Active Start: February 12, 2025 End: February 12, 2025 Dr. Lilia Bergeron MD Referring Provider Active Start: February 12, 2025 End: February 12, 2025 Technician Anatomic Pathology Relationship Specialty Start Date End Date Lilia Bergeron MD [address] [place] [address] PCP - General Internal Medicine 12/12/23 Borruso, Jospeh, DO Orthopedics 04/24/22 Technician Anatomic Pathology Relationship Specialty Start Date End Date Lilia Bergeron MD [address] [place] [address] PCP - General Internal Medicine 12/12/23 Borruso, Jospeh, DO Orthopedics 04/24/22 Technician Anatomic Pathology Relationship Specialty Start Date End Date Lilia Bergeron MD [address] [place] [address] PCP - General Internal Medicine 12/12/23 Borruso, Jospeh, DO Orthopedics 04/24/22 Team Status: Active Member Role Status Dates Dr. Lilia Bergeron MD Primary Care Provider Active Team Status: Inactive Member Role Status Dates Dr. Lilia Bergeron MD Primary Care Provider Active Start: April 09, 2025 End: April 09, 2025 Dr. Lilia Bergeron MD Attending Provider Active Start: April 09, 2025 End: April 09, 2025 Dr. Lilai Bergeron MD Referring Provider Active Start: April 09, 2025 End: April 09, 2025 Team Status: Active Member Role/Relationship Status Dates Dr. Lilia Bergeron MD Primary care physician Active Team Status: Inactive Member Role/Relationship Status Dates Dr. Lilia Bergeron MD Primary care physician Active Start: August 13, 2025 End: August 13, 2025 Dr. Lilia Bergeron MD Referring Provider Active Start: August 13, 2025 End: August 13, 2025 BIM NURSE Attending physician Active Start: Kobe swartz 2024 End: August 13, 2025 Team Status: Inactive Member Role/Relationship Status Dates Dr. Lilia Bergeron MD Primary care physician Active Start: August 13, 2025 End: August 13, 2025 Dr. Lilia Bergeron MD Attending physician Active Start: August 13, 2025 End: August 13, 2025 Dr. Lilia Bergeron MD Referring Provider Active Start: August 13, 2025 End: August 13, 2025 Team Status: Inactive Member Role/Relationship Status Dates Dr. Lilia Bergeron MD Primary care physician Active Start: August 26, 2025 End: August 26, 2025 Dr. Lilia Bergeron MD Referring Provider Active Start: August 26, 2025 End: August 26, 2025 Itz PIZANO PA Attending physician Active S tart: August 26, 2025 End: August 26, 2025 Reason for Visit (unrecogniz ed section and content) Reason Comments PT Discharge Specialty Diagnoses / Procedures Referred By Contac t Referred To Contact [facility] Diagnoses S/P reverse total shoulder arthroplasty, right Procedures PT REHAB FOLLOW UP ORDER THERAPEUTIC EXERCISES RE, EA 15 MIN. Scott Rivera, PT, DPT [facility] [place] [address] [place] [address] Referral ID Status Reason Start Date Expiration Date Visits Requested Visits Authorized [id number] Authorized PCP Requested Referral Auto-Generate d Referral 01/22/2024 05/19/2024 8 8 Reason Comments Patient Question review results Reason Comments New Pain Reason Comments New Pain with movement Pain Pain with movement Reason Comments PT Eval Specialty Diagnoses / Procedures Referred By Contac t Referred To Contact PHYSICAL THERAPY Diagnoses RT SHOULDER IN PAIN EVAL DOS 12/12/2023 Procedures NEW RS PT ORTH K Bianka Rivera MD [address] [place] [address], [place] [address] Pt [facility] [address] [place] [address] Referral ID Status Reason Start Date Expiration Date Visits Re quested Visits Authorized [id number] Closed 11/19/2023 11/18/2024 1 1 Reason Comments Physical Therapy Specialty Diagnoses / Procedures Referred By Contac t Referred To Contact [facility] Diagnoses S/P reverse total shoulder arthroplasty, right Procedures PT REHAB FOLLOW UP ORDER THERAPEUTIC EXERCISES RE, EA 15 MIN. Bianka Rivera MD [address] [place] [address] [facility] [address] [address] Referral ID Status Reason Start Date Expiration Date Visits Requested Visits Authorized [id number] Authorized PCP Requested Referral Auto-Generate d Referral 12/25/2023 03/24/2024 8 8 Reason Comments PT Progress Note Specialty Diagnoses / Procedures Referred By Contac t Referred To Contact [facility] Diagnoses S/P reverse total shoulder arthroplasty, right Procedures PT REHAB FOLLOW UP ORDER THERAPEUTIC EXERCISES RE, EA 15 MIN. Bianka Rivera MD [address] [place] [address] [place] [address] [facility] [address] [address] Referral ID Status Reason Start Date Expiration Date V isits Requested Visits Authorized [id number] Closed PCP Requested Referral Auto-Generated Referral 12/25/2023 03/24/2024 8 8 Reason Comments Follow Up Pain Reason Comments Appointment Reason Comments Established Patient Post Op Pain Reason Comments New Patient Evaluation C/o tremors *22yr s, mother had parkinson's, patient states when sitting still no tremors but when trying to carry something hands tremor, right hand more than left. Concerned about driving Reason Comments Established Patient Pain Reason Comments Patient Update Reason Comments Established Patient Follow Up Pain Reason Comments Follow Up Tremors followup Reason Comments PT Eval Specialty Diagnoses / Procedures Referred By Contac t Referred To Contact PHYSICAL THERAPY Diagnoses Essential tremor Procedures CONSULT TO PHYSICAL THERAPY PHYSICAL THERAPY EVALUATION HIGH COMPLEX 45 MINS Sarah Chou PA-C [address] [place] [address] Alexus Burgos, PT [address] [place] [address] Referral ID Status Reason Start Date Expiration Date Visits Requested Visits Authorized [id number] Pending Review Auto-Generat ed Referral 09/24/2024 09/24/2025 1 1 Reason Comments Established Patient Tremor, memory loss Reason Onset Date Comments Refill Request 02/06/2025 Reason Comments New Patient Essential Tremor Specialty Diagnoses / Procedures Referred By Contac t Referred To Contact Neurology Diagnoses Essential tremor Procedures CONSULT TO NEUROLOGY OFFICE/OUTPATIENT NEW HIGH MDM 60 MINUTES Sarah Chou PA-C [address] [place] [address] Phone: tel: fax: Referral ID Status Reason Start Date Expiration Date V isits Requested Visits Authorized [id number] Closed PCP Requested Referral 12/31/2024 12/31/2025 1 1 Reason Onset Date Comments Refill Request 03/24/2025 Reason Comments Patient Question Reason Comments Refill Request FOR RECORDS PERTAINING TO PATIENTS WHO ARE [...] BE BASED ON THE PRIMARY CLINICAL RECORDS. [employer] [facility]. provides no warranty or guarantee of the accuracy or completeness of information in this document.
== END | disposition home or self-care (01) ==
LOC: MTLAB 15:21
PROVIDERS: PCP Internal Medicine; Referring Provider Physician Assistant; Visit Provider Physician Assistant
DX: R42 Dizziness and giddiness (principal); E03.9 Hypothyroidism, unspecified
CPT/HCPCS: 36415; 80053; 83735; 84443; 85025